=== PATIENT | female | born 1935 | race Caucasian/White ===

== ENCOUNTER → 2016-07-30 | Outpatient (CLI) | payer MEDICARE, OTHER ==
[~2016-07-30] MED LIST: ALEN70TA47 PO; ALN70T PO; ASP81TEC PO; CALC-754 PO; CALC-760 PO; CALC-80 PO; CHOL200035 PO; DICL100G13 TOP; DILT240C PO; DILT240C96 PO; FURO20TA4 PO; FURO40TA4 PO; HYDR-2890 PO; ISM60TCR PO; KCL20TCR PO; LEVO125T6 PO; LVT.1T PO; MULT-974 PO; OMEG-12 PO; OMEG-9 PO; OMEP-10 PO; ONDA4TAB11 PO; ONDA4TAB8 PO; POTA10TA6 PO; POTA20PI IV; POTA99TA7 PO; RIVA20TA2 PO; SCR1T1 PO; SMV20T PO; TRAM50TA2 PO; UBID100C17 PO; WARF5TAB PO; WRF2.5T PO; WRF5T PO; [UNRECOGNIZED DRUG - OTHER] PO; [UNRECOGNIZED DRUG - OTHER] PO; [UNRECOGNIZED DRUG - OTHER] PO
--- NOTE | 2016-07-30 13:17 | Diagnostic Imaging Report ---
PROCEDURE: MR imaging left lower extremity without contrast. TECHNIQUE: Multiplanar, multisequence non contrast enhanced MR imaging of the left midfoot and forefoot was accomplished. INDICATION: Midfoot pain. Assess for stress fracture. COMPARISON: None available. FINDINGS: There is no bone marrow edema within the metatarsals or tarsal bones of the midfoot to indicate acute/subacute stress fracture. There is a fine linear T1 hypointense line extending through the base of the fourth metatarsal, which could relate to old healed stress fracture. No cortical erosions or marrow replacing process to suggest osteomyelitis. No MRI findings to suggest neuropathic joint. There are degenerative changes at the third TMT articulation with subcortical cysts on both sides of the joint. There are also degenerative changes of the second TMT articulation with dorsal osteophyte formation and joint space narrowing. There is a crossover deformity of the fourth on the fifth toe. There is either a bipartite medial hallux sesamoid versus old transverse fracture through the proximal pole of the medial hallux sesamoid. The visualized flexor and extensor tendons of the foot are normal. No nodular thickening of the plantar fascia to suggest plantar fibromatosis. Nonspecific subcutaneous edema in the dorsal aspect of the midfoot and forefoot. IMPRESSION: 1. No evidence of acute/subacute tarsal or metatarsal stress fracture. 2. Possible old healed nondisplaced stress fracture of the base of the fourth metatarsal. 3. [id number]-ivkubzna degenerative changes at the tarsometatarsal articulation. No evidence of neuropathic arthropathy of the midfoot. Dictated by: Dictated on workstation # [id number]
== END ==
LOC: RAD 10:42
PROVIDERS: ATTEND Orthopaedic Surgery
DX: M19.072 Primary osteoarthritis, left ankle and foot (principal)

== ENCOUNTER → 2016-08-19 | Outpatient (CLI) | payer MEDICARE, OTHER ==
--- NOTE | 2016-08-19 20:21 | Diagnostic Imaging Report ---
EXAM: Digital mammogram, bilateral screening. The current study was also evaluated with a Computer Aided Detection (CAD) system. COMPARISON to the prior exams of 07/25/15, 07/05/14, 06/22/13, 03/17/12. At this time, there are no current complaints. FINDINGS: The fibroglandular tissue in both breasts is heterogeneously dense. This does limit the sensitivity of this exam. Overall, there does not appear to have been any significant change when compared to the prior study. No primary or secondary sign of malignancy is noted. IMPRESSION: There is no radiographic evidence for malignancy. ACR category one. ACR BI-RADS Category 1: Negative. Result letter will be mailed to the patient. Note: At least 10% of breast cancer is not imaged by mammography. Dictated by: Dictated on workstation # [id number]
== END ==
LOC: RAD 10:10
PROVIDERS: ATTEND Family Medicine
DX: Z12.31 Encounter for screening mammogram for malignant neoplasm of breast (principal)
CPT/HCPCS: 77067

== ENCOUNTER 2017-01-11 05:54 | Emergency (ER) | payer MEDICARE, OTHER ==
[~2017-01-11] VITALS: Ht 160 cm; Wt 79.4 kg
--- NOTE | 2017-01-11 06:06 | ED GU-Female ---
General Chief Complaint: -Female Stated Complaint: BLADDER INFECTION Source: patient, spouse Exam Limitations: no limitations History of Present Illness Time seen by provider: 06:02 Initial Comments Patient presents to ER by private conveyance with chief complaint of burning when she urinates starting just this morning when she woke up around 3 or 4. She has a history of urinary tract infections but no stones. She has not seen any blood in her urine. She has not had any discharge. She has not had any fevers chills nausea vomiting diarrhea. This morning was regular. She denies that she has a allergy to penicillins. She denies any other cost initial symptoms such weight loss sweats chills fevers malaise. She is with high blood pressure and hypothyroidism but has not taken her meds this morning yet. Allergies and Home Medications Allergies Coded Allergies: Penicillins (Verified Allergy, Unknown, 11/17/08) Home Medications Aspirin 81 Mg Tabec, 81 MG PO HS, (Reported) Calcium Carbonate/Vitamin D3 1 Each Tablet, 1 TAB PO BID, (Reported) Cholecalciferol (Vitamin D3) 2,000 Unit Capsule, 2,000 UNIT PO HS, (Reported) Diltiazem Hcl 240 Mg Cap.er.24h, 240 MG PO DAILY, (Reported) Levothyroxine Sodium 125 Mcg Tablet, 125 MCG PO DAILY, (Reported) Omeprazole 20 Mg Capsule.dr, 20 MG PO BID, #60 Ref 2 (Reported) Simvastatin 20 Mg Tab, 20 MG PO HS, (Reported) HAS NOT TAKEN IN AWHILE Warfarin Sodium 5 Mg Tablet, 5 MG PO DAILY for 2 Days TAKE 10 MG TONIGHT AND 5 MG SAT AND SUN RECHECK INR ON THURSDAY Prescribed by: NAHED SHOEMAKER on 07/22/13 1144 Constitutional: see HPI, No chills, No diaphoresis, No fever, No malaise Respiratory: No cough, No short of breath Gastrointestinal: No abdominal pain, No constipation, No diarrhea, No nausea, No vomiting Genitourinary: burning, denies discharge, dysuria, denies frequency, denies flank pain Musculoskeletal: No back pain, No joint pain Skin: No pruritus, No rash Psychiatric/Neurological: Denies Headache, Denies Numbness Endocrine: Denies Increased Thrist, Denies Increased Urine Hematologic/Lymphatic: Easy Bleeding, Easy Bruising Past Juxucro-Tqgrvt-Zmkstj Hx Patient Social History Alcohol Use: Denies Use Recreational Drug Use: No Smoking Status: Never a Smoker Recent Foreign Travel: No Contact w/Someone Who Travel: No Immunizations Up To Date Date of Pneumonia Vaccine: Feb 14, 2009 Date of Influenza Vaccine: Apr 15, 2013 Surgeries HX Surgeries: Yes Respiratory Hx Respiratory Disorders: No Cardiovascular Hx Cardiac Disorders: Yes Neurological Hx Neurological Disorders: Yes Reproductive System Hx Reproductive Disorders: No Sexually Transmitted Disease: 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 Genitourinary Hx Genitourinary Disorders: No Gastrointestinal Hx Gastrointestinal Disorders: No Musculoskeletal Hx Musculoskeletal Disorders: Yes (R KNEE REPLACEMENT) Endocrine Hx Endocrine Disorders: Yes HEENT HX ENT Disorders: No Cancer Hx Cancer: No Psychosocial Hx Psychiatric Problems: No Integumentary HX Skin/Integumentary Disorder: No Blood Transfusions Hx Blood Disorders: No Physical Exam Vital Signs Vital Sign - Last 12Hours 01/11/17 06:00 Temp 97.1 Pulse 81 Resp 20 B/P (MAP) 182/81 Capillary Refill : General Appearance: WD/WN, no apparent distress HEENT: PERRL/EOMI, pharynx normal Cardiovascular: normal peripheral pulses, regular rate, rhythm Respiratory: lungs clear, normal breath sounds Gastrointestinal: normal bowel sounds, non tender, soft Back: normal inspection, no CVA tenderness Neurologic/Psychiatric: alert, oriented x 3 Skin: normal color, warm/dry Progress/Results/Core Measures Results/Orders Lab Results Laboratory Tests Test 01/11/17 06:12 Range/Units Urine Color YELLOW Urine Clarity CLEAR Urine pH 7 5-9 Urine Specific [place] 1.005 L 1.016-1.022 Urine Protein 2+ H NEGATIVE Urine Glucose (UA) NEGATIVE NEGATIVE Urine Ketones NEGATIVE NEGATIVE Urine Nitrite NEGATIVE NEGATIVE Urine Bilirubin NEGATIVE NEGATIVE Urine Urobilinogen NORMAL NORMAL MG/DL Urine Leukocyte Esterase 3+ H NEGATIVE Urine RBC (Auto) 5+ H NEGATIVE Urine RBC 5-10 H /HPF Urine WBC 50-100 H /HPF Urine Squamous Epithelial Cells 2-5 /HPF Urine Crystals NONE /LPF Urine Bacteria FEW H /HPF Urine Casts NONE /LPF Urine Mucus NEGATIVE /LPF Urine Culture Indicated YES My Orders Orders - VALENTE CARBAJAL Ua Culture If Indicated (01/11/17 06:06) Urine Culture (01/11/17 06:12) Vital Signs/I&O Vital Sign - Last 12Hours 01/11/17 06:00 Temp 97.1 Pulse 81 Resp 20 B/P (MAP) 182/81 Departure Impression Impression: Primary Impression: Urinary tract infection Qualified Codes: N30.01 - Acute cystitis with hematuria Disposition: HOME, SELF-CARE Condition: Stable Departure-Patient Inst. Decision time for Depature: 06:31 Referrals: MAYKEL QUINONES MD (PCP/Family) Primary Care Physician Patient Instructions: Urinary Tract Infection, Adult (DC) Add. Discharge Instructions: Drink plenty of fluids. Take your antibiotics to completion. It is usually best take antibiotics with a meal. I also recommend you take probiotics twice daily to try and reduce the incidence of diarrhea while on antibiotics. If you're not feeling better by 3 days or you start to have high fevers or other worrisome symptoms you should return to your doctor or come back to the ER. Please asked her primary care physician to follow up the culture results of the urine in 2-3 days. If you're having mild discomfort it was reasonable to use Tylenol 1000 mg every 8 hours and/or ibuprofen 800 mg every 8 hours as needed. All discharge instructions reviewed with patient and/or family. Voiced understanding. Scripts Cephalexin (Keflex) 500 Mg Capsule 500 MG PO BID for 5 Days, #10 CAP 0 Refills Prov: VALENTE CARBAJAL 01/11/17 Copy Copies To 1: MAYKEL QUINONES MD, TITUS J Jan 11, 2017 06:06
[2017-01-11 06:16] LABS: BILIRUBIN,URINE NEGATIVE (NEGATIVE); KETONES,URINE NEGATIVE (NEGATIVE); LEUKOCYTE ESTERASE ,URINE 3+ (NEGATIVE); NITRITE,URINE NEGATIVE (NEGATIVE); PH,URINE 7 (5-9); PROTEIN,URINE 2+ (NEGATIVE); UROBILINOGEN,URINE NORMAL (NORMAL)
[2017-01-11 06:26] LABS: WBC,URINE 50-100 /HPF
[2017-01-11] MEDS ORDERED: CEPH-507 PO (06:32)
[2017-01-11] MEDS ORDERED: LIDOCAINE 1% INJ 20 ML (XYLOCAINE) VIAL INJ ONE (06:45)
[2017-01-11] MEDS ORDERED: cefTRIAXone 1 GM (ROCEPHIN) VIAL IM ONE (06:45)
[2017-01-11 06:55] VITALS: BP 182/81
== END 2017-01-11 06:55 | disposition home or self-care (01) ==
LOC: EDUNIT# 05:54 → ER 05:57
DX: N39.0 Urinary tract infection, site not specified (principal); Z96.651 Presence of right artificial knee joint; Z90.710 Acquired absence of both cervix and uterus; Z79.01 Long term (current) use of anticoagulants
CPT/HCPCS: 81000; 87088; 87186; 96372; 99284

== ENCOUNTER 2017-02-01 08:48 | Emergency (ER) | payer MEDICARE, OTHER ==
[~2017-02-01] VITALS: Ht 160 cm; Wt 79.4 kg
[~2017-02-01 08:48] MED LIST changes: +CEPH-507 PO
[2017-02-01 09:22] LABS: BILIRUBIN,URINE NEGATIVE (NEGATIVE); KETONES,URINE NEGATIVE (NEGATIVE); LEUKOCYTE ESTERASE ,URINE 3+ (NEGATIVE); NITRITE,URINE NEGATIVE (NEGATIVE); PH,URINE 6 (5-9); PROTEIN,URINE 2+ (NEGATIVE); UROBILINOGEN,URINE NORMAL (NORMAL)
[2017-02-01 09:34] LABS: WBC,URINE >100 /HPF
--- NOTE | 2017-02-01 09:51 | ED GU-Female ---
General Chief Complaint: -Female Stated Complaint: BLADDER INFECTION Nursing Triage Note: PT CO OF UTI SX, FREQUENCY,PAIN, URGENCY FOR A COUPLE DAYS Nursing Sepsis Screen: No Definite Risk Source: patient Exam Limitations: no limitations History of Present Illness Time seen by provider: 09:00 Initial Comments C/O UTI SYMPTOMS SINCE YESTERDAY STATES SYMPTOMS WERE MILD YESTERDAY, BUT WORSE TODAY C/O BURNING, URGENCY, FREQUENCY, SMALL AMOUNTS AND SOME PAIN OVER BLADDER AREA NO FEVER NO NAUSEA/VOMITING HAS MILD LOWER BACK PAIN , BUT IS CHRONIC PROBLEM PT WAS SEEN HERE 3 WEEKS AGO FOR SAME ON 01/11/17 AND GIVEN RX FOR KEFLEX 500 MG BID X 5 DAYS STATES SYMPTOMS WERE BETTER AND THEN RETURNED YESTERDAY CULTURE GREW OUT E. COLI AND IS MCKEON-SENSITIVE PCP: DR. QUINONES Allergies and Home Medications Allergies Coded Allergies: Penicillins (Verified Allergy, Unknown, 11/17/08) Home Medications Aspirin 81 Mg Tabec, 81 MG PO HS, (Reported) Calcium Carbonate/Vitamin D3 1 Each Tablet, 1 TAB PO BID, (Reported) Cephalexin 500 Mg Capsule, 500 MG PO BID for 5 Days, #10 Ref 0 Prescribed by: VALENTE CARBAJAL on 01/11/17 0632 Cholecalciferol (Vitamin D3) 2,000 Unit Capsule, 2,000 UNIT PO HS, (Reported) Diltiazem Hcl 240 Mg Cap.er.24h, 240 MG PO DAILY, (Reported) Levothyroxine Sodium 125 Mcg Tablet, 125 MCG PO DAILY, (Reported) Nitrofurantoin Monohyd/M-Cryst 100 Mg Capsule, 100 MG PO BID, #30 Prescribed by: AVILA WISNTON on 02/01/17 0952 Omeprazole 20 Mg Capsule.dr, 20 MG PO BID, #60 Ref 2 (Reported) Phenazopyridine HCl 200 Mg Tablet, 1 TAB PO TID, #15 Prescribed by: AVILA WINSTON on 02/01/17 0952 Simvastatin 20 Mg Tab, 20 MG PO HS, (Reported) HAS NOT TAKEN IN AWHILE Warfarin Sodium 5 Mg Tablet, 5 MG PO DAILY for 2 Days TAKE 10 MG TONIGHT AND 5 MG SAT AND SUN RECHECK INR ON THURSDAY Prescribed by: NAHED SHOEMAKER on 07/22/13 1144 Constitutional: no symptoms reported Respiratory: no symptoms reported Cardiovascular: no symptoms reported Gastrointestinal: see HPI, abdominal pain, No nausea, No vomiting Genitourinary: see HPI, burning, dysuria, frequency, flank pain, denies hematuria, denies incontinence, pain, urgency Musculoskeletal: see HPI, back pain Skin: no symptoms reported Psychiatric/Neurological: No Symptoms Reported Endocrine: No Symptoms Reported Hematologic/Lymphatic: No Symptoms Reported Past Ticcryq-Bxyghr-Vbeqgr Hx Patient Social History Alcohol Use: Denies Use Recreational Drug Use: No Smoking Status: Never a Smoker Recent Foreign Travel: No Contact w/Someone Who Travel: No Recent Infectious Disease Expo: No Recent Hopitalizations: No Immunizations Up To Date Date of Pneumonia Vaccine: Feb 14, 2009 Date of Influenza Vaccine: Apr 15, 2013 Surgeries HX Surgeries: Yes (RIGHT KNEE REPLACEMENT) Surgeries: Hysterectomy, Joint Replacement, Orthopedic Respiratory Hx Respiratory Disorders: No Cardiovascular Hx Cardiac Disorders: Yes Cardiac Disorders: Atrial Fibrillation, High Cholesterol, Hypertension Neurological Hx Neurological Disorders: Yes Neurological Disorders: Stroke Reproductive System Hx Reproductive Disorders: No Sexually Transmitted Disease: No 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 Genitourinary Hx Genitourinary Disorders: No Gastrointestinal Hx Gastrointestinal Disorders: No Musculoskeletal Hx Musculoskeletal Disorders: Yes (R KNEE REPLACEMENT) Musculoskeletal Disorders: Chronic Back Pain Endocrine Hx Endocrine Disorders: Yes HEENT HX ENT Disorders: No Cancer Hx Cancer: No Psychosocial Hx Psychiatric Problems: No Integumentary HX Skin/Integumentary Disorder: No Blood Transfusions Hx Blood Disorders: No Physical Exam Vital Signs Vital Sign - Last 12Hours 02/01/17 08:55 Temp 97.6 Pulse 76 Resp 18 B/P (MAP) 174/83 Pulse Ox 98 Capillary Refill : Less Than 3 Seconds General Appearance: WD/WN, no apparent distress, other (WELL GROOMED, HAIR FIXED AND FULL MAKEUP ON , TEXTING) Neck: normal inspection Cardiovascular: no JVD, no murmur, irregularly irregular Respiratory: normal breath sounds, no respiratory distress, no accessory muscle use Gastrointestinal: normal bowel sounds, soft, no organomegaly, no pulsatile mass , No distended, No guarding, No rebound, tenderness (MILD SUPRAPUBIC TENDERNESS) , No hernia, No mass Back: other (MILD DIFFUSE LOWER BACK TENDERNESS) Extremities: normal inspection, no pedal edema, no calf tenderness, normal capillary refill Neurologic/Psychiatric: japanese interpreter II-XII nml as tested, no motor/sensory deficits, alert, normal mood/affect, oriented x 3 Skin: normal color, warm/dry Progress/Results/Core Measures Results/Orders Lab Results Laboratory Tests Test 02/01/17 09:00 Range/Units Urine Color YELLOW Urine Clarity SLIGHTLY CLOUDY Urine pH 6 5-9 Urine Specific [place] 1.010 L 1.016-1.022 Urine Protein 2+ H NEGATIVE Urine Glucose (UA) NEGATIVE NEGATIVE Urine Ketones NEGATIVE NEGATIVE Urine Nitrite NEGATIVE NEGATIVE Urine Bilirubin NEGATIVE NEGATIVE Urine Urobilinogen NORMAL NORMAL MG/DL Urine Leukocyte Esterase 3+ H NEGATIVE Urine RBC (Auto) 5+ H NEGATIVE Urine RBC 5-10 H /HPF Urine WBC >100 H /HPF Urine Crystals NONE /LPF Urine Bacteria TRACE /HPF Urine Casts NONE /LPF Urine Mucus SMALL H /LPF Urine Culture Indicated YES My Orders Orders - AVILA WINSTON DO Ua Culture If Indicated (02/01/17 09:04) Urine Culture (02/01/17 09:00) Vital Signs/I&O Vital Sign - Last 12Hours 02/01/17 02/01/17 08:55 09:58 Temp 97.6 Pulse 76 72 Resp 18 18 B/P (MAP) 174/83 Pulse Ox 98 98 Blood Pressure Mean: 113 Departure Impression Impression: Primary Impression: Urinary tract infection Disposition: HOME, SELF-CARE Condition: Stable Departure-Patient Inst. Referrals: MAYKEL QUINONES MD (PCP/Family) Primary Care Physician Patient Instructions: Urinary Tract Infection, Adult (DC) Add. Discharge Instructions: LOTS OF CLEAR LIQUIDS--NO COFFEE, POP OR TEA FOLLOW UP WITH DR. QUINONES IN 3-5 DAYS FOR FURTHER CARE All discharge instructions reviewed with patient and/or family. Voiced understanding. Scripts Nitrofurantoin Monohyd/M-Cryst (Macrobid 100 mg Capsule) 100 Mg Capsule 100 MG PO BID, #30 CAP Prov: AVILA WINSTON DO 02/01/17 Phenazopyridine HCl (Pyridium) 200 Mg Tablet 1 TAB PO TID for BLADDER DISCOMFORT, #15 TAB Prov: AVILA WINSTON DO 02/01/17 AVILA WINSTON DO Feb 01, 2017 09:51
[2017-02-01] MEDS ORDERED: NITR-65 PO (09:52)
[2017-02-01] MEDS ORDERED: PHEN-640 PO (09:52)
[2017-02-01 09:58] VITALS: BP 166/80
== END 2017-02-01 09:58 | disposition home or self-care (01) ==
LOC: EDUNIT# 08:48 → ER 08:50
DX: N39.0 Urinary tract infection, site not specified (principal); I48.91 Unspecified atrial fibrillation; E78.00 Pure hypercholesterolemia, unspecified; I10 Essential (primary) hypertension; Z79.01 Long term (current) use of anticoagulants; Z79.82 Long term (current) use of aspirin; Z86.73 Personal history of transient ischemic attack (TIA), and cerebral infarction without residual deficits; Z90.710 Acquired absence of both cervix and uterus; Z96.661 Presence of right artificial ankle joint
CPT/HCPCS: 81000; 87088; 87186; 99282

== ENCOUNTER 2017-02-11 14:09 | Emergency (ER) | payer MEDICARE, OTHER ==
[~2017-02-11] VITALS: Ht 160 cm; Wt 79.4 kg
[~2017-02-11 14:09] MED LIST changes: +NITR-65 PO; +PHEN-640 PO
[2017-02-11] MEDS ORDERED: ONDANSETRON 4 MG/2 ML (SDV) Z0FRAN IVP ONE (15:00)
--- NOTE | 2017-02-11 15:03 | ED GU-Female ---
General Chief Complaint: -Female Stated Complaint: RUNNING FEVER Nursing Triage Note: c/o urinary frequency. States she was up all night "peeing". Hx of UTI 2 weeks ago. Nursing Sepsis Screen: No Definite Risk Source: patient Exam Limitations: no limitations History of Present Illness Time seen by provider: 14:55 Initial Comments Patient presents to ER by private conveyance with chief complaint that she was diagnosed with a urinary tract infection January 11 by this provider in the ER and was started on Keflex. She says she started feeling better but never totally back to normal. She then came back on 02 February proximally 21 days later and was seen by another ER provider and still had a urinary tract infection. The Escherichia coli grew out the first urine culture was sensitive to Keflex and was pansensitive. She was then put on Macrobid and review of the last urine culture still shows Escherichia coli is pansensitive. She states that she did not really start feeling any better and this Thursday 2 days ago she started having a fever of 101F and some right flank and back pain. She still having a little dysuria and feels very sick. She has mild nausea and took some over-the- counter nausea medicine that made it better. She has not vomited nor has she any nausea diarrhea or rash or chest pain. She has baseline for shortness of breath. She states that she is taking the medicines on time as prescribed. She denies a history of frequent UTIs. She's never had a kidney stone. Allergies and Home Medications Allergies Coded Allergies: Penicillins (Verified Allergy, Unknown, 11/17/08) Home Medications Aspirin 81 Mg Tabec, 81 MG PO HS, (Reported) Calcium Carbonate/Vitamin D3 1 Each Tablet, 1 TAB PO BID, (Reported) Cephalexin 500 Mg Capsule, 500 MG PO BID for 5 Days, #10 Ref 0 Prescribed by: VALENTE CARBAJAL on 01/11/17 0632 Cholecalciferol (Vitamin D3) 2,000 Unit Capsule, 2,000 UNIT PO HS, (Reported) Diltiazem Hcl 240 Mg Cap.er.24h, 240 MG PO DAILY, (Reported) Levothyroxine Sodium 125 Mcg Tablet, 125 MCG PO DAILY, (Reported) Nitrofurantoin Monohyd/M-Cryst 100 Mg Capsule, 100 MG PO BID, #30 Prescribed by: AVILA WINSTON on 02/01/17 0952 Omeprazole 20 Mg Capsule.dr, 20 MG PO BID, #60 Ref 2 (Reported) Phenazopyridine HCl 200 Mg Tablet, 1 TAB PO TID, #15 Prescribed by: AVILA WINSTON on 02/01/17 0952 Simvastatin 20 Mg Tab, 20 MG PO HS, (Reported) HAS NOT TAKEN IN AWHILE Warfarin Sodium 5 Mg Tablet, 5 MG PO DAILY for 2 Days TAKE 10 MG TONIGHT AND 5 MG SAT AND SUN RECHECK INR ON THURSDAY Prescribed by: NAHED SHOEMAKER on 07/22/13 1144 Constitutional: chills, No diaphoresis, fever (yesterday), malaise EENTM: No ear pain, No double vision Respiratory: No cough, No short of breath Cardiovascular: No chest pain, No palpitations Gastrointestinal: abdominal pain, No constipation, No diarrhea, nausea, No vomiting Genitourinary: burning, denies discharge, dysuria, frequency : No Musculoskeletal: back pain (right flank and back ), No joint pain, No joint swelling Skin: No pruritus, No rash Psychiatric/Neurological: Denies Headache, Denies Numbness, Denies Paresthesia Past Snhtgsa-Xgoept-Jajsui Hx Patient Social History Recent Foreign Travel: No Contact w/Someone Who Travel: No Recent Infectious Disease Expo: No Recent Hopitalizations: No Immunizations Up To Date Date of Pneumonia Vaccine: Feb 14, 2009 Date of Influenza Vaccine: Apr 15, 2013 Surgeries History of Surgeries: Yes (HYSTERECTOMY ) Surgeries: Hysterectomy, Joint Replacement, Orthopedic Respiratory History of Respiratory Disorde: No Cardiovascular History of Cardiac Disorders: Yes Cardiac Disorders: Atrial Fibrillation, High Cholesterol, Hypertension Neurological History of Neurological Disord: Yes Neurological Disorders: Stroke Reproductive System Hx Reproductive Disorders: No Sexually Transmitted Disease: No 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 Gastrointestinal History of Gastrointestinal Di: No Musculoskeletal History of Musculoskeletal Dis: Yes (R KNEE REPLACEMENT) Musculoskeletal Disorders: Chronic Back Pain Endocrine History of Endocrine Disorders: Yes Cancer History of Cancer: No Psychosocial History of Psychiatric Problem: No Integumentary History of Skin or Integumenta: No Blood Transfusions History of Blood Disorders: No Physical Exam Vital Signs Vital Sign - Last 12Hours 02/11/17 14:51 Temp 97.0 Pulse 70 Resp 16 B/P (MAP) 118/55 O2 Delivery Room Air Capillary Refill : Less Than 3 Seconds General Appearance: WD/WN, no apparent distress HEENT: PERRL/EOMI, pharynx normal Neck: non-tender, normal inspection Cardiovascular: normal peripheral pulses, no edema, irregularly irregular Respiratory: chest non-tender, lungs clear, normal breath sounds Gastrointestinal: normal bowel sounds, non tender, soft Back: normal inspection, CVA tenderness (R) Extremities: normal inspection, normal capillary refill Neurologic/Psychiatric: alert, oriented x 3 Skin: normal color, warm/dry Lymphatic: no adenopathy Focused Exam Evaluation Lactate Level Laboratory Tests 02/11/17 15:15: Lactic Acid Level 1.60 Lactic Acid Level Laboratory Tests Test 02/11/17 15:15 Lactic Acid Level 1.60 MMOL/L (0.50-2.00) Progress/Results/Core Measures Results/Orders Lab Results Laboratory Tests Test 02/11/17 15:15 02/11/17 15:55 Range/Units White Blood Count 5.7 4.3-11.0 10^3/uL Red Blood Count 4.84 4.35-5.85 10^6/uL Hemoglobin 15.1 11.5-16.0 G/DL Hematocrit 44 35-52 % Mean Corpuscular Volume 91 80-99 FL Mean Corpuscular Hemoglobin 31 25-34 PG Mean Corpuscular Hemoglobin Concent 34 32-36 G/DL Red Cell Distribution Width 13.4 10.0-14.5 % Platelet Count 241 130-400 10^3/uL Mean Platelet Volume 10.2 7.4-10.4 FL Neutrophils (%) (Auto) 66 42-75 % Lymphocytes (%) (Auto) 16 12-44 % Monocytes (%) (Auto) 14 H 0-12 % Eosinophils (%) (Auto) 3 0-10 % Basophils (%) (Auto) 1 0-10 % Neutrophils # (Auto) 3.8 1.8-7.8 X 10^3 Lymphocytes # (Auto) 0.9 L 1.0-4.0 X 10^3 Monocytes # (Auto) 0.8 0.0-1.0 X 10^3 Eosinophils # (Auto) 0.2 0.0-0.3 10^3/uL Basophils # (Auto) 0.1 0.0-0.1 10^3/uL Sodium Level 137 135-145 MMOL/L Potassium Level 3.7 3.6-5.0 MMOL/L Chloride Level 104 98-107 MMOL/L Carbon Dioxide Level 21 21-32 MMOL/L Anion Gap 12 5-14 MMOL/L Blood Urea Nitrogen 16 7-18 MG/DL Creatinine 0.91 0.60-1.30 MG/DL Estimat Glomerular Filtration Rate 59 BUN/Creatinine Ratio 18 Glucose Level 134 H 70-105 MG/DL Lactic Acid Level 1.60 0.50-2.00 MMOL/L Calcium Level 9.0 8.5-10.1 MG/DL Total Bilirubin 0.6 0.1-1.0 MG/DL Aspartate Amino Transf (AST/SGOT) 21 5-34 U/L Alanine Aminotransferase (ALT/SGPT) 26 0-55 U/L Alkaline Phosphatase 112 40-136 U/L Total Protein 6.8 6.4-8.2 GM/DL Albumin 3.9 3.2-4.5 GM/DL Urine Color ADRIA H Urine Clarity SLIGHTLY CLOUDY Urine pH 5 5-9 Urine Specific [place] 1.025 H 1.016-1.022 Urine Protein 2+ H NEGATIVE Urine Glucose (UA) NEGATIVE NEGATIVE Urine Ketones 1+ H NEGATIVE Urine Nitrite NEGATIVE NEGATIVE Urine Bilirubin 2+ H NEGATIVE Urine Urobilinogen 4 H NORMAL MG/DL Urine Leukocyte Esterase 2+ H NEGATIVE Urine RBC (Auto) 1+ H NEGATIVE Urine RBC 0-2 /HPF Urine WBC 0-2 /HPF Urine Squamous Epithelial Cells 10-25 H /HPF Urine Crystals NONE /LPF Urine Bacteria NEGATIVE /HPF Urine Casts PRESENT /LPF Urine Hyaline Casts 0-2 H /LPF Urine Mucus LARGE H /LPF Urine Culture Indicated NO My Orders Orders - VALENTE CARBAJAL Cbc With Automated Diff (02/11/17 14:47) Comprehensive Metabolic Panel (02/11/17 14:47) Ua Culture If Indicated (02/11/17 14:47) Ondansetron Injection (Zofran Injectio (02/11/17 15:00) Lactic Acid Analyzer (02/11/17 14:47) Ct Abd/Pelvis Wo(Kidney Stone) (02/11/17 15:03) Medications Given in ED Current Medications Medications Dose Ordered Sig/[place] Route Start Time Stop Time Status Last Admin Dose Admin Ondansetron HCl 4 mg ONCE ONCE IVP 02/11/17 15:00 02/11/17 15:01 DC 02/11/17 15:30 4 MG Vital Signs/I&O Vital Sign - Last 12Hours 02/11/17 14:51 Temp 97.0 Pulse 70 Resp 16 B/P (MAP) 118/55 O2 Delivery Room Air Blood Pressure Mean: 76 Progress Note #1: Time: 15:27 Progress Note She is been treated with 2 different drugs now for Escherichia coli that is pansensitive and still having fevers despite being on the Macrobid for over 1 week. Mild nausea without vomiting. We'll check a lactate and recheck urine in white cell count as well as her kidney function. This is undertreated pyelonephritis versus's or anatomic issue or possibly stone or malignancy #get a CT scan kidney stone study. Progress Note #2: Time: 17:06 Progress Note Patient's labs not all that remarkable her CT scan didn't show anything acute. Her urine was contaminated however didn't show hallmarks of infection. I would have her stop the antibiotics as these could be explaining her malaise and tiredness. Her fever on Thursday may be from a virus or something else you will don't have in isolation for it yet. I have suggested to her to call her PCP to be seen this week before the weekend and follow up to see if anything changed. If she has any new symptoms she should return here. I'm afraid if we switch up her antibiotics as per previous plan put her on Bactrim or some other similar drugs that we would risk pushing her towards colitis without any obvious gain. Diagnostic Imaging Diagonstic Imaging: CT Plain Films/CT/US/NM/MRI: abdomen, pelvis Comments Phlebolith was seen in the pelvis but no definitive kidney stone. Gallbladder is mildly enlarged but there is no gallbladder wall thickening, stones or inflammation. No dilatation of the renals or ureters. [facility] [place] [place] NAME: TERESA GARNICA [facility] REC#: [id number] PT STATUS: REG ER : 1935 PHYSICIAN: VALENTE CARBAJAL MD ADMIT DATE: 02/11/17/ER Draft Date of Exam:02/11/17 CT ABD/PELVIS WO(KIDNEY STONE) PROCEDURE: CT urinary tract, rule out kidney stone. TECHNIQUE: Multiple contiguous axial images were obtained through the abdomen and pelvis without the use of intravenous contrast. INDICATION: Bladder infection for one month. Back pain and fever for one week. FINDINGS: There is cardiomegaly. The lung bases are clear. The liver, gallbladder, and bile ducts are normal. The spleen, pancreas, and adrenals are normal. The kidneys, ureters, and bladder are normal. There is diverticulosis of the colon with no evidence of diverticulitis or other acute bowel abnormality. There is no free intraperitoneal air or fluid. IMPRESSION: No acute abnormality is seen. Dictated on workstation # [id number] Dict: 02/11/17 1552 Trans: 02/11/17 1556 [id number] Interpreted by: GAVIN CALDERÓN MD Electronically signed by: Reviewed: Reviewed by Me Departure Impression Impression: Primary Impression: Nausea and vomiting Disposition: 01 HOME, SELF-CARE Condition: Stable Departure-Patient Inst. Decision time for Depature: 17:09 Referrals: MAYKEL QUINONES MD (PCP/Family) Primary Care Physician Patient Instructions: Urinary Tract Infection, Adult (DC) Add. Discharge Instructions: Drink plenty of fluids to continue flushing kidneys. Follow up with your PCP by calling her office tomorrow morning at [phone]. Try to be seen if possible this week for the weekend. However if you develop new or worsening symptoms such as fever, intractable nausea and vomiting that did not respond to your Zofran, diarrhea or abdominal pain or other symptoms he should return to the ER or go to your primary care physician which ever is more appropriate. Please discontinue your antibiotics at this time. All discharge instructions reviewed with patient and/or family. Voiced understanding. Copy Copies To 1: MAYKEL QUINONES MD, TITUS J Feb 11, 2017 15:03
[2017-02-11 15:26] LABS: BASOPHILS # (AUTO) 0.1 10^3/uL (0.0-0.1); BASOPHILS % (AUTO) 1 % (0-10); EOSINOPHILS # (AUTO) 0.2 10^3/uL (0.0-0.3); EOSINOPHILS % (AUTO) 3 % (0-10); LYMPHOCYTES # (AUTO) 0.9 X 10^3 (1.0-4.0); LYMPHOCYTES % (AUTO) 16 % (12-44); MEAN CORPUSCULAR HEMOGLOBIN 31 PG (25-34); MEAN CORPUSCULAR HGB CONC 34 G/DL (32-36); MEAN CORPUSCULAR VOLUME 91 FL (80-99); MEAN PLATELET VOLUME 10.2 FL (7.4-10.4); MONOCYTES # (AUTO) 0.8 X 10^3 (0.0-1.0); MONOCYTES % (AUTO) 14 % (0-12); NEUTROPHILS # (AUTO) 3.8 X 10^3 (1.8-7.8); NEUTROPHILS % (AUTO) 66 % (42-75); PLATELET COUNT 241 10^3/uL (130-400); RED BLOOD COUNT 4.84 10^6/uL (4.35-5.85); RED CELL DISTRIBUTION WIDTH 13.4 % (10.0-14.5); WHITE BLOOD COUNT 5.7 10^3/uL (4.3-11.0)
[2017-02-11 15:49] LABS: ALBUMIN 3.9 GM/DL (3.2-4.5); BILIRUBIN,TOTAL 0.6 MG/DL (0.1-1.0); CREATININE SERUM 0.91 MG/DL (0.60-1.30); POTASSIUM 3.7 MMOL/L (3.6-5.0); TOTAL PROTEIN 6.8 GM/DL (6.4-8.2)
--- NOTE | 2017-02-11 15:56 | Diagnostic Imaging Report ---
PROCEDURE: CT urinary tract, rule out kidney stone. TECHNIQUE: Multiple contiguous axial images were obtained through the abdomen and pelvis without the use of intravenous contrast. INDICATION: Bladder infection for one month. Back pain and fever for one week. FINDINGS: There is cardiomegaly. The lung bases are clear. The liver, gallbladder, and bile ducts are normal. The spleen, pancreas, and adrenals are normal. The kidneys, ureters, and bladder are normal. There is diverticulosis of the colon with no evidence of diverticulitis or other acute bowel abnormality. There is no free intraperitoneal air or fluid. IMPRESSION: No acute abnormality is seen. Dictated by: Dictated on workstation # [id number]
[2017-02-11 16:13] LABS: KETONES,URINE 1+ (NEGATIVE); LEUKOCYTE ESTERASE ,URINE 2+ (NEGATIVE); NITRITE,URINE NEGATIVE (NEGATIVE); PH,URINE 5 (5-9); PROTEIN,URINE 2+ (NEGATIVE); UROBILINOGEN,URINE 4 MG/DL (NORMAL)
[2017-02-11 16:38] LABS: WBC,URINE 0-2 /HPF
[2017-02-11 16:39] LABS: HYALINE CASTS, URINE 0-2 /LPF
[2017-02-11 16:43] LABS: BILIRUBIN,URINE 2+ (NEGATIVE)
[2017-02-11 17:18] VITALS: BP 116/60
== END 2017-02-11 17:18 | disposition home or self-care (01) ==
LOC: EDUNIT# 14:09 → ER 14:12
DX: R11.2 Nausea with vomiting, unspecified (principal); E78.00 Pure hypercholesterolemia, unspecified; G89.29 Other chronic pain; M54.9 Dorsalgia, unspecified; I48.91 Unspecified atrial fibrillation; I10 Essential (primary) hypertension; Z96.651 Presence of right artificial knee joint; Z90.710 Acquired absence of both cervix and uterus; Z79.01 Long term (current) use of anticoagulants; Z79.82 Long term (current) use of aspirin; Z87.440 Personal history of urinary (tract) infections
CPT/HCPCS: 36415; 74176; 80053; 81000; 83605; 85025; 96374; 99282

== ENCOUNTER → 2017-04-07 | Outpatient (CLI) | payer MEDICARE, OTHER ==
--- NOTE | 2017-04-07 13:20 | Diagnostic Imaging Report ---
PA and lateral views of the chest. INDICATION: Chest pain. FINDINGS: The lungs are hyperinflated. No focal airspace opacity. The heart is moderately enlarged. No effusion or pneumothorax. The mediastinum and nael appear unremarkable. IMPRESSION: COPD. Cardiomegaly. Dictated by: Dictated on workstation # [id number]
== END ==
LOC: RAD 11:04
PROVIDERS: ATTEND Physician Assistant
DX: J44.9 Chronic obstructive pulmonary disease, unspecified (principal); I51.7 Cardiomegaly; I10 Essential (primary) hypertension; I65.23 Occlusion and stenosis of bilateral carotid arteries
CPT/HCPCS: 71020

== ENCOUNTER → 2017-09-10 | Outpatient (CLI) | payer MEDICARE, OTHER ==
--- NOTE | 2017-09-10 10:42 | Diagnostic Imaging Report ---
INDICATION: Routine screening. COMPARISON: 08/19/2016 and 07/25/2015. TECHNIQUE: Screening digital mammography was performed bilaterally with a Computer Aided Detection (CAD) system. FINDINGS: Both breasts show moderate parenchymal heterogeneity and increased density, limiting the sensitivity of mammography. Scattered benign-appearing parenchymal and vascular calcifications are noted. No mass or malignant appearing microcalcifications are seen. The axillae are unremarkable. IMPRESSION: No mammographic features suspicious for malignancy are identified. ACR BI-RADS Category 2: Benign findings. Result letter will be mailed to the patient. Note: At least 10% of breast cancer is not imaged by mammography. Dictated by: Dictated on workstation # [id number]
== END ==
LOC: RAD 09:22
PROVIDERS: ATTEND Family Medicine
DX: Z12.31 Encounter for screening mammogram for malignant neoplasm of breast (principal)
CPT/HCPCS: 77067

== ENCOUNTER 2017-12-04 05:07 | Emergency (ER) | payer MEDICARE, OTHER ==
[~2017-12-04] VITALS: Ht 160 cm; Wt 79.6 kg
--- OUTSIDE RECORDS SUMMARY | 2017-12-04 05:18 | XMS REPORT | CCD ---
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 Name Role Phone PP Unavailable CCM Unavailable Summary Purpose Interface Exchange Insurance Providers Payer name Policy type / Coverage type Covered green party ID Effective Begin Date Effective End Date WPS Medicare Part B Medicare Part B [id number] 2017 Unknown [employer] [facility] [employer] Medicare Part B [id number] Unknown Family history Sister Diagnosis Age At Onset No Family Disease Entered N/A Runs in the family Diagnosis Age At Onset Heart disease Unknown Social History Social History Element Codes Description Effective Dates Employment Unknown Retired 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 ICD-9: V58.61 ICD-10: Z79.01 Active 06/22/2016 Unknown Atrophy of thyroid (acquired) ICD-9: 244.8 ICD-10: E03.4 Active 08/12/2016 Unknown Essential (primary) hypertension ICD-9: 401.1 ICD-10: I10 Active 06/22/2016 Unknown Slow transit constipation ICD-9: 564.01 ICD-10: K59.01 Active 03/10/2017 Unknown Urinary tract infection, site not specified ICD-9: 599.0 ICD-10: N39.0 Active 02/05/2017 Unknown Cough ICD-9: 786.2 ICD-10: R05 Active 06/10/2015 Unknown Other allergic rhinitis ICD-9: 477.8 ICD-10: J30.89 Active 02/05/2017 Unknown Encounter for immunization ICD-9: V03.89 ICD-10: Z23 Active 09/09/2016 Unknown Mixed hyperlipidemia ICD-9: 272.2 ICD-10: E78.2 Active 02/06/2016 Unknown Other idiopathic peripheral autonomic neuropathy ICD-9: 337.00 ICD-10: G90.09 Active 05/11/2016 Unknown Localized edema ICD-9 : 782.3 ICD-10: R60.0 Active 06/22/2016 Unknown 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 ICD-9: 729.72 ICD-10: M79.A21 Active 05/11/2016 Unknown Cervicalgia ICD-9: 723.1 ICD-10: M54.2 Active 12/09/2015 Unknown Hypothyroidism, unspecified ICD-9: 244.9 ICD-10: E03.9 Active 12/09/2015 Unknown Acute laryngopharyngitis ICD-9: 465.0 ICD-10: J06.0 Active 10/17/2015 Unknown Acute recurrent maxillary sinusitis ICD-9: 461.0 ICD-10: J01.01 Active 10/17/2015 Unknown Allergic rhinitis due to pollen ICD-9: 477.0 ICD-10: J30.1 Active 10/17/2015 Unknown Essential (primary) hypertension ICD-9: 401.9 ICD-10: I10 Active 10/14/2015 Unknown Acute bronchitis due to other specified organisms ICD-9: 466.0 ICD-10: J20.8 Active 08/27/2015 Unknown A-fib ICD-9: 427.31 Active 10/15/2014 Unknown ESSENTIAL HYPERTENSION ICD-9: 401.9 Active 10/15/2014 Unknown INSECT BITE FOREARM ICD-9: 913.4 Active 03/06/2015 Unknown VACCIN FOR INFLUENZA ICD-9: V04.81 Active 03/06/2015 Unknown Cellulitis of leg ICD- 9: 682.6 Active 02/14/2015 Unknown Atrial fibrillation Unknown Active 10/16/2014 Unknown Hypertension Unknown Active 10/16/2014 Unknown Hypothyroid Unknown Active 10/16/2014 Unknown Cough ICD-9: 786.2 Active 10/15/2014 Unknown Rash ICD-9: 782.1 Active 10/15/2014 Unknown Problems Condition Codes Effective Dates Condition Status Dysuria ICD-9: 788.1 ICD-10: R30.0 12/09/2015 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-9: 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.61 ICD-10: Z79.01 06/22/2016 Active Atrophy of thyroid (acquired) ICD-9: 244.8 ICD-10: E03.4 08/12/2016 Active Essential (primary) hypertension ICD-9: 401.1 ICD-10: I10 06/22/2016 Active Slow transit constipation ICD-9: 564.01 ICD-10: K59.01 03/10/2017 Active Urinary tract infection, site not specified ICD-9: 599.0 ICD-10: N39.0 02/05/2017 Active Cough ICD-9: 786.2 ICD-10: R05 06/10/2015 Active Other allergic rhinitis ICD-9: 477.8 ICD-10: J30.89 02/05/2017 Active Encounter for immunization ICD-9: V03.89 ICD-10: Z23 09/09/2016 Active Mixed hyperlipidemia ICD-9: 272.2 ICD-10: E78.2 02/06/2016 Active Other idiopathic peripheral autonomic neuropathy ICD-9: 337.00 ICD-10: G90.09 05/11/2016 Active Localized edema ICD-9 : 782.3 ICD-10: R60.0 06/22/2016 Active 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 ICD-9: 729.72 ICD-10: M79.A21 05/11/2016 Active Cervicalgia ICD-9: 723.1 ICD-10: M54.2 12/09/2015 Active Hypothyroidism, unspecified ICD-9: 244.9 ICD-10: E03.9 12/09/2015 Active Acute laryngopharyngitis ICD-9: 465.0 ICD-10: J06.0 10/17/2015 Active Acute recurrent maxillary sinusitis ICD-9: 461.0 ICD-10: J01.01 10/17/2015 Active Allergic rhinitis due to pollen ICD-9: 477.0 ICD-10: J30.1 10/17/2015 Active Essential (primary) hypertension ICD-9: 401.9 ICD-10: I10 10/14/2015 Active Acute bronchitis due to other specified organisms ICD-9: 466.0 ICD-10: J20.8 08/27/2015 Active A-fib ICD-9: 427.31 10/15/2014 Active ESSENTIAL HYPERTENSION ICD-9: 401.9 10/15/2014 Active INSECT BITE FOREARM ICD-9: 913.4 03/06/2015 Active VACCIN FOR INFLUENZA ICD-9: V04.81 03/06/2015 Active Cellulitis of leg ICD- 9: 682.6 02/14/2015 Active Atrial fibrillation Unknown 10/16/2014 Active Hypertension Unknown 10/16/2014 Active Hypothyroid Unknown 10/16/2014 Active Cough ICD-9: 786.2 10/15/2014 Active Rash ICD-9: 782.1 10/15/2014 Active Medications Medication Codes Instructions Start Date Stop Date Status Fill Instructions warfarin 5 mg tablet RxNorm: 442517 Tablet(s) TAKE 1 TABLET EVERY DAY 07/22/2017 04/17/2018 Active Keflex 500 mg capsule RxNorm: 639911 1 Capsule(s) PO TID 201707/06/2017 Inactive Augmentin 500 mg-125 mg tablet RxNorm: 452766 1 Tablet(s) PO BID 06/10/2017 06/16/2017 Inactive Augmentin 500 mg-125 mg tablet RxNorm: 011815 1 Tablet(s) PO BID 05/26/2017 06/01/2017 Inactive Augmentin 500 mg-125 mg tablet RxNorm: 999065 1 Tablet(s) PO BID 05/26/2017 05/25/2017 Inactive Augmentin 500 mg-125 mg tablet RxNorm: 694972 1 Tablet(s) PO BID 02/23/2017 02/22/2017 Inactive Augmentin 500 mg-125 mg tablet RxNorm: 130116 1 Tablet(s) PO BID 02/23/2017 03/01/2017 Inactive Zofran 4 mg tablet RxNorm: 832461 1 Tablet(s) PO Q6 as needed 02/13/2017 02/12/2017 Inactive Zofran 4 mg tablet RxNorm: 722335 1 Tablet(s) PO Q6 as needed 02/13/2017 02/22/2017 Inactive omeprazole 20 mg capsule,delayed release RxNorm: 585926 TAKE 1 CAPSULE EVERY DAY 02/02/2017 01/27/2018 Active diltiazem CD 240 mg capsule,extended release 24 hr RxNorm: 468877 TAKE 1 CAPSULE EVERY DAY 02/02/2017 01/27/2018 Active Synthroid 100 mcg tablet RxNorm: 625332 1 Tablet(s) PO daily 01/24/2018 Active Synthroid 100 mcg tablet RxNorm: 738476 1 Tablet(s) PO daily 01/29/2017 Inactive Synthroid 100 mcg tablet RxNorm: 836233 1 Tablet(s) PO daily 01/27/2017 Inactive Synthroid 112 mcg tablet RxNorm: 321699 TAKE 1 TABLET EVERY DAY 12/08/2016 01/27/2017 Inactive simvastatin 10 mg tablet RxNorm: 901171 1 Tablet(s) PO daily 02/24/2018 Active Bactrim DS 800 mg-160 mg tablet RxNorm: 772995 1 Tablet(s) PO BID 10/22/2016 11/13/2016 Inactive Bactrim DS 800 mg-160 mg tablet RxNorm: 782001 1 Tablet(s) PO BID 10/22/2016 10/21/2016 Inactive Keflex 500 mg capsule RxNorm: 539827 1 Capsule(s) PO TID 201610/01/2016 Inactive simvastatin 20 mg tablet RxNorm: 851572 1 Tablet(s) PO daily 12/01/2016 Inactive warfarin 5 mg tablet RxNorm: 669075 TAKE 1 TABLET EVERY DAY 05/07/2017 Inactive Synthroid 112 mcg tablet RxNorm: 809388 TAKE 1 TABLET EVERY DAY 07/21/2016 12/07/2016 Inactive potassium chloride ER 10 mEq tablet,extended release RxNorm: 054072 1 Tablet(s) PO daily 06/23/2016 06/22/2016 Inactive pt to take with lasix she has at home potassium chloride ER 10 mEq tablet,extended release RxNorm: 861422 1 Tablet(s) PO daily 06/23/2016 06/27/2016 Inactive pt to take with lasix she has at home Synthroid 112 mcg tablet RxNorm: 689122 TAKE 1 TABLET EVERY DAY 03/04/2016 07/20/2016 Inactive diltiazem CD 240 mg capsule,extended release 24 hr RxNorm: 889774 1 Capsule(s) PO daily 02/06/2016 02/01/2017 Inactive omeprazole 20 mg capsule,delayed release RxNorm: 748097 1 Capsule(s) PO daily 02/06/2016 02/01/2017 Inactive warfarin 5 mg tablet RxNorm: 334020 1 Tablet(s) PO daily 201508/10/2016 Inactive simvastatin 10 mg tablet RxNorm: 991461 1 Tablet(s) PO daily 08/11/2016 Inactive simvastatin 20 mg tablet RxNorm: 863423 1 Tablet(s) PO daily 01/07/2016 Inactive lisinopril 10 mg tablet RxNorm: 831807 1 Tablet(s) PO daily 12/10/2015 Inactive prednisone 20 mg tablet RxNorm: 199439 2 Tablet(s) PO daily 10/201510/22/2015 Inactive Augmentin 500 mg-125 mg tablet RxNorm: 925628 1 Tablet(s) PO TID 10/18/2015 10/27/2015 Inactive ceftriaxone 500 mg solution for injection RxNorm: 2043983 Inj 10/18/2015 10/18/2015 Inactive Kenalog 40 mg/mL suspension for injection RxNorm: 7244029 Milliliter(s) Inj 10/15/2015 10/15/2015 Inactive ceftriaxone 500 mg solution for injection RxNorm: 1180687 Inj 08/28/2015 08/28/2015 Inactive prednisone 20 mg tablet RxNorm: 999632 3 Tablet(s) PO daily 08/30/2015 Inactive amoxicillin 500 mg capsule RxNorm: 447382 1 Capsule(s) PO TID 08/28/2015 09/03/2015 Inactive Kenalog 40 mg/mL suspension for injection RxNorm: 2839919 Milliliter(s) Inj 08/28/2015 08/28/2015 Inactive Keflex 500 mg capsule RxNorm: 856769 1 Capsule(s) PO TID 201507/26/2015 Inactive Keflex 500 mg capsule RxNorm: 272118 1 Capsule(s) PO TID 201508/02/2015 Inactive Synthroid 112 mcg tablet RxNorm: 034398 TAKE 1 TABLET EVERY DAY 06/19/2015 12/15/2015 Inactive Augmentin 500 mg-125 mg tablet RxNorm: 955143 1 Tablet(s) PO TID 06/11/2015 06/20/2015 Inactive ceftriaxone 500 mg solution for injection RxNorm: 7067339 Inj 06/11/2015 06/11/2015 Inactive Kenalog 40 mg/mL suspension for injection RxNorm: 4483994 Milliliter(s) Inj 05/23/2015 05/23/2015 Inactive cefdinir 300 mg capsule RxNorm: 203416 1 Capsule(s) PO BID 02/201505/29/2015 Inactive simvastatin 10 mg tablet RxNorm: 092381 1 Tablet(s) PO daily 12/09/2015 Inactive Synthroid 112 mcg tablet RxNorm: 278575 1 Tablet(s) PO daily 06/18/2015 Inactive warfarin 5 mg tablet RxNorm: 576920 1 Tablet(s) PO daily x4 days and 1/2 tab for 3 days 03/29/2015 12/23/2015 Inactive Keflex 500 mg capsule RxNorm: 377907 1 Capsule(s) PO TID 201402/07/2015 Inactive Keflex 500 mg capsule RxNorm: 840954 1 Capsule(s) PO TID 201402/14/2015 Inactive diltiazem CD 240 mg capsule,extended release 24 hr RxNorm: 264984 1 Capsule(s) PO daily 01/31/2015 03/27/2015 Inactive omeprazole 20 mg capsule,delayed release RxNorm: 846512 1 Capsule(s) PO daily 01/30/2015 01/24/2016 Inactive diltiazem CD 240 mg capsule,extended release 24 hr RxNorm: 436194 1 Capsule(s) PO daily 01/30/2015 01/30/2015 Inactive omeprazole 20 mg capsule,delayed release RxNorm: 594452 1 Capsule(s) PO daily 01/25/2015 01/29/2015 Inactive diltiazem CD 240 mg capsule,extended release 24 hr RxNorm: 611125 1 Capsule(s) PO daily 01/25/2015 01/29/2015 Inactive Vitamin D2 50,000 unit capsule RxNorm: 690070 1 Capsule(s) PO weekly 10/25/2014 10/24/2014 Inactive Vitamin D2 50,000 unit capsule RxNorm: 619258 1 Capsule(s) PO weekly 10/25/2014 01/22/2015 Inactive [SAVINGS FOR NON-COVERED DRUGS -- BIN:[id number], PCN: [id number], Group: [id number], ID# [id number], Questions: . THIS IS NOT INSURANCE.] omeprazole 20 mg capsule,delayed release RxNorm: 500889 1 Capsule(s) PO daily 10/16/2014 11/14/2014 Inactive diltiazem CD 240 mg capsule,extended release 24 hr RxNorm: 873344 1 Capsule(s) PO daily 10/16/2014 11/14/2014 Inactive melatonin 3 mg tablet RxNorm: 344735 1 Tablet(s) PO QHS 201411/14/2014 Inactive lisinopril 10 mg tablet RxNorm: 718936 1 Tablet(s) PO daily 09/201402/12/2015 Inactive Synthroid 112 mcg tablet RxNorm: 452179 1 Tablet(s) PO 201402/12/2015 Inactive Vitamin D2 1,000 unit capsule RxNorm: 422754 1 Capsule(s) PO daily 10/16/2014 11/14/2014 Inactive warfarin 5 mg tablet RxNorm: 308575 1 Tablet(s) PO daily x4 days and 1/2 tab for 3 days 10/16/2014 02/12/2015 Inactive Culturelle oral RxNorm : 6143263 oral No Start Date Active Calcium + D oral RxNorm: 466920 oral No Start Date Active Stool Softener 100 mg capsule RxNorm: 3309760 1-2 Capsule(s) PO daily No Start Date Active Vitamin D3 1,000 unit tablet RxNorm: 895609 1 Tablet(s) PO daily No Start Date Active biotin oral RxNorm: 1588 oral No Start Date Active aspirin 81 mg capsule,delayed release RxNorm: 557356 1 Capsule(s) PO daily No Start Date Active Vitamin B-12 oral RxNorm: 09827 oral No Start Date Active Calcium 600-Vitamin D-Iron oral RxNorm: 4018 oral No Start Date 12/10/2015 Inactive simvastatin 10 mg tablet RxNorm: 842831 1 Tablet(s) PO daily No Start Date 03/28/2015 Inactive Medication Administered Medication Codes Instructions Start Date Status ceftriaxone 500 mg solution for injection RxNorm: 7357423 10/18/2015 No longer Active Kenalog 40 mg/mL suspension for injection RxNorm: 2380793 Milliliter 10/15/2015 No longer Active Kenalog 40 mg/mL suspension for injection RxNorm: 9251323 Milliliter 08/28/2015 No longer Active ceftriaxone 500 mg solution for injection RxNorm: 3869450 08/28/2015 No longer Active ceftriaxone 500 mg solution for injection RxNorm: 2323307 06/11/2015 No longer Active Kenalog 40 mg/mL suspension for injection RxNorm: 3387268 Milliliter 05/23/2015 No longer Active Immunizations Vaccine Codes Date Status Influenza CVX: 141 03/02/2017 completed Pneumococcal (Adult) CVX: 33 09/09/2016 completed Influenza CVX: 141 03/07/2015 completed Influenza CVX: 141 03/15/2014 completed Zoster CVX: 121 06/29/2012 completed Pneumococcal CVX: 33 06/15/2008 completed Assessments Condition Codes Effective Dates Dysuria ICD-10: R30.0 ICD-9: 788.1 06/30/2017 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 ICD-10: Z79.01 ICD-9: V58.61 05/26/2017 Slow transit constipation ICD-10: K59.01 ICD-9: 564.01 05/13/2017 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 ICD-9: 244.8 05/13/2017 Essential (primary) hypertension ICD-10: I10 ICD-9: 401.1 05/13/2017 Urinary tract infection, site not specified ICD-10: N39.0 ICD-9: 599.0 02/19/2017 Other allergic rhinitis ICD-10: J30.89 ICD-9: 477.8 02/05/2017 Cough ICD-10: R05 ICD-9: 786.2 02/05/2017 Mixed hyperlipidemia ICD-10: E78.2 ICD-9: 272.2 09/09/2016 Encounter for immunization ICD-10: Z23 ICD-9: V03.89 09/09/2016 Other idiopathic peripheral autonomic neuropathy ICD-10: G90.09 ICD-9: 337.00 08/12/2016 Localized edema ICD-10: R60.0 ICD-9: 782.3 06/23/2016 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 ICD-10: M79.A21 ICD-9: 729.72 05/12/2016 Hypothyroidism, unspecified ICD-10: E03.9 ICD-9: 244.9 12/10/2015 Cervicalgia ICD-10: M54.2 ICD-9: 723.1 12/10/2015 Acute recurrent maxillary sinusitis ICD-10: J01.01 ICD-9: 461.0 10/18/2015 Acute laryngopharyngitis ICD-10: J06.0 ICD-9: 465.0 10/18/2015 Allergic rhinitis due to pollen ICD-10: J30.1 ICD-9: 477.0 10/18/2015 Essential (primary) hypertension ICD-10: I10 ICD-9: 401.9 10/15/2015 Acute bronchitis due to other specified organisms ICD-10: J20.8 ICD-9: 466.0 08/28/2015 INSECT BITE FOREARM ICD-9: 913.4 2014 A-fib ICD-9: 427.31 03/07/2015 VACCIN FOR INFLUENZA ICD-9: V04.81 2014 ESSENTIAL HYPERTENSION ICD-9: 401.9 03/07 Cellulitis of leg ICD-9: 682.6 2014 Rash ICD-9: 782.1 10/16/2014 Cough ICD-9: 786.2 10/16/2014 Reason For Visit Reason For Visit Effective Dates Notes hypertension 05/13/2017 hypertension 03/10/2017 dysuria 02/19/2017 Hospital Follow Up 02/05/2017 hypertension 09/09/2016 hypertension 08/12/2016 edema 06/23/2016 hypertension 05/12/2016 edema 02/07/2016 hypothyroid 12/10/2015 cough 10/18/2015 cough 10/15/2015 cough 08/28/2015 cough 06/11/2015 cough 05/23/2015 hypertension 03/07/2015 arthropod bite 02/15/2015 cough 10/16/2014 Results Observation Observation Code Item Item Code Result Date Urine Culture Ucult Preliminary NO Growth Day 1 07/02/2017 Urine Culture Ucult Complete NO Growth Day 2 07/02/2017 Pt Rgr5764 PT 27.2 seconds 07/01/2017 Pt Iph4454 INR 2.5 07/01/2017 Pt Thi4992 Low Intensity - 1.5-2.0 07/01/2017 Pt Tpk0686 Mod intensity - 2.0-3.0 07/01/2017 Pt Rdq6471 Hi intensity - 3.0-4.0 07/01/2017 Free T4 Zjf791 FREE T4 1.15 ng/dL 07/01/2017 Tsh Ord6 hTSH II 2.28 uIU/mL 07/01/2017 Urine Culture Ucult Complete >100,000 col/ml aerobic growth sent to ref lab 06/11/2017 Urine Culture Ucult Complete Growth of aerobe sent to ref lab 05/27/2017 Pt Sil0778 PT 30.0 seconds 05/26/2017 Pt Lvc3732 INR 2.8 05/26/2017 Pt Uxg5991 Low Intensity - 1.5-2.0 05/26/2017 Pt Jwk1641 Mod intensity - 2.0-3.0 05/26/2017 Pt Oxj4972 Hi intensity - 3.0-4.0 05/26/2017 Pt Tcy9028 PT 24.2 seconds 04/07/2017 Pt Gqv0669 INR 2.2 04/07/2017 Pt Ksh4892 Low Intensity - 1.5-2.0 04/07/2017 Pt Fxr0720 Mod intensity - 2.0-3.0 04/07/2017 Pt Cbd6264 Hi intensity - 3.0-4.0 04/07/2017 Pt Xbm2965 PT 21.4 seconds 03/10/2017 Pt Ugl6731 INR 1.9 03/10/2017 Pt Bcp6110 Low Intensity - 1.5-2.0 03/10/2017 Pt Hwg8293 Mod intensity - 2.0-3.0 03/10/2017 Pt Vfs0583 Hi intensity - 3.0-4.0 03/10/2017 Culture Urine [id number] URINE CULTURE SEE NOTES 02/23/2017 Culture Urine [id number] Continued Results 02/23/2017 Urine Culture Ucult Complete >100,000 col/ml aerobic growth sent to ref lab 02/20/2017 Cbc With Differential Ord2 WBC 4.75 K/ul 01/28/2017 Cbc With Differential Ord2 RBC 4.39 M/ul 01/28/2017 Cbc With Differential Ord2 HGB 14.4 g/dl 01/28/2017 Cbc With Differential Ord2 HCT 41.3 % 01/28/2017 Cbc With Differential Ord2 Neut% 52.6 % 01/28/2017 Cbc With Differential Ord2 MCV 94.1 fl 01/28/2017 Cbc With Differential Ord2 Lymph% 29.3 % 01/28/2017 Cbc With Differential Ord2 Lewis% 14.1 % 01/28/2017 Cbc With Differential Ord2 MCH 32.8 pg 01/28/2017 Cbc With Differential Ord2 MCHC 34.9 pg 01/28/2017 Cbc With Differential Ord2 Eos% 3.2 % 01/28/2017 Cbc With Differential Ord2 Baso% 0.8 % 01/28/2017 Cbc With Differential Ord2 PLT 242 K/ul 01/28/2017 Cbc With Differential Ord2 RDW 13.9 % 01/28/2017 Cbc With Differential Ord2 Neut ABS# 2.50 K/ul 01/28/2017 Cbc With Differential Ord2 Lymph ABS# 1.39 K/ul 01/28/2017 Cbc With Differential Ord2 Lewis ABS# 0.7 K/ul 01/28/2017 Cbc With Differential Ord2 Eos ABS# 0.2 K/ul 01/28/2017 Cbc With Differential Ord2 Baso ABS# 0.0 K/ul 01/28/2017 Tsh Ord6 hTSH II 0.46 uIU/mL 01/28/2017 Pt Zed7684 PT 25.7 seconds 01/28/2017 Pt Wes8240 INR 2.3 01/28/2017 Pt Apz0305 Low Intensity - 1.5-2.0 01/28/2017 Pt Trq9142 Mod intensity - 2.0-3.0 01/28/2017 Pt Vlg3965 Hi intensity - 3.0-4.0 01/28/2017 Comp Metabolic Aim495 NA 140 mEq/L 01/28/2017 Comp Metabolic Atk460 K 3.9 mEq/L 01/28/2017 Comp Metabolic Ehi396 CL 105 mEq/L 01/28/2017 Comp Metabolic Wps552 CO2 27.0 mEq/L 01/28/2017 Comp Metabolic Hmh662 ANION GAP 12 01/28/2017 Comp Metabolic Bvo632 GLUCOSE 89 mg/dL 01/28/2017 Comp Metabolic Veq290 Creat 0.8 mg/dL 01/28/2017 Comp Metabolic Mqa156 eGFR 69 ml/min/1.73m2 01/28/2017 Comp Metabolic Lsj980 BUN 16 mg/dL 01/28/2017 Comp Metabolic Bba712 B/C Ratio 19.0 Ratio 01/28/2017 Comp Metabolic Rjf518 CALCIUM 9.0 mg/dL 01/28/2017 Comp Metabolic Ijb538 ALK PHOS 96 U/L 01/28/2017 Comp Metabolic Aoo355 AST(SGOT) 16 U/L 01/28/2017 Comp Metabolic Ngw466 ALT(SGPT) 13 U/L 01/28/2017 Comp Metabolic Iyl595 BILI T 0.7 mg/dL 01/28/2017 Comp Metabolic Hyc324 ALBUMIN 3.7 g/dL 01/28/2017 Comp Metabolic Zez977 TPRO 5.9 g/dL 01/28/2017 Comp Metabolic Ybj513 GLOB 2.2 g/dL 01/28/2017 Comp Metabolic Jdu242 A/G Ratio 1.7 Ratio 01/28/2017 Comp Metabolic Det358 Osmo 280 mOsmo 01/28/2017 Lipid Ord30 CHOL 142 mg/dL 01/28/2017 Lipid Ord30 HDL 33.0 mg/dl 01/28/2017 Lipid Ord30 TRIG 160 mg/dL 01/28/2017 Lipid Ord30 LDL 77 mg/dL 01/28/2017 Lipid Ord30 C/HDL 4.3 Ratio 01/28/2017 Pt Jmq0074 PT 25.3 seconds 12/29/2016 Pt Mgg2222 INR 2.5 12/29/2016 Pt Zid8087 Low Intensity - 1.5-2.0 12/29/2016 Pt Mxq2045 Mod intensity - 2.0-3.0 12/29/2016 Pt Wxa0312 Hi intensity - 3.0-4.0 12/29/2016 Pt Oro8652 PT 25.3 seconds 12/01/2016 Pt Bpy9209 INR 2.5 12/01/2016 Pt Jlf6486 Low Intensity - 1.5-2.0 12/01/2016 Pt Miy0285 Mod intensity - 2.0-3.0 12/01/2016 Pt Rgb9481 Hi intensity - 3.0-4.0 12/01/2016 Pt Svb6728 PT 19.2 seconds 11/17/2016 Pt Hiu0823 INR 1.7 11/17/2016 Pt Zog8715 Low Intensity - 1.5-2.0 11/17/2016 Pt Chk0265 Mod intensity - 2.0-3.0 11/17/2016 Pt Rdb4165 Hi intensity - 3.0-4.0 11/17/2016 Pt Yoj3581 PT 36.0 seconds 10/27/2016 Pt Kgb3529 INR 3.9 10/27/2016 Pt Zpb4017 Low Intensity - 1.5-2.0 10/27/2016 Pt Ixb6549 Mod intensity - 2.0-3.0 10/27/2016 Pt Fzf4594 Hi intensity - 3.0-4.0 10/27/2016 Culture Urine [id number] URINE CULTURE SEE NOTES 10/25/2016 Culture Urine [id number] Continued Results 10/25/2016 Urine Culture Ucult Complete >100,000 col/ml aerobic growth sent to ref lab 10/23/2016 Pt Yaq0449 PT 30.7 seconds 09/29/2016 Pt Gxj7532 INR 3.2 09/29/2016 Pt Iwh7035 Low Intensity - 1.5-2.0 09/29/2016 Pt Sca6161 Mod intensity - 2.0-3.0 09/29/2016 Pt Pjq7034 Hi intensity - 3.0-4.0 09/29/2016 Urine Culture Ucult Complete Growth of aerobe sent to ref lab 09/26/2016 Pt Agu5122 PT 33.8 seconds 09/23/2016 Pt Vpt8707 INR 3.6 09/23/2016 Pt Chj7670 Low Intensity - 1.5-2.0 09/23/2016 Pt Swk4902 Mod intensity - 2.0-3.0 09/23/2016 Pt Xet8434 Hi intensity - 3.0-4.0 09/23/2016 Pt Qil7508 PT 33.4 seconds 09/09/2016 Pt Yhq8503 INR 3.6 09/09/2016 Pt Vxz4296 Low Intensity - 1.5-2.0 09/09/2016 Pt Ecb9351 Mod intensity - 2.0-3.0 09/09/2016 Pt Wmr5154 Hi intensity - 3.0-4.0 09/09/2016 Pt Ydl7009 PT 30.2 seconds 08/20/2016 Pt Vrq5586 INR 3.1 08/20/2016 Pt Rhb4609 Low Intensity - 1.5-2.0 08/20/2016 Pt Wtg5019 Mod intensity - 2.0-3.0 08/20/2016 Pt Eed6752 Hi intensity - 3.0-4.0 08/20/2016 Pt Zyi8804 PT 32.1 seconds 08/12/2016 Pt Tin7453 INR 3.4 08/12/2016 Pt Lxp3217 Low Intensity - 1.5-2.0 08/12/2016 Pt Wtx9228 Mod intensity - 2.0-3.0 08/12/2016 Pt Wfd6539 Hi intensity - 3.0-4.0 08/12/2016 Pt Oef3982 PT 25.9 seconds 06/23/2016 Pt Xrn0664 INR 2.5 06/23/2016 Pt Zvl2304 Low Intensity - 1.5-2.0 06/23/2016 Pt Xqz6980 Mod intensity - 2.0-3.0 06/23/2016 Pt Omh2486 Hi intensity - 3.0-4.0 06/23/2016 Cbc With Differential Ord2 WBC 5.72 K/ul 06/23/2016 Cbc With Differential Ord2 RBC 4.17 M/ul 06/23/2016 Cbc With Differential Ord2 HGB 13.5 g/dl 06/23/2016 Cbc With Differential Ord2 Neut% 62.9 % 06/23/2016 Cbc With Differential Ord2 HCT 40.2 % 06/23/2016 Cbc With Differential Ord2 Lymph% 21.0 % 06/23/2016 Cbc With Differential Ord2 MCV 96.4 fl 06/23/2016 Cbc With Differential Ord2 MCH 32.4 pg 06/23/2016 Cbc With Differential Ord2 Lewis% 12.8 % 06/23/2016 Cbc With Differential Ord2 Eos% 2.4 % 06/23/2016 Cbc With Differential Ord2 MCHC 33.6 pg 06/23/2016 Cbc With Differential Ord2 Baso% 0.9 % 06/23/2016 Cbc With Differential Ord2 PLT 249 K/ul 06/23/2016 Cbc With Differential Ord2 Neut ABS# 3.60 K/ul 06/23/2016 Cbc With Differential Ord2 RDW 14.2 % 06/23/2016 Cbc With Differential Ord2 Lymph ABS# 1.20 K/ul 06/23/2016 Cbc With Differential Ord2 Lewis ABS# 0.7 K/ul 06/23/2016 Cbc With Differential Ord2 Eos ABS# 0.1 K/ul 06/23/2016 Cbc With Differential Ord2 Baso ABS# 0.1 K/ul 06/23/2016 Comp Metabolic Wge734 NA 138 mEq/L 06/23/2016 Comp Metabolic Vag735 K 3.8 mEq/L 06/23/2016 Comp Metabolic Wdh556 CL 103 mEq/L 06/23/2016 Comp Metabolic Czr051 CO2 28.0 mEq/L 06/23/2016 Comp Metabolic Rqz956 ANION GAP 11 06/23/2016 Comp Metabolic Uxz435 GLUCOSE 107 mg/dL 06/23/2016 Comp Metabolic Bgg849 Creat 0.8 mg/dL 06/23/2016 Comp Metabolic Qdl740 eGFR 75 ml/min/1.73m2 06/23/2016 Comp Metabolic Ljm804 BUN 17 mg/dL 06/23/2016 Comp Metabolic Qke856 B/C Ratio 21.8 Ratio 06/23/2016 Comp Metabolic Fky946 CALCIUM 9.4 mg/dL 06/23/2016 Comp Metabolic Eqp246 ALK PHOS 101 U/L 06/23/2016 Comp Metabolic Paq733 AST(SGOT) 17 U/L 06/23/2016 Comp Metabolic Alq829 ALT(SGPT) 13 U/L 06/23/2016 Comp Metabolic Ngn645 BILI T 0.7 mg/dL 06/23/2016 Comp Metabolic Osd539 ALBUMIN 4.3 g/dL 06/23/2016 Comp Metabolic Yqc092 TPRO 6.6 g/dL 06/23/2016 Comp Metabolic Bsl976 GLOB 2.3 g/dL 06/23/2016 Comp Metabolic Lyc805 A/G Ratio 1.8 Ratio 06/23/2016 Comp Metabolic Jlk244 Osmo 278 mOsmo 06/23/2016 Folate Ord36 Folate 19.88 ng/mL 05/12/2016 Cbc With Differential Ord2 WBC 6.97 K/ul 05/12/2016 Cbc With Differential Ord2 RBC 4.42 M/ul 05/12/2016 Cbc With Differential Ord2 HGB 14.2 g/dl 05/12/2016 Cbc With Differential Ord2 HCT 41.8 % 05/12/2016 Cbc With Differential Ord2 Neut% 67.3 % 05/12/2016 Cbc With Differential Ord2 MCV 94.6 fl 05/12/2016 Cbc With Differential Ord2 Lymph% 19.4 % 05/12/2016 Cbc With Differential Ord2 Lewis% 11.0 % 05/12/2016 Cbc With Differential Ord2 MCH 32.1 pg 05/12/2016 Cbc With Differential Ord2 Eos% 1.7 % 05/12/2016 Cbc With Differential Ord2 MCHC 34.0 pg 05/12/2016 Cbc With Differential Ord2 Baso% 0.6 % 05/12/2016 Cbc With Differential Ord2 PLT 250 K/ul 05/12/2016 Cbc With Differential Ord2 RDW 14.5 % 05/12/2016 Cbc With Differential Ord2 Neut ABS# 4.69 K/ul 05/12/2016 Cbc With Differential Ord2 Lymph ABS# 1.35 K/ul 05/12/2016 Cbc With Differential Ord2 Lewis ABS# 0.8 K/ul 05/12/2016 Cbc With Differential Ord2 Eos ABS# 0.1 K/ul 05/12/2016 Cbc With Differential Ord2 Baso ABS# 0.0 K/ul 05/12/2016 Comp Metabolic Ray535 NA 138 mEq/L 05/12/2016 Comp Metabolic Umb639 K 3.8 mEq/L 05/12/2016 Comp Metabolic Nex741 CL 104 mEq/L 05/12/2016 Comp Metabolic Ldc492 CO2 25.0 mEq/L 05/12/2016 Comp Metabolic Xii629 ANION GAP 13 05/12/2016 Comp Metabolic Ksk215 GLUCOSE 119 mg/dL 05/12/2016 Comp Metabolic Cos221 Creat 0.8 mg/dL 05/12/2016 Comp Metabolic Jzo739 eGFR 71 ml/min/1.73m2 05/12/2016 Comp Metabolic Vox747 BUN 16 mg/dL 05/12/2016 Comp Metabolic Afc571 B/C Ratio 19.5 Ratio 05/12/2016 Comp Metabolic Xaj600 CALCIUM 9.5 mg/dL 05/12/2016 Comp Metabolic Xnc047 ALK PHOS 95 U/L 05/12/2016 Comp Metabolic Qvt811 AST(SGOT) 17 U/L 05/12/2016 Comp Metabolic Fli699 ALT(SGPT) 18 U/L 05/12/2016 Comp Metabolic Hub696 BILI T 0.6 mg/dL 05/12/2016 Comp Metabolic Get398 ALBUMIN 4.0 g/dL 05/12/2016 Comp Metabolic Sks332 TPRO 6.3 g/dL 05/12/2016 Comp Metabolic Nvt484 GLOB 2.3 g/dL 05/12/2016 Comp Metabolic Nck188 A/G Ratio 1.7 Ratio 05/12/2016 Comp Metabolic Pxc795 Osmo 278 mOsmo 05/12/2016 B12 Byv086 B12 614.00 pg/ml 05/12/2016 Pt Blo1314 PT 29.1 seconds 05/12/2016 Pt Alr4949 INR 2.9 05/12/2016 Pt Pgl5739 Low Intensity - 1.5-2.0 05/12/2016 Pt Zyx1204 Mod intensity - 2.0-3.0 05/12/2016 Pt Tjf4454 Hi intensity - 3.0-4.0 05/12/2016 Pt Utg6246 PT 29.8 seconds 04/21/2016 Pt Qhg5396 INR 3.1 04/21/2016 Pt Ere5225 Low Intensity - 1.5-2.0 04/21/2016 Pt Doe6134 Mod intensity - 2.0-3.0 04/21/2016 Pt Aga8398 Hi intensity - 3.0-4.0 04/21/2016 Pt Wky2350 PT 25.2 seconds 03/24/2016 Pt Qbj3816 INR 2.4 03/24/2016 Pt Epq0564 Low Intensity - 1.5-2.0 03/24/2016 Pt Gey5733 Mod intensity - 2.0-3.0 03/24/2016 Pt Lls3574 Hi intensity - 3.0-4.0 03/24/2016 Pt Iql7648 PT 17.7 seconds 03/06/2016 Pt Byl8011 INR 1.5 03/06/2016 Pt Vnu0463 Low Intensity - 1.5-2.0 03/06/2016 Pt Bqi0870 Mod intensity - 2.0-3.0 03/06/2016 Pt Zbj9873 Hi intensity - 3.0-4.0 03/06/2016 Lipid Ord30 CHOL 153 mg/dL 02/07/2016 Lipid Ord30 HDL 47.0 mg/dl 02/07/2016 Lipid Ord30 TRIG 108 mg/dL 02/07/2016 Lipid Ord30 LDL 84 mg/dL 02/07/2016 Lipid Ord30 C/HDL 3.3 Ratio 02/07/2016 Cbc With Differential Ord2 WBC 6.43 K/ul 02/07/2016 Cbc With Differential Ord2 RBC 4.58 M/ul 02/07/2016 Cbc With Differential Ord2 HGB 15.1 g/dl 02/07/2016 Cbc With Differential Ord2 Neut% 63.1 % 02/07/2016 Cbc With Differential Ord2 HCT 44.5 % 02/07/2016 Cbc With Differential Ord2 MCV 97.2 fl 02/07/2016 Cbc With Differential Ord2 Lymph% 21.9 % 02/07/2016 Cbc With Differential Ord2 MCH 33.0 pg 02/07/2016 Cbc With Differential Ord2 Lewis% 13.1 % 02/07/2016 Cbc With Differential Ord2 MCHC 33.9 pg 02/07/2016 Cbc With Differential Ord2 Eos% 1.6 % 02/07/2016 Cbc With Differential Ord2 Baso% 0.3 % 02/07/2016 Cbc With Differential Ord2 PLT 237 K/ul 02/07/2016 Cbc With Differential Ord2 RDW 13.4 % 02/07/2016 Cbc With Differential Ord2 Neut ABS# 4.06 K/ul 02/07/2016 Cbc With Differential Ord2 Lymph ABS# 1.41 K/ul 02/07/2016 Cbc With Differential Ord2 Lewis ABS# 0.8 K/ul 02/07/2016 Cbc With Differential Ord2 Eos ABS# 0.1 K/ul 02/07/2016 Cbc With Differential Ord2 Baso ABS# 0.0 K/ul 02/07/2016 Pt Drn1206 PT 26.4 seconds 02/07/2016 Pt Hfq3657 INR 2.6 02/07/2016 Pt Rnw7276 Low Intensity - 1.5-2.0 02/07/2016 Pt Lvk8044 Mod intensity - 2.0-3.0 02/07/2016 Pt Noc1478 Hi intensity - 3.0-4.0 02/07/2016 Comp Metabolic Rzb415 NA 137 mEq/L 02/07/2016 Comp Metabolic Guq292 K 3.9 mEq/L 02/07/2016 Comp Metabolic Iyq227 CL 102 mEq/L 02/07/2016 Comp Metabolic Bab582 CO2 32.0 mEq/L 02/07/2016 Comp Metabolic Qja914 ANION GAP 7 02/07/2016 Comp Metabolic Dzx739 GLUCOSE 95 mg/dL 02/07/2016 Comp Metabolic Tyl254 Creat 0.8 mg/dL 02/07/2016 Comp Metabolic Jbd873 eGFR 73 ml/min/1.73m2 02/07/2016 Comp Metabolic Uot100 BUN 20 mg/dL 02/07/2016 Comp Metabolic Wdu111 B/C Ratio 25.0 Ratio 02/07/2016 Comp Metabolic Owr642 CALCIUM 9.4 mg/dL 02/07/2016 Comp Metabolic Skh281 ALK PHOS 68 U/L 02/07/2016 Comp Metabolic Hgn221 AST(SGOT) 16 U/L 02/07/2016 Comp Metabolic Hjf443 ALT(SGPT) 18 U/L 02/07/2016 Comp Metabolic Dbs748 BILI T 0.7 mg/dL 02/07/2016 Comp Metabolic Bwu701 ALBUMIN 4.0 g/dL 02/07/2016 Comp Metabolic Kct902 TPRO 6.4 g/dL 02/07/2016 Comp Metabolic Ofp501 GLOB 2.4 g/dL 02/07/2016 Comp Metabolic Rpq854 A/G Ratio 1.7 Ratio 02/07/2016 Comp Metabolic Wmz933 Osmo 276 mOsmo 02/07/2016 Tsh Ord6 hTSH II 0.16 uIU/mL 02/07/2016 Pt Rjo6435 PT 21.1 seconds 01/11/2016 Pt Iaa9943 INR 1.9 01/11/2016 Pt Noa0381 Low Intensity - 1.5-2.0 01/11/2016 Pt Mul3445 Mod intensity - 2.0-3.0 01/11/2016 Pt Poy8829 Hi intensity - 3.0-4.0 01/11/2016 Comp Metabolic Rur833 NA 137 mEq/L 01/11/2016 Comp Metabolic Ywg535 K 4.0 mEq/L 01/11/2016 Comp Metabolic Chs183 CL 101 mEq/L 01/11/2016 Comp Metabolic Xmv850 CO2 29.0 mEq/L 01/11/2016 Comp Metabolic Cvd196 ANION GAP 11 01/11/2016 Comp Metabolic Wqu462 GLUCOSE 89 mg/dL 01/11/2016 Comp Metabolic Xhb221 Creat 0.9 mg/dL 01/11/2016 Comp Metabolic Bhj004 eGFR 61 ml/min/1.73m2 01/11/2016 Comp Metabolic Lwy484 BUN 22 mg/dL 01/11/2016 Comp Metabolic Sgq784 B/C Ratio 23.7 Ratio 01/11/2016 Comp Metabolic Hlv355 CALCIUM 9.3 mg/dL 01/11/2016 Comp Metabolic Aot133 ALK PHOS 76 U/L 01/11/2016 Comp Metabolic Hqn903 AST(SGOT) 15 U/L 01/11/2016 Comp Metabolic Wze809 ALT(SGPT) 20 U/L 01/11/2016 Comp Metabolic Ica703 BILI T 0.5 mg/dL 01/11/2016 Comp Metabolic Vjx642 ALBUMIN 3.9 g/dL 01/11/2016 Comp Metabolic Cfw848 TPRO 6.2 g/dL 01/11/2016 Comp Metabolic Gak182 GLOB 2.3 g/dL 01/11/2016 Comp Metabolic Oqt224 A/G Ratio 1.7 Ratio 01/11/2016 Comp Metabolic Ofr453 Osmo 277 mOsmo 01/11/2016 Cbc With Differential Ord2 WBC 7.76 K/ul 01/11/2016 Cbc With Differential Ord2 RBC 4.55 M/ul 01/11/2016 Cbc With Differential Ord2 HGB 15.2 g/dl 01/11/2016 Cbc With Differential Ord2 HCT 44.9 % 01/11/2016 Cbc With Differential Ord2 Neut% 68.6 % 01/11/2016 Cbc With Differential Ord2 Lymph% 18.2 % 01/11/2016 Cbc With Differential Ord2 MCV 98.7 fl 01/11/2016 Cbc With Differential Ord2 MCH 33.4 pg 01/11/2016 Cbc With Differential Ord2 Lewis% 11.6 % 01/11/2016 Cbc With Differential Ord2 Eos% 1.3 % 01/11/2016 Cbc With Differential Ord2 MCHC 33.9 pg 01/11/2016 Cbc With Differential Ord2 PLT 246 K/ul 01/11/2016 Cbc With Differential Ord2 Baso% 0.3 % 01/11/2016 Cbc With Differential Ord2 Neut ABS# 5.33 K/ul 01/11/2016 Cbc With Differential Ord2 RDW 14.0 % 01/11/2016 Cbc With Differential Ord2 Lymph ABS# 1.41 K/ul 01/11/2016 Cbc With Differential Ord2 Lewis ABS# 0.9 K/ul 01/11/2016 Cbc With Differential Ord2 Eos ABS# 0.1 K/ul 01/11/2016 Cbc With Differential Ord2 Baso ABS# 0.0 K/ul 01/11/2016 Free T4 Hzu808 FREE T4 1.42 ng/dL 01/11/2016 Tsh Ord6 hTSH II 1.09 uIU/mL 01/11/2016 Pt Nwr9214 PT 23.8 seconds 11/29/2015 Pt Sxq9334 INR 2.3 11/29/2015 Pt Lrt3308 Low Intensity - 1.5-2.0 11/29/2015 Pt Epv0482 Mod intensity - 2.0-3.0 11/29/2015 Pt Nkj0245 Hi intensity - 3.0-4.0 11/29/2015 Pt Dyu9773 PT 31.9 seconds 11/14/2015 Pt Qzg3826 INR 3.4 11/14/2015 Pt Krv2463 Low Intensity - 1.5-2.0 11/14/2015 Pt Eir9559 Mod intensity - 2.0-3.0 11/14/2015 Pt Phe4816 Hi intensity - 3.0-4.0 11/14/2015 Pt Idb8643 PT 23.9 seconds 10/15/2015 Pt Anh2646 INR 2.3 10/15/2015 Pt Szg1699 Low Intensity - 1.5-2.0 10/15/2015 Pt Ezr3762 Mod intensity - 2.0-3.0 10/15/2015 Pt Mia1977 Hi intensity - 3.0-4.0 10/15/2015 Pt Veg1949 PT 27.3 seconds 09/03/2015 Pt Mom2016 INR 2.6 09/03/2015 Pt Nra2030 Low Intensity - 1.5-2.0 09/03/2015 Pt Kga6413 Mod intensity - 2.0-3.0 09/03/2015 Pt Zis3954 Hi intensity - 3.0-4.0 09/03/2015 Pt Eko1456 PT 22.3 seconds 08/06/2015 Pt Hiq6318 INR 2.0 08/06/2015 Pt Yej3834 Low Intensity - 1.5-2.0 08/06/2015 Pt Oxy0145 Mod intensity - 2.0-3.0 08/06/2015 Pt Hqh2967 Hi intensity - 3.0-4.0 08/06/2015 Pt Fcc6527 PT 22.7 seconds 06/18/2015 Pt Emo1173 INR 2.1 06/18/2015 Pt Rql4977 Low Intensity - 1.5-2.0 06/18/2015 Pt Fne2333 Mod intensity - 2.0-3.0 06/18/2015 Pt Dif1707 Hi intensity - 3.0-4.0 06/18/2015 Pt Ocw7787 PT 21.8 seconds 06/11/2015 Pt Lsh3926 INR 2.0 06/11/2015 Pt Akm8261 Low Intensity - 1.5-2.0 06/11/2015 Pt Wuy6410 Mod intensity - 2.0-3.0 06/11/2015 Pt Xpv8597 Hi intensity - 3.0-4.0 06/11/2015 Pt Pfk5307 PT 21.2 seconds 05/28/2015 Pt Xnu7432 INR 1.9 05/28/2015 Pt Eki8154 Low Intensity - 1.5-2.0 05/28/2015 Pt Pgq9148 Mod intensity - 2.0-3.0 05/28/2015 Pt Ybw2760 Hi intensity - 3.0-4.0 05/28/2015 Pt Utb8993 PT 26.7 seconds 05/07/2015 Pt Snd8441 INR 2.6 05/07/2015 Pt Qlf6121 Low Intensity - 1.5-2.0 05/07/2015 Pt Gmf4661 Mod intensity - 2.0-3.0 05/07/2015 Pt Cxk8575 Hi intensity - 3.0-4.0 05/07/2015 Pt Mqw9479 PT 17.7 seconds 04/20/2015 Pt Giu1990 INR 1.5 04/20/2015 Pt Qqp6497 Low Intensity - 1.5-2.0 04/20/2015 Pt Pda5189 Mod intensity - 2.0-3.0 04/20/2015 Pt Eoc6035 Hi intensity - 3.0-4.0 04/20/2015 Pt Cgo2353 PT 13.0 seconds 04/12/2015 Pt Wpn0931 INR 1.0 04/12/2015 Pt Xws1463 Low Intensity - 1.5-2.0 04/12/2015 Pt Mvx8632 Mod intensity - 2.0-3.0 04/12/2015 Pt Voz2498 Hi intensity - 3.0-4.0 04/12/2015 Pt Pjj2823 PT 23.0 seconds 03/07/2015 Pt Uvn9692 INR 2.1 03/07/2015 Pt Rly4678 Low Intensity - 1.5-2.0 03/07/2015 Pt Zvx6467 Mod intensity - 2.0-3.0 03/07/2015 Pt Uvr3096 Hi intensity - 3.0-4.0 03/07/2015 Pt Onp9154 PT 20.3 seconds 02/15/2015 Pt Pbg3166 INR 1.8 02/15/2015 Pt Mzw7098 Low Intensity - 1.5-2.0 02/15/2015 Pt Wfl2797 Mod intensity - 2.0-3.0 02/15/2015 Pt Txc4031 Hi intensity - 3.0-4.0 02/15/2015 Hepatic Wfj821 ALBUMIN 4.1 g/dL 02/08/2015 Hepatic Itw596 TPRO 6.5 g/dL 02/08/2015 Hepatic Iqs834 GLOB 2.4 g/dL 02/08/2015 Hepatic Gfp044 A/G Ratio 1.7 Ratio 02/08/2015 Hepatic Zdi580 ALK PHOS 83 U/L 02/08/2015 Hepatic Phx061 ALT(SGPT) 19 U/L 02/08/2015 Hepatic Oop508 AST(SGOT) 19 U/L 02/08/2015 Hepatic Ueo546 BILI T 0.4 mg/dL 02/08/2015 Hepatic Daj252 BILI D 0.0 mg/dL 02/08/2015 Hepatic Vaf659 BILI I 0.4 mg/dL 02/08/2015 Pt Het1909 PT 22.6 seconds 02/08/2015 Pt Ikd7061 INR 2.1 02/08/2015 Pt Azb8873 Low Intensity - 1.5-2.0 02/08/2015 Pt Rxy4665 Mod intensity - 2.0-3.0 02/08/2015 Pt Mqp3544 Hi intensity - 3.0-4.0 02/08/2015 Lipid Ord30 CHOL 230 mg/dL 02/08/2015 Lipid Ord30 HDL 47.0 mg/dl 02/08/2015 Lipid Ord30 TRIG 180 mg/dL 02/08/2015 Lipid Ord30 LDL 147 mg/dL 02/08/2015 Lipid Ord30 C/HDL 4.9 Ratio 02/08/2015 Review of Systems System Result Effective Dates Constitutional recent illness 05/13/2017 Constitutional No chills 05/13/2017 Constitutional fatigue 05/13/2017 Constitutional No fever 05/13/2017 Constitutional No insomnia 05/13/2017 Constitutional malaise 05/13/2017 Eyes No blindness 05/13/2017 Eyes No vision change 05/13/2017 Ears/Nose/Throat/Neck No dental pain Ears/Nose/Throat/Neck No dizziness 2016 Ears/Nose/Throat/Neck No dysphagia 2016 Ears/Nose/Throat/Neck No headache 2016 Ears/Nose/Throat/Neck No hearing loss Ears/Nose/Throat/Neck No nasal allergies 05/13/2017 Ears/Nose/Throat/Neck No sore throat Ears/Nose/Throat/Neck No postnasal drip 05/13/2017 Ears/Nose/Throat/Neck No sinus congestion 05/13/2017 Cardiovascular No chest pain/pressure Cardiovascular No dyspnea 05/13/2017 Cardiovascular No edema 05/13/2017 Cardiovascular No exercise intolerance Cardiovascular No fatigue 05/13/2017 Cardiovascular hypertension 05/13/2017 Cardiovascular No near-syncope/dizziness 05/13/2017 Respiratory No chest tightness 2016 Respiratory No cough 05/13/2017 Respiratory No dyspnea 05/13/2017 Respiratory No pedal edema 05/13/2017 Gastrointestinal No abdominal pain 2016 Gastrointestinal constipation 05/13/2017 Gastrointestinal No gastroesophageal reflux 05/13/2017 Gastrointestinal No nausea 05/13/2017 Gastrointestinal No vomiting 05/13/2017 Genitourinary/Nephrology No dysuria 05/13 Genitourinary/Nephrology No nocturia Genitourinary/Nephrology No urinary incontinence 05/13/2017 Musculoskeletal stiffness 05/13/2017 Musculoskeletal No swelling 05/13/2017 Musculoskeletal No muscle weakness 2016 Musculoskeletal No myalgias 05/13/2017 Dermatologic No rash 05/13/2017 Dermatologic No scar 05/13/2017 Neurologic No dizziness 05/13/2017 Neurologic No headache 05/13/2017 Neurologic No neck pain 05/13/2017 Neurologic No syncope 05/13/2017 Psychiatric No anxiety 05/13/2017 Psychiatric No depression 05/13/2017 Musculoskeletal joint complaint 2016 Constitutional recent illness 03/10/2017 Constitutional No chills 03/10/2017 Constitutional fatigue 03/10/2017 Constitutional No fever 03/10/2017 Constitutional No insomnia 03/10/2017 Constitutional malaise 03/10/2017 Eyes No blindness 03/10/2017 Eyes No vision change 03/10/2017 Ears/Nose/Throat/Neck No dental pain Ears/Nose/Throat/Neck No dizziness 2016 Ears/Nose/Throat/Neck No dysphagia 2016 Ears/Nose/Throat/Neck No headache 2016 Ears/Nose/Throat/Neck No hearing loss Ears/Nose/Throat/Neck No nasal allergies 03/10/2017 Ears/Nose/Throat/Neck No sore throat Ears/Nose/Throat/Neck No postnasal drip 03/10/2017 Ears/Nose/Throat/Neck No sinus congestion 03/10/2017 Cardiovascular No chest pain/pressure Cardiovascular No dyspnea 03/10/2017 Cardiovascular No edema 03/10/2017 Cardiovascular No exercise intolerance Cardiovascular No fatigue 03/10/2017 Cardiovascular hypertension 03/10/2017 Cardiovascular No near-syncope/dizziness 03/10/2017 Respiratory No chest tightness 2016 Respiratory No cough 03/10/2017 Respiratory No dyspnea 03/10/2017 Respiratory No pedal edema 03/10/2017 Gastrointestinal No abdominal pain 2016 Gastrointestinal constipation 03/10/2017 Gastrointestinal No gastroesophageal reflux 03/10/2017 Gastrointestinal No nausea 03/10/2017 Gastrointestinal No vomiting 03/10/2017 Genitourinary/Nephrology No dysuria 03/10 Genitourinary/Nephrology No nocturia Genitourinary/Nephrology No urinary incontinence 03/10/2017 Musculoskeletal No stiffness 03/10/2017 Musculoskeletal No swelling 03/10/2017 Musculoskeletal No muscle weakness 2016 Musculoskeletal No myalgias 03/10/2017 Dermatologic No scar 03/10/2017 Neurologic No dizziness 03/10/2017 Neurologic No headache 03/10/2017 Neurologic No neck pain 03/10/2017 Neurologic No syncope 03/10/2017 Psychiatric No anxiety 03/10/2017 Psychiatric No depression 03/10/2017 Dermatologic No rash 03/10/2017 Constitutional No recent illness 2016 Constitutional No anorexia 02/19/2017 Constitutional No night sweats 2016 Constitutional No chills 02/19/2017 Constitutional No diaphoresis 02/19/2017 Constitutional No fatigue 02/19/2017 Constitutional No fever 02/19/2017 Constitutional No insomnia 02/19/2017 Constitutional No malaise 02/19/2017 Constitutional No weight loss 02/19/2017 Constitutional No weight gain 02/19/2017 Eyes No eye discharge 02/19/2017 Eyes No eye erythema 02/19/2017 Ears/Nose/Throat/Neck No dizziness 2016 Ears/Nose/Throat/Neck No headache 2016 Cardiovascular No chest pain/pressure 12/2016 Cardiovascular No dyspnea 02/19/2017 Gastrointestinal No abdominal pain 2016 Gastrointestinal No constipation 2016 Gastrointestinal No diarrhea 02/19/2017 Genitourinary/Nephrology No dysuria 02/19 Musculoskeletal No joint complaint 2016 Dermatologic No rash 02/19/2017 Neurologic No alteration of consciousness 02/19/2017 Constitutional No obesity 02/19/2017 Respiratory No cough 02/19/2017 Constitutional recent illness 02/05/2017 Constitutional No anorexia 02/05/2017 Constitutional No night sweats 2016 Constitutional No chills 02/05/2017 Constitutional No diaphoresis 02/05/2017 Constitutional fatigue 02/05/2017 Constitutional No fever 02/05/2017 Constitutional No insomnia 02/05/2017 Constitutional No malaise 02/05/2017 Constitutional No weight loss 02/05/2017 Constitutional No weight gain 02/05/2017 Eyes No eye discharge 02/05/2017 Eyes No eye erythema 02/05/2017 Ears/Nose/Throat/Neck No dizziness 2016 Ears/Nose/Throat/Neck No headache 2016 Ears/Nose/Throat/Neck nasal allergies Ears/Nose/Throat/Neck nasal discharge Ears/Nose/Throat/Neck sinus congestion Cardiovascular No chest pain/pressure Cardiovascular No dyspnea 02/05/2017 Respiratory cough 02/05/2017 Gastrointestinal No abdominal pain 2016 Gastrointestinal No constipation 2016 Gastrointestinal No diarrhea 02/05/2017 Genitourinary/Nephrology No dysuria 02/05 Musculoskeletal No joint complaint 2016 Dermatologic No rash 02/05/2017 Neurologic No alteration of consciousness 02/05/2017 Constitutional No recent illness 2016 Constitutional No chills 09/09/2016 Constitutional No fatigue 09/09/2016 Constitutional No fever 09/09/2016 Constitutional No insomnia 09/09/2016 Constitutional No malaise 09/09/2016 Eyes No blindness 09/09/2016 Eyes No vision change 09/09/2016 Ears/Nose/Throat/Neck No dental pain Ears/Nose/Throat/Neck No dizziness 2016 Ears/Nose/Throat/Neck No dysphagia 2016 Ears/Nose/Throat/Neck No headache 2016 Ears/Nose/Throat/Neck No hearing loss Ears/Nose/Throat/Neck No nasal allergies 09/09/2016 Ears/Nose/Throat/Neck No sore throat Ears/Nose/Throat/Neck No postnasal drip 09/09/2016 Ears/Nose/Throat/Neck No sinus congestion 09/09/2016 Cardiovascular No chest pain/pressure Cardiovascular No dyspnea 09/09/2016 Cardiovascular No edema 09/09/2016 Cardiovascular No exercise intolerance Cardiovascular No fatigue 09/09/2016 Cardiovascular hypertension 09/09/2016 Cardiovascular No near-syncope/dizziness 09/09/2016 Respiratory No chest tightness 2016 Respiratory No cough 09/09/2016 Respiratory No dyspnea 09/09/2016 Respiratory No pedal edema 09/09/2016 Gastrointestinal No abdominal pain 2016 Gastrointestinal No constipation 2016 Gastrointestinal No diarrhea 09/09/2016 Gastrointestinal No gastroesophageal reflux 09/09/2016 Gastrointestinal No nausea 09/09/2016 Gastrointestinal No vomiting 09/09/2016 Genitourinary/Nephrology No dysuria 09/09 Genitourinary/Nephrology No nocturia Genitourinary/Nephrology No urinary incontinence 09/09/2016 Musculoskeletal No stiffness 09/09/2016 Musculoskeletal No swelling 09/09/2016 Musculoskeletal No muscle weakness 2016 Musculoskeletal No myalgias 09/09/2016 Dermatologic No rash 09/09/2016 Dermatologic No sores 09/09/2016 Dermatologic No scar 09/09/2016 Neurologic No dizziness 09/09/2016 Neurologic No headache 09/09/2016 Neurologic No neck pain 09/09/2016 Neurologic No syncope 09/09/2016 Psychiatric No anxiety 09/09/2016 Psychiatric No depression 09/09/2016 Constitutional recent illness 08/12/2016 Constitutional No anorexia 08/12/2016 Constitutional No diaphoresis 08/12/2016 Constitutional fatigue 08/12/2016 Constitutional No fever 08/12/2016 Constitutional No insomnia 08/12/2016 Constitutional No malaise 08/12/2016 Eyes No eye discharge 08/12/2016 Eyes No eye erythema 08/12/2016 Ears/Nose/Throat/Neck No dizziness 2016 Ears/Nose/Throat/Neck No headache 2016 Cardiovascular No chest pain/pressure Cardiovascular No dyspnea 08/12/2016 Cardiovascular edema 08/12/2016 Respiratory cough 08/12/2016 Respiratory dyspnea on exertion 2016 Gastrointestinal No abdominal pain 2016 Gastrointestinal No constipation 2016 Gastrointestinal No diarrhea 08/12/2016 Genitourinary/Nephrology No dysuria 08/12 Musculoskeletal joint complaint 2016 Dermatologic No rash 08/12/2016 Neurologic No alteration of consciousness 08/12/2016 Psychiatric No anxiety 08/12/2016 Neurologic headache 08/12/2016 Constitutional No night sweats 2016 Constitutional No recent illness 2016 Constitutional No anorexia 06/23/2016 Constitutional No chills 06/23/2016 Constitutional No diaphoresis 06/23/2016 Constitutional No fatigue 06/23/2016 Constitutional No fever 06/23/2016 Constitutional No insomnia 06/23/2016 Constitutional No malaise 06/23/2016 Constitutional No weight loss 06/23/2016 Constitutional No weight gain 06/23/2016 Eyes No eye discharge 06/23/2016 Eyes No eye erythema 06/23/2016 Ears/Nose/Throat/Neck No dizziness 2016 Ears/Nose/Throat/Neck No headache 2016 Cardiovascular No chest pain/pressure 02/2017 Cardiovascular No dyspnea 06/23/2016 Cardiovascular edema 06/23/2016 Respiratory No cough 06/23/2016 Respiratory dyspnea on exertion 2016 Gastrointestinal No abdominal pain 2016 Gastrointestinal No constipation 2016 Gastrointestinal No diarrhea 06/23/2016 Genitourinary/Nephrology No dysuria 06/23 Musculoskeletal joint complaint 2016 Dermatologic No rash 06/23/2016 Neurologic No alteration of consciousness 06/23/2016 Psychiatric No anxiety 06/23/2016 Constitutional No recent illness 2015 Constitutional No anorexia 05/12/2016 Constitutional No night sweats 2015 Constitutional No chills 05/12/2016 Constitutional No diaphoresis 05/12/2016 Constitutional No fatigue 05/12/2016 Constitutional No fever 05/12/2016 Constitutional No insomnia 05/12/2016 Constitutional No malaise 05/12/2016 Eyes No eye discharge 05/12/2016 Eyes No eye erythema 05/12/2016 Ears/Nose/Throat/Neck No dizziness 2015 Ears/Nose/Throat/Neck No headache 2015 Ears/Nose/Throat/Neck nasal allergies Ears/Nose/Throat/Neck nasal discharge Ears/Nose/Throat/Neck No sore throat Ears/Nose/Throat/Neck No otalgia 2015 Ears/Nose/Throat/Neck No sinus congestion 05/12/2016 Cardiovascular No chest pain/pressure Cardiovascular No dyspnea 05/12/2016 Cardiovascular No edema 05/12/2016 Respiratory No productive sputum 2015 Respiratory dyspnea on exertion 2015 Gastrointestinal No constipation 2015 Gastrointestinal No diarrhea 05/12/2016 Gastrointestinal No nausea 05/12/2016 Gastrointestinal No vomiting 05/12/2016 Genitourinary/Nephrology No dysuria 05/12 Musculoskeletal back pain 05/12/2016 Musculoskeletal No joint complaint 2015 Musculoskeletal neck pain 05/12/2016 Dermatologic rash 05/12/2016 Neurologic No alteration of consciousness 05/12/2016 Psychiatric No anxiety 05/12/2016 Psychiatric depression 05/12/2016 Endocrine No dry or coarse skin 2015 Cardiovascular No chest pain/pressure Cardiovascular No dyspnea 02/07/2016 Cardiovascular edema 02/07/2016 Respiratory dyspnea on exertion 2015 Respiratory No dyspnea 02/07/2016 Respiratory No productive sputum 2015 Constitutional No recent illness 2015 Constitutional No anorexia 02/07/2016 Constitutional No night sweats 2015 Constitutional No chills 02/07/2016 Constitutional No diaphoresis 02/07/2016 Constitutional No fatigue 02/07/2016 Constitutional No fever 02/07/2016 Constitutional No insomnia 02/07/2016 Constitutional No malaise 02/07/2016 Constitutional No weight loss 02/07/2016 Constitutional No weight gain 02/07/2016 Eyes No eye discharge 02/07/2016 Eyes No eye erythema 02/07/2016 Ears/Nose/Throat/Neck No dizziness 2015 Ears/Nose/Throat/Neck headache 2015 Gastrointestinal No abdominal pain 2015 Gastrointestinal No constipation 2015 Gastrointestinal No diarrhea 02/07/2016 Genitourinary/Nephrology No dysuria 02/06 Musculoskeletal No joint complaint 2015 Dermatologic No rash 02/07/2016 Neurologic No alteration of consciousness 02/07/2016 Endocrine No dry or coarse skin 2015 Constitutional No recent illness 2015 Constitutional No anorexia 12/10/2015 Constitutional No night sweats 2015 Constitutional No chills 12/10/2015 Constitutional No diaphoresis 12/10/2015 Constitutional No fatigue 12/10/2015 Constitutional No fever 12/10/2015 Constitutional No insomnia 12/10/2015 Constitutional No malaise 12/10/2015 Eyes No eye discharge 12/10/2015 Eyes No eye erythema 12/10/2015 Ears/Nose/Throat/Neck No dizziness 2015 Ears/Nose/Throat/Neck No headache 2015 Ears/Nose/Throat/Neck nasal allergies Ears/Nose/Throat/Neck nasal discharge Ears/Nose/Throat/Neck No otalgia 2015 Ears/Nose/Throat/Neck No sinus congestion 12/10/2015 Ears/Nose/Throat/Neck No sore throat Cardiovascular No chest pain/pressure Cardiovascular No dyspnea 12/10/2015 Cardiovascular No edema 12/10/2015 Respiratory No productive sputum 2015 Respiratory cough 12/10/2015 Respiratory dyspnea on exertion 2015 Gastrointestinal No constipation 2015 Gastrointestinal No diarrhea 12/10/2015 Gastrointestinal No nausea 12/10/2015 Gastrointestinal No vomiting 12/10/2015 Genitourinary/Nephrology No dysuria 12/09 Musculoskeletal No joint complaint 2015 Dermatologic rash 12/10/2015 Neurologic No alteration of consciousness 12/10/2015 Psychiatric No anxiety 12/10/2015 Psychiatric depression 12/10/2015 Endocrine No dry or coarse skin 2015 Musculoskeletal neck pain 12/10/2015 Musculoskeletal back pain 12/10/2015 Constitutional recent illness 10/18/2015 Constitutional fatigue 10/18/2015 Constitutional No fever 10/18/2015 Eyes No eye discharge 10/18/2015 Eyes No eye erythema 10/18/2015 Ears/Nose/Throat/Neck dizziness 2015 Ears/Nose/Throat/Neck headache 2015 Ears/Nose/Throat/Neck nasal allergies 10/2015 Ears/Nose/Throat/Neck sore throat 2015 Cardiovascular No chest pain/pressure 10/2015 Respiratory productive sputum 10/18/2015 Respiratory cough 10/18/2015 Gastrointestinal No abdominal pain 2015 Gastrointestinal No diarrhea 10/18/2015 Gastrointestinal No vomiting 10/18/2015 Genitourinary/Nephrology No dysuria 10/17 Musculoskeletal No joint complaint 2015 Dermatologic No rash 10/18/2015 Dermatologic No sores 10/18/2015 Neurologic No alteration of consciousness 10/18/2015 Ears/Nose/Throat/Neck nasal discharge 10/2015 Ears/Nose/Throat/Neck otalgia 10/18/2015 Ears/Nose/Throat/Neck sinus congestion Gastrointestinal constipation 10/18/2015 Gastrointestinal No nausea 10/18/2015 Constitutional recent illness 10/15/2015 Constitutional No anorexia 10/15/2015 Constitutional No night sweats 2015 Constitutional No chills 10/15/2015 Constitutional No diaphoresis 10/15/2015 Constitutional fatigue 10/15/2015 Constitutional No fever 10/15/2015 Constitutional No insomnia 10/15/2015 Constitutional No malaise 10/15/2015 Constitutional No weight loss 10/15/2015 Constitutional No weight gain 10/15/2015 Eyes No eye erythema 10/15/2015 Eyes No eye discharge 10/15/2015 Ears/Nose/Throat/Neck dizziness 2015 Ears/Nose/Throat/Neck headache 2015 Ears/Nose/Throat/Neck nasal allergies 07/2015 Ears/Nose/Throat/Neck otalgia 10/15/2015 Ears/Nose/Throat/Neck sinus congestion Ears/Nose/Throat/Neck No sore throat 07/2015 Cardiovascular No chest pain/pressure 07/2015 Respiratory productive sputum 10/15/2015 Respiratory cough 10/15/2015 Gastrointestinal No abdominal pain 2015 Gastrointestinal constipation 10/15/2015 Gastrointestinal No diarrhea 10/15/2015 Gastrointestinal nausea 10/15/2015 Gastrointestinal No vomiting 10/15/2015 Genitourinary/Nephrology No dysuria 10/14 Musculoskeletal No joint complaint 2015 Dermatologic No sores 10/15/2015 Dermatologic No rash 10/15/2015 Neurologic No alteration of consciousness 10/15/2015 Constitutional recent illness 08/28/2015 Constitutional No fever 08/28/2015 Eyes No eye discharge 08/28/2015 Eyes No eye erythema 08/28/2015 Eyes No vision change 08/28/2015 Ears/Nose/Throat/Neck nasal allergies Ears/Nose/Throat/Neck nasal discharge Ears/Nose/Throat/Neck postnasal drip Ears/Nose/Throat/Neck sinus congestion Ears/Nose/Throat/Neck No sore throat Cardiovascular No chest pain/pressure Cardiovascular No dyspnea 08/28/2015 Cardiovascular No edema 08/28/2015 Respiratory productive sputum 08/28/2015 Respiratory chest congestion 08/28/2015 Respiratory cough 08/28/2015 Respiratory No dyspnea 08/28/2015 Gastrointestinal No abdominal pain 2015 Gastrointestinal No constipation 2015 Gastrointestinal No diarrhea 08/28/2015 Gastrointestinal No nausea 08/28/2015 Gastrointestinal No vomiting 08/28/2015 Dermatologic No scar 08/28/2015 Neurologic No alteration of consciousness 08/28/2015 Psychiatric No anxiety 08/28/2015 Psychiatric No depression 08/28/2015 Constitutional recent illness 06/11/2015 Constitutional No fever 06/11/2015 Eyes No eye discharge 06/11/2015 Eyes No eye erythema 06/11/2015 Eyes No vision change 06/11/2015 Ears/Nose/Throat/Neck nasal allergies Ears/Nose/Throat/Neck nasal discharge Ears/Nose/Throat/Neck postnasal drip Ears/Nose/Throat/Neck sinus congestion Ears/Nose/Throat/Neck No sore throat Cardiovascular No chest pain/pressure Cardiovascular No dyspnea 06/11/2015 Cardiovascular No edema 06/11/2015 Respiratory productive sputum 06/11/2015 Respiratory chest congestion 06/11/2015 Respiratory cough 06/11/2015 Respiratory No dyspnea 06/11/2015 Gastrointestinal No abdominal pain 2014 Gastrointestinal No constipation 2014 Gastrointestinal No diarrhea 06/11/2015 Gastrointestinal No nausea 06/11/2015 Gastrointestinal No vomiting 06/11/2015 Neurologic No alteration of consciousness 06/11/2015 Psychiatric No anxiety 06/11/2015 Psychiatric No depression 06/11/2015 Constitutional recent illness 05/23/2015 Eyes No vision change 05/23/2015 Ears/Nose/Throat/Neck nasal allergies 02/2015 Ears/Nose/Throat/Neck No sore throat 02/2015 Ears/Nose/Throat/Neck postnasal drip 02/2015 Ears/Nose/Throat/Neck sinus congestion Cardiovascular No chest pain/pressure 02/2015 Cardiovascular No dyspnea 05/23/2015 Cardiovascular No edema 05/23/2015 Respiratory cough 05/23/2015 Respiratory No dyspnea 05/23/2015 Gastrointestinal No abdominal pain 2014 Gastrointestinal No constipation 2014 Gastrointestinal No diarrhea 05/23/2015 Gastrointestinal No nausea 05/23/2015 Gastrointestinal No vomiting 05/23/2015 Dermatologic No scar 05/23/2015 Psychiatric No anxiety 05/23/2015 Psychiatric No depression 05/23/2015 Constitutional No fever 05/23/2015 Eyes No eye discharge 05/23/2015 Eyes No eye erythema 05/23/2015 Ears/Nose/Throat/Neck nasal discharge 02/2015 Respiratory productive sputum 05/23/2015 Respiratory chest congestion 05/23/2015 Neurologic No alteration of consciousness 05/23/2015 Constitutional No recent illness 2014 Constitutional No chills 03/07/2015 Constitutional No fatigue 03/07/2015 Constitutional No fever 03/07/2015 Constitutional No insomnia 03/07/2015 Constitutional No malaise 03/07/2015 Eyes No blindness 03/07/2015 Eyes No vision change 03/07/2015 Ears/Nose/Throat/Neck No dental pain Ears/Nose/Throat/Neck No dizziness 2014 Ears/Nose/Throat/Neck No dysphagia 2014 Ears/Nose/Throat/Neck No headache 2014 Ears/Nose/Throat/Neck No hearing loss Ears/Nose/Throat/Neck No nasal allergies 03/07/2015 Ears/Nose/Throat/Neck No sore throat Ears/Nose/Throat/Neck No postnasal drip 03/07/2015 Ears/Nose/Throat/Neck No sinus congestion 03/07/2015 Cardiovascular No chest pain/pressure Cardiovascular No dyspnea 03/07/2015 Cardiovascular No edema 03/07/2015 Cardiovascular No exercise intolerance Cardiovascular No fatigue 03/07/2015 Cardiovascular No near-syncope/dizziness 03/07/2015 Respiratory No chest tightness 2014 Respiratory No cough 03/07/2015 Respiratory No dyspnea 03/07/2015 Respiratory No pedal edema 03/07/2015 Gastrointestinal No abdominal pain 2014 Gastrointestinal No constipation 2014 Gastrointestinal No diarrhea 03/07/2015 Gastrointestinal No gastroesophageal reflux 03/07/2015 Gastrointestinal No nausea 03/07/2015 Gastrointestinal No vomiting 03/07/2015 Genitourinary/Nephrology No dysuria 03/07 Genitourinary/Nephrology No nocturia Genitourinary/Nephrology No urinary incontinence 03/07/2015 Musculoskeletal No stiffness 03/07/2015 Musculoskeletal No swelling 03/07/2015 Musculoskeletal No muscle weakness 2014 Musculoskeletal No myalgias 03/07/2015 Dermatologic No rash 03/07/2015 Dermatologic No sores 03/07/2015 Dermatologic No scar 03/07/2015 Neurologic No dizziness 03/07/2015 Neurologic No headache 03/07/2015 Neurologic No neck pain 03/07/2015 Neurologic No syncope 03/07/2015 Psychiatric No anxiety 03/07/2015 Psychiatric No depression 03/07/2015 Cardiovascular hypertension 03/07/2015 Constitutional No recent illness 2014 Constitutional No anorexia 02/15/2015 Constitutional No chills 02/15/2015 Constitutional No night sweats 2014 Constitutional No diaphoresis 02/15/2015 Constitutional No fatigue 02/15/2015 Constitutional No fever 02/15/2015 Constitutional No insomnia 02/15/2015 Constitutional No malaise 02/15/2015 Constitutional No weight loss 02/15/2015 Constitutional No weight gain 02/15/2015 Dermatologic erythema 02/15/2015 Dermatologic cellulitis 02/15/2015 Musculoskeletal No joint complaint 2014 Constitutional No recent illness 2014 Constitutional No anorexia 10/16/2014 Constitutional No night sweats 2014 Constitutional No chills 10/16/2014 Constitutional No diaphoresis 10/16/2014 Constitutional No fatigue 10/16/2014 Constitutional No fever 10/16/2014 Constitutional No insomnia 10/16/2014 Constitutional No malaise 10/16/2014 Constitutional No weight loss 10/16/2014 Constitutional No weight gain 10/16/2014 Eyes No eye discharge 10/16/2014 Eyes No eye erythema 10/16/2014 Ears/Nose/Throat/Neck No dizziness 2014 Ears/Nose/Throat/Neck No headache 2014 Ears/Nose/Throat/Neck nasal allergies 09/2014 Ears/Nose/Throat/Neck nasal discharge 09/2014 Ears/Nose/Throat/Neck No otalgia 2014 Ears/Nose/Throat/Neck No sore throat 09/2014 Ears/Nose/Throat/Neck No sinus congestion 10/16/2014 Cardiovascular No chest pain/pressure 09/2014 Cardiovascular No dyspnea 10/16/2014 Cardiovascular No edema 10/16/2014 Respiratory No productive sputum 2014 Respiratory cough 10/16/2014 Respiratory dyspnea on exertion 2014 Gastrointestinal No constipation 2014 Gastrointestinal No diarrhea 10/16/2014 Gastrointestinal No vomiting 10/16/2014 Gastrointestinal No nausea 10/16/2014 Genitourinary/Nephrology No dysuria 10/16 Musculoskeletal No joint complaint 2014 Dermatologic rash 10/16/2014 Neurologic No alteration of consciousness 10/16/2014 Psychiatric No anxiety 10/16/2014 Psychiatric depression 10/16/2014 Endocrine No dry or coarse skin 2014 Physical Exam Exam Name System Name Item Name Status Result Effective Dates Notes Full Exam - General 1994 Constitutional general appearance Development: well developed 05/13/2017 None Full Exam - General 1994 Constitutional general appearance Development: appears stated age 1105/13/2017 None Full Exam - General 1994 Constitutional general appearance Hygiene/Attention to Grooming: good hygiene 05/13/2017 None Full Exam - General 1994 Eyes conjunctiva /eyelids Overall: conjunctiva clear 05/13/2017 None Full Exam - General 1994 Eyes conjunctiva /eyelids Overall: cornea clear 05/13/2017 None Full Exam - General 1994 Eyes conjunctiva /eyelids Overall: eyelids normal 05/13/2017 None Full Exam - General 1994 Eyes pupils and irises Overall: pupils equal, round, reactive to light and accomodation 05/13/2017 None Full Exam - General 1994 Ears/Nose/Throat otoscopic exam Overall: external auditory canals clear 05/13/2017 None Full Exam - General 1994 Ears/Nose/Throat otoscopic exam Overall: tympanic membranes clear 05/13/2017 None Full Exam - General 1994 Ears/Nose/Throat lips/teeth/gingiva Overall: benign lips 05/13/2017 None Full Exam - General 1994 Ears/Nose/Throat lips/teeth/gingiva Overall: normal dentition 05/13/2017 None Full Exam - General 1994 Ears/Nose/Throat oral cavity/pharynx/larynx Overall: oral mucosa clear 05/13/2017 None Full Exam - General 1994 Ears/Nose/Throat oral cavity/pharynx/larynx Overall: oropharyngeal mucosa clear 05/13/2017 None Full Exam - General 1994 Ears/Nose/Throat oral cavity/pharynx/larynx Overall: hypopharynx benign 05/13/2017 None Full Exam - General 1994 Ears/Nose/Throat oral cavity/pharynx/larynx Overall: no masses 05/13/2017 None Full Exam - General 1994 Respiratory auscultation Overall: breath sounds clear bilaterally 05/13/2017 None Full Exam - General 1994 Respiratory respiratory effort/rhythm Overall: no retractions 05/13/2017 None Full Exam - General 1994 Respiratory respiratory effort/rhythm Overall: normal rate 05/13/2017 None Full Exam - General 1994 Cardiovascular extremities Overall: no clubbing 05/13/2017 None Full Exam - General 1994 Cardiovascular auscultation of heart Overall: normal heart sounds 05/13/2017 None Full Exam - General 1994 Cardiovascular auscultation of heart Rhythm: irregularly irregular rhythm 05/13/2017 None Full Exam - General 1994 Abdomen abdominal exam Overall: no tenderness 05/13/2017 None Full Exam - General 1994 Abdomen abdominal exam Overall: normal bowel sounds 05/13/2017 None Full Exam - General 1994 Musculoskeletal spine, ribs and pelvis Overall: spine benign 05/13/2017 None Full Exam - General 1994 Musculoskeletal spine, ribs and pelvis Overall: sacroiliac joint benign 05/13/2017 None Full Exam - General 1994 Musculoskeletal spine, ribs and pelvis Overall: good posture 05/13/2017 None Full Exam - General 1994 Musculoskeletal head and neck Overall: head atraumatic 05/13/2017 None Full Exam - General 1994 Musculoskeletal head and neck Overall: cervical spine benign 05/13/2017 None Full Exam - General 1994 Neurologic deep tendon reflexes Overall: deep tendon reflexes intact 05/13/2017 None Full Exam - General 1994 Neurologic cranial nerves Overall: crainial nerves 2 - 12 grossly intact 05/13/2017 None Full Exam - General 1994 Psychiatric orientation/consciousness Overall: oriented to person, place and time 05/13/2017 None Full Exam - General 1994 Psychiatric mood and affect Overall: normal mood and affect 05/13/2017 None Full Exam - General 1994 Musculoskeletal upper extremity Palpation - upper arm: tenderness 05/13/2017 along left lateral upper arm Full Exam - General 1994 Constitutional general appearance Development: well developed 03/10/2017 None Full Exam - General 1994 Constitutional general appearance Development: appears stated age 0903/10/2017 None Full Exam - General 1994 Constitutional general appearance Hygiene/Attention to Grooming: good hygiene 03/10/2017 None Full Exam - General 1994 Eyes conjunctiva /eyelids Overall: conjunctiva clear 03/10/2017 None Full Exam - General 1994 Eyes conjunctiva /eyelids Overall: cornea clear 03/10/2017 None Full Exam - General 1994 Eyes conjunctiva /eyelids Overall: eyelids normal 03/10/2017 None Full Exam - General 1994 Eyes pupils and irises Overall: pupils equal, round, reactive to light and accomodation 03/10/2017 None Full Exam - General 1994 Ears/Nose/Throat otoscopic exam Overall: external auditory canals clear 03/10/2017 None Full Exam - General 1994 Ears/Nose/Throat otoscopic exam Overall: tympanic membranes clear 03/10/2017 None Full Exam - General 1994 Ears/Nose/Throat lips/teeth/gingiva Overall: benign lips 03/10/2017 None Full Exam - General 1994 Ears/Nose/Throat lips/teeth/gingiva Overall: normal dentition 03/10/2017 None Full Exam - General 1994 Ears/Nose/Throat oral cavity/pharynx/larynx Overall: oral mucosa clear 03/10/2017 None Full Exam - General 1994 Ears/Nose/Throat oral cavity/pharynx/larynx Overall: oropharyngeal mucosa clear 03/10/2017 None Full Exam - General 1994 Ears/Nose/Throat oral cavity/pharynx/larynx Overall: hypopharynx benign 03/10/2017 None Full Exam - General 1994 Ears/Nose/Throat oral cavity/pharynx/larynx Overall: no masses 03/10/2017 None Full Exam - General 1994 Respiratory auscultation Overall: breath sounds clear bilaterally 03/10/2017 None Full Exam - General 1994 Respiratory respiratory effort/rhythm Overall: no retractions 03/10/2017 None Full Exam - General 1994 Respiratory respiratory effort/rhythm Overall: normal rate 03/10/2017 None Full Exam - General 1994 Cardiovascular extremities Overall: no clubbing 03/10/2017 None Full Exam - General 1994 Cardiovascular auscultation of heart Overall: normal heart sounds 03/10/2017 None Full Exam - General 1994 Cardiovascular auscultation of heart Rhythm: irregularly irregular rhythm 03/10/2017 None Full Exam - General 1994 Abdomen abdominal exam Overall: no tenderness 03/10/2017 None Full Exam - General 1994 Abdomen abdominal exam Overall: normal bowel sounds 03/10/2017 None Full Exam - General 1994 Musculoskeletal spine, ribs and pelvis Overall: spine benign 03/10/2017 None Full Exam - General 1994 Musculoskeletal spine, ribs and pelvis Overall: sacroiliac joint benign 03/10/2017 None Full Exam - General 1994 Musculoskeletal spine, ribs and pelvis Overall: good posture 03/10/2017 None Full Exam - General 1994 Musculoskeletal head and neck Overall: head atraumatic 03/10/2017 None Full Exam - General 1994 Musculoskeletal head and neck Overall: cervical spine benign 03/10/2017 None Full Exam - General 1994 Neurologic deep tendon reflexes Overall: deep tendon reflexes intact 03/10/2017 None Full Exam - General 1994 Neurologic cranial nerves Overall: crainial nerves 2 - 12 grossly intact 03/10/2017 None Full Exam - General 1994 Psychiatric orientation/consciousness Overall: oriented to person, place and time 03/10/2017 None Full Exam - General 1994 Psychiatric mood and affect Overall: normal mood and affect 03/10/2017 None Full Exam - General 1994 Constitutional general appearance Development: well developed 02/19/2017 None Full Exam - General 1994 Constitutional general appearance Development: appears stated age 0902/19/2017 None Full Exam - General 1994 Constitutional general appearance Hygiene/Attention to Grooming: good hygiene 02/19/2017 None Full Exam - General 1994 Eyes conjunctiva /eyelids Overall: conjunctiva clear 02/19/2017 None Full Exam - General 1994 Eyes conjunctiva /eyelids Overall: cornea clear 02/19/2017 None Full Exam - General 1994 Eyes conjunctiva /eyelids Overall: eyelids normal 02/19/2017 None Full Exam - General 1994 Eyes pupils and irises Overall: pupils equal, round, reactive to light and accomodation 02/19/2017 None Full Exam - General 1995 Ears/Nose/Throat lips/teeth/gingiva Overall: benign lips 02/19/2017 None Full Exam - General 1994 Ears/Nose/Throat lips/teeth/gingiva Overall: normal dentition 02/19/2017 None Full Exam - General 1995 Ears/Nose/Throat oral cavity/pharynx/larynx Overall: oral mucosa clear 02/19/2017 None Full Exam - General 1994 Ears/Nose/Throat oral cavity/pharynx/larynx Overall: oropharyngeal mucosa clear 02/19/2017 None Full Exam - General 1995 Ears/Nose/Throat oral cavity/pharynx/larynx Overall: hypopharynx benign 02/19/2017 None Full Exam - General 1994 Ears/Nose/Throat oral cavity/pharynx/larynx Overall: no masses 02/19/2017 None Full Exam - General 1994 Respiratory auscultation Overall: breath sounds clear bilaterally 02/19/2017 None Full Exam - General 1994 Respiratory respiratory effort/rhythm Overall: no retractions 02/19/2017 None Full Exam - General 1994 Respiratory respiratory effort/rhythm Overall: normal rate 02/19/2017 None Full Exam - General 1994 Cardiovascular extremities Overall: no clubbing 02/19/2017 None Full Exam - General 1994 Cardiovascular auscultation of heart Overall: normal heart sounds 02/19/2017 None Full Exam - General 1994 Cardiovascular auscultation of heart Rhythm: irregularly irregular rhythm 02/19/2017 None Full Exam - General 1994 Abdomen abdominal exam Overall: no tenderness 02/19/2017 None Full Exam - General 1994 Abdomen abdominal exam Overall: normal bowel sounds 02/19/2017 None Full Exam - General 1994 Musculoskeletal spine, ribs and pelvis Overall: spine benign 02/19/2017 None Full Exam - General 1994 Musculoskeletal spine, ribs and pelvis Overall: sacroiliac joint benign 02/19/2017 None Full Exam - General 1994 Musculoskeletal spine, ribs and pelvis Overall: good posture 02/19/2017 None Full Exam - General 1994 Musculoskeletal head and neck Overall: head atraumatic 02/19/2017 None Full Exam - General 1994 Musculoskeletal head and neck Overall: cervical spine benign 02/19/2017 None Full Exam - General 1994 Neurologic deep tendon reflexes Overall: deep tendon reflexes intact 02/19/2017 None Full Exam - General 1994 Neurologic cranial nerves Overall: crainial nerves 2 - 12 grossly intact 02/19/2017 None Full Exam - General 1994 Psychiatric orientation/consciousness Overall: oriented to person, place and time 02/19/2017 None Full Exam - General 1994 Psychiatric mood and affect Overall: normal mood and affect 02/19/2017 None Full Exam - General 1994 Constitutional general appearance Development: well developed 02/05/2017 None Full Exam - General 1994 Constitutional general appearance Development: appears stated age 0802/05/2017 None Full Exam - General 1994 Constitutional general appearance Hygiene/Attention to Grooming: good hygiene 02/05/2017 None Full Exam - General 1994 Eyes conjunctiva /eyelids Overall: conjunctiva clear 02/05/2017 None Full Exam - General 1994 Eyes conjunctiva /eyelids Overall: cornea clear 02/05/2017 None Full Exam - General 1994 Eyes conjunctiva /eyelids Overall: eyelids normal 02/05/2017 None Full Exam - General 1994 Eyes pupils and irises Overall: pupils equal, round, reactive to light and accomodation 02/05/2017 None Full Exam - General 1994 Ears/Nose/Throat otoscopic exam Overall: external auditory canals clear 02/05/2017 None Full Exam - General 1994 Ears/Nose/Throat otoscopic exam Overall: tympanic membranes clear 02/05/2017 None Full Exam - General 1994 Ears/Nose/Throat lips/teeth/gingiva Overall: benign lips 02/05/2017 None Full Exam - General 1994 Ears/Nose/Throat lips/teeth/gingiva Overall: normal dentition 02/05/2017 None Full Exam - General 1994 Ears/Nose/Throat oral cavity/pharynx/larynx Overall: oral mucosa clear 02/05/2017 None Full Exam - General 1994 Ears/Nose/Throat oral cavity/pharynx/larynx Overall: oropharyngeal mucosa clear 02/05/2017 None Full Exam - General 1994 Ears/Nose/Throat oral cavity/pharynx/larynx Overall: hypopharynx benign 02/05/2017 None Full Exam - General 1994 Ears/Nose/Throat oral cavity/pharynx/larynx Overall: no masses 02/05/2017 None Full Exam - General 1994 Respiratory auscultation Overall: breath sounds clear bilaterally 02/05/2017 None Full Exam - General 1994 Respiratory respiratory effort/rhythm Overall: no retractions 02/05/2017 None Full Exam - General 1994 Respiratory respiratory effort/rhythm Overall: normal rate 02/05/2017 None Full Exam - General 1994 Cardiovascular extremities Overall: no clubbing 02/05/2017 None Full Exam - General 1994 Cardiovascular auscultation of heart Overall: normal heart sounds 02/05/2017 None Full Exam - General 1994 Cardiovascular auscultation of heart Rhythm: irregularly irregular rhythm 02/05/2017 None Full Exam - General 1994 Abdomen abdominal exam Overall: no tenderness 02/05/2017 None Full Exam - General 1994 Abdomen abdominal exam Overall: normal bowel sounds 02/05/2017 None Full Exam - General 1994 Musculoskeletal spine, ribs and pelvis Overall: spine benign 02/05/2017 None Full Exam - General 1994 Musculoskeletal spine, ribs and pelvis Overall: sacroiliac joint benign 02/05/2017 None Full Exam - General 1994 Musculoskeletal spine, ribs and pelvis Overall: good posture 02/05/2017 None Full Exam - General 1994 Musculoskeletal head and neck Overall: head atraumatic 02/05/2017 None Full Exam - General 1994 Musculoskeletal head and neck Overall: cervical spine benign 02/05/2017 None Full Exam - General 1994 Neurologic deep tendon reflexes Overall: deep tendon reflexes intact 02/05/2017 None Full Exam - General 1994 Neurologic cranial nerves Overall: crainial nerves 2 - 12 grossly intact 02/05/2017 None Full Exam - General 1994 Psychiatric orientation/consciousness Overall: oriented to person, place and time 02/05/2017 None Full Exam - General 1994 Psychiatric mood and affect Overall: normal mood and affect 02/05/2017 None Full Exam - General 1994 Constitutional general appearance Development: well developed 09/09/2016 None Full Exam - General 1994 Constitutional general appearance Development: appears stated age 0309/09/2016 None Full Exam - General 1994 Constitutional general appearance Hygiene/Attention to Grooming: good hygiene 09/09/2016 None Full Exam - General 1994 Eyes conjunctiva /eyelids Overall: conjunctiva clear 09/09/2016 None Full Exam - General 1994 Eyes conjunctiva /eyelids Overall: cornea clear 09/09/2016 None Full Exam - General 1994 Eyes conjunctiva /eyelids Overall: eyelids normal 09/09/2016 None Full Exam - General 1994 Eyes pupils and irises Overall: pupils equal, round, reactive to light and accomodation 09/09/2016 None Full Exam - General 1994 Ears/Nose/Throat otoscopic exam Overall: external auditory canals clear 09/09/2016 None Full Exam - General 1994 Ears/Nose/Throat otoscopic exam Overall: tympanic membranes clear 09/09/2016 None Full Exam - General 1994 Ears/Nose/Throat lips/teeth/gingiva Overall: benign lips 09/09/2016 None Full Exam - General 1994 Ears/Nose/Throat lips/teeth/gingiva Overall: normal dentition 09/09/2016 None Full Exam - General 1994 Ears/Nose/Throat oral cavity/pharynx/larynx Overall: oral mucosa clear 09/09/2016 None Full Exam - General 1994 Ears/Nose/Throat oral cavity/pharynx/larynx Overall: oropharyngeal mucosa clear 09/09/2016 None Full Exam - General 1994 Ears/Nose/Throat oral cavity/pharynx/larynx Overall: hypopharynx benign 09/09/2016 None Full Exam - General 1994 Ears/Nose/Throat oral cavity/pharynx/larynx Overall: no masses 09/09/2016 None Full Exam - General 1994 Respiratory auscultation Overall: breath sounds clear bilaterally 09/09/2016 None Full Exam - General 1994 Respiratory respiratory effort/rhythm Overall: no retractions 09/09/2016 None Full Exam - General 1994 Respiratory respiratory effort/rhythm Overall: normal rate 09/09/2016 None Full Exam - General 1994 Cardiovascular extremities Overall: no clubbing 09/09/2016 None Full Exam - General 1994 Cardiovascular auscultation of heart Overall: normal heart sounds 09/09/2016 None Full Exam - General 1994 Cardiovascular auscultation of heart Rhythm: irregularly irregular rhythm 09/09/2016 None Full Exam - General 1994 Abdomen abdominal exam Overall: no tenderness 09/09/2016 None Full Exam - General 1994 Abdomen abdominal exam Overall: normal bowel sounds 09/09/2016 None Full Exam - General 1994 Musculoskeletal spine, ribs and pelvis Overall: spine benign 09/09/2016 None Full Exam - General 1994 Musculoskeletal spine, ribs and pelvis Overall: sacroiliac joint benign 09/09/2016 None Full Exam - General 1994 Musculoskeletal spine, ribs and pelvis Overall: good posture 09/09/2016 None Full Exam - General 1994 Musculoskeletal head and neck Overall: head atraumatic 09/09/2016 None Full Exam - General 1994 Musculoskeletal head and neck Overall: cervical spine benign 09/09/2016 None Full Exam - General 1994 Integument inspection of skin Dermatitis: erythema 09/09/2016 on right forearm - erythematous , mildly indurated skin lesion Full Exam - General 1994 Neurologic deep tendon reflexes Overall: deep tendon reflexes intact 09/09/2016 None Full Exam - General 1994 Neurologic cranial nerves Overall: crainial nerves 2 - 12 grossly intact 09/09/2016 None Full Exam - General 1994 Psychiatric orientation/consciousness Overall: oriented to person, place and time 09/09/2016 None Full Exam - General 1994 Psychiatric mood and affect Overall: normal mood and affect 09/09/2016 None Full Exam - General 1994 Constitutional general appearance Overall: well developed 08/12/2016 None Full Exam - General 1994 Constitutional general appearance Overall: in no acute distress 08/12/2016 None Full Exam - General 1994 Constitutional general appearance Overall: well nourished 08/12/2016 None Full Exam - General 1994 Eyes conjunctiva /eyelids Overall: conjunctiva clear 08/12/2016 None Full Exam - General 1994 Eyes conjunctiva /eyelids Overall: cornea clear 08/12/2016 None Full Exam - General 1994 Eyes conjunctiva /eyelids Overall: eyelids normal 08/12/2016 None Full Exam - General 1994 Eyes pupils and irises Overall: pupils equal, round, reactive to light and accomodation 08/12/2016 None Full Exam - General 1994 Ears/Nose/Throat oral cavity/pharynx/larynx Overall: oral mucosa clear 08/12/2016 None Full Exam - General 1994 Ears/Nose/Throat oral cavity/pharynx/larynx Overall: oropharyngeal mucosa clear 08/12/2016 None Full Exam - General 1994 Ears/Nose/Throat oral cavity/pharynx/larynx Overall: no masses 08/12/2016 None Full Exam - General 1994 Respiratory auscultation Overall: breath sounds clear bilaterally 08/12/2016 None Full Exam - General 1994 Respiratory respiratory effort/rhythm Overall: no retractions 08/12/2016 None Full Exam - General 1994 Respiratory respiratory effort/rhythm Overall: normal rate 08/12/2016 None Full Exam - General 1994 Cardiovascular extremities Edema present: pitting 08/12/2016 None Full Exam - General 1994 Cardiovascular extremities Edema present: severity 1+ - 4 +: 1+ 08/12/2016 None Full Exam - General 1994 Cardiovascular extremities Edema present: to knees 08/12/2016 None Full Exam - General 1994 Cardiovascular auscultation of heart Rate: regular rate 08/12/2016 None Full Exam - General 1994 Cardiovascular auscultation of heart Rhythm: irregular rhythm 08/12/2016 None Full Exam - General 1994 Abdomen abdominal exam Overall: no tenderness 08/12/2016 None Full Exam - General 1994 Abdomen abdominal exam Overall: normal bowel sounds 08/12/2016 None Full Exam - General 1994 Lymphatic neck nodes Overall: anterior cervical chain benign 08/12/2016 None Full Exam - General 1994 Lymphatic neck nodes Overall: posterior cervical chain benign 08/12/2016 None Full Exam - General 1994 Musculoskeletal lower extremity Overall: foot benign 08/12/2016 walking boot left foot Full Exam - General 1994 Neurologic cranial nerves Overall: crainial nerves 2 - 12 grossly intact 08/12/2016 None Full Exam - General 1994 Psychiatric orientation/consciousness Overall: oriented to person, place and time 08/12/2016 None Full Exam - General 1994 Constitutional general appearance Overall: well developed 06/23/2016 None Full Exam - General 1994 Constitutional general appearance Overall: in no acute distress 06/23/2016 None Full Exam - General 1994 Constitutional general appearance Overall: well nourished 06/23/2016 None Full Exam - General 1994 Eyes conjunctiva /eyelids Overall: conjunctiva clear 06/23/2016 None Full Exam - General 1994 Eyes conjunctiva /eyelids Overall: cornea clear 06/23/2016 None Full Exam - General 1994 Eyes conjunctiva /eyelids Overall: eyelids normal 06/23/2016 None Full Exam - General 1994 Eyes pupils and irises Overall: pupils equal, round, reactive to light and accomodation 06/23/2016 None Full Exam - General 1994 Ears/Nose/Throat oral cavity/pharynx/larynx Overall: oral mucosa clear 06/23/2016 None Full Exam - General 1994 Ears/Nose/Throat oral cavity/pharynx/larynx Overall: oropharyngeal mucosa clear 06/23/2016 None Full Exam - General 1994 Ears/Nose/Throat oral cavity/pharynx/larynx Overall: no masses 06/23/2016 None Full Exam - General 1994 Respiratory auscultation Overall: breath sounds clear bilaterally 06/23/2016 None Full Exam - General 1994 Respiratory respiratory effort/rhythm Overall: no retractions 06/23/2016 None Full Exam - General 1994 Respiratory respiratory effort/rhythm Overall: normal rate 06/23/2016 None Full Exam - General 1994 Cardiovascular extremities Edema present: pitting 06/23/2016 None Full Exam - General 1994 Cardiovascular extremities Edema present: severity 1+ - 4 +: 1+ 06/23/2016 None Full Exam - General 1994 Cardiovascular extremities Edema present: to knees 06/23/2016 None Full Exam - General 1994 Cardiovascular auscultation of heart Rate: regular rate 06/23/2016 None Full Exam - General 1994 Cardiovascular auscultation of heart Rhythm: irregular rhythm 06/23/2016 None Full Exam - General 1994 Abdomen abdominal exam Overall: no tenderness 06/23/2016 None Full Exam - General 1994 Abdomen abdominal exam Overall: normal bowel sounds 06/23/2016 None Full Exam - General 1994 Lymphatic neck nodes Overall: anterior cervical chain benign 06/23/2016 None Full Exam - General 1994 Lymphatic neck nodes Overall: posterior cervical chain benign 06/23/2016 None Full Exam - General 1994 Neurologic cranial nerves Overall: crainial nerves 2 - 12 grossly intact 06/23/2016 None Full Exam - General 1994 Psychiatric orientation/consciousness Overall: oriented to person, place and time 06/23/2016 None Full Exam - General 1994 Musculoskeletal lower extremity Overall: foot benign 06/23/2016 walking boot left foot Full Exam - General 1994 Constitutional general appearance Overall: well developed 05/12/2016 None Full Exam - General 1994 Constitutional general appearance Overall: in no acute distress 05/12/2016 None Full Exam - General 1994 Constitutional general appearance Overall: well nourished 05/12/2016 None Full Exam - General 1994 Eyes conjunctiva /eyelids Overall: conjunctiva clear 05/12/2016 None Full Exam - General 1994 Eyes conjunctiva /eyelids Overall: cornea clear 05/12/2016 None Full Exam - General 1994 Eyes conjunctiva /eyelids Overall: eyelids normal 05/12/2016 None Full Exam - General 1994 Eyes pupils and irises Overall: pupils equal, round, reactive to light and accomodation 05/12/2016 None Full Exam - General 1994 Ears/Nose/Throat otoscopic exam Overall: external auditory canals clear 05/12/2016 None Full Exam - General 1994 Ears/Nose/Throat otoscopic exam Overall: tympanic membranes clear 05/12/2016 None Full Exam - General 1994 Ears/Nose/Throat oral cavity/pharynx/larynx Overall: oral mucosa clear 05/12/2016 None Full Exam - General 1994 Ears/Nose/Throat oral cavity/pharynx/larynx Overall: oropharyngeal mucosa clear 05/12/2016 None Full Exam - General 1994 Ears/Nose/Throat oral cavity/pharynx/larynx Overall: no masses 05/12/2016 None Full Exam - General 1994 Respiratory auscultation Overall: breath sounds clear bilaterally 05/12/2016 None Full Exam - General 1994 Respiratory respiratory effort/rhythm Overall: no retractions 05/12/2016 None Full Exam - General 1994 Respiratory respiratory effort/rhythm Overall: normal rate 05/12/2016 None Full Exam - General 1994 Cardiovascular auscultation of heart Rate: regular rate 05/12/2016 None Full Exam - General 1994 Cardiovascular auscultation of heart Rhythm: irregular rhythm 05/12/2016 None Full Exam - General 1994 Abdomen abdominal exam Overall: no tenderness 05/12/2016 None Full Exam - General 1994 Abdomen abdominal exam Overall: normal bowel sounds 05/12/2016 None Full Exam - General 1994 Lymphatic neck nodes Overall: anterior cervical chain benign 05/12/2016 None Full Exam - General 1994 Lymphatic neck nodes Overall: posterior cervical chain benign 05/12/2016 None Full Exam - General 1994 Integument inspection of skin Location: left arm 05/12/2016 inner arm Full Exam - General 1994 Integument inspection of skin Location: left leg 05/12/2016 thigh Full Exam - General 1994 Integument inspection of skin Rash/Lesions: patch 05/12/2016 None Full Exam - General 1994 Neurologic cranial nerves Overall: crainial nerves 2 - 12 grossly intact 05/12/2016 None Full Exam - General 1994 Psychiatric orientation/consciousness Overall: oriented to person, place and time 05/12/2016 None Full Exam - General 1994 Constitutional general appearance Overall: well developed 02/07/2016 None Full Exam - General 1994 Constitutional general appearance Overall: in no acute distress 02/07/2016 None Full Exam - General 1994 Constitutional general appearance Overall: well nourished 02/07/2016 None Full Exam - General 1994 Eyes conjunctiva /eyelids Overall: conjunctiva clear 02/07/2016 None Full Exam - General 1994 Eyes conjunctiva /eyelids Overall: cornea clear 02/07/2016 None Full Exam - General 1994 Eyes conjunctiva /eyelids Overall: eyelids normal 02/07/2016 None Full Exam - General 1994 Eyes pupils and irises Overall: pupils equal, round, reactive to light and accomodation 02/07/2016 None Full Exam - General 1994 Ears/Nose/Throat otoscopic exam Overall: external auditory canals clear 02/07/2016 None Full Exam - General 1994 Ears/Nose/Throat oral cavity/pharynx/larynx Overall: oral mucosa clear 02/07/2016 None Full Exam - General 1994 Ears/Nose/Throat oral cavity/pharynx/larynx Overall: oropharyngeal mucosa clear 02/07/2016 None Full Exam - General 1994 Ears/Nose/Throat oral cavity/pharynx/larynx Overall: no masses 02/07/2016 None Full Exam - General 1994 Respiratory auscultation Overall: breath sounds clear bilaterally 02/07/2016 None Full Exam - General 1994 Respiratory respiratory effort/rhythm Overall: no retractions 02/07/2016 None Full Exam - General 1994 Respiratory respiratory effort/rhythm Overall: normal rate 02/07/2016 None Full Exam - General 1994 Cardiovascular auscultation of heart Rate: regular rate 02/07/2016 None Full Exam - General 1994 Cardiovascular auscultation of heart Rhythm: irregular rhythm 02/07/2016 None Full Exam - General 1994 Abdomen abdominal exam Overall: no tenderness 02/07/2016 None Full Exam - General 1994 Abdomen abdominal exam Overall: normal bowel sounds 02/07/2016 None Full Exam - General 1994 Lymphatic neck nodes Overall: anterior cervical chain benign 02/07/2016 None Full Exam - General 1994 Lymphatic neck nodes Overall: posterior cervical chain benign 02/07/2016 None Full Exam - General 1994 Neurologic cranial nerves Overall: crainial nerves 2 - 12 grossly intact 02/07/2016 None Full Exam - General 1994 Psychiatric orientation/consciousness Overall: oriented to person, place and time 02/07/2016 None Full Exam - General 1994 Ears/Nose/Throat otoscopic exam Tympanic membrane: myringotomy tube 02/07/2016 None Full Exam - General 1994 Cardiovascular extremities Edema present: pitting 02/07/2016 None Full Exam - General 1994 Cardiovascular extremities Edema present: severity 1+ - 4 +: 1+ 02/07/2016 None Full Exam - General 1994 Cardiovascular extremities Edema present: to knees 02/07/2016 None Full Exam - General 1994 Constitutional general appearance Overall: well developed 12/10/2015 None Full Exam - General 1994 Constitutional general appearance Overall: in no acute distress 12/10/2015 None Full Exam - General 1994 Constitutional general appearance Overall: well nourished 12/10/2015 None Full Exam - General 1994 Eyes conjunctiva /eyelids Overall: conjunctiva clear 12/10/2015 None Full Exam - General 1994 Eyes conjunctiva /eyelids Overall: cornea clear 12/10/2015 None Full Exam - General 1994 Eyes conjunctiva /eyelids Overall: eyelids normal 12/10/2015 None Full Exam - General 1994 Eyes pupils and irises Overall: pupils equal, round, reactive to light and accomodation 12/10/2015 None Full Exam - General 1994 Ears/Nose/Throat otoscopic exam Overall: external auditory canals clear 12/10/2015 None Full Exam - General 1994 Ears/Nose/Throat otoscopic exam Overall: tympanic membranes clear 12/10/2015 None Full Exam - General 1994 Ears/Nose/Throat oral cavity/pharynx/larynx Overall: oral mucosa clear 12/10/2015 None Full Exam - General 1994 Ears/Nose/Throat oral cavity/pharynx/larynx Overall: oropharyngeal mucosa clear 12/10/2015 None Full Exam - General 1994 Ears/Nose/Throat oral cavity/pharynx/larynx Overall: no masses 12/10/2015 None Full Exam - General 1994 Respiratory auscultation Overall: breath sounds clear bilaterally 12/10/2015 None Full Exam - General 1994 Respiratory respiratory effort/rhythm Overall: no retractions 12/10/2015 None Full Exam - General 1994 Respiratory respiratory effort/rhythm Overall: normal rate 12/10/2015 None Full Exam - General 1994 Cardiovascular auscultation of heart Rate: regular rate 12/10/2015 None Full Exam - General 1994 Cardiovascular auscultation of heart Rhythm: irregular rhythm 12/10/2015 None Full Exam - General 1994 Abdomen abdominal exam Overall: no tenderness 12/10/2015 None Full Exam - General 1994 Abdomen abdominal exam Overall: normal bowel sounds 12/10/2015 None Full Exam - General 1994 Lymphatic neck nodes Overall: anterior cervical chain benign 12/10/2015 None Full Exam - General 1994 Lymphatic neck nodes Overall: posterior cervical chain benign 12/10/2015 None Full Exam - General 1994 Integument inspection of skin Location: left arm 12/10/2015 inner arm Full Exam - General 1994 Integument inspection of skin Location: left leg 12/10/2015 thigh Full Exam - General 1994 Integument inspection of skin Rash/Lesions: patch 12/10/2015 None Full Exam - General 1994 Neurologic cranial nerves Overall: crainial nerves 2 - 12 grossly intact 12/10/2015 None Full Exam - General 1994 Psychiatric orientation/consciousness Overall: oriented to person, place and time 12/10/2015 None Full Exam - General 1994 Constitutional general appearance Development: well developed 10/18/2015 None Full Exam - General 1994 Constitutional general appearance Development: appears stated age 0510/18/2015 None Full Exam - General 1994 Constitutional general appearance Hygiene/Attention to Grooming: good hygiene 10/18/2015 None Full Exam - General 1994 Eyes conjunctiva /eyelids Overall: conjunctiva clear 10/18/2015 None Full Exam - General 1994 Eyes conjunctiva /eyelids Overall: cornea clear 10/18/2015 None Full Exam - General 1994 Eyes conjunctiva /eyelids Overall: eyelids normal 10/18/2015 None Full Exam - General 1994 Eyes pupils and irises Overall: pupils equal, round, reactive to light and accomodation 10/18/2015 None Full Exam - General 1994 Ears/Nose/Throat otoscopic exam Overall: external auditory canals clear 10/18/2015 None Full Exam - General 1994 Ears/Nose/Throat internal nose Sinus tenderness: left maxillary 10/18/2015 None Full Exam - General 1994 Ears/Nose/Throat internal nose Sinus tenderness: right maxillary 10/18/2015 None Full Exam - General 1994 Ears/Nose/Throat lips/teeth/gingiva Overall: benign lips 10/18/2015 None Full Exam - General 1994 Ears/Nose/Throat lips/teeth/gingiva Overall: normal dentition 10/18/2015 None Full Exam - General 1994 Ears/Nose/Throat oral cavity/pharynx/larynx Overall: oral mucosa clear 10/18/2015 None Full Exam - General 1994 Ears/Nose/Throat oral cavity/pharynx/larynx Overall: no masses 10/18/2015 None Full Exam - General 1994 Ears/Nose/Throat oral cavity/pharynx/larynx Oropharynx: erythema 10/18/2015 None Full Exam - General 1994 Respiratory auscultation Overall: breath sounds clear bilaterally 10/18/2015 None Full Exam - General 1994 Respiratory respiratory effort/rhythm Overall: no retractions 10/18/2015 None Full Exam - General 1994 Respiratory respiratory effort/rhythm Overall: normal rate 10/18/2015 None Full Exam - General 1994 Cardiovascular extremities Overall: no clubbing 10/18/2015 None Full Exam - General 1994 Cardiovascular auscultation of heart Overall: normal heart sounds 10/18/2015 None Full Exam - General 1994 Cardiovascular auscultation of heart Rhythm: irregularly irregular rhythm 10/18/2015 None Full Exam - General 1994 Abdomen abdominal exam Overall: no tenderness 10/18/2015 None Full Exam - General 1994 Abdomen abdominal exam Overall: normal bowel sounds 10/18/2015 None Full Exam - General 1994 Lymphatic neck nodes Overall: anterior cervical chain benign 10/18/2015 None Full Exam - General 1994 Lymphatic neck nodes Overall: posterior cervical chain benign 10/18/2015 None Full Exam - General 1994 Musculoskeletal spine, ribs and pelvis Overall: good posture 10/18/2015 None Full Exam - General 1994 Neurologic cranial nerves Overall: crainial nerves 2 - 12 grossly intact 10/18/2015 None Full Exam - General 1994 Psychiatric orientation/consciousness Overall: oriented to person, place and time 10/18/2015 None Full Exam - General 1994 Psychiatric mood and affect Overall: normal mood and affect 10/18/2015 None Full Exam - General 1994 Ears/Nose/Throat otoscopic exam Tympanic membrane: air- fluid level 10/18/2015 None Full Exam - General 1994 Ears/Nose/Throat otoscopic exam Tympanic membrane: erythematous 10/18/2015 None Full Exam - General 1994 Ears/Nose/Throat internal nose Drainage: thick 10/18/2015 None Full Exam - General 1994 Ears/Nose/Throat internal nose Drainage: yellow 10/18/2015 green Full Exam - General 1994 Ears/Nose/Throat oral cavity/pharynx/larynx Posterior Pharynx: purulent post nasal drainage 10/18/2015 None Full Exam - General 1994 Constitutional general appearance Development: well developed 10/15/2015 None Full Exam - General 1994 Constitutional general appearance Development: appears stated age 0510/15/2015 None Full Exam - General 1994 Eyes conjunctiva /eyelids Overall: conjunctiva clear 10/15/2015 None Full Exam - General 1994 Eyes conjunctiva /eyelids Overall: cornea clear 10/15/2015 None Full Exam - General 1994 Eyes conjunctiva /eyelids Overall: eyelids normal 10/15/2015 None Full Exam - General 1994 Eyes pupils and irises Overall: pupils equal, round, reactive to light and accomodation 10/15/2015 None Full Exam - General 1994 Ears/Nose/Throat otoscopic exam Overall: external auditory canals clear 10/15/2015 None Full Exam - General 1994 Ears/Nose/Throat otoscopic exam Tympanic membrane: air- fluid level 10/15/2015 None Full Exam - General 1994 Ears/Nose/Throat internal nose Drainage: clear 10/15/2015 None Full Exam - General 1994 Ears/Nose/Throat internal nose Sinus tenderness: left maxillary 10/15/2015 None Full Exam - General 1994 Ears/Nose/Throat internal nose Sinus tenderness: right maxillary 10/15/2015 None Full Exam - General 1994 Ears/Nose/Throat lips/teeth/gingiva Overall: benign lips 10/15/2015 None Full Exam - General 1994 Ears/Nose/Throat lips/teeth/gingiva Overall: normal dentition 10/15/2015 None Full Exam - General 1994 Ears/Nose/Throat oral cavity/pharynx/larynx Overall: oral mucosa clear 10/15/2015 None Full Exam - General 1994 Ears/Nose/Throat oral cavity/pharynx/larynx Overall: no masses 10/15/2015 None Full Exam - General 1994 Ears/Nose/Throat oral cavity/pharynx/larynx Oropharynx: erythema 10/15/2015 None Full Exam - General 1994 Respiratory respiratory effort/rhythm Overall: no retractions 10/15/2015 None Full Exam - General 1994 Respiratory respiratory effort/rhythm Overall: normal rate 10/15/2015 None Full Exam - General 1994 Cardiovascular extremities Overall: no clubbing 10/15/2015 None Full Exam - General 1994 Cardiovascular auscultation of heart Overall: normal heart sounds 10/15/2015 None Full Exam - General 1994 Cardiovascular auscultation of heart Rhythm: irregularly irregular rhythm 10/15/2015 None Full Exam - General 1994 Abdomen abdominal exam Overall: no tenderness 10/15/2015 None Full Exam - General 1994 Abdomen abdominal exam Overall: normal bowel sounds 10/15/2015 None Full Exam - General 1994 Musculoskeletal spine, ribs and pelvis Overall: good posture 10/15/2015 None Full Exam - General 1994 Neurologic cranial nerves Overall: crainial nerves 2 - 12 grossly intact 10/15/2015 None Full Exam - General 1994 Psychiatric orientation/consciousness Overall: oriented to person, place and time 10/15/2015 None Full Exam - General 1994 Psychiatric mood and affect Overall: normal mood and affect 10/15/2015 None Full Exam - General 1994 Respiratory auscultation Overall: breath sounds clear bilaterally 10/15/2015 None Full Exam - General 1994 Lymphatic neck nodes Overall: posterior cervical chain benign 10/15/2015 None Full Exam - General 1994 Lymphatic neck nodes Overall: anterior cervical chain benign 10/15/2015 None Full Exam - General 1994 Constitutional general appearance Hygiene/Attention to Grooming: good hygiene 10/15/2015 None Full Exam - General 1994 Constitutional general appearance Development: well developed 08/28/2015 None Full Exam - General 1994 Constitutional general appearance Development: appears stated age 0308/28/2015 None Full Exam - General 1994 Constitutional general appearance Hygiene/Attention to Grooming: good hygiene 08/28/2015 None Full Exam - General 1994 Eyes conjunctiva /eyelids Overall: conjunctiva clear 08/28/2015 None Full Exam - General 1994 Eyes conjunctiva /eyelids Overall: cornea clear 08/28/2015 None Full Exam - General 1994 Eyes conjunctiva /eyelids Overall: eyelids normal 08/28/2015 None Full Exam - General 1994 Eyes pupils and irises Overall: pupils equal, round, reactive to light and accomodation 08/28/2015 None Full Exam - General 1994 Ears/Nose/Throat otoscopic exam Overall: external auditory canals clear 08/28/2015 None Full Exam - General 1994 Ears/Nose/Throat internal nose Drainage: clear 08/28/2015 no sinus tenderness, but feeling of fullness Full Exam - General 1994 Ears/Nose/Throat lips/teeth/gingiva Overall: benign lips 08/28/2015 None Full Exam - General 1994 Ears/Nose/Throat lips/teeth/gingiva Overall: normal dentition 08/28/2015 None Full Exam - General 1994 Ears/Nose/Throat oral cavity/pharynx/larynx Overall: oral mucosa clear 08/28/2015 None Full Exam - General 1994 Ears/Nose/Throat oral cavity/pharynx/larynx Overall: oropharyngeal mucosa clear 08/28/2015 None Full Exam - General 1994 Ears/Nose/Throat oral cavity/pharynx/larynx Overall: no masses 08/28/2015 None Full Exam - General 1994 Respiratory auscultation Upper lung field: rhonchi 08/28/2015 cleared with cough Full Exam - General 1994 Respiratory auscultation Lower lung field: diminished 08/28/2015 None Full Exam - General 1994 Respiratory auscultation Lower lung field: rhonchi 08/28/2015 None Full Exam - General 1994 Respiratory auscultation Lower lung field: expiratory wheezes 08/28/2015 slight Full Exam - General 1994 Respiratory respiratory effort/rhythm Overall: no retractions 08/28/2015 None Full Exam - General 1994 Respiratory respiratory effort/rhythm Overall: normal rate 08/28/2015 None Full Exam - General 1994 Cardiovascular extremities Overall: no clubbing 08/28/2015 None Full Exam - General 1994 Cardiovascular auscultation of heart Overall: normal heart sounds 08/28/2015 None Full Exam - General 1994 Cardiovascular auscultation of heart Rhythm: irregularly irregular rhythm 08/28/2015 None Full Exam - General 1994 Lymphatic neck nodes Overall: shotty lymphadenopathy 08/28/2015 None Full Exam - General 1994 Neurologic cranial nerves Overall: crainial nerves 2 - 12 grossly intact 08/28/2015 None Full Exam - General 1994 Psychiatric orientation/consciousness Overall: oriented to person, place and time 08/28/2015 None Full Exam - General 1994 Psychiatric mood and affect Overall: normal mood and affect 08/28/2015 None Full Exam - General 1994 Ears/Nose/Throat otoscopic exam Tympanic membrane: air- fluid level 08/28/2015 None Full Exam - General 1994 Ears/Nose/Throat otoscopic exam Tympanic membrane: bulging 08/28/2015 None Full Exam - General 1994 Constitutional general appearance Development: well developed 06/11/2015 None Full Exam - General 1994 Constitutional general appearance Development: appears stated age 1206/11/2015 None Full Exam - General 1994 Constitutional general appearance Hygiene/Attention to Grooming: good hygiene 06/11/2015 None Full Exam - General 1994 Eyes conjunctiva /eyelids Overall: conjunctiva clear 06/11/2015 None Full Exam - General 1994 Eyes conjunctiva /eyelids Overall: cornea clear 06/11/2015 None Full Exam - General 1994 Eyes conjunctiva /eyelids Overall: eyelids normal 06/11/2015 None Full Exam - General 1994 Eyes pupils and irises Overall: pupils equal, round, reactive to light and accomodation 06/11/2015 None Full Exam - General 1994 Ears/Nose/Throat otoscopic exam Overall: external auditory canals clear 06/11/2015 None Full Exam - General 1994 Ears/Nose/Throat otoscopic exam Tympanic membrane: air- fluid level 06/11/2015 None Full Exam - General 1994 Ears/Nose/Throat internal nose Drainage: clear 06/11/2015 None Full Exam - General 1994 Ears/Nose/Throat lips/teeth/gingiva Overall: benign lips 06/11/2015 None Full Exam - General 1994 Ears/Nose/Throat lips/teeth/gingiva Overall: normal dentition 06/11/2015 None Full Exam - General 1994 Ears/Nose/Throat oral cavity/pharynx/larynx Overall: oral mucosa clear 06/11/2015 None Full Exam - General 1994 Ears/Nose/Throat oral cavity/pharynx/larynx Overall: no masses 06/11/2015 None Full Exam - General 1994 Respiratory auscultation Lower lung field: diminished 06/11/2015 None Full Exam - General 1994 Respiratory respiratory effort/rhythm Overall: no retractions 06/11/2015 None Full Exam - General 1994 Respiratory respiratory effort/rhythm Overall: normal rate 06/11/2015 None Full Exam - General 1994 Cardiovascular extremities Overall: no clubbing 06/11/2015 None Full Exam - General 1994 Cardiovascular auscultation of heart Overall: normal heart sounds 06/11/2015 None Full Exam - General 1994 Cardiovascular auscultation of heart Rhythm: irregularly irregular rhythm 06/11/2015 None Full Exam - General 1994 Abdomen abdominal exam Overall: no tenderness 06/11/2015 None Full Exam - General 1994 Abdomen abdominal exam Overall: normal bowel sounds 06/11/2015 None Full Exam - General 1994 Lymphatic neck nodes Overall: shotty lymphadenopathy 06/11/2015 None Full Exam - General 1994 Musculoskeletal spine, ribs and pelvis Overall: good posture 06/11/2015 None Full Exam - General 1994 Neurologic cranial nerves Overall: crainial nerves 2 - 12 grossly intact 06/11/2015 None Full Exam - General 1994 Psychiatric orientation/consciousness Overall: oriented to person, place and time 06/11/2015 None Full Exam - General 1994 Psychiatric mood and affect Overall: normal mood and affect 06/11/2015 None Full Exam - General 1994 Ears/Nose/Throat internal nose Sinus tenderness: left maxillary 06/11/2015 None Full Exam - General 1994 Ears/Nose/Throat internal nose Sinus tenderness: right maxillary 06/11/2015 None Full Exam - General 1994 Ears/Nose/Throat oral cavity/pharynx/larynx Oropharynx: erythema 06/11/2015 None Full Exam - General 1994 Respiratory auscultation Lower lung field: rhonchi 06/11/2015 cleared with cough Full Exam - General 1994 Respiratory auscultation Upper lung field: diminished 06/11/2015 None Full Exam - General 1994 Constitutional general appearance Development: well developed 05/23/2015 None Full Exam - General 1994 Constitutional general appearance Development: appears stated age 1205/23/2015 None Full Exam - General 1994 Constitutional general appearance Hygiene/Attention to Grooming: good hygiene 05/23/2015 None Full Exam - General 1994 Eyes conjunctiva /eyelids Overall: conjunctiva clear 05/23/2015 None Full Exam - General 1994 Eyes conjunctiva /eyelids Overall: cornea clear 05/23/2015 None Full Exam - General 1994 Eyes conjunctiva /eyelids Overall: eyelids normal 05/23/2015 None Full Exam - General 1994 Eyes pupils and irises Overall: pupils equal, round, reactive to light and accomodation 05/23/2015 None Full Exam - General 1994 Ears/Nose/Throat otoscopic exam Overall: external auditory canals clear 05/23/2015 None Full Exam - General 1994 Ears/Nose/Throat lips/teeth/gingiva Overall: benign lips 05/23/2015 None Full Exam - General 1994 Ears/Nose/Throat lips/teeth/gingiva Overall: normal dentition 05/23/2015 None Full Exam - General 1994 Ears/Nose/Throat oral cavity/pharynx/larynx Overall: oral mucosa clear 05/23/2015 None Full Exam - General 1994 Ears/Nose/Throat oral cavity/pharynx/larynx Overall: oropharyngeal mucosa clear 05/23/2015 None Full Exam - General 1994 Ears/Nose/Throat oral cavity/pharynx/larynx Overall: no masses 05/23/2015 None Full Exam - General 1994 Respiratory respiratory effort/rhythm Overall: no retractions 05/23/2015 None Full Exam - General 1994 Respiratory respiratory effort/rhythm Overall: normal rate 05/23/2015 None Full Exam - General 1994 Cardiovascular extremities Overall: no clubbing 05/23/2015 None Full Exam - General 1994 Cardiovascular auscultation of heart Overall: normal heart sounds 05/23/2015 None Full Exam - General 1994 Cardiovascular auscultation of heart Rhythm: irregularly irregular rhythm 05/23/2015 None Full Exam - General 1994 Abdomen abdominal exam Overall: no tenderness 05/23/2015 None Full Exam - General 1994 Abdomen abdominal exam Overall: normal bowel sounds 05/23/2015 None Full Exam - General 1994 Musculoskeletal spine, ribs and pelvis Overall: good posture 05/23/2015 None Full Exam - General 1994 Neurologic cranial nerves Overall: crainial nerves 2 - 12 grossly intact 05/23/2015 None Full Exam - General 1994 Psychiatric orientation/consciousness Overall: oriented to person, place and time 05/23/2015 None Full Exam - General 1994 Psychiatric mood and affect Overall: normal mood and affect 05/23/2015 None Full Exam - General 1994 Ears/Nose/Throat otoscopic exam Tympanic membrane: air- fluid level 05/23/2015 None Full Exam - General 1994 Respiratory auscultation Lower lung field: diminished 05/23/2015 None Full Exam - General 1994 Respiratory auscultation Lower lung field: rhonchi 05/23/2015 None Full Exam - General 1994 Respiratory auscultation Upper lung field: rhonchi 05/23/2015 cleared with cough Full Exam - General 1994 Respiratory auscultation Lower lung field: expiratory wheezes 05/23/2015 slight Full Exam - General 1994 Lymphatic neck nodes Overall: shotty lymphadenopathy 05/23/2015 None Full Exam - General 1994 Ears/Nose/Throat internal nose Drainage: clear 05/23/2015 no sinus tenderness, but feeling of fullness Full Exam - General 1994 Constitutional general appearance Development: well developed 03/07/2015 None Full Exam - General 1994 Constitutional general appearance Development: appears stated age 0903/07/2015 None Full Exam - General 1994 Constitutional general appearance Hygiene/Attention to Grooming: good hygiene 03/07/2015 None Full Exam - General 1994 Eyes conjunctiva /eyelids Overall: conjunctiva clear 03/07/2015 None Full Exam - General 1994 Eyes conjunctiva /eyelids Overall: cornea clear 03/07/2015 None Full Exam - General 1994 Eyes conjunctiva /eyelids Overall: eyelids normal 03/07/2015 None Full Exam - General 1994 Eyes pupils and irises Overall: pupils equal, round, reactive to light and accomodation 03/07/2015 None Full Exam - General 1994 Ears/Nose/Throat otoscopic exam Overall: external auditory canals clear 03/07/2015 None Full Exam - General 1994 Ears/Nose/Throat otoscopic exam Overall: tympanic membranes clear 03/07/2015 None Full Exam - General 1994 Ears/Nose/Throat lips/teeth/gingiva Overall: benign lips 03/07/2015 None Full Exam - General 1994 Ears/Nose/Throat lips/teeth/gingiva Overall: normal dentition 03/07/2015 None Full Exam - General 1994 Ears/Nose/Throat oral cavity/pharynx/larynx Overall: oral mucosa clear 03/07/2015 None Full Exam - General 1994 Ears/Nose/Throat oral cavity/pharynx/larynx Overall: oropharyngeal mucosa clear 03/07/2015 None Full Exam - General 1994 Ears/Nose/Throat oral cavity/pharynx/larynx Overall: hypopharynx benign 03/07/2015 None Full Exam - General 1994 Ears/Nose/Throat oral cavity/pharynx/larynx Overall: no masses 03/07/2015 None Full Exam - General 1994 Respiratory auscultation Overall: breath sounds clear bilaterally 03/07/2015 None Full Exam - General 1994 Respiratory respiratory effort/rhythm Overall: no retractions 03/07/2015 None Full Exam - General 1994 Respiratory respiratory effort/rhythm Overall: normal rate 03/07/2015 None Full Exam - General 1994 Cardiovascular extremities Overall: no clubbing 03/07/2015 None Full Exam - General 1994 Cardiovascular auscultation of heart Overall: normal heart sounds 03/07/2015 None Full Exam - General 1994 Abdomen abdominal exam Overall: no tenderness 03/07/2015 None Full Exam - General 1994 Abdomen abdominal exam Overall: normal bowel sounds 03/07/2015 None Full Exam - General 1994 Lymphatic neck nodes Overall: anterior cervical chain benign 03/07/2015 None Full Exam - General 1994 Lymphatic neck nodes Overall: posterior cervical chain benign 03/07/2015 None Full Exam - General 1994 Musculoskeletal spine, ribs and pelvis Overall: spine benign 03/07/2015 None Full Exam - General 1994 Musculoskeletal spine, ribs and pelvis Overall: sacroiliac joint benign 03/07/2015 None Full Exam - General 1994 Musculoskeletal spine, ribs and pelvis Overall: good posture 03/07/2015 None Full Exam - General 1994 Musculoskeletal head and neck Overall: head atraumatic 03/07/2015 None Full Exam - General 1994 Musculoskeletal head and neck Overall: cervical spine benign 03/07/2015 None Full Exam - General 1994 Neurologic deep tendon reflexes Overall: deep tendon reflexes intact 03/07/2015 None Full Exam - General 1994 Neurologic cranial nerves Overall: crainial nerves 2 - 12 grossly intact 03/07/2015 None Full Exam - General 1994 Psychiatric orientation/consciousness Overall: oriented to person, place and time 03/07/2015 None Full Exam - General 1994 Psychiatric mood and affect Overall: normal mood and affect 03/07/2015 None Full Exam - General 1994 Integument inspection of skin Dermatitis: erythema 03/07/2015 on right forearm - erythematous , mildly indurated skin lesion Full Exam - General 1994 Cardiovascular auscultation of heart Rhythm: irregularly irregular rhythm 03/07/2015 None Full Exam - General 1994 Constitutional general appearance Overall: well developed 02/15/2015 None Full Exam - General 1994 Constitutional general appearance Overall: in no acute distress 02/15/2015 None Full Exam - General 1994 Constitutional general appearance Overall: well nourished 02/15/2015 None Full Exam - General 1994 Cardiovascular auscultation of heart Rate: regular rate 02/15/2015 None Full Exam - General 1994 Cardiovascular auscultation of heart Rhythm: irregular rhythm 02/15/2015 None Full Exam - General 1994 Respiratory auscultation Overall: breath sounds clear bilaterally 02/15/2015 None Full Exam - General 1994 Respiratory respiratory effort/rhythm Overall: no retractions 02/15/2015 None Full Exam - General 1994 Respiratory respiratory effort/rhythm Overall: normal rate 02/15/2015 None Full Exam - General 1994 Psychiatric orientation/consciousness Overall: oriented to person, place and time 02/15/2015 None Full Exam - General 1994 Integument inspection of skin Location: right leg 02/15/2015 2 puncture herman right anterior lower leg-no redness, drainage, warmth Full Exam - General 1994 Constitutional general appearance Overall: well developed 10/16/2014 None Full Exam - General 1994 Constitutional general appearance Overall: in no acute distress 10/16/2014 None Full Exam - General 1994 Constitutional general appearance Overall: well nourished 10/16/2014 None Full Exam - General 1994 Psychiatric orientation/consciousness Overall: oriented to person, place and time 10/16/2014 None Full Exam - General 1994 Neurologic cranial nerves Overall: crainial nerves 2 - 12 grossly intact 10/16/2014 None Full Exam - General 1994 Integument inspection of skin Location: left arm 10/16/2014 inner arm Full Exam - General 1994 Integument inspection of skin Location: left leg 10/16/2014 thigh Full Exam - General 1994 Integument inspection of skin Rash/Lesions: patch 10/16/2014 None Full Exam - General 1994 Lymphatic neck nodes Overall: posterior cervical chain benign 10/16/2014 None Full Exam - General 1994 Lymphatic neck nodes Overall: anterior cervical chain benign 10/16/2014 None Full Exam - General 1994 Abdomen abdominal exam Overall: no tenderness 10/16/2014 None Full Exam - General 1994 Abdomen abdominal exam Overall: normal bowel sounds 10/16/2014 None Full Exam - General 1994 Respiratory auscultation Overall: breath sounds clear bilaterally 10/16/2014 None Full Exam - General 1994 Respiratory respiratory effort/rhythm Overall: normal rate 10/16/2014 None Full Exam - General 1994 Respiratory respiratory effort/rhythm Overall: no retractions 10/16/2014 None Full Exam - General 1994 Ears/Nose/Throat otoscopic exam Overall: tympanic membranes clear 10/16/2014 None Full Exam - General 1994 Ears/Nose/Throat otoscopic exam Overall: external auditory canals clear 10/16/2014 None Full Exam - General 1994 Ears/Nose/Throat oral cavity/pharynx/larynx Overall: oropharyngeal mucosa clear 10/16/2014 None Full Exam - General 1994 Ears/Nose/Throat oral cavity/pharynx/larynx Overall: no masses 10/16/2014 None Full Exam - General 1994 Ears/Nose/Throat oral cavity/pharynx/larynx Overall: oral mucosa clear 10/16/2014 None Full Exam - General 1994 Eyes conjunctiva /eyelids Overall: conjunctiva clear 10/16/2014 None Full Exam - General 1994 Eyes conjunctiva /eyelids Overall: eyelids normal 10/16/2014 None Full Exam - General 1994 Eyes conjunctiva /eyelids Overall: cornea clear 10/16/2014 None Full Exam - General 1994 Eyes pupils and irises Overall: pupils equal, round, reactive to light and accomodation 10/16/2014 None Full Exam - General 1994 Cardiovascular auscultation of heart Rate: regular rate 10/16/2014 None Full Exam - General 1994 Cardiovascular auscultation of heart Rhythm: irregular rhythm 10/16/2014 None Procedures Procedure Codes Date URINALYSIS NONAUTO W/O SCOPE CPT-4: 34162 06/30/2017 URINALYSIS NONAUTO W/O SCOPE CPT-4: 80263 06/10/2017 URINALYSIS NONAUTO W/O SCOPE CPT-4: 21910 05/26/2017 URINALYSIS NONAUTO W/O SCOPE CPT-4: 95287 03/10/2017 URINALYSIS NONAUTO W/O SCOPE CPT-4: 79283 02/19/2017 URINALYSIS NONAUTO W/O SCOPE CPT-4: 31504 10/22/2016 URINALYSIS NONAUTO W/O SCOPE CPT-4: 13925 09/25/2016 Pneumococcal Polysaccharide Vaccine, 23-Valent, Ad CPT-4: 66682 09/09/2016 ADMIN PNEUMOCOCCAL VACCINE SNOMED CT: 51510743 CPT-4: G0009 09/09/2016 URINALYSIS NONAUTO W/O SCOPE CPT-4: 90095 12/10/2015 ROCEPHIN, PER 250 MG CPT-4: J0696 10/18/2015 TRIAMCINOLONE ACET INJ NOS CPT-4: J3301 10/15/2015 TRIAMCINOLONE ACET INJ NOS CPT-4: J3301 08/28/2015 ROCEPHIN, PER 250 MG CPT-4: J0696 08/28/2015 THER/PROPH/DIAG INJ SC/IM CPT-4: 18993 06/11/2015 ROCEPHIN, PER 250 MG CPT-4: J0696 06/11/2015 THER/PROPH/DIAG INJ SC/IM CPT-4: 55150 05/23/2015 TRIAMCINOLONE ACET INJ NOS CPT-4: J3301 05/23/2015 ADMIN INFLUENZA VIRUS VAC Formatting Model/CDA Sections, Assigned to CPT-4: [id number] 03/07/2015 FLU VACC 4 ISADORA 3 YRS PLUS IM SNOMED CT: 94743012 CPT-4: 14120 03/07/2015 Vital Signs Date Vital 05/13/2017 Blood Pressure 1: 138/74 Code : 8480-6 BMI: 30.9 Code : 34177-4 Heart Rate 1 : 75 bpm Height: 5'2" SpO2: 98% Weight: 169 lbs 03/10/2017 Blood Pressure 1: 142/84 Code : 8480-6 Blood Pressure 1: 136/76 Code: 8480-6 BMI: 31.3 Code: 82206-7 Heart Rate 1: 67 bpm Height: 5'2" SpO2: 97% Weight: 171 lbs 02/19/2017 Blood Pressure 1: 144/74 Code : 8480-6 BMI: 31.8 Code : 09704-1 Heart Rate 1 : 81 bpm Height: 5'2" SpO2: 96% Weight: 174 lbs 02/05/2017 Blood Pressure 1: 130/68 Code : 8480-6 BMI: 32.0 Code : 88945-1 Heart Rate 1 : 67 bpm Height: 5'2" SpO2: 97% Weight: 175 lbs 09/09/2016 Blood Pressure 1: 140/82 Code : 8480-6 BMI: 32.7 Code : 97021-7 Heart Rate 1 : 64 bpm Height: 5'2" SpO2: 95% Weight: 179 lbs 08/12/2016 Blood Pressure 1: 148/80 Code : 8480-6 BMI: 33.1 Code : 52372-3 Heart Rate 1 : 98 bpm Height: 5'2" SpO2: 98% Weight: 181 lbs 06/23/2016 Blood Pressure 1: 146/72 Code : 8480-6 Heart Rate 1: 80 bpm Height: 5'2" SpO2: 98% Weight: 05/12/2016 Blood Pressure 1: 138/74 Code : 8480-6 BMI: 33.3 Code : 12038-9 Heart Rate 1 : 82 bpm Height: 5'2" SpO2: 98% Weight: 182 lbs 02/07/2016 Blood Pressure 1: 128/78 Code : 8480-6 BMI: 33.3 Code : 77504-5 Heart Rate 1 : 51 bpm Height: 5'2" SpO2: 97% Weight: 182 lbs 12/10/2015 Blood Pressure 1: 110/70 Code : 8480-6 BMI: 33.3 Code : 46678-8 Heart Rate 1 : 67 bpm Height: 5'2" SpO2: 96% Weight: 182 lbs 10/18/2015 Blood Pressure 1: 146/76 Code : 8480-6 BMI: 33.3 Code : 34343-8 Heart Rate 1 : 84 bpm Height: 5'2" SpO2: 98% Weight: 182 lbs 10/15/2015 Blood Pressure 1: 142/98 Code : 8480-6 Blood Pressure 1: 138/86 Code: 8480-6 BMI: 33.5 Code: 89788-9 Heart Rate 1: 85 bpm Height: 5'2" SpO2: 99% Temperature : 35.9 (C) / 96.6 (F) Weight: 183 lbs 08/28/2015 Blood Pressure 1: 146/84 Code : 8480-6 BMI: 33.7 Code : 58377-3 Heart Rate 1 : 92 bpm Height: 5'2" SpO2: 97% Temperature: 36.4 (C) / 97.5 (F) Weight: 184 lbs 06/11/2015 Blood Pressure 1: 144/92 Code : 8480-6 BMI: 33.5 Code : 59395-7 Heart Rate 1 : 79 bpm Height: 5'2" SpO2: 99% Weight: 183 lbs 05/23/2015 Blood Pressure 1: 128/68 Code : 8480-6 BMI: 34.2 Code : 31224-1 Heart Rate 1 : 84 bpm Height: 5'2" SpO2: 96% Weight: 187 lbs 03/07/2015 Blood Pressure 1: 132/62 Code : 8480-6 BMI: 33.5 Code : 83418-1 Heart Rate 1 : 94 bpm Height: 5'2" SpO2: 98% Weight: 183 lbs 02/15/2015 Blood Pressure 1: 140/76 Code : 8480-6 BMI: 33.5 Code : 85252-8 Heart Rate 1 : 76 bpm Height: 5'2" SpO2: 96% Weight: 183 lbs 10/16/2014 Blood Pressure 1: 128/84 Code : 8480-6 BMI: 32.9 Code : 93842-9 Heart Rate 1 : 82 bpm Height: 5'2" Weight: 180 lbs Functional Status No Functional Status data History of Present Illness Symptom Name Status Result Effective Date Notes hypertension Quality primary hypertension 05/13/2017 None hypertension Onset and Resolution ongoing 05/13/2017 None hypertension Onset of Symptom during adulthood 05/13/2017 None hypertension Blood Pressure Values patient checking blood pressure at home - did not bring in readings 05/13/2017 -Checks occasionally hypertension Alleviating Factors medication 05/13/2017 None hypertension Exacerbating Factors stress 05/13/2017 None hypertension Pertinent Findings dizziness 05/13/2017 at night when she gets up hypertension Pertinent Findings dyspnea 05/13/2017 "some" hypertension Pertinent Findings edema 05/13/2017 some in the ankles- more in the left constipation Onset and Resolution ongoing 05/13/2017 None constipation Alleviating Factors laxatives 05/13/2017 None constipation Quality daily stools 05/13/2017 None constipation Quality improving 05/13/2017 None arm pain Location left arm 05/13/2017 None arm pain Quality acute 05/13/2017 None arm pain Quality constant 05/13/2017 None arm pain Onset and Resolution sudden in onset 05/13/2017 None arm pain Onset of Symptom 1 months ago 05/13/2017 None arm pain Mechanism of injury unknown 05/13/2017 None hypertension Onset and Resolution ongoing 03/10/2017 None hypertension Onset of Symptom during adulthood 03/10/2017 None hypertension Blood Pressure Values patient checking blood pressure at home - did not bring in readings 03/10/2017 -Checks occasionally hypertension Alleviating Factors medication 03/10/2017 None hypertension Pertinent Findings Denies dizziness 03/10/2017 None hypertension Pertinent Findings dyspnea 03/10/2017 "some" hypertension Pertinent Findings edema 03/10/2017 some in the ankles- more in the left hypertension Quality primary hypertension 03/10/2017 None hypothyroid Onset and Resolution ongoing 03/10/2017 None hypothyroid Alleviating Factors medication 03/10/2017 None hyperlipidemia Onset and Resolution gradual in onset 03/10/2017 None hyperlipidemia Onset of Symptom during adulthood 03/10/2017 None hyperlipidemia Alleviating Factors medication 03/10/2017 None hyperlipidemia Exacerbating Factors diet 03/10/2017 None hyperlipidemia Significant Medications statin 03/10/2017 None constipation Quality acute 03/10/2017 None constipation Alleviating Factors laxatives 03/10/2017 None hypertension Exacerbating Factors stress 03/10/2017 None constipation Onset and Resolution ongoing 03/10/2017 None dysuria Quality acute 02/19/2017 None dysuria Onset and Resolution ongoing 02/19/2017 None dysuria Onset of Symptom _ weeks ago 02/19/2017 None dysuria Limitation on Activities does not limit urination 02/19/2017 None dysuria Frequency of Episodes decreasing 02/19/2017 None dysuria Significant Medications antibiotics 02/19/2017 None dysuria Triggers no known associated factors 02/19/2017 None dysuria Pertinent Findings Denies cough 02/19/2017 None dysuria Pertinent Findings Denies fever 02/19/2017 None Hospital Follow Up _ Other: bladder infection 02/05/2017 None Hospital Follow Up Onset of Symptom 2 weeks ago 02/05/2017 None Hospital Follow Up Quality acute illness 02/05/2017 None Hospital Follow Up Onset and Resolution ongoing 02/05/2017 None Hospital Follow Up Severity moderate 02/05/2017 None Hospital Follow Up Significant Medical Conditions acute illness 02/05/2017 UTI Hospital Follow Up Alleviating Factors medication 02/05/2017 None Hospital Follow Up Pertinent Findings Denies pain 02/05/2017 None Hospital Follow Up Pertinent Findings Denies fever 02/05/2017 None hypertension Onset and Resolution ongoing 09/09/2016 None hypertension Onset of Symptom during adulthood 09/09/2016 None hypertension Blood Pressure Values patient checking blood pressure at home - did not bring in readings 09/09/2016 -Checks occasionally hypertension Alleviating Factors medication 09/09/2016 None hypertension Pertinent Findings dizziness 09/09/2016 occasionally hypertension Pertinent Findings dyspnea 09/09/2016 None hypertension Pertinent Findings edema 09/09/2016 in bilateral legs and ankles- takes lasix as needed paresthesia Location on both feet 09/09/2016 --mostly in the left foot paresthesia Quality burning 09/09/2016 None paresthesia Quality intermittent 09/09/2016 None paresthesia Onset and Resolution ongoing 09/09/2016 None paresthesia Limitation on Activities moderately limits activities 09/09/2016 None paresthesia Triggers no known associated factors 09/09/2016 -was told by Dr. Rocha that she has arthritis headache Location in the right posterior area 09/09/2016 None headache Quality intermittent 09/09/2016 None headache Triggers no known associated factors 09/09/2016 None cough Quality dry None cough Quality hacking 09/09/2016 None cough Quality intermittent 09/09/2016 None cough Onset and Resolution ongoing 09/09/2016 None cough Onset of Symptom 3+ months ago 09/09/2016 None cough Pertinent Findings Denies sputum production 09/09/2016 None headache Onset and Resolution resolved 09/09/2016 None hypertension Onset and Resolution ongoing 08/12/2016 None hypertension Onset of Symptom during adulthood 08/12/2016 None hypertension Alleviating Factors medication 08/12/2016 None hypertension Pertinent Findings dizziness 08/12/2016 occasionally hypertension Pertinent Findings dyspnea 08/12/2016 None hypertension Pertinent Findings edema 08/12/2016 in bilateral legs and ankles- takes lasix as needed hyperlipidemia Onset and Resolution gradual in onset 08/12/2016 None hyperlipidemia Onset and Resolution ongoing 08/12/2016 None hyperlipidemia Onset of Symptom during adulthood 08/12/2016 None hyperlipidemia Alleviating Factors medication 08/12/2016 None hyperlipidemia Exacerbating Factors diet 08/12/2016 None hypothyroid Onset and Resolution ongoing 08/12/2016 None hypothyroid Alleviating Factors medication 08/12/2016 None paresthesia Location on both feet 08/12/2016 None paresthesia Quality burning 08/12/2016 None paresthesia Quality intermittent 08/12/2016 None paresthesia Limitation on Activities moderately limits activities 08/12/2016 None paresthesia Triggers no known associated factors 08/12/2016 None hypertension Blood Pressure Values patient checking blood pressure at home - did not bring in readings 08/12/2016 -Checks occasionally paresthesia Onset and Resolution ongoing 08/12/2016 None cough Quality hacking 08/12/2016 None cough Quality dry None cough Quality intermittent 08/12/2016 None cough Onset and Resolution ongoing 08/12/2016 None cough Pertinent Findings Denies sputum production 08/12/2016 None cough Onset of Symptom 2+ months ago 08/12/2016 None headache Location in the right posterior area 08/12/2016 None headache Quality intermittent 08/12/2016 None headache Onset and Resolution ongoing 08/12/2016 None headache Triggers no known associated factors 08/12/2016 None edema Onset and Resolution sudden in onset 06/23/2016 None edema Onset of Symptom 3 weeks ago 06/23/2016 None edema Triggers no known associated factors 06/23/2016 None edema Pertinent Findings limb pain / tenderness 06/23/2016 None edema Location on both ankles 06/23/2016 None edema Location on both legs 06/23/2016 None hypertension Onset and Resolution ongoing 05/12/2016 None hypertension Onset of Symptom during adulthood 05/12/2016 None hypertension Blood Pressure Values patient checking blood pressure at home - did not bring in readings 05/12/2016 None hypertension Alleviating Factors medication 05/12/2016 None hypertension Pertinent Findings dizziness 05/12/2016 -some at night when she wakes up hypertension Pertinent Findings dyspnea 05/12/2016 (most of the time) hypertension Pertinent Findings edema 05/12/2016 in bilateral legs and ankles- takes lasix as needed hyperlipidemia Onset and Resolution gradual in onset 05/12/2016 None hyperlipidemia Onset and Resolution ongoing 05/12/2016 None hyperlipidemia Onset of Symptom during adulthood 05/12/2016 None hyperlipidemia Alleviating Factors medication 05/12/2016 None hyperlipidemia Exacerbating Factors diet 05/12/2016 None hypothyroid Onset and Resolution ongoing 05/12/2016 None hypothyroid Alleviating Factors medication 05/12/2016 None paresthesia Location on both feet 05/12/2016 None paresthesia Quality burning 05/12/2016 None paresthesia Quality intermittent 05/12/2016 None paresthesia Quality acute 05/12/2016 None paresthesia Onset and Resolution sudden in onset 05/12/2016 None paresthesia Onset of Symptom 5 days ago 05/12/2016 None paresthesia Limitation on Activities moderately limits activities 05/12/2016 None paresthesia Triggers no known associated factors 05/12/2016 None eye pain Location in the left eye 05/12/2016 None eye pain Quality acute 05/12/2016 None eye pain Onset and Resolution sudden in onset 05/12/2016 None eye pain Onset of Symptom 2 days ago 05/12/2016 None edema Onset of Symptom 1 months ago 02/07/2016 None edema Frequency of Episodes daily 02/07/2016 None edema Pertinent Findings dyspnea 02/07/2016 None edema Pertinent Findings Denies limb pain / tenderness 02/07/2016 None edema Onset and Resolution ongoing 02/07/2016 None edema Limitation on Activities does not limit activities 02/07/2016 None edema Significant Past Medical History cardiac disease 02/07/2016 None edema Triggers no known associated factors 02/07/2016 None edema Exacerbating Factors activity 02/07/2016 None edema Quality intermittent 02/07/2016 None hypothyroid Onset and Resolution ongoing 12/10/2015 None hypothyroid Alleviating Factors medication 12/10/2015 None cough Quality dry None cough Quality intermittent 12/10/2015 None cough Quality hacking 12/10/2015 None cough Onset and Resolution ongoing 12/10/2015 None hyperlipidemia Onset and Resolution gradual in onset 12/10/2015 None hyperlipidemia Onset and Resolution ongoing 12/10/2015 None hyperlipidemia Onset of Symptom during adulthood 12/10/2015 None hyperlipidemia Alleviating Factors medication 12/10/2015 None hyperlipidemia Exacerbating Factors diet 12/10/2015 None back pain Location in the right middle back area 12/10/2015 None back pain Onset and Resolution ongoing 12/10/2015 None back pain Onset and Resolution worse at night 12/10/2015 None back pain Quality intermittent 12/10/2015 None cough Location in the throat 10/18/2015 None cough Quality hacking 10/18/2015 None cough Quality constant 10/18/2015 None cough Quality productive 10/18/2015 None cough Onset and Resolution sudden in onset 10/18/2015 None cough Onset of Symptom 1 weeks ago 10/18/2015 None cough Frequency of Episodes daily 10/18/2015 None sinus congestion Location on both sides 10/18/2015 None sinus congestion Quality fullness 10/18/2015 None sinus congestion Quality pressure 10/18/2015 None sinus congestion Quality constant 10/18/2015 None sinus congestion Onset and Resolution sudden in onset 10/18/2015 None sinus congestion Onset of Symptom 1 weeks ago 10/18/2015 None sinus congestion Frequency of Episodes daily 10/18/2015 None sore throat Location on both sides 10/18/2015 None sore throat Quality constant 10/18/2015 None sore throat Quality dull 10/18/2015 None sore throat Quality scratchy 10/18/2015 None sore throat Onset and Resolution sudden in onset 10/18/2015 None sore throat Onset of Symptom 1 weeks ago 10/18/2015 None sore throat Frequency of Episodes daily 10/18/2015 None earache Location both ears 10/18/2015 None earache Onset and Resolution sudden in onset 10/18/2015 None earache Onset of Symptom 1 weeks ago 10/18/2015 None earache Frequency of Episodes daily 10/18/2015 None cough Location in the throat 10/15/2015 None cough Quality productive 10/15/2015 None cough Onset of Symptom 1-2 days ago 10/15/2015 None cough Pertinent Findings Denies chest discomfort 10/15/2015 None cough Pertinent Findings Denies dyspnea 10/15/2015 None cough Pertinent Findings Denies fever 10/15/2015 None cough Pertinent Findings Denies vomiting 10/15/2015 None cough Pertinent Findings nausea 10/15/2015 None nausea Onset of Symptom 1 weeks ago 10/15/2015 None nausea Frequency of Episodes daily 10/15/2015 None nausea Pertinent Findings cough 10/15/2015 None nausea Pertinent Findings Denies fever 10/15/2015 None nausea Pertinent Findings Denies gastroenteritis 10/15/2015 None earache Location right ear 10/15/2015 None earache Quality acute 10/15/2015 None earache Onset and Resolution ongoing 10/15/2015 None earache Onset of Symptom 1 weeks ago 10/15/2015 None earache Significant Medications antibiotics 10/15/2015 None earache Significant Medications antihistamine 10/15/2015 None cough Location in the lung 08/28/2015 None cough Quality productive 08/28/2015 None cough Onset and Resolution sudden in onset 08/28/2015 None cough Onset of Symptom 4 days ago 08/28/2015 None cough Frequency of Episodes daily 08/28/2015 None cough Pertinent Findings chest discomfort 08/28/2015 None cough Pertinent Findings hoarseness 08/28/2015 None cough Pertinent Findings nasal congestion 08/28/2015 None chest congestion Quality constant 08/28/2015 None chest congestion Onset and Resolution sudden in onset 08/28/2015 None chest congestion Onset of Symptom 3 months ago during the entire , and then 4 days ago 08/28/2015 None chest congestion Pertinent Findings cough 08/28/2015 None chest congestion Pertinent Findings nasal congestion 08/28/2015 None chest congestion Severity moderate 08/28/2015 None chest congestion Alleviating Factors OTC medications 08/28/2015 - she has been taking mucinex dm without benefit - cough Location in the lung 06/11/2015 None cough Quality hacking 06/11/2015 None cough Quality productive 06/11/2015 None cough Onset and Resolution ongoing 06/11/2015 None cough Onset of Symptom 3 weeks ago 06/11/2015 None cough Frequency of Episodes daily 06/11/2015 None cough Pertinent Findings Denies fever 06/11/2015 None cough Pertinent Findings nasal congestion 06/11/2015 None sinus congestion Location on both sides 06/11/2015 None sinus congestion Quality fullness 06/11/2015 None sinus congestion Onset and Resolution sudden in onset 06/11/2015 None sinus congestion Onset of Symptom 4 days ago 06/11/2015 None sinus congestion Frequency of Episodes daily 06/11/2015 None cough Location in the lung 05/23/2015 None cough Quality hacking 05/23/2015 None cough Quality productive 05/23/2015 None cough Onset and Resolution sudden in onset 05/23/2015 None cough Limitation on Activities does not limit activities 05/23/2015 None cough Frequency of Episodes daily 05/23/2015 None sinus congestion Location on both sides 05/23/2015 None sinus congestion Quality fullness 05/23/2015 None sinus congestion Onset and Resolution sudden in onset 05/23/2015 None sinus congestion Onset of Symptom 1 months ago 05/23/2015 None sinus congestion Frequency of Episodes daily 05/23/2015 None cough Onset of Symptom 1 months ago 05/23/2015 None hypertension Onset and Resolution ongoing 03/07/2015 None hypertension Onset of Symptom during adulthood 03/07/2015 None hypertension Severity mild 03/07/2015 None hypertension Pertinent Findings Denies anxiety 03/07/2015 None hypertension Pertinent Findings Denies dizziness 03/07/2015 None hypertension Pertinent Findings Denies confusion 03/07/2015 None hypertension Alleviating Factors medication 03/07/2015 None arthropod bite Location on the right leg 02/15/2015 None arthropod bite Quality improving 02/15/2015 None arthropod bite Onset of Symptom 1 weeks ago 02/15/2015 None arthropod bite Limitation on Activities does not limit activities 02/15/2015 None arthropod bite Triggers no known associated factors 02/15/2015 None arthropod bite Alleviating Factors medication 02/15/2015 None arthropod bite Onset and Resolution ongoing 02/15/2015 None cough Location in the throat 10/16/2014 None rash Location-Major on the upper body 10/16/2014 None rash Location-Major on the legs 10/16/2014 left thigh rash Color red 2014 None rash Onset of Symptom 1 week ago 10/16/2014 None rash Pertinent Findings Denies history of similar rash 10/16/2014 None rash Pertinent Findings Denies itching 10/16/2014 None rash Pertinent Findings Denies muscle pain 10/16/2014 None rash Pertinent Findings Denies pain 10/16/2014 None cough Quality dry 09/2014 None cough Onset of Symptom 1 months ago 10/16/2014 None cough Pertinent Findings Denies fever 10/16/2014 None cough Pertinent Findings Denies muscle aches 10/16/2014 None cough Pertinent Findings Denies nasal congestion 10/16/2014 None rash Location-Major on the arms 10/16/2014 inner left arm cough Limitation on Activities does not limit activities 10/16/2014 None cough Frequency of Episodes unchanged 10/16/2014 None cough Triggers known allergens 10/16/2014 None Advance Directives No Advance Directive data Encounters Encounter Performer Location Codes Date ([id number]) [id number] EST. PATIENT, LEVEL IV Diagnosis: Essential (primary) hypertension[ICD10: I10] Diagnosis: Atrophy of thyroid (acquired)[ICD10: E03.4] Diagnosis: Slow transit constipation[ICD10: K59.01] Jumana Hull MD, [facility] CPT-4: 44338 05/13/2017 ([id number]) [id number] EST. 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 CPT-4: 32718 03/10/2017 [id number]) 84785 EST. PATIENT, LEVEL III Diagnosis: Urinary tract infection, site not specified[ICD10: N39.0] Juliette Hull MD , [facility] CPT-4: 40754 02/19/2017 [id number]) 12968 EST. PATIENT, LEVEL III Diagnosis: Urinary tract infection, site not specified[ICD10: N39.0] Diagnosis: Cough[ICD10: R05] Diagnosis: Other allergic rhinitis[ICD10: J30.89] Juliette Hull MD, [facility] CPT-4: 72134 02/05/2017 [id number]) [id number] EST. PATIENT, LEVEL IV Diagnosis: Essential (primary) hypertension[ICD10: I10] Diagnosis: Atrophy of thyroid (acquired)[ICD10: E03.4] Diagnosis: Mixed hyperlipidemia[ICD10: E78.2] Diagnosis: Encounter for immunization[ICD10: Z23] Jumana Hull MD, [facility] CPT-4: 22292 09/09/2016 ([id number]) 46910 EST. PATIENT, LEVEL IV Diagnosis: Essential (primary) hypertension[ICD10: I10] Diagnosis: Mixed hyperlipidemia[ICD10: E78.2] Diagnosis: Other idiopathic peripheral autonomic neuropathy[ICD10: G90.09] Diagnosis: Atrophy of thyroid (acquired)[ICD10: E03.4] Jumana Hull MD, [facility] CPT-4: 26443 08/12/2016 ([id number]) 02917 EST. 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 CPT-4: 71061 06/23/2016 ([id number]) 67219 EST. 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 CPT-4: 74815 2015 ([id number]) 47977 EST. 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 CPT-4: 57604 02/07/2016 ([id number]) 37647 EST. PATIENT, LEVEL IV Diagnosis: Essential (primary) hypertension[ICD10: I10] Diagnosis: Dysuria[ICD10: R30.0] Diagnosis: Hypothyroidism, unspecified[ICD10: E03.9] Diagnosis: Mixed hyperlipidemia[ICD10: E78.2] Diagnosis: Cervicalgia[ICD10: M54.2] Jumana Hull MD, [facility] CPT-4: 56893 12/10/2015 ([id number]) 62450 EST. PATIENT, LEVEL III Diagnosis: Essential (primary) hypertension[ICD10: I10] Diagnosis: Allergic rhinitis due to pollen[ICD10: J30.1] Juliette Hull MD, [facility] CPT-4: 08214 10/15/2015 ([id number]) 52097 EST. PATIENT, LEVEL III Diagnosis: Acute bronchitis due to other specified organisms[ICD10: J20.8] Diagnosis: Acute recurrent maxillary sinusitis[ICD10: J01.01] Jumana Hull MD, [facility] CPT-4: 71994 08/28/2015 [id number] EST. PATIENT, LEVEL III Diagnosis: Acute recurrent maxillary sinusitis[ICD10: J01.01] Diagnosis: Cough[ICD10: R05] Angélica Hull MD, [facility] CPT-4: 84991 06/11/2015 16255 EST. PATIENT, LEVEL III Diagnosis: Acute bronchitis due to other specified organisms[ICD10: J20.8] Angélica Hull MD, [facility] CPT-4: 80806 05/23/2015 ([id number]) 58534 EST. PATIENT, LEVEL III Diagnosis: ESSENTIAL HYPERTENSION[ICD9: 401.9] Diagnosis: A-fib[ICD9: 427.31] Diagnosis: INSECT BITE FOREARM[ICD9: 913.4] Jumana Hull MD, [facility] CPT-4: 12846 03/07/2015 ([id number]) 59986 EST. PATIENT, LEVEL III Diagnosis: Cellulitis of leg[ICD9: 682.6] Jumana Hull MD, [facility] CPT- 4: 43100 02/15/2015 ([id number]) OFFICE VISIT, NEW - LEVEL 4 Diagnosis: ESSENTIAL HYPERTENSION[ICD9: 401.9] Diagnosis: A-fib[ICD9: 427.31] Diagnosis: Rash[ICD9: 782.1] Diagnosis: Cough[ICD9: 786.2] Juliette Hull MD, [facility] CPT-4: 49296 10/16/2014 Plan of Care Planned Activity Notes Codes Status Date Appointment: Lab Draw 06/30/2017 Patient Education: Patient Medication Summary Completed 06/30/2017 Appointment: Lab Draw 06/10/2017 Patient Education: Patient Medication Summary Completed 06/10/2017 Appointment: Lab Draw 05/26/2017 Patient Education: Patient Medication Summary Completed 05/26/2017 [phone] [facility] [place] (15 min) Moderate 05/13/2017 Patient Education: Patient Medication Summary Completed 05/13/2017 Patient Education: Obesity Completed 05/13/2017 Appointment: [facility]um[facility] Hull [phone] [place] [place] (15 min) Moderate 03/10/2017 Patient Education: Patient Medication Summary Completed 03/10/2017 Patient Education: Obesity Completed 03/10/2017 Appointment: Juliette Yost WPtel: [phone] [phone] [place] (15 min) Moderate 02/19/2017 Patient Education: Patient Medication Summary Completed 02/19/2017 Patient Education: Obesity Completed 02/19/2017 [phone] [place] (15 min) Moderate 02/05/2017 Patient Education: Patient Medication Summary Completed 02/05/2017 Patient Education: Obesity Completed 02/05/2017 Appointment: Lab Draw 10/22/2016 Patient Education: Patient Medication Summary Completed 10/22/2016 Appointment: Lab Draw 09/25/2016 Patient Education: Patient Medication Summary Completed 09/25/2016 App[facility]ment: [phone] [facility] [place] [facility] - Annual Wellness Visit 09/10/2016 Appointment: [phone] [place] [place] (15 min) Moderate 09/09/2016 Patient Education: Patient Medication Summary Completed 09/09/2016 Appointment: Jumana Hull [phone] [facility] [place] [place] (15 min) Moderate 08/12/2016 Patient Education: Patient Medication Summary Completed 08/12/2016 Patient Education: Obesity Completed 08/12/2016 Appointment: Juliette Yost WPtel: [phone] [phone] [place] (30 min) Complex 06/23/2016 Patient Education: Patient Medication Summary Completed 06/23/2016 Appointment: Jumana Hull WPtel: [facility] (15 min) Moderate 05/12/2016 Patient Education: Patient Medication Summary Completed 05/12/2016 Patient Education: Obesity Completed 05/12/2016 Patient Education: Patient Medication Summary Completed 02/07/2016 Patient Education: Obesity Completed 02/07/2016 Appointment: Jumana Hull WPtel: [facility] (15 min) Moderate 12/10/2015 Patient Education: Patient Medication Summary Completed 12/10/2015 Patient Education: Obesity Completed 12/10/2015 Patient Education: .Cervicalgia Neck Pain Completed 12/10/2015 Appointment: Jumana Hull WPtel: [facility] (15 min) Moderate 12/03/2015 Referral: Pedro Lauren [address] Referral Initiated 10/26/2015 Patient Education: Patient Medication Summary Completed 10/18/2015 Patient Education: Obesity Completed 10/18/2015 Care Plan: Referral Order SNOMED-CT : [id number] Pending 10/18/2015 Patient Education: Patient Medication Summary Completed 10/15/2015 Patient Education: Obesity Completed 10/15/2015 Patient Education: Patient Medication Summary Completed 08/28/2015 Patient Education: Obesity Completed 08/28/2015 Appointment: (15 min) Moderate 06/11/2015 Patient Education: Patient Medication Summary Completed 06/11/2015 Appointment: (15 min) Moderate 05/23/2015 Patient Education: Patient Medication Summary Completed 05/23/2015 Appointment: Jumana Hull WPtel: [facility] (15 min) Moderate 03/07/2015 Patient Education: Patient Medication Summary Completed 03/07/2015 Patient Education: Hypertension Completed 03/07/2015 Appointment: (30 min) Complex 02/15/2015 Patient Education: Patient Medication Summary Completed 02/15/2015 Patient Education: Hypertension Completed 02/15/2015 Care Plan: [facility] [id number] Ordered 10/17/2014 Appointment: (S) New Patient 10/16/2014 Patient Education: Patient Medication Summary Completed 10/16/2014 Patient Education: Hypertension Completed 10/16/2014 [facility] Referral Initiated Instructions No Instructions
--- OUTSIDE RECORDS SUMMARY | 2017-12-04 05:20 | XMS REPORT | CCD ---
Author Author [facility] Address [address] [place] [address] Phone Care Team Providers Care Line And [facility] Poler Name Role Phone PP Unavailable CCM Unavailable Summary Purpose Interface Exchange Insurance Providers Payer name Policy type / Coverage type Covered republican ID Effective Begin Date Effective End Date WPS Medicare Part B Medicare Part B [id number] 2017 Unknown [employer] Life Insurance Medicare Part B [id number] Unknown Family history Sister Diagnosis Age At Onset No Family Disease Entered N/A Runs in the family Diagnosis Age At Onset Heart disease Unknown Social History Social History Element Codes Description Effective Dates Employment Unknown 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 ICD-9: V58.61 [...] Start Date Stop Date Status Fill Instructions Keflex 500 mg capsule RxNorm: 612392 1 Capsule(s) PO TID 201707/06/2017 Active Augmentin 500 mg-125 mg tablet RxNorm: 775410 1 Tablet(s) PO BID 06/10/2017 06/16/2017 Inactive Augmentin 500 mg-125 mg tablet RxNorm: 009060 1 Tablet(s) PO BID 05/26/2017 06/01/2017 Inactive Augmentin 500 mg-125 mg tablet RxNorm: 826479 1 Tablet(s) PO BID 05/26/2017 05/25/2017 Inactive Augmentin 500 mg-125 mg tablet RxNorm: 218782 1 Tablet(s) PO BID 02/23/2017 02/22/2017 Inactive Augmentin 500 mg-125 mg tablet RxNorm: 779867 1 Tablet(s) PO BID 02/23/2017 03/01/2017 Inactive Zofran 4 mg tablet RxNorm: 707750 1 Tablet(s) PO Q6 as needed 02/13/2017 02/12/2017 Inactive Zofran 4 mg tablet RxNorm: 506478 1 Tablet(s) PO Q6 as needed 02/13/2017 02/22/2017 Inactive omeprazole 20 mg capsule,delayed release RxNorm: 956186 TAKE 1 CAPSULE EVERY DAY 02/02/2017 01/27/2018 Active diltiazem CD 240 mg capsule,extended release 24 hr RxNorm: 606592 TAKE 1 CAPSULE EVERY DAY 02/02/2017 01/27/2018 Active Synthroid 100 mcg tablet RxNorm: 192379 1 Tablet(s) PO daily 01/24/2018 Active Synthroid 100 mcg tablet RxNorm: 197606 1 Tablet(s) PO daily 01/29/2017 Inactive Synthroid 100 mcg tablet RxNorm: 401578 1 Tablet(s) PO daily 01/27/2017 Inactive Synthroid 112 mcg tablet RxNorm: 704692 TAKE 1 TABLET EVERY DAY 12/08/2016 01/27/2017 Inactive simvastatin 10 mg tablet RxNorm: 586387 1 Tablet(s) PO daily 02/24/2018 Active Bactrim DS 800 mg-160 mg tablet RxNorm: 725970 1 Tablet(s) PO BID 10/22/2016 11/13/2016 Inactive Bactrim DS 800 mg-160 mg tablet RxNorm: 415392 1 Tablet(s) PO BID 10/22/2016 10/21/2016 Inactive Keflex 500 mg capsule RxNorm: 962651 1 Capsule(s) PO TID 201610/01/2016 Inactive simvastatin 20 mg tablet RxNorm: 036488 1 Tablet(s) PO daily 12/01/2016 Inactive warfarin 5 mg tablet RxNorm: 364626 TAKE 1 TABLET EVERY DAY 05/07/2017 Inactive Synthroid 112 mcg tablet RxNorm: 097161 TAKE 1 TABLET EVERY DAY 07/21/2016 12/07/2016 Inactive potassium chloride ER 10 mEq tablet,extended release RxNorm: 531943 1 Tablet(s) PO daily 06/23/2016 06/22/2016 Inactive pt to take with lasix she has at home potassium chloride ER 10 mEq tablet,extended release RxNorm: 359936 1 Tablet(s) PO daily 06/23/2016 06/27/2016 Inactive pt to take with lasix she has at home Synthroid 112 mcg tablet RxNorm: 527609 TAKE 1 TABLET EVERY DAY 03/04/2016 07/20/2016 Inactive diltiazem CD 240 mg capsule,extended release 24 hr RxNorm: 715693 1 Capsule(s) PO daily 02/06/2016 02/01/2017 Inactive omeprazole 20 mg capsule,delayed release RxNorm: 916065 1 Capsule(s) PO daily 02/06/2016 02/01/2017 Inactive warfarin 5 mg tablet RxNorm: 454988 1 Tablet(s) PO daily 201508/10/2016 Inactive simvastatin 10 mg tablet RxNorm: 385671 1 Tablet(s) PO daily 08/11/2016 Inactive simvastatin 20 mg tablet RxNorm: 837697 1 Tablet(s) PO daily 01/07/2016 Inactive lisinopril 10 mg tablet RxNorm: 137558 1 Tablet(s) PO daily 12/10/2015 Inactive prednisone 20 mg tablet RxNorm: 001379 2 Tablet(s) PO daily 10/201510/22/2015 Inactive Augmentin 500 mg-125 mg tablet RxNorm: 051301 1 Tablet(s) PO TID 10/18/2015 10/27/2015 Inactive ceftriaxone 500 mg solution for injection RxNorm: 8563775 Inj 10/18/2015 10/18/2015 Inactive Kenalog 40 mg/mL suspension for injection RxNorm: 0163132 Milliliter(s) Inj 10/15/2015 10/15/2015 Inactive ceftriaxone 500 mg solution for injection RxNorm: 2854884 Inj 08/28/2015 08/28/2015 Inactive prednisone 20 mg tablet RxNorm: 995465 3 Tablet(s) PO daily 08/30/2015 Inactive amoxicillin 500 mg capsule RxNorm: 833934 1 Capsule(s) PO TID 08/28/2015 09/03/2015 Inactive Kenalog 40 mg/mL suspension for injection RxNorm: 4764176 Milliliter(s) Inj 08/28/2015 08/28/2015 Inactive Keflex 500 mg capsule RxNorm: 102217 1 Capsule(s) PO TID 201507/26/2015 Inactive Keflex 500 mg capsule RxNorm: 573400 1 Capsule(s) PO TID 201508/02/2015 Inactive Synthroid 112 mcg tablet RxNorm: 608773 TAKE 1 TABLET EVERY DAY 06/19/2015 12/15/2015 Inactive Augmentin 500 mg-125 mg tablet RxNorm: 522244 1 Tablet(s) PO TID 06/11/2015 06/20/2015 Inactive ceftriaxone 500 mg solution for injection RxNorm: 9833559 Inj 06/11/2015 06/11/2015 Inactive Kenalog 40 mg/mL suspension for injection RxNorm: 8366676 Milliliter(s) Inj 05/23/2015 05/23/2015 Inactive cefdinir 300 mg capsule RxNorm: 266995 1 Capsule(s) PO BID 02/201505/29/2015 Inactive simvastatin 10 mg tablet RxNorm: 471436 1 Tablet(s) PO daily 12/09/2015 Inactive Synthroid 112 mcg tablet RxNorm: 126885 1 Tablet(s) PO daily 06/18/2015 Inactive warfarin 5 mg tablet RxNorm: 195570 1 Tablet(s) PO daily x4 days and 1/2 tab for 3 days 03/29/2015 12/23/2015 Inactive Keflex 500 mg capsule RxNorm: 102709 1 Capsule(s) PO TID 201402/07/2015 Inactive Keflex 500 mg capsule RxNorm: 036025 1 Capsule(s) PO TID 201402/14/2015 Inactive diltiazem CD 240 mg capsule,extended release 24 hr RxNorm: 063287 1 Capsule(s) PO daily 01/31/2015 03/27/2015 Inactive omeprazole 20 mg capsule,delayed release RxNorm: 211540 1 Capsule(s) PO daily 01/30/2015 01/24/2016 Inactive diltiazem CD 240 mg capsule,extended release 24 hr RxNorm: 942346 1 Capsule(s) PO daily 01/30/2015 01/30/2015 Inactive omeprazole 20 mg capsule,delayed release RxNorm: 909623 1 Capsule(s) PO daily 01/25/2015 01/29/2015 Inactive diltiazem CD 240 mg capsule,extended release 24 hr RxNorm: 416203 1 Capsule(s) PO daily 01/25/2015 01/29/2015 Inactive Vitamin D2 50,000 unit capsule RxNorm: 811156 1 Capsule(s) PO weekly 10/25/2014 10/24/2014 Inactive Vitamin D2 50,000 unit capsule RxNorm: 132521 1 Capsule(s) PO weekly 10/25/2014 01/22/2015 Inactive [SAVINGS FOR NON-COVERED DRUGS -- [id number], PCN: [id number], Group: [id number], ID# XXXXXXX, Questions: . THIS IS NOT INSURANCE.] omeprazole 20 mg capsule,delayed release RxNorm: 719776 1 Capsule(s) PO daily 10/16/2014 11/14/2014 Inactive diltiazem CD 240 mg capsule,extended release 24 hr RxNorm: 002318 1 Capsule(s) PO daily 10/16/2014 11/14/2014 Inactive melatonin 3 mg tablet RxNorm: 199416 1 Tablet(s) PO QHS 201411/14/2014 Inactive lisinopril 10 mg tablet RxNorm: 984584 1 Tablet(s) PO daily 09/201402/12/2015 Inactive Synthroid 112 mcg tablet RxNorm: 127822 1 Tablet(s) PO 201402/12/2015 Inactive Vitamin D2 1,000 unit capsule RxNorm: 899747 1 Capsule(s) PO daily 10/16/2014 11/14/2014 Inactive warfarin 5 mg tablet RxNorm: 070624 1 Tablet(s) PO daily x4 days and 1/2 tab for 3 days 10/16/2014 02/12/2015 Inactive Culturelle oral RxNorm : 9552185 oral No Start Date Active Calcium + D oral RxNorm: 057091 oral No Start Date Active Stool Softener 100 mg capsule RxNorm: 2721712 1-2 Capsule(s) PO daily No Start Date Active Vitamin D3 1,000 unit tablet RxNorm: 059626 1 Tablet(s) PO daily No Start Date Active biotin oral RxNorm: 1588 oral No Start Date Active aspirin 81 mg capsule,delayed release RxNorm: 050560 1 Capsule(s) PO daily No Start Date Active Vitamin B-12 oral RxNorm: 62312 oral No Start Date Active Calcium 600-Vitamin D-Iron oral RxNorm: 4018 oral No Start Date 12/10/2015 Inactive simvastatin 10 mg tablet RxNorm: 956130 1 Tablet(s) PO daily No Start Date 03/28/2015 Inactive Medication Administered Medication Codes Instructions Start Date Status ceftriaxone 500 mg solution for injection RxNorm: 6052853 10/18/2015 No longer Active Kenalog 40 mg/mL suspension for injection RxNorm: 0316807 Milliliter 10/15/2015 No longer Active Kenalog 40 mg/mL suspension for injection RxNorm: 9272871 Milliliter 08/28/2015 No longer Active ceftriaxone 500 mg solution for injection RxNorm: 2100355 08/28/2015 No longer Active ceftriaxone 500 mg solution for injection RxNorm: 8545240 06/11/2015 No longer Active Kenalog 40 mg/mL suspension for injection RxNorm: 6916211 Milliliter 05/23/2015 No longer Active Immunizations Vaccine Codes Date Status Influenza CVX: 141 03/02/2017 completed Pneumococcal (Adult) CVX: 33 09/09/2016 completed Influenza CVX: 141 03/07/2015 completed Influenza CVX: 141 03/15/2014 completed Zoster CVX: 121 06/29/2012 completed Pneumococcal CVX: 33 06/15/2008 completed Assessments Condition Codes Effective Dates Dysuria ICD-10: R30.0 ICD-9: 788.1 06/10/2017 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 ICD-10: Z79.01 ICD-9: [...] Item Code Result Date Urine Culture Ucult Complete >100,000 col/ml aerobic growth sent to ref lab 06/11/2017 Urine Culture Ucult Complete Growth of aerobe sent to ref lab 05/27/2017 Pt Pgh6290 PT 30.0 seconds 05/26/2017 Pt Nfg3961 INR 2.8 05/26/2017 Pt Lgo8353 Low Intensity - 1.5-2.0 05/26/2017 Pt Bnc4745 Mod intensity - 2.0-3.0 05/26/2017 Pt Jiw9830 Hi intensity - 3.0-4.0 05/26/2017 Pt Bjg9865 PT 24.2 seconds 04/07/2017 Pt Tec6231 INR 2.2 04/07/2017 Pt Qta3720 Low Intensity - 1.5-2.0 04/07/2017 Pt Uxr7597 Mod intensity - 2.0-3.0 04/07/2017 Pt Pfz7214 Hi intensity - 3.0-4.0 04/07/2017 Pt Ufr3821 PT 21.4 seconds 03/10/2017 Pt Axu9103 INR 1.9 03/10/2017 Pt Ogi5770 Low Intensity - 1.5-2.0 03/10/2017 Pt Ani6674 Mod intensity - 2.0-3.0 03/10/2017 Pt Smf7377 Hi intensity - 3.0-4.0 03/10/2017 Culture Urine [id number] URINE CULTURE SEE NOTES 02/23/2017 Culture Urine [id number] Continued Results 02/23/2017 Urine Culture Ucult Complete >100,000 col/ml aerobic growth sent to ref lab 02/20/2017 Cbc With Differential Ord2 WBC 4.75 K/ul 01/28/2017 Cbc With Differential Ord2 RBC 4.39 M/ul 01/28/2017 Cbc With Differential Ord2 HGB 14.4 g/dl 01/28/2017 Cbc With Differential Ord2 Neut% 52.6 % 01/28/2017 Cbc With Differential Ord2 HCT 41.3 % 01/28/2017 Cbc With Differential Ord2 Lymph% 29.3 % 01/28/2017 Cbc With Differential Ord2 MCV 94.1 fl 01/28/2017 Cbc With Differential Ord2 MCH 32.8 pg 01/28/2017 Cbc With Differential Ord2 [place]% 14.1 % 01/28/2017 Cbc With Differential Ord2 MCHC 34.9 pg 01/28/2017 Cbc With Differential Ord2 Eos% 3.2 % 01/28/2017 Cbc With Differential Ord2 PLT 242 K/ul 01/28/2017 Cbc With Differential Ord2 Baso% 0.8 % 01/28/2017 Cbc With Differential Ord2 RDW 13.9 % 01/28/2017 Cbc With Differential Ord2 Neut ABS# 2.50 K/ul 01/28/2017 Cbc With Differential Ord2 Lymph ABS# 1.39 K/ul 01/28/2017 Cbc With Differential Ord2 [place] ABS# 0.7 K/ul 01/28/2017 Cbc With Differential Ord2 Eos ABS# 0.2 K/ul 01/28/2017 Cbc With Differential Ord2 Baso ABS# 0.0 K/ul 01/28/2017 Tsh Ord6 hTSH II 0.46 uIU/mL 01/28/2017 Comp Metabolic Shu285 NA 140 mEq/L 01/28/2017 Comp Metabolic Jxj406 K 3.9 mEq/L 01/28/2017 Comp Metabolic Vgk017 CL 105 mEq/L 01/28/2017 Comp Metabolic Ccu141 CO2 27.0 mEq/L 01/28/2017 Comp Metabolic Yie070 ANION GAP 12 01/28/2017 Comp Metabolic Jgc889 GLUCOSE 89 mg/dL 01/28/2017 Comp Metabolic Snf011 Creat 0.8 mg/dL 01/28/2017 Comp Metabolic Ute878 eGFR 69 ml/min/1.73m2 01/28/2017 Comp Metabolic Kik088 BUN 16 mg/dL 01/28/2017 Comp Metabolic Wcj045 B/C Ratio 19.0 Ratio 01/28/2017 Comp Metabolic Lpx263 CALCIUM 9.0 mg/dL 01/28/2017 Comp Metabolic Hqu860 ALK PHOS 96 U/L 01/28/2017 Comp Metabolic Orp434 AST(SGOT) 16 U/L 01/28/2017 Comp Metabolic Bgp579 ALT(SGPT) 13 U/L 01/28/2017 Comp Metabolic Bqd615 BILI T 0.7 mg/dL 01/28/2017 Comp Metabolic Fkf689 ALBUMIN 3.7 g/dL 01/28/2017 Comp Metabolic Vba934 TPRO 5.9 g/dL 01/28/2017 Comp Metabolic Xqv770 GLOB 2.2 g/dL 01/28/2017 Comp Metabolic Nvi415 A/G Ratio 1.7 Ratio 01/28/2017 Comp Metabolic Mwu385 Osmo 280 mOsmo 01/28/2017 Lipid Ord30 CHOL 142 mg/dL 01/28/2017 Lipid Ord30 HDL 33.0 mg/dl 01/28/2017 Lipid Ord30 TRIG 160 mg/dL 01/28/2017 Lipid Ord30 LDL 77 mg/dL 01/28/2017 Lipid Ord30 C/HDL 4.3 Ratio 01/28/2017 Pt Gsf4769 PT 25.7 seconds 01/28/2017 Pt Iez7360 INR 2.3 01/28/2017 Pt Npv3466 Low Intensity - 1.5-2.0 01/28/2017 Pt Skd0573 Mod intensity - 2.0-3.0 01/28/2017 Pt Vlb6570 Hi intensity - 3.0-4.0 01/28/2017 Pt Bln1060 PT 25.3 seconds 12/29/2016 Pt Vup5783 INR 2.5 12/29/2016 Pt Abm7398 Low Intensity - 1.5-2.0 12/29/2016 Pt Vuj6614 Mod intensity - 2.0-3.0 12/29/2016 Pt Vuk4100 Hi intensity - 3.0-4.0 12/29/2016 Pt Dxi7324 PT 25.3 seconds 12/01/2016 Pt Zkz3444 INR 2.5 12/01/2016 Pt Inm9103 Low Intensity - 1.5-2.0 12/01/2016 Pt Cpx9975 Mod intensity - 2.0-3.0 12/01/2016 Pt Iab8902 Hi intensity - 3.0-4.0 12/01/2016 Pt Msh4597 PT 19.2 seconds 11/17/2016 Pt Tno7739 INR 1.7 11/17/2016 Pt Mst3313 Low Intensity - 1.5-2.0 11/17/2016 Pt Qby0435 Mod intensity - 2.0-3.0 11/17/2016 Pt Pwc3849 Hi intensity - 3.0-4.0 11/17/2016 Pt Asu8318 PT 36.0 seconds 10/27/2016 Pt Cyf8210 INR 3.9 10/27/2016 Pt Fjk8059 Low Intensity - 1.5-2.0 10/27/2016 Pt Ijw7236 Mod intensity - 2.0-3.0 10/27/2016 Pt Oaj2053 Hi intensity - 3.0-4.0 10/27/2016 Culture Urine [id number] URINE CULTURE SEE NOTES 10/25/2016 Culture Urine [id number] Continued Results 10/25/2016 Urine Culture Ucult Complete >100,000 col/ml aerobic growth sent to ref lab 10/23/2016 Pt Ren1719 PT 30.7 seconds 09/29/2016 Pt Uas8015 INR 3.2 09/29/2016 Pt Siv2635 Low Intensity - 1.5-2.0 09/29/2016 Pt Eku6691 Mod intensity - 2.0-3.0 09/29/2016 Pt Fko2925 Hi intensity - 3.0-4.0 09/29/2016 Urine Culture Ucult Complete Growth of aerobe sent to ref lab 09/26/2016 Pt Hdy9436 PT 33.8 seconds 09/23/2016 Pt Qzt5973 INR 3.6 09/23/2016 Pt Xtp6217 Low Intensity - 1.5-2.0 09/23/2016 Pt Hls8395 Mod intensity - 2.0-3.0 09/23/2016 Pt Jko3186 Hi intensity - 3.0-4.0 09/23/2016 Pt Mpc0189 PT 33.4 seconds 09/09/2016 Pt Kiv7722 INR 3.6 09/09/2016 Pt Eol9280 Low Intensity - 1.5-2.0 09/09/2016 Pt Oif7807 Mod intensity - 2.0-3.0 09/09/2016 Pt Cvy5688 Hi intensity - 3.0-4.0 09/09/2016 Pt Jsu5008 PT 30.2 seconds 08/20/2016 Pt Taj5565 INR 3.1 08/20/2016 Pt Wfe9555 Low Intensity - 1.5-2.0 08/20/2016 Pt Rqo3268 Mod intensity - 2.0-3.0 08/20/2016 Pt Drl2269 Hi intensity - 3.0-4.0 08/20/2016 Pt Awf9467 PT 32.1 seconds 08/12/2016 Pt Ztv5893 INR 3.4 08/12/2016 Pt Emh9880 Low Intensity - 1.5-2.0 08/12/2016 Pt Tts7244 Mod intensity - 2.0-3.0 08/12/2016 Pt Ucv4596 Hi intensity - 3.0-4.0 08/12/2016 Comp Metabolic Zmu327 NA 138 mEq/L 06/23/2016 Comp Metabolic Nba746 K 3.8 mEq/L 06/23/2016 Comp Metabolic Xyb308 CL 103 mEq/L 06/23/2016 Comp Metabolic Jpn500 CO2 28.0 mEq/L 06/23/2016 Comp Metabolic Rca763 ANION GAP 11 06/23/2016 Comp Metabolic Jex325 GLUCOSE 107 mg/dL 06/23/2016 Comp Metabolic Fyy885 Creat 0.8 mg/dL 06/23/2016 Comp Metabolic Dvs940 eGFR 75 ml/min/1.73m2 06/23/2016 Comp Metabolic Pzc271 BUN 17 mg/dL 06/23/2016 Comp Metabolic Qpb096 B/C Ratio 21.8 Ratio 06/23/2016 Comp Metabolic Kks336 CALCIUM 9.4 mg/dL 06/23/2016 Comp Metabolic Fpn643 ALK PHOS 101 U/L 06/23/2016 Comp Metabolic Pwm456 AST(SGOT) 17 U/L 06/23/2016 Comp Metabolic Ncc905 ALT(SGPT) 13 U/L 06/23/2016 Comp Metabolic Mgw173 BILI T 0.7 mg/dL 06/23/2016 Comp Metabolic Eep916 ALBUMIN 4.3 g/dL 06/23/2016 Comp Metabolic Ocj925 TPRO 6.6 g/dL 06/23/2016 Comp Metabolic Btp675 GLOB 2.3 g/dL 06/23/2016 Comp Metabolic Pgw548 A/G Ratio 1.8 Ratio 06/23/2016 Comp Metabolic Mnl713 Osmo 278 mOsmo 06/23/2016 Cbc With Differential Ord2 WBC 5.72 [...] 32.4 pg 06/23/2016 Cbc With Differential Ord2 [place]% 12.8 % 06/23/2016 Cbc With Differential Ord2 [...] 1.20 K/ul 06/23/2016 Cbc With Differential Ord2 [place] ABS# 0.7 K/ul 06/23/2016 Cbc With Differential Ord2 Eos ABS# 0.1 K/ul 06/23/2016 Cbc With Differential Ord2 Baso ABS# 0.1 K/ul 06/23/2016 Pt Rvu1907 PT 25.9 seconds 06/23/2016 Pt Pjm1464 INR 2.5 06/23/2016 Pt Whe7753 Low Intensity - 1.5-2.0 06/23/2016 Pt Mqn0319 Mod intensity - 2.0-3.0 06/23/2016 Pt Ukt4833 Hi intensity - 3.0-4.0 06/23/2016 Comp Metabolic Ljp996 NA 138 mEq/L 05/12/2016 Comp Metabolic Wry065 K 3.8 mEq/L 05/12/2016 Comp Metabolic Kmm177 CL 104 mEq/L 05/12/2016 Comp Metabolic Uio448 CO2 25.0 mEq/L 05/12/2016 Comp Metabolic Ite913 ANION GAP 13 05/12/2016 Comp Metabolic Pek349 GLUCOSE 119 mg/dL 05/12/2016 Comp Metabolic Twv271 Creat 0.8 mg/dL 05/12/2016 Comp Metabolic Bny859 eGFR 71 ml/min/1.73m2 05/12/2016 Comp Metabolic Bzx286 BUN 16 mg/dL 05/12/2016 Comp Metabolic Jpn911 B/C Ratio 19.5 Ratio 05/12/2016 Comp Metabolic Vnb494 CALCIUM 9.5 mg/dL 05/12/2016 Comp Metabolic Ftl057 ALK PHOS 95 U/L 05/12/2016 Comp Metabolic Vfr161 AST(SGOT) 17 U/L 05/12/2016 Comp Metabolic Lmy345 ALT(SGPT) 18 U/L 05/12/2016 Comp Metabolic Spq737 BILI T 0.6 mg/dL 05/12/2016 Comp Metabolic Ybf268 ALBUMIN 4.0 g/dL 05/12/2016 Comp Metabolic Axz385 TPRO 6.3 g/dL 05/12/2016 Comp Metabolic Qii779 GLOB 2.3 g/dL 05/12/2016 Comp Metabolic Cxb694 A/G Ratio 1.7 Ratio 05/12/2016 Comp Metabolic Wup600 Osmo 278 mOsmo 05/12/2016 Folate Ord36 Folate 19.88 ng/mL 05/12/2016 B12 Ziw091 B12 614.00 pg/ml 05/12/2016 Pt Ast0910 PT 29.1 seconds 05/12/2016 Pt Yxl0137 INR 2.9 05/12/2016 Pt Nkc2334 Low Intensity - 1.5-2.0 05/12/2016 Pt Uqd0452 Mod intensity - 2.0-3.0 05/12/2016 Pt Nyc0296 Hi intensity - 3.0-4.0 05/12/2016 Cbc With Differential Ord2 WBC 6.97 K/ul 05/12/2016 Cbc With Differential Ord2 RBC 4.42 M/ul 05/12/2016 Cbc With Differential Ord2 HGB 14.2 g/dl 05/12/2016 Cbc With Differential Ord2 HCT 41.8 % 05/12/2016 Cbc With Differential Ord2 Neut% 67.3 % 05/12/2016 Cbc With Differential Ord2 Lymph% 19.4 % 05/12/2016 Cbc With Differential Ord2 MCV 94.6 fl 05/12/2016 Cbc With Differential Ord2 MCH 32.1 pg 05/12/2016 Cbc With Differential Ord2 [place]% 11.0 % 05/12/2016 Cbc With Differential Ord2 Eos% 1.7 % 05/12/2016 Cbc With Differential Ord2 MCHC 34.0 pg 05/12/2016 Cbc With Differential Ord2 Baso% 0.6 % 05/12/2016 Cbc With Differential Ord2 PLT 250 K/ul 05/12/2016 Cbc With Differential Ord2 Neut ABS# 4.69 K/ul 05/12/2016 Cbc With Differential Ord2 RDW 14.5 % 05/12/2016 Cbc With Differential Ord2 Lymph ABS# 1.35 K/ul 05/12/2016 Cbc With Differential Ord2 [place] ABS# 0.8 K/ul 05/12/2016 Cbc With Differential Ord2 Eos ABS# 0.1 K/ul 05/12/2016 Cbc With Differential Ord2 Baso ABS# 0.0 K/ul 05/12/2016 Pt Fsu2332 PT 29.8 seconds 04/21/2016 Pt Ysz5474 INR 3.1 04/21/2016 Pt Dmo3770 Low Intensity - 1.5-2.0 04/21/2016 Pt Bgr2220 Mod intensity - 2.0-3.0 04/21/2016 Pt Jns6093 Hi intensity - 3.0-4.0 04/21/2016 Pt Lez6028 PT 25.2 seconds 03/24/2016 Pt Kum4876 INR 2.4 03/24/2016 Pt Ztf3434 Low Intensity - 1.5-2.0 03/24/2016 Pt Zoc3909 Mod intensity - 2.0-3.0 03/24/2016 Pt Eox5546 Hi intensity - 3.0-4.0 03/24/2016 Pt Vbw4472 PT 17.7 seconds 03/06/2016 Pt Mkh6733 INR 1.5 03/06/2016 Pt Wqk4905 Low Intensity - 1.5-2.0 03/06/2016 Pt Urc7222 Mod intensity - 2.0-3.0 03/06/2016 Pt Cpy3384 Hi intensity - 3.0-4.0 03/06/2016 Pt Htc8463 PT 26.4 seconds 02/07/2016 Pt Kqq1571 INR 2.6 02/07/2016 Pt Nsc7072 Low Intensity - 1.5-2.0 02/07/2016 Pt Ncr4612 Mod intensity - 2.0-3.0 02/07/2016 Pt Xmx8631 Hi intensity - 3.0-4.0 02/07/2016 Lipid Ord30 CHOL 153 mg/dL 02/07/2016 Lipid [...] 21.9 % 02/07/2016 Cbc With Differential Ord2 [place]% 13.1 % 02/07/2016 Cbc With Differential Ord2 MCH 33.0 pg 02/07/2016 Cbc With Differential Ord2 Eos% 1.6 % 02/07/2016 Cbc With Differential Ord2 MCHC 33.9 pg 02/07/2016 Cbc With Differential Ord2 PLT 237 K/ul 02/07/2016 Cbc With Differential Ord2 Baso% 0.3 % 02/07/2016 Cbc With Differential Ord2 RDW 13.4 % 02/07/2016 Cbc With Differential Ord2 Neut ABS# 4.06 K/ul 02/07/2016 Cbc With Differential Ord2 Lymph ABS# 1.41 K/ul 02/07/2016 Cbc With Differential Ord2 [place] ABS# 0.8 K/ul 02/07/2016 Cbc With Differential Ord2 Eos ABS# 0.1 K/ul 02/07/2016 Cbc With Differential Ord2 Baso ABS# 0.0 K/ul 02/07/2016 Comp Metabolic Kyq374 NA 137 mEq/L 02/07/2016 Comp Metabolic Vpv268 K 3.9 mEq/L 02/07/2016 Comp Metabolic Awg640 CL 102 mEq/L 02/07/2016 Comp Metabolic Nbe685 CO2 32.0 mEq/L 02/07/2016 Comp Metabolic Dtg966 ANION GAP 7 02/07/2016 Comp Metabolic Xvk868 GLUCOSE 95 mg/dL 02/07/2016 Comp Metabolic Xsm131 Creat 0.8 mg/dL 02/07/2016 Comp Metabolic Yac244 eGFR 73 ml/min/1.73m2 02/07/2016 Comp Metabolic Jyo777 BUN 20 mg/dL 02/07/2016 Comp Metabolic Dsj857 B/C Ratio 25.0 Ratio 02/07/2016 Comp Metabolic Tqz448 CALCIUM 9.4 mg/dL 02/07/2016 Comp Metabolic Hbm585 ALK PHOS 68 U/L 02/07/2016 Comp Metabolic Zlb061 AST(SGOT) 16 U/L 02/07/2016 Comp Metabolic Kig958 ALT(SGPT) 18 U/L 02/07/2016 Comp Metabolic Drj536 BILI T 0.7 mg/dL 02/07/2016 Comp Metabolic Uhq996 ALBUMIN 4.0 g/dL 02/07/2016 Comp Metabolic Kjh008 TPRO 6.4 g/dL 02/07/2016 Comp Metabolic Hrp752 GLOB 2.4 g/dL 02/07/2016 Comp Metabolic Lnl453 A/G Ratio 1.7 Ratio 02/07/2016 Comp Metabolic Uvw095 Osmo 276 mOsmo 02/07/2016 Tsh Ord6 hTSH II 0.16 uIU/mL 02/07/2016 Pt Jqg3137 PT 21.1 seconds 01/11/2016 Pt Srb5268 INR 1.9 01/11/2016 Pt Rgi3075 Low Intensity - 1.5-2.0 01/11/2016 Pt Qju4083 Mod intensity - 2.0-3.0 01/11/2016 Pt Uyh0036 Hi intensity - 3.0-4.0 01/11/2016 Comp Metabolic Kzq591 NA 137 mEq/L 01/11/2016 Comp Metabolic Hoz278 K 4.0 mEq/L 01/11/2016 Comp Metabolic Hkd257 CL 101 mEq/L 01/11/2016 Comp Metabolic Mft427 CO2 29.0 mEq/L 01/11/2016 Comp Metabolic Vdr238 ANION GAP 11 01/11/2016 Comp Metabolic Cks699 GLUCOSE 89 mg/dL 01/11/2016 Comp Metabolic Nfu824 Creat 0.9 mg/dL 01/11/2016 Comp Metabolic Fea241 eGFR 61 ml/min/1.73m2 01/11/2016 Comp Metabolic Uhc901 BUN 22 mg/dL 01/11/2016 Comp Metabolic Kut155 B/C Ratio 23.7 Ratio 01/11/2016 Comp Metabolic Ewu308 CALCIUM 9.3 mg/dL 01/11/2016 Comp Metabolic Ydg327 ALK PHOS 76 U/L 01/11/2016 Comp Metabolic Ndb080 AST(SGOT) 15 U/L 01/11/2016 Comp Metabolic Juj013 ALT(SGPT) 20 U/L 01/11/2016 Comp Metabolic Cix578 BILI T 0.5 mg/dL 01/11/2016 Comp Metabolic Xfu623 ALBUMIN 3.9 g/dL 01/11/2016 Comp Metabolic Qzx671 TPRO 6.2 g/dL 01/11/2016 Comp Metabolic Yzx974 GLOB 2.3 g/dL 01/11/2016 Comp Metabolic Uqq243 A/G Ratio 1.7 Ratio 01/11/2016 Comp Metabolic Ptr908 Osmo 277 mOsmo 01/11/2016 Tsh Ord6 hTSH II 1.09 uIU/mL 01/11/2016 Cbc With Differential Ord2 WBC 7.76 [...] 33.4 pg 01/11/2016 Cbc With Differential Ord2 [place]% 11.6 % 01/11/2016 Cbc With Differential Ord2 [...] 1.41 K/ul 01/11/2016 Cbc With Differential Ord2 [place] ABS# 0.9 K/ul 01/11/2016 Cbc With Differential Ord2 Eos ABS# 0.1 K/ul 01/11/2016 Cbc With Differential Ord2 Baso ABS# 0.0 K/ul 01/11/2016 Free T4 Bja545 FREE T4 1.42 ng/dL 01/11/2016 Pt Zkk1090 PT 23.8 seconds 11/29/2015 Pt Oqs3080 INR 2.3 11/29/2015 Pt Zzq9062 Low Intensity - 1.5-2.0 11/29/2015 Pt Tol6951 Mod intensity - 2.0-3.0 11/29/2015 Pt Xpf7636 Hi intensity - 3.0-4.0 11/29/2015 Pt Gqg6262 PT 31.9 seconds 11/14/2015 Pt Yua5692 INR 3.4 11/14/2015 Pt Jpf5954 Low Intensity - 1.5-2.0 11/14/2015 Pt Npb2771 Mod intensity - 2.0-3.0 11/14/2015 Pt Kib7635 Hi intensity - 3.0-4.0 11/14/2015 Pt Urd0237 PT 23.9 seconds 10/15/2015 Pt Lbk3238 INR 2.3 10/15/2015 Pt Ric5819 Low Intensity - 1.5-2.0 10/15/2015 Pt Dky9934 Mod intensity - 2.0-3.0 10/15/2015 Pt Ruh7101 Hi intensity - 3.0-4.0 10/15/2015 Pt Skl8264 PT 27.3 seconds 09/03/2015 Pt Xzu3092 INR 2.6 09/03/2015 Pt Gyt4391 Low Intensity - 1.5-2.0 09/03/2015 Pt Tsr4508 Mod intensity - 2.0-3.0 09/03/2015 Pt Van9527 Hi intensity - 3.0-4.0 09/03/2015 Pt Nvo0982 PT 22.3 seconds 08/06/2015 Pt Guz5372 INR 2.0 08/06/2015 Pt Rzh7748 Low Intensity - 1.5-2.0 08/06/2015 Pt Apt7146 Mod intensity - 2.0-3.0 08/06/2015 Pt Wvu3220 Hi intensity - 3.0-4.0 08/06/2015 Pt Ekb6459 PT 22.7 seconds 06/18/2015 Pt Lns7723 INR 2.1 06/18/2015 Pt Aed9022 Low Intensity - 1.5-2.0 06/18/2015 Pt Ovz0172 Mod intensity - 2.0-3.0 06/18/2015 Pt Xhw9866 Hi intensity - 3.0-4.0 06/18/2015 Pt Afk8823 PT 21.8 seconds 06/11/2015 Pt Yen0384 INR 2.0 06/11/2015 Pt Hlo4075 Low Intensity - 1.5-2.0 06/11/2015 Pt Yqk3392 Mod intensity - 2.0-3.0 06/11/2015 Pt Exm4410 Hi intensity - 3.0-4.0 06/11/2015 Pt Crr1795 PT 21.2 seconds 05/28/2015 Pt Rsf0575 INR 1.9 05/28/2015 Pt Sbr8663 Low Intensity - 1.5-2.0 05/28/2015 Pt Boe2819 Mod intensity - 2.0-3.0 05/28/2015 Pt Kzc3642 Hi intensity - 3.0-4.0 05/28/2015 Pt Mjk5743 PT 26.7 seconds 05/07/2015 Pt Cof7889 INR 2.6 05/07/2015 Pt Xzw5878 Low Intensity - 1.5-2.0 05/07/2015 Pt Yhi3523 Mod intensity - 2.0-3.0 05/07/2015 Pt Nrp1845 Hi intensity - 3.0-4.0 05/07/2015 Pt Bzx8133 PT 17.7 seconds 04/20/2015 Pt Qnl6617 INR 1.5 04/20/2015 Pt Kuq6909 Low Intensity - 1.5-2.0 04/20/2015 Pt Eww6123 Mod intensity - 2.0-3.0 04/20/2015 Pt Rav2209 Hi intensity - 3.0-4.0 04/20/2015 Pt Wvu3526 PT 13.0 seconds 04/12/2015 Pt Rda9101 INR 1.0 04/12/2015 Pt Jfa5157 Low Intensity - 1.5-2.0 04/12/2015 Pt Ilz0607 Mod intensity - 2.0-3.0 04/12/2015 Pt Txh1180 Hi intensity - 3.0-4.0 04/12/2015 Pt Xdn7416 PT 23.0 seconds 03/07/2015 Pt Flh5125 INR 2.1 03/07/2015 Pt Vaz7113 Low Intensity - 1.5-2.0 03/07/2015 Pt Umx8191 Mod intensity - 2.0-3.0 03/07/2015 Pt Igx9648 Hi intensity - 3.0-4.0 03/07/2015 Pt Ezk5551 PT 20.3 seconds 02/15/2015 Pt Hyq5086 INR 1.8 02/15/2015 Pt Rmt1280 Low Intensity - 1.5-2.0 02/15/2015 Pt Lpd3487 Mod intensity - 2.0-3.0 02/15/2015 Pt Fnn1099 Hi intensity - 3.0-4.0 02/15/2015 Hepatic Gme072 ALBUMIN 4.1 g/dL 02/08/2015 Hepatic Ikc638 TPRO 6.5 g/dL 02/08/2015 Hepatic Jiu218 GLOB 2.4 g/dL 02/08/2015 Hepatic Phc339 A/G Ratio 1.7 Ratio 02/08/2015 Hepatic Dqw654 ALK PHOS 83 U/L 02/08/2015 Hepatic Unn642 ALT(SGPT) 19 U/L 02/08/2015 Hepatic Xxu422 AST(SGOT) 19 U/L 02/08/2015 Hepatic Mbi829 BILI T 0.4 mg/dL 02/08/2015 Hepatic Fgg915 BILI D 0.0 mg/dL 02/08/2015 Hepatic Zfy339 BILI I 0.4 mg/dL 02/08/2015 Lipid Ord30 CHOL 230 mg/dL 02/08/2015 Lipid Ord30 HDL 47.0 mg/dl 02/08/2015 Lipid Ord30 TRIG 180 mg/dL 02/08/2015 Lipid Ord30 LDL 147 mg/dL 02/08/2015 Lipid Ord30 C/HDL 4.9 Ratio 02/08/2015 Pt Zcs5286 PT 22.6 seconds 02/08/2015 Pt Hgt6438 INR 2.1 02/08/2015 Pt Qza9605 Low Intensity - 1.5-2.0 02/08/2015 Pt Cqz8917 Mod intensity - 2.0-3.0 02/08/2015 Pt Ioj9889 Hi intensity - 3.0-4.0 02/08/2015 Review of Systems System Result Effective [...] accomodation 02/19/2017 None Full Exam - General 1994 Ears/Nose/Throat lips/teeth/gingiva Overall: benign lips 02/19/2017 None Full Exam - General 1994 Ears/Nose/Throat lips/teeth/gingiva Overall: normal dentition 02/19/2017 None Full Exam - General 1994 Ears/Nose/Throat oral cavity/pharynx/larynx Overall: oral mucosa clear 02/19/2017 None Full Exam - General 1994 Ears/Nose/Throat oral cavity/pharynx/larynx Overall: oropharyngeal mucosa clear 02/19/2017 None Full Exam - General 1994 Ears/Nose/Throat oral cavity/pharynx/larynx Overall: hypopharynx benign 02/19/2017 [...] clear 06/23/2016 None Full Exam - General 1995 Ears/Nose/Throat oral cavity/pharynx/larynx Overall: oropharyngeal mucosa clear [...] Codes Date URINALYSIS NONAUTO W/O SCOPE CPT-4: 76067 06/10/2017 URINALYSIS NONAUTO W/O SCOPE CPT-4: 13353 05/26/2017 URINALYSIS NONAUTO W/O SCOPE CPT-4: 86023 03/10/2017 URINALYSIS NONAUTO W/O SCOPE CPT-4: 33754 02/19/2017 URINALYSIS NONAUTO W/O SCOPE CPT-4: 44412 10/22/2016 URINALYSIS NONAUTO W/O SCOPE CPT-4: 75577 09/25/2016 Pneumococcal Polysaccharide Vaccine, 23-Valent, Ad CPT-4: 65167 09/09/2016 ADMIN PNEUMOCOCCAL VACCINE SNOMED CT: 33913734 CPT-4: G0009 09/09/2016 URINALYSIS NONAUTO W/O SCOPE CPT-4: 14480 12/10/2015 ROCEPHIN, PER 250 MG CPT-4: J0696 10/18/2015 TRIAMCINOLONE ACET INJ NOS CPT-4: J3301 10/15/2015 TRIAMCINOLONE ACET INJ NOS CPT-4: J3301 08/28/2015 ROCEPHIN, PER 250 MG CPT-4: J0696 08/28/2015 THER/PROPH/DIAG INJ SC/IM CPT-4: 85058 06/11/2015 ROCEPHIN, PER 250 MG CPT-4: J0696 06/11/2015 THER/PROPH/DIAG INJ SC/IM CPT-4: 05317 05/23/2015 TRIAMCINOLONE ACET INJ NOS CPT-4: J3301 05/23/2015 ADMIN INFLUENZA VIRUS VAC Formatting Model/CDA Sections, Assigned to CPT-4: [id number] 03/07/2015 FLU VACC 4 ISADORA 3 YRS PLUS IM SNOMED CT: 56819616 CPT-4: 28819 03/07/2015 Vital Signs Date Vital 05/13/2017 Blood Pressure 1: 138/74 Code : 8480-6 BMI: 30.9 Code : 93242-3 Heart Rate 1 : 75 bpm Height: 5'2" SpO2: 98% Weight: 169 lbs 03/10/2017 Blood Pressure 1: 142/84 Code : 8480-6 Blood Pressure 1: 136/76 Code: 8480-6 BMI: 31.3 Code: 71476-9 Heart Rate 1: 67 bpm Height: 5'2" SpO2: 97% Weight: 171 lbs 02/19/2017 Blood Pressure 1: 144/74 Code : 8480-6 BMI: 31.8 Code : 40229-6 Heart Rate 1 : 81 bpm Height: 5'2" SpO2: 96% Weight: 174 lbs 02/05/2017 Blood Pressure 1: 130/68 Code : 8480-6 BMI: 32.0 Code : 52899-9 Heart Rate 1 : 67 bpm Height: 5'2" SpO2: 97% Weight: 175 lbs 09/09/2016 Blood Pressure 1: 140/82 Code : 8480-6 BMI: 32.7 Code : 92008-9 Heart Rate 1 : 64 bpm Height: 5'2" SpO2: 95% Weight: 179 lbs 08/12/2016 Blood Pressure 1: 148/80 Code : 8480-6 BMI: 33.1 Code : 89331-7 Heart Rate 1 : 98 bpm Height: 5'2" SpO2: 98% Weight: 181 lbs 06/23/2016 Blood Pressure 1: 146/72 Code : 8480-6 Heart Rate 1: 80 bpm Height: 5'2" SpO2: 98% Weight: 05/12/2016 Blood Pressure 1: 138/74 Code : 8480-6 BMI: 33.3 Code : 57089-7 Heart Rate 1 : 82 bpm Height: 5'2" SpO2: 98% Weight: 182 lbs 02/07/2016 Blood Pressure 1: 128/78 Code : 8480-6 BMI: 33.3 Code : 32267-2 Heart Rate 1 : 51 bpm Height: 5'2" SpO2: 97% Weight: 182 lbs 12/10/2015 Blood Pressure 1: 110/70 Code : 8480-6 BMI: 33.3 Code : 34169-1 Heart Rate 1 : 67 bpm Height: 5'2" SpO2: 96% Weight: 182 lbs 10/18/2015 Blood Pressure 1: 146/76 Code : 8480-6 BMI: 33.3 Code : 57455-7 Heart Rate 1 : 84 bpm Height: 5'2" SpO2: 98% Weight: 182 lbs 10/15/2015 Blood Pressure 1: 142/98 Code : 8480-6 Blood Pressure 1: 138/86 Code: 8480-6 BMI: 33.5 Code: 46676-7 Heart Rate 1: 85 bpm Height: 5'2" SpO2: 99% Temperature : 35.9 (C) / 96.6 (F) Weight: 183 lbs 08/28/2015 Blood Pressure 1: 146/84 Code : 8480-6 BMI: 33.7 Code : 74577-8 Heart Rate 1 : 92 bpm Height: 5'2" SpO2: 97% Temperature: 36.4 (C) / 97.5 (F) Weight: 184 lbs 06/11/2015 Blood Pressure 1: 144/92 Code : 8480-6 BMI: 33.5 Code : 93101-3 Heart Rate 1 : 79 bpm Height: 5'2" SpO2: 99% Weight: 183 lbs 05/23/2015 Blood Pressure 1: 128/68 Code : 8480-6 BMI: 34.2 Code : 88790-0 Heart Rate 1 : 84 bpm Height: 5'2" SpO2: 96% Weight: 187 lbs 03/07/2015 Blood Pressure 1: 132/62 Code : 8480-6 BMI: 33.5 Code : 27062-3 Heart Rate 1 : 94 bpm Height: 5'2" SpO2: 98% Weight: 183 lbs 02/15/2015 Blood Pressure 1: 140/76 Code : 8480-6 BMI: 33.5 Code : 03409-2 Heart Rate 1 : 76 bpm Height: 5'2" SpO2: 96% Weight: 183 lbs 10/16/2014 Blood Pressure 1: 128/84 Code : 8480-6 BMI: 32.9 Code : 39865-2 Heart Rate 1 : 82 bpm Height: [...] Directive data Encounters Encounter Performer Location Codes ([id number]) [id number] EST. PATIENT, LEVEL IV Diagnosis: Essential (primary) hypertension[ICD10: I10] Diagnosis: Atrophy of thyroid (acquired)[ICD10: E03.4] Diagnosis: Slow transit constipation[ICD10: K59.01] Jumana Hull MD, [facility] CPT-4: 07839 05/13/2017 ([id number]) 74005 EST. PATIENT, LEVEL IV Diagnosis: Essential (primary) hypertension[ICD10: I10] Diagnosis: Atrophy of thyroid (acquired)[ICD10: E03.4] Diagnosis: detention (current) use of anticoagulants[ICD10: Z79.01] Diagnosis: Dysuria[ICD10: R30.0] Diagnosis: Slow transit constipation[ICD10: K59.01] Jumana Hull MD, [facility] CPT-4: 61823 03/10/2017 ([id number]) 49234 EST. PATIENT, LEVEL III Diagnosis: Urinary tract infection, site not specified[ICD10: N39.0] Juliette Hull MD , [facility] CPT-4: 66588 02/19/2017 ([id number]) 12064 EST. PATIENT, LEVEL III Diagnosis: Urinary tract infection, site not specified[ICD10: N39.0] Diagnosis: Cough[ICD10: R05] Diagnosis: Other allergic rhinitis[ICD10: J30.89] Juliette Hull MD, [facility] CPT-4: 34998 02/05/2017 ([id number]) 82918 EST. PATIENT, LEVEL IV Diagnosis: Essential (primary) hypertension[ICD10: I10] Diagnosis: Atrophy of thyroid (acquired)[ICD10: E03.4] Diagnosis: Mixed hyperlipidemia[ICD10: E78.2] Diagnosis: Encounter for immunization[ICD10: Z23] Jumana Hull MD [facility] CPT-4: 89711 09/09/2016 ([id number]) 58712 EST. PATIENT, LEVEL IV Diagnosis: Essential (primary) hypertension[ICD10: I10] Diagnosis: Mixed hyperlipidemia[ICD10: E78.2] Diagnosis: Other idiopathic peripheral autonomic neuropathy[ICD10: G90.09] Diagnosis: Atrophy of thyroid (acquired)[ICD10: E03.4] Jumana Hull MD, [facility] CPT-4: 86265 08/12/2016 ([id number]) 79159 EST. 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 PATIENT, LEVEL III Diagnosis: Localized edema[ICD10: R60.0] Diagnosis: Essential (primary) hypertension[ICD10: I10] Diagnosis: Mixed hyperlipidemia[ICD10: E78.2] Diagnosis: detention (current) use of anticoagulants[ICD10: Z79.01] Juliette Hull MD , [facility] CPT-4: 13416 02/07/2016 ([id number]) 25278 EST. PATIENT, LEVEL IV Diagnosis: Essential (primary) hypertension[ICD10: I10] Diagnosis: Dysuria[ICD10: R30.0] Diagnosis: Hypothyroidism, unspecified[ICD10: E03.9] Diagnosis: Mixed hyperlipidemia[ICD10: E78.2] Diagnosis: Cervicalgia[ICD10: M54.2] Jumana Hull MD, [facility] CPT-4: 13699 12/10/2015 ([id number]) 32398 EST. PATIENT, LEVEL III Diagnosis: Essential (primary) hypertension[ICD10: I10] Diagnosis: Allergic rhinitis due to pollen[ICD10: J30.1] Juliette Hull MD, [facility] CPT-4: 10581 10/15/2015 ([id number]) 62485 EST. PATIENT, LEVEL III Diagnosis: Acute bronchitis due to other specified organisms[ICD10: J20.8] Diagnosis: Acute recurrent maxillary sinusitis[ICD10: J01.01] Jumana Hull MD, [facility] CPT-4: 18453 08/28/2015 [id number] EST. PATIENT, LEVEL III Diagnosis: Acute recurrent maxillary sinusitis[ICD10: J01.01] Diagnosis: Cough[ICD10: R05] Angélica Hull MD, [facility] CPT-4: 82625 06/11/2015 [id number] EST. PATIENT, LEVEL III Diagnosis: Acute bronchitis due to other specified organisms[ICD10: J20.8] Angélica Hull MD, [facility] CPT-4: 68883 05/23/2015 ([id number]) 07824 EST. PATIENT, LEVEL III Diagnosis: ESSENTIAL HYPERTENSION[ICD9: 401.9] Diagnosis: A-fib[ICD9: 427.31] Diagnosis: INSECT BITE FOREARM[ICD9: 913.4] Jumana Hull MD, [facility] CPT-4: 99757 03/07/2015 ([id number]) 56520 EST. PATIENT, LEVEL III Diagnosis: Cellulitis of leg[ICD9: 682.6] Jumana Hull MD, [facility] CPT- 4: 30366 02/15/2015 ([id number]) OFFICE VISIT, NEW - LEVEL 4 Diagnosis: ESSENTIAL HYPERTENSION[ICD9: 401.9] Diagnosis: A-fib[ICD9: 427.31] Diagnosis: Rash[ICD9: 782.1] Diagnosis: Cough[ICD9: 786.2] Juliette Hull MD, [facility] CPT-4: 60087 10/16/2014 Plan of Care Planned Activity Notes Codes Status Date Appointment: Lab Draw 06/10/2017 Patient Education: Patient Medication Summary Completed 06/10/2017 Visit Plan: UTI - pt with positive urinalysis - culture sent if appropriate. Antibiotic electronically prescribed to pt's pharmacy of choice. Pt to call if symptoms do not improve. 05/26/2017 Visit Plan: UTI - pt with positive urinalysis - culture sent if appropriate. Antibiotic electronically prescribed to pt's pharmacy of choice. Pt to call if symptoms do not improve. 05/26/2017 Appointment: Lab Draw 05/26/2017 Patient Education: Patient Medication Summary Completed 05/26/2017 Visit Plan: Hypertension - well controlled - continue with current medications, continue with no added salt diet. Pt has been encouraged to exercise daily. The pt has been advised to call the office if there are any acute concerns about change in blood pressure readings at home. Hypothyroidism - pt with chronic hypothyroidism, continue with current medication, will monitor pt to signs or symptoms of lack of adequate supplementation. Pt is to continue with current dose of medication unless directed otherwise. Check labs at regular intervals wither q 3 months or q 6 months based on previous levels of control. Arm pain - slightly improved - I have recommended patient to use muscle rub on the arm/joint. 05/13/2017 Appointment: Jumana Hull WPtel: [phone] [facility] (15 min) Moderate 05/13/2017 Patient Education: Patient Medication Summary Completed 05/13/2017 Patient Education: Obesity Completed 05/13/2017 Visit Plan: Hypertension - well controlled - continue with current medications, continue with no added salt diet. Pt has been encouraged to exercise daily. The pt has been advised to call the office if there are any acute concerns about change in blood pressure readings at home. Hypothyroidism - pt with chronic hypothyroidism, continue with current medication, will monitor pt to signs or symptoms of lack of adequate supplementation. Pt is to continue with current dose of medication unless directed otherwise. Check labs at regular intervals wither q 3 months or q 6 months based on previous levels of control. Chronic constipation - uncontrolled - I have discussed with the patient the need for adequate fiber and water intake to facilitate soft, easily passed stools. The pt noted understanding of our conversation. I have given the patient a recipe for "power pudding" - equal parts, bran flakes, prune juice, and apple sauce. The pt is to call if symptoms not improved on this regimen. 03/10/2017 Appointment: Jumana Hull WPtel: [facility] (15 min) Moderate 03/10/2017 Patient Education: Patient Medication Summary Completed 03/10/2017 Patient Education: Obesity Completed 03/10/2017 Visit Plan: UTI-UA positive today in the office-will send for culture and treat as appropriate. 02/19/2017 Appointment: Juliette Yost WPtel: [facility] [phone] [place] (15 min) Moderate 02/19/2017 Patient Education: Patient Medication Summary Completed 02/19/2017 Patient Education: Obesity Completed 02/19/2017 Visit Plan: UTI-finish macrobid-follow up in 2 weeks- discussed preventative abx and twice weekly premarin vaginal cream Allergies- cough-start flonase and claritin as discussed-call if symptoms do not improve or if any worse 02/05/2017 Appointment: [phone] (15 min) Moderate 02/05/2017 Patient Education: Patient Medication Summary Completed 02/05/2017 Patient Education: Obesity Completed 02/05/2017 Appointment: Lab Draw 10/22/2016 Patient Education: Patient Medication Summary Completed 10/22/2016 Appointment: Lab Draw 09/25/2016 Patient Education: Patient Medication Summary Completed 09/25/2016 Appointment: Angélica Kong [facility]el[facility] [phone] [facility] [facility] - Annual Wellness Visit 09/10/2016 Visit Plan: Hypertension - well controlled - continue with current medications, continue with no added salt diet. Pt has been encouraged to exercise daily. The pt has been advised to call the office if there are any acute concerns about change in blood pressure readings at home. Hyperlipidemia - pt has been counseled about appropriate diet, exercise, and need for low fat food choices. I have discussed the need for the patient to take medications as prescribed. If the patient has negative side effects from the medication, they are to CALL the office and not abruptly discontinue the medication without discussion with a practitioner in the office. We will check labs in 3-6 months for follow up on the patient's chronic medical problem and to assure normal liver response to medications. Hypothyroidism - pt with chronic hypothyroidism, continue with current medication, will monitor pt to signs or symptoms of lack of adequate supplementation. Pt is to continue with current dose of medication unless directed otherwise. Check labs at regular intervals wither q 3 months or q 6 months based on previous levels of control. 09/09/2016 Visit Plan: Hypertension - well controlled - continue with current medications, continue with no added salt diet. Pt has been encouraged to exercise daily. The pt has been advised to call the office if there are any acute concerns about change in blood pressure readings at home. Hyperlipidemia - pt has been counseled about appropriate diet, exercise, and need for low fat food choices. I have discussed the need for the patient to take medications as prescribed. If the patient has negative side effects from the medication, they are to CALL the office and not abruptly discontinue the medication without discussion with a practitioner in the office. We will check labs in 3-6 months for follow up on the patient's chronic medical problem and to assure normal liver response to medications. Hypothyroidism - pt with chronic hypothyroidism, continue with current medication, will monitor pt to signs or symptoms of lack of adequate supplementation. Pt is to continue with current dose of medication unless directed otherwise. Check labs at regular intervals wither q 3 months or q 6 months based on previous levels of control. 09/09/2016 Appointment: Jumana Hull WPtel: [phone] [facility] (15 min) Moderate 09/09/2016 Patient Education: Patient Medication Summary Completed 09/09/2016 Visit Plan: Hypertension - well controlled - continue with current medications, continue with no added salt diet. Pt has been encouraged to exercise daily. The pt has been advised to call the office if there are any acute concerns about change in blood pressure readings at home. Hyperlipidemia - pt has been counseled about appropriate diet, exercise, and need for low fat food choices. I have discussed the need for the patient to take medications as prescribed. If the patient has negative side effects from the medication, they are to CALL the office and not abruptly discontinue the medication without discussion with a practitioner in the office. We will check labs in 3-6 months for follow up on the patient's chronic medical problem and to assure normal liver response to medications. Hypothyroidism - pt with chronic hypothyroidism, continue with current medication, will monitor pt to signs or symptoms of lack of adequate supplementation. Pt is to continue with current dose of medication unless directed otherwise. Check labs at regular intervals wither q 3 months or q 6 months based on previous levels of control. peripheral neuropathy - continue with current treatments. 08/12/2016 Appointment: [facility] Hull [facility]el[phone] [place] (15 min) Moderate 08/12/2016 Patient Education: Patient Medication Summary Completed 08/12/2016 Patient Education: Obesity Completed 08/12/2016 Visit Plan: Hypertension - well controlled - continue with current medications, continue with no added salt diet. Pt has been encouraged to exercise daily. The pt has been advised to call the office if there are any acute concerns about change in blood pressure readings at home. Edema - pt has been advised to elevate legs to prevent dependent edema, compression has been recommended to help to naturally decrease peripheral edema. Diuretic use has been discussed and pt has been instructed in appropriate use of such medication as necessary to further attempt to reduce peripheral edema. Chronic Anticoagulant use - Pt has been counseled about the anticoagulant, need for serial monitoring, and need for the pt to alert the physician as to any new bruising, or acute bleeding. Therapeutic goal for INR is between 2.0 and 3.5. 06/23/2016 Appointment: Juliette Yost [facility]Ptel: [phone] [phone] [place] (30 min) Complex 06/23/2016 Patient Education: Patient Medication Summary Completed 06/23/2016 Visit Plan: Hypertension - well controlled - continue with current medications, continue with no added salt diet. Pt has been encouraged to exercise daily. The pt has been advised to call the office if there are any acute concerns about change in blood pressure readings at home. Peripheral Neuropathy - recommended pt to have vitamin B12 level checked and folic acid level checked. 05/12/2016 Appointment: Jumana Hull [facility]el[phone] [facility] [place] (15 min) Moderate 05/12/2016 Patient Education: Patient Medication Summary Completed 05/12/2016 Patient Education: Obesity Completed 05/12/2016 Visit Plan: Edema - pt has been advised to elevate legs to prevent dependent edema, compression has been recommended to help to naturally decrease peripheral edema. Diuretic use has been discussed and pt has been instructed in appropriate use of such medication as necessary to further attempt to reduce peripheral edema. 02/07/2016 Patient Education: Patient Medication Summary Completed 02/07/2016 Patient Education: Obesity Completed 02/07/2016 Visit Plan: Hypertension - well controlled - continue with current medications, continue with no added salt diet. Pt has been encouraged to exercise daily. The pt has been advised to call the office if there are any acute concerns about change in blood pressure readings at home. Neck and back pain - suspect facet arthropathy - recommended heat to back. Hypothyroidism - pt with chronic hypothyroidism, continue with current medication, will monitor pt to signs or symptoms of lack of adequate supplementation. Pt is to continue with current dose of medication unless directed otherwise. Check labs at regular intervals wither q 3 months or q 6 months based on previous levels of control. 12/10/2015 Appointment: Jumana Hull WPtel: [address] (15 min) Moderate 12/10/2015 Patient Education: Patient Medication Summary Completed 12/10/2015 Patient Education: Obesity Completed 12/10/2015 Patient Education: .Cervicalgia Neck Pain Completed 12/10/2015 Appointment: Jumana Hull WPtel: [phone] [facility]66[facility] (15 min) Moderate 12/03/2015 Referral: Leonidas Pedro [address] Referral Initiated 10/26/2015 Visit Plan: Sinusitis - Pt has acute infection - pain in face, maxillary region, Pt informed to use decongestant, RX given to patient, sinus rinses also recommended. Call if symptoms do not show improvement. URI - Pt advised to increase fluids, vitamin C. Discussed natural and expected course of this diagnosis and need to alert me if symptoms do not follow expected course , or if any worse. RX sent to patient's pharmacy. Allergies - chronic - recommended pt to use allergy medication as prescribed. Pt has been counseled as to the appropriate use of the medication. Pt to call if allergy symptoms are not controlled with the medication. If using nasal spray, instructions as follows: Nasal spray- use twice daily, one spray per nostril twice daily, after 30 minutes, rinse out nose with saline spray.. Use opposite hand per nostril to spray in the nasal steroid allergy spray. 10/18/2015 Patient Education: Patient Medication Summary Completed 10/18/2015 Patient Education: Obesity Completed 10/18/2015 Care Plan: Referral Order SNOMED-CT : [id number] Pending 10/18/2015 Visit Plan: Hypertension - well controlled - continue with current medications, continue with no added salt diet. Pt has been encouraged to exercise daily. The pt has been advised to call the office if there are any acute concerns about change in blood pressure readings at home. Allergies - chronic - recommended pt to use allergy medication as prescribed. Pt has been counseled as to the appropriate use of the medication. Pt to call if allergy symptoms are not controlled with the medication. If using nasal spray, instructions as follows: Nasal spray- use twice daily, one spray per nostril twice daily, after 30 minutes, rinse out nose with saline spray.. Use opposite hand per nostril to spray in the nasal steroid allergy spray. 10/15/2015 Patient Education: Patient Medication Summary Completed 10/15/2015 Patient Education: Obesity Completed 10/15/2015 Visit Plan: Sinusitis - Pt has acute infection - pain in face, maxillary region, Pt informed to use decongestant, RX given to patient, sinus rinses also recommended. Call if symptoms do not show improvement. 08/28/2015 Patient Education: Patient Medication Summary Completed 08/28/2015 Patient Education: Obesity Completed 08/28/2015 Visit Plan: Sinusitis - Pt has acute infection - pain in face, maxillary region, Pt informed to use decongestant, RX given to patient, sinus rinses also recommended. Call if symptoms do not show improvement. URI - Pt advised to increase fluids, vitamin C. Discussed natural and expected course of this diagnosis and need to alert me if symptoms do not follow expected course , or if any worse. RX sent to patient's pharmacy. 06/11/2015 Appointment: (15 min) Moderate 06/11/2015 Patient Education: Patient Medication Summary Completed 06/11/2015 Visit Plan: Bronchitis - acute case of bronchitis identified. Pt has been given antibiotics, breathing treatments as appropriate, and pt has been instructed to call if symptoms are not improved, or if symptoms acutely worsen. URI - Pt advised to increase fluids, vitamin C. Discussed natural and expected course of this diagnosis and need to alert me if symptoms do not follow expected course, or if any worse. RX sent to patient's pharmacy. 05/23/2015 Appointment: (15 min) Moderate 05/23/2015 Patient Education: Patient Medication Summary Completed 05/23/2015 Visit Plan: Hypertension - well controlled - continue with current medications, continue with no added salt diet. Pt has been encouraged to exercise daily. The pt has been advised to call the office if there are any acute concerns about change in blood pressure readings at home. Atrial Fibrillation - pt is currently rate controlled. The pt is to have labs done as appropriate to monitor medication levels and is to report if they start to feel as if their heart rate is becoming uncontrolled. 03/07/2015 Appointment: Jumana Hull WPtel: [address] [place], [place] [id number] (15 min) Moderate 03/07/2015 Patient Education: Patient Medication Summary Completed 03/07/2015 Patient Education: Hypertension Completed 03/07/2015 Visit Plan: Cellulitis -improving- continue with oral antibiotics as previously directed, return to clinic as previously directed, call for acute change in symptoms, worsening redness, warmth, discharge. 02/15/2015 Appointment: (30 min) Complex 02/15/2015 Patient Education: Patient Medication Summary Completed 02/15/2015 Patient Education: Hypertension Completed 02/15/2015 Care Plan: COMPLETE CBC AUTOMATED LOINC : 59116-5 Ordered 10/17/2014 Visit Plan: Hypertension - well controlled - continue with current medications, continue with no added salt diet. Pt has been encouraged to exercise daily. The pt has been advised to call the office if there are any acute concerns about change in blood pressure readings at home. Atrial Fibrillation - pt on chronic anticoagulation and is currently rate controlled. The pt is to have labs done as appropriate to monitor medication levels and is to report if they start to feel as if their heart rate is becoming uncontrolled. Cough-hold lisinopril x 2 weeks and call with update on symtpoms 10/16/2014 Appointment: (S) New Patient 10/16/2014 Patient Education: Patient Medication Summary Completed 10/16/2014 Patient Education: Hypertension Completed 10/16/2014 Referral: Pedro Lauren [address] Referral Initiated Instructions Comment . Hypertension - well controlled - continue with current medications, continue with no added salt diet. Pt has been encouraged to exercise daily. The pt has been advised to call the office if there are any acute concerns about change in blood pressure readings at home. Hypothyroidism - pt with chronic hypothyroidism, continue with current medication, will monitor pt to signs or symptoms of lack of adequate supplementation. Pt is to continue with current dose of medication unless directed otherwise. Check labs at regular intervals wither q 3 months or q 6 months based on previous levels of control. Arm pain - slightly improved - I have recommended patient to use muscle rub on the arm/joint. . Hypertension - well controlled - continue with current medications, continue with no added salt diet. Pt has been encouraged to exercise daily. The pt has been advised to call the office if there are any acute concerns about change in blood pressure readings at home. Hyperlipidemia - pt has been counseled about appropriate diet, exercise, and need for low fat food choices. I have discussed the need for the patient to take medications as prescribed. If the patient has negative side effects from the medication, they are to CALL the office and not abruptly discontinue the medication without discussion with a practitioner in the office. We will check labs in 3-6 months for follow up on the patient's chronic medical problem and to assure normal liver response to medications. Hypothyroidism - pt with chronic hypothyroidism, continue with current medication, will monitor pt to signs or symptoms of lack of adequate supplementation. Pt is to continue with current dose of medication unless directed otherwise. Check labs at regular intervals wither q 3 months or q 6 months based on previous levels of control. peripheral neuropathy - continue with current treatments. . Hypertension - well controlled - continue with current medications, continue with no added salt diet. Pt has been encouraged to exercise daily. The pt has been advised to call the office if there are any acute concerns about change in blood pressure readings at home. Atrial Fibrillation - pt is currently rate controlled. The pt is to have labs done as appropriate to monitor medication levels and is to report if they start to feel as if their heart rate is becoming uncontrolled. . Hypertension - well controlled - continue with current medications, continue with no added salt diet. Pt has been encouraged to exercise daily. The pt has been advised to call the office if there are any acute concerns about change in blood pressure readings at home. Hyperlipidemia - pt has been counseled about appropriate diet, exercise, and need for low fat food choices. I have discussed the need for the patient to take medications as prescribed. If the patient has negative side effects from the medication, they are to CALL the office and not abruptly discontinue the medication without discussion with a practitioner in the office. We will check labs in 3-6 months for follow up on the patient's chronic medical problem and to assure normal liver response to medications. Hypothyroidism - pt with chronic hypothyroidism, continue with current medication, will monitor pt to signs or symptoms of lack of adequate supplementation. Pt is to continue with current dose of medication unless directed otherwise. Check labs at regular intervals wither q 3 months or q 6 months based on previous levels of control. FLONASE CLARITIN 10MG DAILY CALL IF COUGH DOES NOT RESOLVE OR IF ANY WORSE . UTI-finish macrobid-follow up in 2 weeks-discussed preventative abx and twice weekly premarin vaginal cream [id number] flonase and claritin as discussed-call if symptoms do not improve or if any worse Will send antibiotic, come get your PT INR drawn on Thursday. . Bronchitis - acute case of bronchitis identified. Pt has been given antibiotics, breathing treatments as appropriate, and pt has been instructed to call if symptoms are not improved, or if symptoms acutely worsen. URI - Pt advised to increase fluids, vitamin C. Discussed natural and expected course of this diagnosis and need to alert me if symptoms do not follow expected course, or if any worse. RX sent to patient's pharmacy. . Sinusitis - Pt has acute infection - pain in face, maxillary region, Pt informed to use decongestant, RX given to patient, sinus rinses also recommended. Call if symptoms do not show improvement. . UTI - pt with positive urinalysis - culture sent if appropriate. Antibiotic electronically prescribed to pt's pharmacy of choice. Pt to call if symptoms do not improve. . UTI - pt with positive urinalysis - culture sent if appropriate. Antibiotic electronically prescribed to pt's pharmacy of choice. Pt to call if symptoms do not improve. CHECK LABS I WILL CALL YOU WITH RESULTS AND TO DISCUSS DOSE OF LASIX AT HOME AND WHAT CHANGES WE ARE GOING TO MAKE CUT BACK ON SALTY FOODS-ELEVATED FEET FOLLOW UP IN 1 MONTH, SOONER IF NEEDED . Hypertension - well controlled - continue with current medications, continue with no added salt diet. Pt has been encouraged to exercise daily. The pt has been advised to call the office if there are any acute concerns about change in blood pressure readings at home. Edema - pt has been advised to elevate legs to prevent dependent edema, compression has been recommended to help to naturally decrease peripheral edema. Diuretic use has been discussed and pt has been instructed in appropriate use of such medication as necessary to further attempt to reduce peripheral edema. Chronic Anticoagulant use - Pt has been counseled about the anticoagulant, need for serial monitoring, and need for the pt to alert the physician as to any new bruising, or acute bleeding. Therapeutic goal for INR is between 2.0 and 3.5. RECHECK URINE . UTI-UA positive today in the office-will send for culture and treat as appropriate. Have PT INR drawn on Thursday. Sinusitis - Pt has acute infection - pain in face, maxillary region, Pt informed to use decongestant, RX given to patient, sinus rinses also recommended. Call if symptoms do not show improvement. URI - Pt advised to increase fluids, vitamin C. Discussed natural and expected course of this diagnosis and need to alert me if symptoms do not follow expected course, or if any worse. RX sent to patient's pharmacy. CLARITIN 10MG DAILY . Hypertension - well controlled - continue with current medications, continue with no added salt diet. Pt has been encouraged to exercise daily. The pt has been advised to call the office if there are any acute concerns about change in blood pressure readings at home. Allergies - chronic - recommended pt to use allergy medication as prescribed. Pt has been counseled as to the appropriate use of the medication. Pt to call if allergy symptoms are not controlled with the medication. If using nasal spray, instructions as follows: Nasal spray- use twice daily, one spray per nostril twice daily, after 30 minutes, rinse out nose with saline spray.. Use opposite hand per nostril to spray in the nasal steroid allergy spray. Power Pudding: equal parts of prune juice, bran flakes, apple sauce - mix together, and take 1-2 tablespoons up to three times daily. The mixture will stay good in the fridge for 10 days. . Hypertension - well controlled - continue with current medications, continue with no added salt diet. Pt has been encouraged to exercise daily. The pt has been advised to call the office if there are any acute concerns about change in blood pressure readings at home. Hypothyroidism - pt with chronic hypothyroidism, continue with current medication, will monitor pt to signs or symptoms of lack of adequate supplementation. Pt is to continue with current dose of medication unless directed otherwise. Check labs at regular intervals wither q 3 months or q 6 months based on previous levels of control. Chronic constipation - uncontrolled - I have discussed with the patient the need for adequate fiber and water intake to facilitate soft, easily passed stools. The pt noted understanding of our conversation. I have given the patient a recipe for "power pudding" - equal parts, bran flakes, prune juice, and apple sauce. The pt is to call if symptoms not improved on this regimen. . Cellulitis -improving- continue with oral antibiotics as previously directed, return to clinic as previously directed, call for acute change in symptoms, worsening redness, warmth, discharge. HOLD LISINOPRIL X 2 WEEKS CALL IF COUGH OR RASH DOES NOTRESOLVE, OR IF ANY WORSE MONITOR BLOOD PRESSURE AND PULSE AND CALL WITH READINGS IN 2 WEEKS CHECK LABS WITH YOUR NEXT PT/INR . Hypertension - well controlled - continue with current medications, continue with no added salt diet. Pt has been encouraged to exercise daily. The pt has been advised to call the office if there are any acute concerns about change in blood pressure readings at home. Atrial Fibrillation - pt on chronic anticoagulation and is currently rate controlled. The pt is to have labs done as appropriate to monitor medication levels and is to report if they start to feel as if their heart rate is becoming uncontrolled. Cough-hold lisinopril x 2 weeks and call with update on symtpoms liquid vitamin b12 - take 2000mcg daily. . Hypertension - well controlled - continue with current medications, continue with no added salt diet. Pt has been encouraged to exercise daily. The pt has been advised to call the office if there are any acute concerns about change in blood pressure readings at home. Peripheral Neuropathy - recommended pt to have vitamin B12 level checked and folic acid level checked. Will give augmentin antibiotic take with food and probiotic (culturelle). Take until finished. Prednisone pills you can take one pill in the morning and one at noon, do not take close to bedtime because it can keep you up. Try Delsym cough syrup over the counter. Notify clinic if symptoms do not improve, or with any concerns. . Sinusitis - Pt has acute infection - pain in face, maxillary region, Pt informed to use decongestant, RX given to patient, sinus rinses also recommended. Call if symptoms do not show improvement. URI - Pt advised to increase fluids, vitamin C. Discussed natural and expected course of this diagnosis and need to alert me if symptoms do not follow expected course, or if any worse. RX sent to patient's pharmacy. Allergies - chronic - recommended pt to use allergy medication as prescribed. Pt has been counseled as to the appropriate use of the medication. Pt to call if allergy symptoms are not controlled with the medication. If using nasal spray, instructions as follows: Nasal spray- use twice daily, one spray per nostril twice daily, after 30 minutes, rinse out nose with saline spray.. Use opposite hand per nostril to spray in the nasal steroid allergy spray. ELEVATE YOUR FEET DURING THE DAY CUT BACK ON SALTY FOODS-FROZEN DINNERS, CANNED FOODS, LUNCH MEAT . Edema - pt has been advised to elevate legs to prevent dependent edema, compression has been recommended to help to naturally decrease peripheral edema. Diuretic use has been discussed and pt has been instructed in appropriate use of such medication as necessary to further attempt to reduce peripheral edema. . Hypertension - well controlled - continue with current medications, continue with no added salt diet. Pt has been encouraged to exercise daily. The pt has been advised to call the office if there are any acute concerns about change in blood pressure readings at home. Neck and back pain - suspect facet arthropathy - recommended heat to back. Hypothyroidism - pt with chronic hypothyroidism, continue with current medication, will monitor pt to signs or symptoms of lack of adequate supplementation. Pt is to continue with current dose of medication unless directed otherwise. Check labs at regular intervals wither q 3 months or q 6 months based on previous levels of control. . Hypertension - well controlled - continue with current medications, continue with no added salt diet. Pt has been encouraged to exercise daily. The pt has been advised to call the office if there are any acute concerns about change in blood pressure readings at home. Hyperlipidemia - pt has been counseled about appropriate diet, exercise, and need for low fat food choices. I have discussed the need for the patient to take medications as prescribed. If the patient has negative side effects from the medication, they are to CALL the office and not abruptly discontinue the medication without discussion with a practitioner in the office. We will check labs in 3-6 months for follow up on the patient's chronic medical problem and to assure normal liver response to medications. Hypothyroidism - pt with chronic hypothyroidism, continue with current medication, will monitor pt to signs or symptoms of lack of adequate supplementation. Pt is to continue with current dose of medication unless directed otherwise. Check labs at regular intervals wither q 3 months or q 6 months based on previous levels of control.
--- NOTE | 2017-12-04 05:24 | ED GU-Female ---
General Chief Complaint: -Female Stated Complaint: BLADDER INFECTION Nursing Triage Note: patient believes she has a bladder infection that started this morning. patient reports urgency, frequency and dysuria Nursing Sepsis Screen: No Definite Risk Source: patient Exam Limitations: no limitations History of Present Illness Date Seen by Provider: Dec 04, 2017 Time Seen by Provider: 05:13 Initial Comments The patient presents to the ER by private conveyance with a chief complaint that this morning around 3:30 she woke up had some painful burning urination with pain that radiated into her abdomen. She says she had a bad urinary tract infection similar to this last year and had to do outpatient antibiotics. She's had no fevers chills nausea vomiting or rash. Allergies and Home Medications Allergies Coded Allergies: Penicillins (Verified Allergy, Unknown, 11/17/08) Home Medications Aspirin 81 Mg Tabec, 81 MG PO HS, (Reported) Calcium Carbonate/Vitamin D3 1 Each Tablet, 1 TAB PO BID, (Reported) Cephalexin 500 Mg Capsule, 500 MG PO BID Prescribed by: VALENTE CARBAJAL on 01/11/17 0632 Cholecalciferol (Vitamin D3) 2,000 Unit Capsule, 2,000 UNIT PO HS, (Reported) Diltiazem Hcl 240 Mg Cap.er.24h, 240 MG PO DAILY, (Reported) Levothyroxine Sodium 125 Mcg Tablet, 125 MCG PO DAILY, (Reported) Nitrofurantoin Monohyd/M-Cryst 100 Mg Capsule, 100 MG PO BID Prescribed by: AVILA WINSTON on 02/01/17 09 Omeprazole 20 Mg Capsule.dr, 20 MG PO BID, (Reported) Phenazopyridine HCl 200 Mg Tablet, 1 TAB PO TID Prescribed by: AVILA WINSTON on 02/01/17951 Simvastatin 20 Mg Tab, 20 MG PO HS, (Reported) HAS NOT TAKEN IN AWHILE Warfarin Sodium 5 Mg Tablet, 5 MG PO DAILY TAKE 10 MG TONIGHT AND 5 MG SAT AND SUN RECHECK INR ON THURSDAY Prescribed by: NAHED SHOEMAKER on 07/22/13 1144 Patient Home Medication List Home Medication List Reviewed: Yes Review of Systems Constitutional: No chills, No diaphoresis EENTM: No ear discharge, No ear pain Respiratory: No cough, No short of breath Cardiovascular: No chest pain, No edema Gastrointestinal: see HPI; No constipation, No diarrhea, No nausea Genitourinary: burning; denies discharge; dysuria; denies frequency, denies flank pain, denies hematuria Past Hhvsumm-Bcpxfy-Eryoef Hx Patient Social History Alcohol Use: Denies Use Recreational Drug Use: No Smoking Status: Never a Smoker Recent Foreign Travel: No Contact w/Someone Who Travel: No Recent Infectious Disease Expo: No Recent Hopitalizations: No Immunizations Up To Date Date of Pneumonia Vaccine: Feb 14, 2009 Date of Influenza Vaccine: Apr 15, 2013 Past Medical History Surgeries: Yes Hysterectomy, Joint Replacement, Orthopedic Respiratory: No Cardiac: Yes Atrial Fibrillation, High Cholesterol, Hypertension Neurological: Yes Stroke Reproductive Disorders: No 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 Sexually Transmitted Disease: No Gastrointestinal: No Musculoskeletal: Yes (R KNEE REPLACEMENT) Chronic Back Pain Endocrine: Yes Cancer: No Psychosocial: No Integumentary: No Blood Disorders: No Physical Exam Vital Signs Vital Signs - First Documented 12/04/17 05:11 Temp 97.3 Pulse 70 Resp 18 B/P (MAP) 178/91 (120) Pulse Ox 99 Capillary Refill : Less Than 3 Seconds General Appearance: WD/WN, mild distress HEENT: PERRL/EOMI, pharynx normal Cardiovascular: normal peripheral pulses, regular rate, rhythm Respiratory: no respiratory distress, no accessory muscle use Gastrointestinal: non tender, soft Neurologic/Psychiatric: alert, normal mood/affect, oriented x 3 Skin: normal color, warm/dry Progress/Results/Core Measures Suspected Sepsis Recent Fever Within 48 Hours: No Infection Criteria Present: None New/Unexplained Altered Menta: No Sepsis Screen: No Definite Risk SIRS Temperature:97.3 Pulse: 70 Respiratory Rate: 18 Blood Pressure 178 /91 Mean: 120 Results/Orders Lab Results Laboratory Tests Test 12/04/17 05:15 Range/Units Urine Color YELLOW Urine Clarity VERY CLOUDY H Urine pH 7 5-9 Urine Specific Duarte 1.010 L 1.016-1.022 Urine Protein 2+ H NEGATIVE Urine Glucose (UA) NEGATIVE NEGATIVE Urine Ketones NEGATIVE NEGATIVE Urine Nitrite NEGATIVE NEGATIVE Urine Bilirubin NEGATIVE NEGATIVE Urine Urobilinogen NORMAL NORMAL MG/DL Urine Leukocyte Esterase 3+ H NEGATIVE Urine RBC (Auto) 5+ H NEGATIVE Urine RBC >100 H /HPF Urine WBC >100 H /HPF Urine Squamous Epithelial Cells 2-5 /HPF Urine Crystals NONE /LPF Urine Bacteria MODERATE H /HPF Urine Casts NONE /LPF Urine Mucus NEGATIVE /LPF Urine Culture Indicated YES My Orders Orders - SOLOMON,VALENTE J Ua Culture If Indicated (12/04/17 05:10) Urine Culture (12/04/17 05:15) Vital Signs/I&O 12/04/17 05:11 Temp 97.3 Pulse 70 Resp 18 B/P (MAP) 178/91 (120) Pulse Ox 99 Capillary Refill : Less Than 3 Seconds Blood Pressure Mean: 120 Progress Note : Time: 05:22 Progress Note Urinalysis; year ago urinalysis reveals Escherichia coli that was pansensitive. Departure Impression Primary Impression: Urinary tract infection Qualified Codes: N30.01 - Acute cystitis with hematuria Disposition: HOME, SELF-CARE Condition: Stable Departure-Patient Inst. Decision time for Depature: 05:48 Referrals: CORBY NEWELL MD (PCP/Family) Primary Care Physician Patient Instructions: Urinary Tract Infection, Adult (DC) Add. Discharge Instructions: Drink lots of water. 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 All discharge instructions reviewed with patient and/or family. Voiced understanding. Scripts Cephalexin (Cephalexin) 500 Mg Tablet 500 MG PO BID for 10 Days, #20 TAB 0 Refills Prov: VALENTE CARBAJAL 12/04/17 Copy Copies To 1: CORBY NEWELL MD, TITUS J Dec 04, 2017 05:24
--- OUTSIDE RECORDS SUMMARY | 2017-12-04 05:24 | XMS REPORT | CCD ---
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 Name Role Phone PP Unavailable CCM Unavailable Summary Purpose Interface Exchange Insurance Providers Payer name Policy type / Coverage type Covered constitution party ID Effective Begin Date Effective End Date WPS Medicare Part B Medicare Part B [id number] 2017 Unknown Prydeinig Alf Life Insurance Medicare Part B [id number] Unknown Family history Sister Diagnosis Age At Onset No Family Disease Entered N/A Runs in the family Diagnosis Age At Onset Heart disease Unknown Social History Social History Element Codes Description Effective Dates Employment Unknown 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-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 ICD-10: [...] Start Date Stop Date Status Fill Instructions Synthroid 100 mcg tablet RxNorm: 092019 1 Tablet(s) PO daily 04/17/2018 Active warfarin 5 mg tablet RxNorm: 265482 Tablet(s) TAKE 1 TABLET EVERY DAY 07/22/2017 04/17/2018 Active Keflex 500 mg capsule RxNorm: 572461 1 Capsule(s) PO TID 201707/06/2017 Inactive Augmentin 500 mg-125 mg tablet RxNorm: 334469 1 Tablet(s) PO BID 06/10/2017 06/16/2017 Inactive Augmentin 500 mg-125 mg tablet RxNorm: 616069 1 Tablet(s) PO BID 05/26/2017 06/01/2017 Inactive Augmentin 500 mg-125 mg tablet RxNorm: 532409 1 Tablet(s) PO BID 05/26/2017 05/25/2017 Inactive Augmentin 500 mg-125 mg tablet RxNorm: 448112 1 Tablet(s) PO BID 02/23/2017 02/22/2017 Inactive Augmentin 500 mg-125 mg tablet RxNorm: 316480 1 Tablet(s) PO BID 02/23/2017 03/01/2017 Inactive Zofran 4 mg tablet RxNorm: 941835 1 Tablet(s) PO Q6 as needed 02/13/2017 02/12/2017 Inactive Zofran 4 mg tablet RxNorm: 242437 1 Tablet(s) PO Q6 as needed 02/13/2017 02/22/2017 Inactive omeprazole 20 mg capsule,delayed release RxNorm: 495804 TAKE 1 CAPSULE EVERY DAY 02/02/2017 01/27/2018 Active diltiazem CD 240 mg capsule,extended release 24 hr RxNorm: 322832 TAKE 1 CAPSULE EVERY DAY 02/02/2017 01/27/2018 Active Synthroid 100 mcg tablet RxNorm: 195299 1 Tablet(s) PO daily 07/21/2017 Inactive Synthroid 100 mcg tablet RxNorm: 543190 1 Tablet(s) PO daily 01/29/2017 Inactive Synthroid 100 mcg tablet RxNorm: 802352 1 Tablet(s) PO daily 01/27/2017 Inactive Synthroid 112 mcg tablet RxNorm: 872354 TAKE 1 TABLET EVERY DAY 12/08/2016 01/27/2017 Inactive simvastatin 10 mg tablet RxNorm: 129158 1 Tablet(s) PO daily 02/24/2018 Active Bactrim DS 800 mg-160 mg tablet RxNorm: 306295 1 Tablet(s) PO BID 10/22/2016 11/13/2016 Inactive Bactrim DS 800 mg-160 mg tablet RxNorm: 685107 1 Tablet(s) PO BID 10/22/2016 10/21/2016 Inactive Keflex 500 mg capsule RxNorm: 591461 1 Capsule(s) PO TID 201610/01/2016 Inactive simvastatin 20 mg tablet RxNorm: 603939 1 Tablet(s) PO daily 12/01/2016 Inactive warfarin 5 mg tablet RxNorm: 391011 TAKE 1 TABLET EVERY DAY 05/07/2017 Inactive Synthroid 112 mcg tablet RxNorm: 802195 TAKE 1 TABLET EVERY DAY 07/21/2016 12/07/2016 Inactive potassium chloride ER 10 mEq tablet,extended release RxNorm: 597639 1 Tablet(s) PO daily 06/23/2016 06/22/2016 Inactive pt to take with lasix she has at home potassium chloride ER 10 mEq tablet,extended release RxNorm: 134210 1 Tablet(s) PO daily 06/23/2016 06/27/2016 Inactive pt to take with lasix she has at home Synthroid 112 mcg tablet RxNorm: 390051 TAKE 1 TABLET EVERY DAY 03/04/2016 07/20/2016 Inactive diltiazem CD 240 mg capsule,extended release 24 hr RxNorm: 202555 1 Capsule(s) PO daily 02/06/2016 02/01/2017 Inactive omeprazole 20 mg capsule,delayed release RxNorm: 720024 1 Capsule(s) PO daily 02/06/2016 02/01/2017 Inactive warfarin 5 mg tablet RxNorm: 116148 1 Tablet(s) PO daily 201508/10/2016 Inactive simvastatin 10 mg tablet RxNorm: 309877 1 Tablet(s) PO daily 08/11/2016 Inactive simvastatin 20 mg tablet RxNorm: 906266 1 Tablet(s) PO daily 01/07/2016 Inactive lisinopril 10 mg tablet RxNorm: 693858 1 Tablet(s) PO daily 12/10/2015 Inactive prednisone 20 mg tablet RxNorm: 746210 2 Tablet(s) PO daily 10/201510/22/2015 Inactive Augmentin 500 mg-125 mg tablet RxNorm: 026072 1 Tablet(s) PO TID 10/18/2015 10/27/2015 Inactive ceftriaxone 500 mg solution for injection RxNorm: 4122292 Inj 10/18/2015 10/18/2015 Inactive Kenalog 40 mg/mL suspension for injection RxNorm: 9631700 Milliliter(s) Inj 10/15/2015 10/15/2015 Inactive ceftriaxone 500 mg solution for injection RxNorm: 4780653 Inj 08/28/2015 08/28/2015 Inactive prednisone 20 mg tablet RxNorm: 129510 3 Tablet(s) PO daily 08/30/2015 Inactive amoxicillin 500 mg capsule RxNorm: 025923 1 Capsule(s) PO TID 08/28/2015 09/03/2015 Inactive Kenalog 40 mg/mL suspension for injection RxNorm: 9394425 Milliliter(s) Inj 08/28/2015 08/28/2015 Inactive Keflex 500 mg capsule RxNorm: 982694 1 Capsule(s) PO TID 201507/26/2015 Inactive Keflex 500 mg capsule RxNorm: 655018 1 Capsule(s) PO TID 201508/02/2015 Inactive Synthroid 112 mcg tablet RxNorm: 267066 TAKE 1 TABLET EVERY DAY 06/19/2015 12/15/2015 Inactive Augmentin 500 mg-125 mg tablet RxNorm: 898325 1 Tablet(s) PO TID 06/11/2015 06/20/2015 Inactive ceftriaxone 500 mg solution for injection RxNorm: 6162303 Inj 06/11/2015 06/11/2015 Inactive Kenalog 40 mg/mL suspension for injection RxNorm: 7735243 Milliliter(s) Inj 05/23/2015 05/23/2015 Inactive cefdinir 300 mg capsule RxNorm: 303463 1 Capsule(s) PO BID 02/201505/29/2015 Inactive simvastatin 10 mg tablet RxNorm: 505356 1 Tablet(s) PO daily 12/09/2015 Inactive Synthroid 112 mcg tablet RxNorm: 046224 1 Tablet(s) PO daily 06/18/2015 Inactive warfarin 5 mg tablet RxNorm: 748131 1 Tablet(s) PO daily x4 days and 1/2 tab for 3 days 03/29/2015 12/23/2015 Inactive Keflex 500 mg capsule RxNorm: 042335 1 Capsule(s) PO TID 201402/07/2015 Inactive Keflex 500 mg capsule RxNorm: 612535 1 Capsule(s) PO TID 201402/14/2015 Inactive diltiazem CD 240 mg capsule,extended release 24 hr RxNorm: 478403 1 Capsule(s) PO daily 01/31/2015 03/27/2015 Inactive omeprazole 20 mg capsule,delayed release RxNorm: 243040 1 Capsule(s) PO daily 01/30/2015 01/24/2016 Inactive diltiazem CD 240 mg capsule,extended release 24 hr RxNorm: 978001 1 Capsule(s) PO daily 01/30/2015 01/30/2015 Inactive omeprazole 20 mg capsule,delayed release RxNorm: 755750 1 Capsule(s) PO daily 01/25/2015 01/29/2015 Inactive diltiazem CD 240 mg capsule,extended release 24 hr RxNorm: 871339 1 Capsule(s) PO daily 01/25/2015 01/29/2015 Inactive Vitamin D2 50,000 unit capsule RxNorm: 087851 1 Capsule(s) PO weekly 10/25/2014 10/24/2014 Inactive Vitamin D2 50,000 unit capsule RxNorm: 343576 1 Capsule(s) PO weekly 10/25/2014 01/22/2015 Inactive [SAVINGS FOR NON-COVERED DRUGS -- [id number], PCN: [id number], Group: [id number], ID# XXXXXXX, Questions: . THIS IS NOT INSURANCE.] omeprazole 20 mg capsule,delayed release RxNorm: 897882 1 Capsule(s) PO daily 10/16/2014 11/14/2014 Inactive diltiazem CD 240 mg capsule,extended release 24 hr RxNorm: 829676 1 Capsule(s) PO daily 10/16/2014 11/14/2014 Inactive melatonin 3 mg tablet RxNorm: 379179 1 Tablet(s) PO QHS 201411/14/2014 Inactive lisinopril 10 mg tablet RxNorm: 158765 1 Tablet(s) PO daily 09/201402/12/2015 Inactive Synthroid 112 mcg tablet RxNorm: 022233 1 Tablet(s) PO 201402/12/2015 Inactive Vitamin D2 1,000 unit capsule RxNorm: 795506 1 Capsule(s) PO daily 10/16/2014 11/14/2014 Inactive warfarin 5 mg tablet RxNorm: 007242 1 Tablet(s) PO daily x4 days and 1/2 tab for 3 days 10/16/2014 02/12/2015 Inactive Culturelle oral RxNorm : 6032240 oral No Start Date Active Calcium + D oral RxNorm: 902072 oral No Start Date Active Stool Softener 100 mg capsule RxNorm: 9699600 1-2 Capsule(s) PO daily No Start Date Active Vitamin D3 1,000 unit tablet RxNorm: 386151 1 Tablet(s) PO daily No Start Date Active biotin oral RxNorm: 1588 oral No Start Date Active aspirin 81 mg capsule,delayed release RxNorm: 243029 1 Capsule(s) PO daily No Start Date Active Vitamin B-12 oral RxNorm: 91845 oral No Start Date Active Calcium 600-Vitamin D-Iron oral RxNorm: 4018 oral No Start Date 12/10/2015 Inactive simvastatin 10 mg tablet RxNorm: 596441 1 Tablet(s) PO daily No Start Date 03/28/2015 Inactive Medication Administered Medication Codes Instructions Start Date Status ceftriaxone 500 mg solution for injection RxNorm: 5804975 10/18/2015 No longer Active Kenalog 40 mg/mL suspension for injection RxNorm: 5617744 Milliliter 10/15/2015 No longer Active Kenalog 40 mg/mL suspension for injection RxNorm: 9376291 Milliliter 08/28/2015 No longer Active ceftriaxone 500 mg solution for injection RxNorm: 2468562 08/28/2015 No longer Active ceftriaxone 500 mg solution for injection RxNorm: 7744532 06/11/2015 No longer Active Kenalog 40 mg/mL suspension for injection RxNorm: 1448365 Milliliter 05/23/2015 No longer Active Immunizations Vaccine Codes Date Status Influenza CVX: 141 03/02/2017 completed Pneumococcal (Adult) CVX: 33 09/09/2016 completed Influenza CVX: 141 03/07/2015 completed Influenza CVX: 141 03/15/2014 completed Zoster CVX: 121 06/29/2012 completed Pneumococcal CVX: 33 06/15/2008 completed Assessments Condition Codes Effective Dates Dysuria ICD-10: R30.0 ICD-9: 788.1 06/30/2017 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 ICD-10: Z79.01 ICD-9: [...] Complete NO Growth Day 2 07/02/2017 Pt Egr2692 PT 27.2 seconds 07/01/2017 Pt Ppn9889 INR 2.5 07/01/2017 Pt Jmf7166 Low Intensity - 1.5-2.0 07/01/2017 Pt Fem3779 Mod intensity - 2.0-3.0 07/01/2017 Pt Vvw0493 Hi intensity - 3.0-4.0 07/01/2017 Free T4 Vxf540 FREE T4 1.15 ng/dL 07/01/2017 Tsh Ord6 hTSH II 2.28 uIU/mL 07/01/2017 Urine Culture Ucult Complete >100,000 col/ml aerobic growth sent to ref lab 06/11/2017 Urine Culture Ucult Complete Growth of aerobe sent to ref lab 05/27/2017 Pt Hzw8992 PT 30.0 seconds 05/26/2017 Pt Jwu0559 INR 2.8 05/26/2017 Pt Siq2159 Low Intensity - 1.5-2.0 05/26/2017 Pt Cvn3145 Mod intensity - 2.0-3.0 05/26/2017 Pt Wiy3731 Hi intensity - 3.0-4.0 05/26/2017 Pt Wmd9217 PT 24.2 seconds 04/07/2017 Pt Jdo0742 INR 2.2 04/07/2017 Pt Txw4771 Low Intensity - 1.5-2.0 04/07/2017 Pt Xwa1673 Mod intensity - 2.0-3.0 04/07/2017 Pt Oel2423 Hi intensity - 3.0-4.0 04/07/2017 Pt Oop8142 PT 21.4 seconds 03/10/2017 Pt Wga5046 INR 1.9 03/10/2017 Pt Vzk5305 Low Intensity - 1.5-2.0 03/10/2017 Pt Isp1789 Mod intensity - 2.0-3.0 03/10/2017 Pt Fok8556 Hi intensity - 3.0-4.0 03/10/2017 Culture Urine [id number] URINE CULTURE SEE NOTES 02/23/2017 Culture Urine [id number] Continued Results 02/23/2017 Urine Culture Ucult Complete >100,000 col/ml aerobic growth sent to ref lab 02/20/2017 Cbc With Differential Ord2 WBC 4.75 K/ul 01/28/2017 Cbc With Differential Ord2 RBC 4.39 M/ul 01/28/2017 Cbc With Differential Ord2 HGB 14.4 g/dl 01/28/2017 Cbc With Differential Ord2 Neut% 52.6 % 01/28/2017 Cbc With Differential Ord2 HCT 41.3 % 01/28/2017 Cbc With Differential Ord2 MCV 94.1 fl 01/28/2017 Cbc With Differential Ord2 Lymph% 29.3 % 01/28/2017 Cbc With Differential Ord2 MCH 32.8 pg 01/28/2017 Cbc With Differential Ord2 Kendall% 14.1 % 01/28/2017 Cbc With Differential Ord2 [...] 1.39 K/ul 01/28/2017 Cbc With Differential Ord2 Kendall ABS# 0.7 K/ul 01/28/2017 Cbc With Differential Ord2 Eos ABS# 0.2 K/ul 01/28/2017 Cbc With Differential Ord2 Baso ABS# 0.0 K/ul 01/28/2017 Tsh Ord6 hTSH II 0.46 uIU/mL 01/28/2017 Comp Metabolic Koq689 NA 140 mEq/L 01/28/2017 Comp Metabolic Vyv246 K 3.9 mEq/L 01/28/2017 Comp Metabolic Cfj065 CL 105 mEq/L 01/28/2017 Comp Metabolic Vyh222 CO2 27.0 mEq/L 01/28/2017 Comp Metabolic Die638 ANION GAP 12 01/28/2017 Comp Metabolic Xyz954 GLUCOSE 89 mg/dL 01/28/2017 Comp Metabolic Jky305 Creat 0.8 mg/dL 01/28/2017 Comp Metabolic Owd543 eGFR 69 ml/min/1.73m2 01/28/2017 Comp Metabolic Vgh004 BUN 16 mg/dL 01/28/2017 Comp Metabolic Itt851 B/C Ratio 19.0 Ratio 01/28/2017 Comp Metabolic Rqs669 CALCIUM 9.0 mg/dL 01/28/2017 Comp Metabolic Exd100 ALK PHOS 96 U/L 01/28/2017 Comp Metabolic Znx115 AST(SGOT) 16 U/L 01/28/2017 Comp Metabolic Ooj285 ALT(SGPT) 13 U/L 01/28/2017 Comp Metabolic Cjh406 BILI T 0.7 mg/dL 01/28/2017 Comp Metabolic Lss083 ALBUMIN 3.7 g/dL 01/28/2017 Comp Metabolic Uri302 TPRO 5.9 g/dL 01/28/2017 Comp Metabolic Vzl759 GLOB 2.2 g/dL 01/28/2017 Comp Metabolic Nft784 A/G Ratio 1.7 Ratio 01/28/2017 Comp Metabolic Sld130 Osmo 280 mOsmo 01/28/2017 Lipid Ord30 CHOL 142 mg/dL 01/28/2017 Lipid Ord30 HDL 33.0 mg/dl 01/28/2017 Lipid Ord30 TRIG 160 mg/dL 01/28/2017 Lipid Ord30 LDL 77 mg/dL 01/28/2017 Lipid Ord30 C/HDL 4.3 Ratio 01/28/2017 Pt Gjc7904 PT 25.7 seconds 01/28/2017 Pt Ntw5683 INR 2.3 01/28/2017 Pt Sai7388 Low Intensity - 1.5-2.0 01/28/2017 Pt Rel7879 Mod intensity - 2.0-3.0 01/28/2017 Pt Xkz8065 Hi intensity - 3.0-4.0 01/28/2017 Pt Ofh9083 PT 25.3 seconds 12/29/2016 Pt Lab5959 INR 2.5 12/29/2016 Pt Whq6934 Low Intensity - 1.5-2.0 12/29/2016 Pt Npy0034 Mod intensity - 2.0-3.0 12/29/2016 Pt Wls1244 Hi intensity - 3.0-4.0 12/29/2016 Pt Rta5513 PT 25.3 seconds 12/01/2016 Pt Wdx0445 INR 2.5 12/01/2016 Pt Tvi2041 Low Intensity - 1.5-2.0 12/01/2016 Pt Wxo8194 Mod intensity - 2.0-3.0 12/01/2016 Pt Mhk6740 Hi intensity - 3.0-4.0 12/01/2016 Pt Nhn4646 PT 19.2 seconds 11/17/2016 Pt Qix7997 INR 1.7 11/17/2016 Pt Nsc3512 Low Intensity - 1.5-2.0 11/17/2016 Pt Vam0630 Mod intensity - 2.0-3.0 11/17/2016 Pt Abf4190 Hi intensity - 3.0-4.0 11/17/2016 Pt Qtm6874 PT 36.0 seconds 10/27/2016 Pt Ohy4728 INR 3.9 10/27/2016 Pt Jwo2212 Low Intensity - 1.5-2.0 10/27/2016 Pt Ymw9100 Mod intensity - 2.0-3.0 10/27/2016 Pt Wxh1775 Hi intensity - 3.0-4.0 10/27/2016 Culture Urine [id number] URINE CULTURE SEE NOTES 10/25/2016 Culture Urine [id number] Continued Results 10/25/2016 Urine Culture Ucult Complete >100,000 col/ml aerobic growth sent to ref lab 10/23/2016 Pt Hzm1837 PT 30.7 seconds 09/29/2016 Pt Sdq6107 INR 3.2 09/29/2016 Pt Bqd9610 Low Intensity - 1.5-2.0 09/29/2016 Pt Rdj5909 Mod intensity - 2.0-3.0 09/29/2016 Pt Vpv5997 Hi intensity - 3.0-4.0 09/29/2016 Urine Culture Ucult Complete Growth of aerobe sent to ref lab 09/26/2016 Pt Oxz6714 PT 33.8 seconds 09/23/2016 Pt Bjv1370 INR 3.6 09/23/2016 Pt Trz8140 Low Intensity - 1.5-2.0 09/23/2016 Pt Nct1478 Mod intensity - 2.0-3.0 09/23/2016 Pt Qan5675 Hi intensity - 3.0-4.0 09/23/2016 Pt Ssu5576 PT 33.4 seconds 09/09/2016 Pt Yok9578 INR 3.6 09/09/2016 Pt Qmz3168 Low Intensity - 1.5-2.0 09/09/2016 Pt Vpk5081 Mod intensity - 2.0-3.0 09/09/2016 Pt Apo8718 Hi intensity - 3.0-4.0 09/09/2016 Pt Fgs6536 PT 30.2 seconds 08/20/2016 Pt Gia6714 INR 3.1 08/20/2016 Pt Iyh4522 Low Intensity - 1.5-2.0 08/20/2016 Pt Zmh4590 Mod intensity - 2.0-3.0 08/20/2016 Pt Lwz7162 Hi intensity - 3.0-4.0 08/20/2016 Pt Rjp3739 PT 32.1 seconds 08/12/2016 Pt Hnd1329 INR 3.4 08/12/2016 Pt Dbj8401 Low Intensity - 1.5-2.0 08/12/2016 Pt Lpm7218 Mod intensity - 2.0-3.0 08/12/2016 Pt Xiy7670 Hi intensity - 3.0-4.0 08/12/2016 Comp Metabolic Ajr655 NA 138 mEq/L 06/23/2016 Comp Metabolic Ric852 K 3.8 mEq/L 06/23/2016 Comp Metabolic Cad520 CL 103 mEq/L 06/23/2016 Comp Metabolic Fyw848 CO2 28.0 mEq/L 06/23/2016 Comp Metabolic Suv197 ANION GAP 11 06/23/2016 Comp Metabolic Sdi407 GLUCOSE 107 mg/dL 06/23/2016 Comp Metabolic Vct431 Creat 0.8 mg/dL 06/23/2016 Comp Metabolic Ngq069 eGFR 75 ml/min/1.73m2 06/23/2016 Comp Metabolic Hmf817 BUN 17 mg/dL 06/23/2016 Comp Metabolic Ivx364 B/C Ratio 21.8 Ratio 06/23/2016 Comp Metabolic Rze997 CALCIUM 9.4 mg/dL 06/23/2016 Comp Metabolic Lsl357 ALK PHOS 101 U/L 06/23/2016 Comp Metabolic Eyx069 AST(SGOT) 17 U/L 06/23/2016 Comp Metabolic Njl729 ALT(SGPT) 13 U/L 06/23/2016 Comp Metabolic Moo238 BILI T 0.7 mg/dL 06/23/2016 Comp Metabolic Nmd876 ALBUMIN 4.3 g/dL 06/23/2016 Comp Metabolic Zlv454 TPRO 6.6 g/dL 06/23/2016 Comp Metabolic Htm804 GLOB 2.3 g/dL 06/23/2016 Comp Metabolic Eeq611 A/G Ratio 1.8 Ratio 06/23/2016 Comp Metabolic Ttv547 Osmo 278 mOsmo 06/23/2016 Cbc With Differential Ord2 WBC 5.72 K/ul 06/23/2016 Cbc With Differential Ord2 RBC 4.17 M/ul 06/23/2016 Cbc With Differential Ord2 HGB 13.5 g/dl 06/23/2016 Cbc With Differential Ord2 Neut% 62.9 % 06/23/2016 Cbc With Differential Ord2 HCT 40.2 % 06/23/2016 Cbc With Differential Ord2 MCV 96.4 fl 06/23/2016 Cbc With Differential Ord2 Lymph% 21.0 % 06/23/2016 Cbc With Differential Ord2 MCH 32.4 pg 06/23/2016 Cbc With Differential Ord2 Kendall% 12.8 % 06/23/2016 Cbc With Differential Ord2 MCHC 33.6 pg 06/23/2016 Cbc With Differential Ord2 Eos% 2.4 % 06/23/2016 Cbc With Differential Ord2 PLT 249 K/ul 06/23/2016 Cbc With Differential Ord2 Baso% 0.9 % 06/23/2016 Cbc With Differential Ord2 RDW 14.2 % 06/23/2016 Cbc With Differential Ord2 Neut ABS# 3.60 K/ul 06/23/2016 Cbc With Differential Ord2 Lymph ABS# 1.20 K/ul 06/23/2016 Cbc With Differential Ord2 Kendall ABS# 0.7 K/ul 06/23/2016 Cbc With Differential Ord2 Eos ABS# 0.1 K/ul 06/23/2016 Cbc With Differential Ord2 Baso ABS# 0.1 K/ul 06/23/2016 Pt Zle9778 PT 25.9 seconds 06/23/2016 Pt Ebv7301 INR 2.5 06/23/2016 Pt Ejw0849 Low Intensity - 1.5-2.0 06/23/2016 Pt Izr0072 Mod intensity - 2.0-3.0 06/23/2016 Pt Btp7829 Hi intensity - 3.0-4.0 06/23/2016 Comp Metabolic Hzc643 NA 138 mEq/L 05/12/2016 Comp Metabolic Ang745 K 3.8 mEq/L 05/12/2016 Comp Metabolic Uda312 CL 104 mEq/L 05/12/2016 Comp Metabolic Bkt644 CO2 25.0 mEq/L 05/12/2016 Comp Metabolic Goq879 ANION GAP 13 05/12/2016 Comp Metabolic Dta971 GLUCOSE 119 mg/dL 05/12/2016 Comp Metabolic Heo376 Creat 0.8 mg/dL 05/12/2016 Comp Metabolic Dhi109 eGFR 71 ml/min/1.73m2 05/12/2016 Comp Metabolic Api099 BUN 16 mg/dL 05/12/2016 Comp Metabolic Dxt916 B/C Ratio 19.5 Ratio 05/12/2016 Comp Metabolic Ihc951 CALCIUM 9.5 mg/dL 05/12/2016 Comp Metabolic Jfn586 ALK PHOS 95 U/L 05/12/2016 Comp Metabolic Fjw805 AST(SGOT) 17 U/L 05/12/2016 Comp Metabolic Gtk789 ALT(SGPT) 18 U/L 05/12/2016 Comp Metabolic Gyc492 BILI T 0.6 mg/dL 05/12/2016 Comp Metabolic Dgk810 ALBUMIN 4.0 g/dL 05/12/2016 Comp Metabolic Xej465 TPRO 6.3 g/dL 05/12/2016 Comp Metabolic Dtt831 GLOB 2.3 g/dL 05/12/2016 Comp Metabolic Yqr468 A/G Ratio 1.7 Ratio 05/12/2016 Comp Metabolic Zto339 Osmo 278 mOsmo 05/12/2016 Folate Ord36 Folate 19.88 ng/mL 05/12/2016 B12 Fyj596 B12 614.00 pg/ml 05/12/2016 Pt Cbf3737 PT 29.1 seconds 05/12/2016 Pt Keo1155 INR 2.9 05/12/2016 Pt Mnj1967 Low Intensity - 1.5-2.0 05/12/2016 Pt Xsy1864 Mod intensity - 2.0-3.0 05/12/2016 Pt Ont8048 Hi intensity - 3.0-4.0 05/12/2016 Cbc With Differential Ord2 WBC 6.97 K/ul 05/12/2016 Cbc With Differential Ord2 RBC 4.42 M/ul 05/12/2016 Cbc With Differential Ord2 HGB 14.2 g/dl 05/12/2016 Cbc With Differential Ord2 Neut% 67.3 % 05/12/2016 Cbc With Differential Ord2 HCT 41.8 % 05/12/2016 Cbc With Differential Ord2 MCV 94.6 fl 05/12/2016 Cbc With Differential Ord2 Lymph% 19.4 % 05/12/2016 Cbc With Differential Ord2 MCH 32.1 pg 05/12/2016 Cbc With Differential Ord2 Kendall% 11.0 % 05/12/2016 Cbc With Differential Ord2 MCHC 34.0 pg 05/12/2016 Cbc With Differential Ord2 Eos% 1.7 % 05/12/2016 Cbc With Differential Ord2 PLT 250 K/ul 05/12/2016 Cbc With Differential Ord2 Baso% 0.6 % 05/12/2016 Cbc With Differential Ord2 RDW 14.5 % 05/12/2016 Cbc With Differential Ord2 Neut ABS# 4.69 K/ul 05/12/2016 Cbc With Differential Ord2 Lymph ABS# 1.35 K/ul 05/12/2016 Cbc With Differential Ord2 Kendall ABS# 0.8 K/ul 05/12/2016 Cbc With Differential Ord2 Eos ABS# 0.1 K/ul 05/12/2016 Cbc With Differential Ord2 Baso ABS# 0.0 K/ul 05/12/2016 Pt Alc3214 PT 29.8 seconds 04/21/2016 Pt Uso3759 INR 3.1 04/21/2016 Pt Wwr1248 Low Intensity - 1.5-2.0 04/21/2016 Pt Kuk0598 Mod intensity - 2.0-3.0 04/21/2016 Pt Ldp6280 Hi intensity - 3.0-4.0 04/21/2016 Pt Tyy0465 PT 25.2 seconds 03/24/2016 Pt Jpq8259 INR 2.4 03/24/2016 Pt Nqk3903 Low Intensity - 1.5-2.0 03/24/2016 Pt Msk5265 Mod intensity - 2.0-3.0 03/24/2016 Pt Skp7739 Hi intensity - 3.0-4.0 03/24/2016 Pt Yqr0079 PT 17.7 seconds 03/06/2016 Pt Qst0767 INR 1.5 03/06/2016 Pt Vwm5635 Low Intensity - 1.5-2.0 03/06/2016 Pt Dui9506 Mod intensity - 2.0-3.0 03/06/2016 Pt Etq2715 Hi intensity - 3.0-4.0 03/06/2016 Pt Zzq5393 PT 26.4 seconds 02/07/2016 Pt Eol8327 INR 2.6 02/07/2016 Pt Llh3878 Low Intensity - 1.5-2.0 02/07/2016 Pt Jka7578 Mod intensity - 2.0-3.0 02/07/2016 Pt Nqm3709 Hi intensity - 3.0-4.0 02/07/2016 Lipid Ord30 [...] 33.0 pg 02/07/2016 Cbc With Differential Ord2 Kendall% 13.1 % 02/07/2016 Cbc With Differential Ord2 MCHC 33.9 pg 02/07/2016 Cbc With Differential Ord2 Eos% 1.6 % 02/07/2016 Cbc With Differential Ord2 PLT 237 K/ul 02/07/2016 Cbc With Differential Ord2 Baso% 0.3 % 02/07/2016 Cbc With Differential Ord2 RDW 13.4 % 02/07/2016 Cbc With Differential Ord2 Neut ABS# 4.06 K/ul 02/07/2016 Cbc With Differential Ord2 Lymph ABS# 1.41 K/ul 02/07/2016 Cbc With Differential Ord2 Kendall ABS# 0.8 K/ul 02/07/2016 Cbc With Differential Ord2 Eos ABS# 0.1 K/ul 02/07/2016 Cbc With Differential Ord2 Baso ABS# 0.0 K/ul 02/07/2016 Comp Metabolic Cfr253 NA 137 mEq/L 02/07/2016 Comp Metabolic Mta552 K 3.9 mEq/L 02/07/2016 Comp Metabolic Rdg369 CL 102 mEq/L 02/07/2016 Comp Metabolic Chd935 CO2 32.0 mEq/L 02/07/2016 Comp Metabolic Nkm223 ANION GAP 7 02/07/2016 Comp Metabolic Xvi158 GLUCOSE 95 mg/dL 02/07/2016 Comp Metabolic Yad237 Creat 0.8 mg/dL 02/07/2016 Comp Metabolic Uhk662 eGFR 73 ml/min/1.73m2 02/07/2016 Comp Metabolic Kdl518 BUN 20 mg/dL 02/07/2016 Comp Metabolic Hyi262 B/C Ratio 25.0 Ratio 02/07/2016 Comp Metabolic Gid229 CALCIUM 9.4 mg/dL 02/07/2016 Comp Metabolic Gag996 ALK PHOS 68 U/L 02/07/2016 Comp Metabolic Xla231 AST(SGOT) 16 U/L 02/07/2016 Comp Metabolic Syv589 ALT(SGPT) 18 U/L 02/07/2016 Comp Metabolic Toh762 BILI T 0.7 mg/dL 02/07/2016 Comp Metabolic Sew838 ALBUMIN 4.0 g/dL 02/07/2016 Comp Metabolic Wsz737 TPRO 6.4 g/dL 02/07/2016 Comp Metabolic Izv572 GLOB 2.4 g/dL 02/07/2016 Comp Metabolic Kzb454 A/G Ratio 1.7 Ratio 02/07/2016 Comp Metabolic Jnc665 Osmo 276 mOsmo 02/07/2016 Tsh Ord6 hTSH II 0.16 uIU/mL 02/07/2016 Pt [id number] PT 21.1 seconds 01/11/2016 Pt [id number] INR 1.9 01/11/2016 Pt [id number] Low Intensity - 1.5-2.0 01/11/2016 Pt [id number] Mod intensity - 2.0-3.0 01/11/2016 Pt [id number] Hi intensity - 3.0-4.0 01/11/2016 Comp Metabolic Lny966 NA 137 mEq/L 01/11/2016 Comp Metabolic Tjj943 K 4.0 mEq/L 01/11/2016 Comp Metabolic Ibw954 CL 101 mEq/L 01/11/2016 Comp Metabolic Wdf267 CO2 29.0 mEq/L 01/11/2016 Comp Metabolic Bmc510 ANION GAP 11 01/11/2016 Comp Metabolic Tki001 GLUCOSE 89 mg/dL 01/11/2016 Comp Metabolic Llf115 Creat 0.9 mg/dL 01/11/2016 Comp Metabolic Nsk573 eGFR 61 ml/min/1.73m2 01/11/2016 Comp Metabolic Sls534 BUN 22 mg/dL 01/11/2016 Comp Metabolic Gig572 B/C Ratio 23.7 Ratio 01/11/2016 Comp Metabolic Ytn022 CALCIUM 9.3 mg/dL 01/11/2016 Comp Metabolic Yjq886 ALK PHOS 76 U/L 01/11/2016 Comp Metabolic Mpu622 AST(SGOT) 15 U/L 01/11/2016 Comp Metabolic Clh215 ALT(SGPT) 20 U/L 01/11/2016 Comp Metabolic Ogx417 BILI T 0.5 mg/dL 01/11/2016 Comp Metabolic Opj260 ALBUMIN 3.9 g/dL 01/11/2016 Comp Metabolic Gpy282 TPRO 6.2 g/dL 01/11/2016 Comp Metabolic Mqv187 GLOB 2.3 g/dL 01/11/2016 Comp Metabolic Jsr115 A/G Ratio 1.7 Ratio 01/11/2016 Comp Metabolic Stn906 Osmo 277 mOsmo 01/11/2016 Tsh Ord6 hTSH [...] 98.7 fl 01/11/2016 Cbc With Differential Ord2 Kendall% 11.6 % 01/11/2016 Cbc With Differential Ord2 MCH 33.4 pg 01/11/2016 Cbc With Differential Ord2 MCHC 33.9 pg 01/11/2016 Cbc With Differential Ord2 Eos% 1.3 % 01/11/2016 Cbc With Differential Ord2 PLT 246 K/ul 01/11/2016 Cbc With Differential Ord2 Baso% 0.3 % 01/11/2016 Cbc With Differential Ord2 RDW 14.0 % 01/11/2016 Cbc With Differential Ord2 Neut ABS# 5.33 K/ul 01/11/2016 Cbc With Differential Ord2 Lymph ABS# 1.41 K/ul 01/11/2016 Cbc With Differential Ord2 Kendall ABS# 0.9 K/ul 01/11/2016 Cbc With Differential Ord2 Eos ABS# 0.1 K/ul 01/11/2016 Cbc With Differential Ord2 Baso ABS# 0.0 K/ul 01/11/2016 Free T4 Vds541 FREE T4 1.42 ng/dL 01/11/2016 Pt Spe3686 PT 23.8 seconds 11/29/2015 Pt Muk4324 INR 2.3 11/29/2015 Pt Ooy1552 Low Intensity - 1.5-2.0 11/29/2015 Pt Htu6693 Mod intensity - 2.0-3.0 11/29/2015 Pt Uzr6123 Hi intensity - 3.0-4.0 11/29/2015 Pt Nto4446 PT 31.9 seconds 11/14/2015 Pt Uvs6933 INR 3.4 11/14/2015 Pt Sax0598 Low Intensity - 1.5-2.0 11/14/2015 Pt Eex1673 Mod intensity - 2.0-3.0 11/14/2015 Pt Gyg5129 Hi intensity - 3.0-4.0 11/14/2015 Pt Zmx5174 PT 23.9 seconds 10/15/2015 Pt Jcw5721 INR 2.3 10/15/2015 Pt Oot2772 Low Intensity - 1.5-2.0 10/15/2015 Pt Qwd4279 Mod intensity - 2.0-3.0 10/15/2015 Pt Vlk4394 Hi intensity - 3.0-4.0 10/15/2015 Pt Esi9605 PT 27.3 seconds 09/03/2015 Pt Pfh9323 INR 2.6 09/03/2015 Pt Xtz0425 Low Intensity - 1.5-2.0 09/03/2015 Pt Kfk5145 Mod intensity - 2.0-3.0 09/03/2015 Pt Zct0053 Hi intensity - 3.0-4.0 09/03/2015 Pt Csw0509 PT 22.3 seconds 08/06/2015 Pt Vdd2740 INR 2.0 08/06/2015 Pt Zbe7831 Low Intensity - 1.5-2.0 08/06/2015 Pt Ltk3804 Mod intensity - 2.0-3.0 08/06/2015 Pt Mmc6525 Hi intensity - 3.0-4.0 08/06/2015 Pt Jvl7419 PT 22.7 seconds 06/18/2015 Pt Rle6463 INR 2.1 06/18/2015 Pt Azi0363 Low Intensity - 1.5-2.0 06/18/2015 Pt Vfo7612 Mod intensity - 2.0-3.0 06/18/2015 Pt Ypw1506 Hi intensity - 3.0-4.0 06/18/2015 Pt Xqv9156 PT 21.8 seconds 06/11/2015 Pt Amp5790 INR 2.0 06/11/2015 Pt Nzd5907 Low Intensity - 1.5-2.0 06/11/2015 Pt Mgs4627 Mod intensity - 2.0-3.0 06/11/2015 Pt Uox7709 Hi intensity - 3.0-4.0 06/11/2015 Pt Nhl5186 PT 21.2 seconds 05/28/2015 Pt Yif2907 INR 1.9 05/28/2015 Pt Sus8098 Low Intensity - 1.5-2.0 05/28/2015 Pt Vnj0506 Mod intensity - 2.0-3.0 05/28/2015 Pt Vcy9480 Hi intensity - 3.0-4.0 05/28/2015 Pt Ivi3061 PT 26.7 seconds 05/07/2015 Pt Jhr2424 INR 2.6 05/07/2015 Pt Xdb2666 Low Intensity - 1.5-2.0 05/07/2015 Pt Dtm0337 Mod intensity - 2.0-3.0 05/07/2015 Pt Hgh7444 Hi intensity - 3.0-4.0 05/07/2015 Pt Gbf9815 PT 17.7 seconds 04/20/2015 Pt Bdo2141 INR 1.5 04/20/2015 Pt Vjq2587 Low Intensity - 1.5-2.0 04/20/2015 Pt Bkx1874 Mod intensity - 2.0-3.0 04/20/2015 Pt Pud7308 Hi intensity - 3.0-4.0 04/20/2015 Pt Wwp7563 PT 13.0 seconds 04/12/2015 Pt Swr9106 INR 1.0 04/12/2015 Pt Stg0696 Low Intensity - 1.5-2.0 04/12/2015 Pt Pcs4214 Mod intensity - 2.0-3.0 04/12/2015 Pt Eds7024 Hi intensity - 3.0-4.0 04/12/2015 Pt Oux0603 PT 23.0 seconds 03/07/2015 Pt Ilg5542 INR 2.1 03/07/2015 Pt Mez2032 Low Intensity - 1.5-2.0 03/07/2015 Pt Paj5730 Mod intensity - 2.0-3.0 03/07/2015 Pt Voh4134 Hi intensity - 3.0-4.0 03/07/2015 Pt Bqv3010 PT 20.3 seconds 02/15/2015 Pt Tpd3758 INR 1.8 02/15/2015 Pt Ppc7712 Low Intensity - 1.5-2.0 02/15/2015 Pt Bwo7472 Mod intensity - 2.0-3.0 02/15/2015 Pt Kaq6786 Hi intensity - 3.0-4.0 02/15/2015 Hepatic Wbh536 ALBUMIN 4.1 g/dL 02/08/2015 Hepatic Uqm906 TPRO 6.5 g/dL 02/08/2015 Hepatic Sdw201 GLOB 2.4 g/dL 02/08/2015 Hepatic Vbi066 A/G Ratio 1.7 Ratio 02/08/2015 Hepatic Fxr214 ALK PHOS 83 U/L 02/08/2015 Hepatic Jew343 ALT(SGPT) 19 U/L 02/08/2015 Hepatic Xpe865 AST(SGOT) 19 U/L 02/08/2015 Hepatic Hff155 BILI T 0.4 mg/dL 02/08/2015 Hepatic Vpv872 BILI D 0.0 mg/dL 02/08/2015 Hepatic Xml125 BILI I 0.4 mg/dL 02/08/2015 Lipid Ord30 CHOL 230 mg/dL 02/08/2015 Lipid Ord30 HDL 47.0 mg/dl 02/08/2015 Lipid Ord30 TRIG 180 mg/dL 02/08/2015 Lipid Ord30 LDL 147 mg/dL 02/08/2015 Lipid Ord30 C/HDL 4.9 Ratio 02/08/2015 Pt Ezv4184 PT 22.6 seconds 02/08/2015 Pt Wlj9747 INR 2.1 02/08/2015 Pt Lgh8260 Low Intensity - 1.5-2.0 02/08/2015 Pt Eaw3958 Mod intensity - 2.0-3.0 02/08/2015 Pt Wiu4444 Hi intensity - 3.0-4.0 02/08/2015 Review of [...] Codes Date URINALYSIS NONAUTO W/O SCOPE CPT-4: 24796 06/30/2017 URINALYSIS NONAUTO W/O SCOPE CPT-4: 85003 06/10/2017 URINALYSIS NONAUTO W/O SCOPE CPT-4: 77024 05/26/2017 URINALYSIS NONAUTO W/O SCOPE CPT-4: 65993 03/10/2017 URINALYSIS NONAUTO W/O SCOPE CPT-4: 35239 02/19/2017 URINALYSIS NONAUTO W/O SCOPE CPT-4: 84111 10/22/2016 URINALYSIS NONAUTO W/O SCOPE CPT-4: 51190 09/25/2016 Pneumococcal Polysaccharide Vaccine, 23-Valent, Ad CPT-4: 96358 09/09/2016 ADMIN PNEUMOCOCCAL VACCINE SNOMED CT: 52329797 CPT-4: G0009 09/09/2016 URINALYSIS NONAUTO W/O SCOPE CPT-4: 94591 12/10/2015 ROCEPHIN, PER 250 MG CPT-4: J0696 10/18/2015 TRIAMCINOLONE ACET INJ NOS CPT-4: J3301 10/15/2015 TRIAMCINOLONE ACET INJ NOS CPT-4: J3301 08/28/2015 ROCEPHIN, PER 250 MG CPT-4: J0696 08/28/2015 THER/PROPH/DIAG INJ SC/IM CPT-4: 34797 06/11/2015 ROCEPHIN, PER 250 MG CPT-4: J0696 06/11/2015 THER/PROPH/DIAG INJ SC/IM CPT-4: 39176 05/23/2015 TRIAMCINOLONE ACET INJ NOS CPT-4: J3301 05/23/2015 ADMIN INFLUENZA VIRUS VAC Formatting Model/CDA Sections, Assigned to CPT-4: G9522Iijeemw 03/07/2015 FLU VACC 4 ISADORA 3 YRS PLUS IM SNOMED CT: 44726089 CPT-4: 94579 03/07/2015 Vital Signs Date Vital 05/13/2017 Blood Pressure 1: 138/74 Code : 8480-6 BMI: 30.9 Code : 90803-7 Heart Rate 1 : 75 bpm Height: 5'2" SpO2: 98% Weight: 169 lbs 03/10/2017 Blood Pressure 1: 142/84 Code : 8480-6 Blood Pressure 1: 136/76 Code: 8480-6 BMI: 31.3 Code: 62799-4 Heart Rate 1: 67 bpm Height: 5'2" SpO2: 97% Weight: 171 lbs 02/19/2017 Blood Pressure 1: 144/74 Code : 8480-6 BMI: 31.8 Code : 29765-6 Heart Rate 1 : 81 bpm Height: 5'2" SpO2: 96% Weight: 174 lbs 02/05/2017 Blood Pressure 1: 130/68 Code : 8480-6 BMI: 32.0 Code : 13477-7 Heart Rate 1 : 67 bpm Height: 5'2" SpO2: 97% Weight: 175 lbs 09/09/2016 Blood Pressure 1: 140/82 Code : 8480-6 BMI: 32.7 Code : 90793-5 Heart Rate 1 : 64 bpm Height: 5'2" SpO2: 95% Weight: 179 lbs 08/12/2016 Blood Pressure 1: 148/80 Code : 8480-6 BMI: 33.1 Code : 75912-0 Heart Rate 1 : 98 bpm Height: 5'2" SpO2: 98% Weight: 181 lbs 06/23/2016 Blood Pressure 1: 146/72 Code : 8480-6 Heart Rate 1: 80 bpm Height: 5'2" SpO2: 98% Weight: 05/12/2016 Blood Pressure 1: 138/74 Code : 8480-6 BMI: 33.3 Code : 72992-9 Heart Rate 1 : 82 bpm Height: 5'2" SpO2: 98% Weight: 182 lbs 02/07/2016 Blood Pressure 1: 128/78 Code : 8480-6 BMI: 33.3 Code : 98019-0 Heart Rate 1 : 51 bpm Height: 5'2" SpO2: 97% Weight: 182 lbs 12/10/2015 Blood Pressure 1: 110/70 Code : 8480-6 BMI: 33.3 Code : 65707-3 Heart Rate 1 : 67 bpm Height: 5'2" SpO2: 96% Weight: 182 lbs 10/18/2015 Blood Pressure 1: 146/76 Code : 8480-6 BMI: 33.3 Code : 79499-8 Heart Rate 1 : 84 bpm Height: 5'2" SpO2: 98% Weight: 182 lbs 10/15/2015 Blood Pressure 1: 142/98 Code : 8480-6 Blood Pressure 1: 138/86 Code: 8480-6 BMI: 33.5 Code: 16289-1 Heart Rate 1: 85 bpm Height: 5'2" SpO2: 99% Temperature : 35.9 (C) / 96.6 (F) Weight: 183 lbs 08/28/2015 Blood Pressure 1: 146/84 Code : 8480-6 BMI: 33.7 Code : 94613-2 Heart Rate 1 : 92 bpm Height: 5'2" SpO2: 97% Temperature: 36.4 (C) / 97.5 (F) Weight: 184 lbs 06/11/2015 Blood Pressure 1: 144/92 Code : 8480-6 BMI: 33.5 Code : 62337-5 Heart Rate 1 : 79 bpm Height: 5'2" SpO2: 99% Weight: 183 lbs 05/23/2015 Blood Pressure 1: 128/68 Code : 8480-6 BMI: 34.2 Code : 98630-3 Heart Rate 1 : 84 bpm Height: 5'2" SpO2: 96% Weight: 187 lbs 03/07/2015 Blood Pressure 1: 132/62 Code : 8480-6 BMI: 33.5 Code : 04225-3 Heart Rate 1 : 94 bpm Height: 5'2" SpO2: 98% Weight: 183 lbs 02/15/2015 Blood Pressure 1: 140/76 Code : 8480-6 BMI: 33.5 Code : 73814-7 Heart Rate 1 : 76 bpm Height: 5'2" SpO2: 96% Weight: 183 lbs 10/16/2014 Blood Pressure 1: 128/84 Code : 8480-6 BMI: 32.9 Code : 12196-0 Heart Rate 1 : 82 bpm Height: [...] data Encounters Encounter Performer Location Codes Date ( [id number] EST. PATIENT, LEVEL IV Diagnosis: Essential (primary) hypertension[ICD10: I10] Diagnosis: Atrophy of thyroid (acquired)[ICD10: E03.4] Diagnosis: Slow transit constipation[ICD10: K59.01] Jumana Hull MD, [facility] CPT-4: 40421 05/13/2017 ([id number]) 39098 EST. 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 PATIENT, LEVEL III Diagnosis: Urinary tract infection, site not specified[ICD10: N39.0] Juliette Hull MD , [facility] CPT-4: 73003 02/19/2017 ([id number]) 38764 EST. PATIENT, LEVEL III Diagnosis: Urinary tract infection, site not specified[ICD10: N39.0] Diagnosis: Cough[ICD10: R05] Diagnosis: Other allergic rhinitis[ICD10: J30.89] Juliette Hull MD, [facility] CPT-4: 50812 02/05/2017 ([id number]) 91889 EST. PATIENT, LEVEL IV Diagnosis: Essential (primary) hypertension[ICD10: I10] Diagnosis: Atrophy of thyroid (acquired)[ICD10: E03.4] Diagnosis: Mixed hyperlipidemia[ICD10: E78.2] Diagnosis: Encounter for immunization[ICD10: Z23] Jumana Hull MD, [facility] CPT-4: 28506 09/09/2016 ([id number]) 85564 EST. PATIENT, LEVEL IV Diagnosis: Essential (primary) hypertension[ICD10: I10] Diagnosis: Mixed hyperlipidemia[ICD10: E78.2] Diagnosis: Other idiopathic peripheral autonomic neuropathy[ICD10: G90.09] Diagnosis: Atrophy of thyroid (acquired)[ICD10: E03.4] Jumana Hull MD, [facility] CPT-4: 44141 08/12/2016 ([id number]) 24956 EST. PATIENT, LEVEL IV Diagnosis: Essential (primary) hypertension[ICD10: I10] Diagnosis: Localized edema[ICD10: R60.0] Diagnosis: snf (current) use of anticoagulants[ICD10: Z79.01] Juliette Hull MD , [facility] CPT-4: 25625 06/23/2016 ([id number]) 18740 EST. 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 PATIENT, LEVEL IV Diagnosis: Essential (primary) hypertension[ICD10: I10] Diagnosis: Dysuria[ICD10: R30.0] Diagnosis: Hypothyroidism, unspecified[ICD10: E03.9] Diagnosis: Mixed hyperlipidemia[ICD10: E78.2] Diagnosis: Cervicalgia[ICD10: M54.2] Jumana Hull MD, [facility] CPT-4: 03238 12/10/2015 ([id number]) 64216 EST. PATIENT, LEVEL III Diagnosis: Essential (primary) hypertension[ICD10: I10] Diagnosis: Allergic rhinitis due to pollen[ICD10: J30.1] Juliette Hull MD, [facility] CPT-4: 73753 10/15/2015 ([id number]) 48784 EST. PATIENT, LEVEL III Diagnosis: Acute bronchitis due to other specified organisms[ICD10: J20.8] Diagnosis: Acute recurrent maxillary sinusitis[ICD10: J01.01] Jumana Hull MD, [facility] CPT-4: 75211 08/28/2015 [id number] EST. PATIENT, LEVEL III Diagnosis: Acute recurrent maxillary sinusitis[ICD10: J01.01] Diagnosis: Cough[ICD10: R05] Angélica Hull MD, [facility] CPT-4: 72094 06/11/2015 70639 EST. PATIENT, LEVEL III Diagnosis: Acute bronchitis due to other specified organisms[ICD10: J20.8] Angélica Hull MD, [facility] CPT-4: 64550 05/23/2015 ([id number]) 88017 EST. PATIENT, LEVEL III Diagnosis: ESSENTIAL HYPERTENSION[ICD9: 401.9] Diagnosis: A-fib[ICD9: 427.31] Diagnosis: INSECT BITE FOREARM[ICD9: 913.4] Jumana Hull MD, [facility] CPT-4: 63902 03/07/2015 ([id number]) 59290 EST. PATIENT, LEVEL III Diagnosis: Cellulitis of leg[ICD9: 682.6] Jumana Hull MD, [facility] CPT- 4: 66585 02/15/2015 ([id number]) OFFICE VISIT, NEW - LEVEL 4 Diagnosis: ESSENTIAL HYPERTENSION[ICD9: 401.9] Diagnosis: A-fib[ICD9: 427.31] Diagnosis: Rash[ICD9: 782.1] Diagnosis: Cough[ICD9: 786.2] Juliette Hull MD, [facility] CPT-4: 74934 10/16/2014 Plan of Care Planned Activity Notes Codes Status Date Appointment: Lab Draw 06/30/2017 Patient Education: Patient Medication Summary Completed 06/30/2017 Appointment: Lab Draw 06/10/2017 Patient Education: Patient Medication Summary Completed 06/10/2017 Appointment: Lab Draw 05/26/2017 Patient Education: Patient Medication Summary Completed 05/26/2017 [phone] [facility] (15 min) Moderate 05/13/2017 Patient Education: Patient Medication Summary Completed 05/13/2017 Patient Education: Obesity Completed 05/13/2017 Appointment: [phone] [facility] [place] (15 min) Moderate 03/10/2017 Patient Education: Patient Medication Summary Completed 03/10/2017 Patient Education: Obesity Completed 03/10/2017 Appointment: Juliette Yost WPtel: [phone] [phone] [place] (15 min) Moderate 02/19/2017 Patient Education: Patient Medication Summary Completed 02/19/2017 Patient Education: Obesity Completed 02/19/2017 Appointment: Juliette Yost WPtel: [phone] [phone] [place] (15 min) Moderate 02/05/2017 Patient Education: Patient Medication Summary Completed 02/05/2017 Patient Education: Obesity Completed 02/05/2017 Appointment: Lab Draw 10/22/2016 Patient Education: Patient Medication Summary Completed 10/22/2016 Appointment: Lab Draw 09/25/2016 Patient Education: Patient Medication Summary Completed 09/25/2016 Appointment: [facility]lic[facility] Kong [phone] [place] M[facility] - Annual Wellness Visit 09/10/2016 Appointment: Jumana Hull WPtel: [phone] [facility] [place] (15 min) Moderate 09/09/2016 Patient Education: Patient Medication Summary Completed 09/09/2016 Appointment: [facility] Hull [facility]el[facility] [phone] [facility] [place] (15 min) Moderate 08/12/2016 Patient Education: Patient Medication Summary Completed 08/12/2016 Patient Education: Obesity Completed 08/12/2016 Appointment: Juliette Yost WPtel: [phone] [phone] [place] (30 min) Complex 06/23/2016 Patient Education: Patient Medication Summary Completed 06/23/2016 Appointment: Jumana Hull WPtel: [facility] [place] (15 min) Moderate 05/12/2016 Patient Education: Patient Medication Summary Completed 05/12/2016 Patient Education: Obesity Completed 05/12/2016 Patient Education: Patient Medication Summary Completed 02/07/2016 Patient Education: Obesity Completed 02/07/2016 Appointment: Jumana Hull WPtel: [facility] [place] (15 min) Moderate 12/10/2015 Patient Education: Patient Medication Summary Completed 12/10/2015 Patient Education: Obesity Completed 12/10/2015 Patient Education: .Cervicalgia Neck Pain Completed 12/10/2015 Appointment: Jumana Hull WPtel: [address] [place], [place] [phone] [place] (15 min) Moderate 12/03/2015 Referral: [facility] Referral Initiated 10/26/2015 Patient Education: Patient Medication Summary Completed 10/18/2015 Patient Education: Obesity Completed 10/18/2015 Care Plan: Referral Order SNOMED-CT : [id number] Pending 10/18/2015 Patient Education: Patient Medication Summary Completed 10/15/2015 Patient Education: Obesity Completed 10/15/2015 Patient Education: Patient Medication Summary Completed 08/28/2015 Patient Education: Obesity Completed 08/28/2015 Appointment: (15 min) Moderate 06/11/2015 Patient Education: Patient Medication Summary Completed 06/11/2015 Appointment: (15 min) Moderate 05/23/2015 Patient Education: Patient Medication Summary Completed 05/23/2015 Appointment: Jumnaa Hull WPtel: [address] [place], [place] [phone] [place] (15 min) Moderate 03/07/2015 Patient Education: Patient Medication Summary Completed 03/07/2015 Patient Education: Hypertension Completed 03/07/2015 Appointment: (30 min) Complex 02/15/2015 Patient Education: Patient Medication Summary Completed 02/15/2015 Patient Education: Hypertension Completed 02/15/2015 Care Plan: COMPLETE CBC AUTOMATED LOINC : 68835-9 Ordered 10/17/2014 Appointment: (S) New Patient 10/16/2014 Patient Education: Patient Medication Summary Completed 10/16/2014 Patient Education: Hypertension Completed 10/16/2014 [facility] Referral Initiated Instructions No Instructions
--- OUTSIDE RECORDS SUMMARY | 2017-12-04 05:25 | XMS REPORT ---
Author MOISES [facility] eClinicalWorks Address Unknown Phone Unavailable Care Team Providers Care Vice President Payment Name Role Phone MOISES CAMPOS CP Unavailable Allergies No Known Allergies Problems Problem Type Condition Code Onset Dates Condition Status Assessment Encounter for immunization Z23 Active Medications No Known Medications Procedures Procedure Coding System Code Date SINGLE IMMUNIZATION ADMIN CPT-4 45295 December 24, 2015 TDAP (BOOSTRIX) CPT-4 81488 December 24, 2015 Results No Known Results Immunizations Vaccine Administration Date TDAP (BOOSTRIX) December 24, 2015 Summary Purpose eClinicalWorks Submission
[2017-12-04 05:26] LABS: BILIRUBIN,URINE NEGATIVE (NEGATIVE); CLARITY,URINE VERY CLOUDY; COLOR,URINE YELLOW; GLUCOSE, URINE (UA) NEGATIVE (NEGATIVE); KETONES,URINE NEGATIVE (NEGATIVE); LEUKOCYTE ESTERASE ,URINE 3+ (NEGATIVE); NITRITE,URINE NEGATIVE (NEGATIVE); PH,URINE 7 (5-9); PROTEIN,URINE 2+ (NEGATIVE); UROBILINOGEN,URINE NORMAL (NORMAL)
--- OUTSIDE RECORDS SUMMARY | 2017-12-04 05:29 | XMS REPORT | CCD ---
Author Author [facility] Address [address] [place] [address] Phone Care Team Providers Care Proration Clerk Name Role Phone PP Unavailable CCM Unavailable Summary Purpose Interface Exchange Insurance Providers Payer name Policy type / Coverage type Covered democrat ID Effective Begin Date Effective End Date WPS Medicare Part B Medicare Part B [id number] 2017 Unknown [employer] Insurance Medicare Part B [id number] Unknown Family history Sister Diagnosis Age At Onset No Family Disease Entered N/A Runs in the family Diagnosis Age At Onset Heart disease Unknown Social History Social History Element Codes Description Effective Dates Employment Unknown Retired 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 ICD-10: [...] Dysuria ICD-9: 788.1 ICD-10: R30.0 12/09/2015 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 ICD-10: [...] Fill Instructions Synthroid 100 mcg tablet RxNorm: 017273 1 Tablet(s) PO daily 04/17/2018 Active warfarin 5 mg tablet RxNorm: 332736 Tablet(s) TAKE 1 TABLET EVERY DAY 07/22/2017 04/17/2018 Active Keflex 500 mg capsule RxNorm: 358115 1 Capsule(s) PO TID 201707/06/2017 Inactive Augmentin 500 mg-125 mg tablet RxNorm: 908725 1 Tablet(s) PO BID 06/10/2017 06/16/2017 Inactive Augmentin 500 mg-125 mg tablet RxNorm: 614195 1 Tablet(s) PO BID 05/26/2017 06/01/2017 Inactive Augmentin 500 mg-125 mg tablet RxNorm: 218426 1 Tablet(s) PO BID 05/26/2017 05/25/2017 Inactive Augmentin 500 mg-125 mg tablet RxNorm: 489173 1 Tablet(s) PO BID 02/23/2017 02/22/2017 Inactive Augmentin 500 mg-125 mg tablet RxNorm: 536223 1 Tablet(s) PO BID 02/23/2017 03/01/2017 Inactive Zofran 4 mg tablet RxNorm: 356764 1 Tablet(s) PO Q6 as needed 02/13/2017 02/12/2017 Inactive Zofran 4 mg tablet RxNorm: 733291 1 Tablet(s) PO Q6 as needed 02/13/2017 02/22/2017 Inactive omeprazole 20 mg capsule,delayed release RxNorm: 324865 TAKE 1 CAPSULE EVERY DAY 02/02/2017 01/27/2018 Active diltiazem CD 240 mg capsule,extended release 24 hr RxNorm: 199431 TAKE 1 CAPSULE EVERY DAY 02/02/2017 01/27/2018 Active Synthroid 100 mcg tablet RxNorm: 654087 1 Tablet(s) PO daily 07/21/2017 Inactive Synthroid 100 mcg tablet RxNorm: 969424 1 Tablet(s) PO daily 01/29/2017 Inactive Synthroid 100 mcg tablet RxNorm: 983253 1 Tablet(s) PO daily 01/27/2017 Inactive Synthroid 112 mcg tablet RxNorm: 540918 TAKE 1 TABLET EVERY DAY 12/08/2016 01/27/2017 Inactive simvastatin 10 mg tablet RxNorm: 393265 1 Tablet(s) PO daily 02/24/2018 Active Bactrim DS 800 mg-160 mg tablet RxNorm: 210706 1 Tablet(s) PO BID 10/22/2016 11/13/2016 Inactive Bactrim DS 800 mg-160 mg tablet RxNorm: 520754 1 Tablet(s) PO BID 10/22/2016 10/21/2016 Inactive Keflex 500 mg capsule RxNorm: 394943 1 Capsule(s) PO TID 201610/01/2016 Inactive simvastatin 20 mg tablet RxNorm: 931619 1 Tablet(s) PO daily 12/01/2016 Inactive warfarin 5 mg tablet RxNorm: 877315 TAKE 1 TABLET EVERY DAY 05/07/2017 Inactive Synthroid 112 mcg tablet RxNorm: 379805 TAKE 1 TABLET EVERY DAY 07/21/2016 12/07/2016 Inactive potassium chloride ER 10 mEq tablet,extended release RxNorm: 034334 1 Tablet(s) PO daily 06/23/2016 06/22/2016 Inactive pt to take with lasix she has at home potassium chloride ER 10 mEq tablet,extended release RxNorm: 367596 1 Tablet(s) PO daily 06/23/2016 06/27/2016 Inactive pt to take with lasix she has at home Synthroid 112 mcg tablet RxNorm: 711610 TAKE 1 TABLET EVERY DAY 03/04/2016 07/20/2016 Inactive diltiazem CD 240 mg capsule,extended release 24 hr RxNorm: 594644 1 Capsule(s) PO daily 02/06/2016 02/01/2017 Inactive omeprazole 20 mg capsule,delayed release RxNorm: 875788 1 Capsule(s) PO daily 02/06/2016 02/01/2017 Inactive warfarin 5 mg tablet RxNorm: 029015 1 Tablet(s) PO daily 201508/10/2016 Inactive simvastatin 10 mg tablet RxNorm: 300167 1 Tablet(s) PO daily 08/11/2016 Inactive simvastatin 20 mg tablet RxNorm: 123195 1 Tablet(s) PO daily 01/07/2016 Inactive lisinopril 10 mg tablet RxNorm: 668076 1 Tablet(s) PO daily 12/10/2015 Inactive prednisone 20 mg tablet RxNorm: 683099 2 Tablet(s) PO daily 10/201510/22/2015 Inactive Augmentin 500 mg-125 mg tablet RxNorm: 796012 1 Tablet(s) PO TID 10/18/2015 10/27/2015 Inactive ceftriaxone 500 mg solution for injection RxNorm: 8606628 Inj 10/18/2015 10/18/2015 Inactive Kenalog 40 mg/mL suspension for injection RxNorm: 1584118 Milliliter(s) Inj 10/15/2015 10/15/2015 Inactive ceftriaxone 500 mg solution for injection RxNorm: 7667937 Inj 08/28/2015 08/28/2015 Inactive prednisone 20 mg tablet RxNorm: 893824 3 Tablet(s) PO daily 08/30/2015 Inactive amoxicillin 500 mg capsule RxNorm: 228942 1 Capsule(s) PO TID 08/28/2015 09/03/2015 Inactive Kenalog 40 mg/mL suspension for injection RxNorm: 2493793 Milliliter(s) Inj 08/28/2015 08/28/2015 Inactive Keflex 500 mg capsule RxNorm: 809690 1 Capsule(s) PO TID 201507/26/2015 Inactive Keflex 500 mg capsule RxNorm: 566323 1 Capsule(s) PO TID 201508/02/2015 Inactive Synthroid 112 mcg tablet RxNorm: 708658 TAKE 1 TABLET EVERY DAY 06/19/2015 12/15/2015 Inactive Augmentin 500 mg-125 mg tablet RxNorm: 255000 1 Tablet(s) PO TID 06/11/2015 06/20/2015 Inactive ceftriaxone 500 mg solution for injection RxNorm: 1993343 Inj 06/11/2015 06/11/2015 Inactive Kenalog 40 mg/mL suspension for injection RxNorm: 4905953 Milliliter(s) Inj 05/23/2015 05/23/2015 Inactive cefdinir 300 mg capsule RxNorm: 002217 1 Capsule(s) PO BID 02/201505/29/2015 Inactive simvastatin 10 mg tablet RxNorm: 992857 1 Tablet(s) PO daily 12/09/2015 Inactive Synthroid 112 mcg tablet RxNorm: 363046 1 Tablet(s) PO daily 06/18/2015 Inactive warfarin 5 mg tablet RxNorm: 089253 1 Tablet(s) PO daily x4 days and 1/2 tab for 3 days 03/29/2015 12/23/2015 Inactive Keflex 500 mg capsule RxNorm: 459541 1 Capsule(s) PO TID 201402/07/2015 Inactive Keflex 500 mg capsule RxNorm: 656646 1 Capsule(s) PO TID 201402/14/2015 Inactive diltiazem CD 240 mg capsule,extended release 24 hr RxNorm: 569512 1 Capsule(s) PO daily 01/31/2015 03/27/2015 Inactive omeprazole 20 mg capsule,delayed release RxNorm: 941047 1 Capsule(s) PO daily 01/30/2015 01/24/2016 Inactive diltiazem CD 240 mg capsule,extended release 24 hr RxNorm: 679584 1 Capsule(s) PO daily 01/30/2015 01/30/2015 Inactive omeprazole 20 mg capsule,delayed release RxNorm: 489396 1 Capsule(s) PO daily 01/25/2015 01/29/2015 Inactive diltiazem CD 240 mg capsule,extended release 24 hr RxNorm: 062691 1 Capsule(s) PO daily 01/25/2015 01/29/2015 Inactive Vitamin D2 50,000 unit capsule RxNorm: 406669 1 Capsule(s) PO weekly 10/25/2014 10/24/2014 Inactive Vitamin D2 50,000 unit capsule RxNorm: 730618 1 Capsule(s) PO weekly 10/25/2014 01/22/2015 Inactive [SAVINGS FOR NON-COVERED DRUGS -- BIN:[id number], PCN: [id number], Group: [id number], ID# [id number], Questions: . THIS IS NOT INSURANCE.] omeprazole 20 mg capsule,delayed release RxNorm: 723587 1 Capsule(s) PO daily 10/16/2014 11/14/2014 Inactive diltiazem CD 240 mg capsule,extended release 24 hr RxNorm: 933587 1 Capsule(s) PO daily 10/16/2014 11/14/2014 Inactive melatonin 3 mg tablet RxNorm: 220798 1 Tablet(s) PO QHS 201411/14/2014 Inactive lisinopril 10 mg tablet RxNorm: 090091 1 Tablet(s) PO daily 09/201402/12/2015 Inactive Synthroid 112 mcg tablet RxNorm: 981380 1 Tablet(s) PO 201402/12/2015 Inactive Vitamin D2 1,000 unit capsule RxNorm: 536918 1 Capsule(s) PO daily 10/16/2014 11/14/2014 Inactive warfarin 5 mg tablet RxNorm: 064872 1 Tablet(s) PO daily x4 days and 1/2 tab for 3 days 10/16/2014 02/12/2015 Inactive Culturelle oral RxNorm : 1825625 oral No Start Date Active Calcium + D oral RxNorm: 922710 oral No Start Date Active Stool Softener 100 mg capsule RxNorm: 3720734 1-2 Capsule(s) PO daily No Start Date Active Vitamin D3 1,000 unit tablet RxNorm: 698550 1 Tablet(s) PO daily No Start Date Active biotin oral RxNorm: 1588 oral No Start Date Active aspirin 81 mg capsule,delayed release RxNorm: 721371 1 Capsule(s) PO daily No Start Date Active Vitamin B-12 oral RxNorm: 88069 oral No Start Date Active Calcium 600-Vitamin D-Iron oral RxNorm: 4018 oral No Start Date 12/10/2015 Inactive simvastatin 10 mg tablet RxNorm: 311905 1 Tablet(s) PO daily No Start Date 03/28/2015 Inactive Medication Administered Medication Codes Instructions Start Date Status ceftriaxone 500 mg solution for injection RxNorm: 5651434 10/18/2015 No longer Active Kenalog 40 mg/mL suspension for injection RxNorm: 2162180 Milliliter 10/15/2015 No longer Active Kenalog 40 mg/mL suspension for injection RxNorm: 8318622 Milliliter 08/28/2015 No longer Active ceftriaxone 500 mg solution for injection RxNorm: 5906509 08/28/2015 No longer Active ceftriaxone 500 mg solution for injection RxNorm: 6347985 06/11/2015 No longer Active Kenalog 40 mg/mL suspension for injection RxNorm: 9801478 Milliliter 05/23/2015 No longer Active Immunizations Vaccine Codes Date Status Influenza CVX: 141 03/02/2017 completed Pneumococcal (Adult) CVX: 33 09/09/2016 completed Influenza CVX: 141 03/07/2015 completed Influenza CVX: 141 03/15/2014 completed Zoster CVX: 121 06/29/2012 completed Pneumococcal CVX: 33 06/15/2008 completed Assessments Condition Codes Effective Dates Dysuria ICD-10: R30.0 ICD-9: 788.1 06/30/2017 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09 ICD-9: 337.00 08/12/2016 Localized edema ICD-10: R60.0 ICD-9: 782.3 06/23/2016 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 ICD-10: M79.A21 ICD-9: 729.72 05/12/2016 Cervicalgia ICD-10: M54.2 ICD-9: 723.1 12/10/2015 Hypothyroidism, unspecified ICD-10: E03.9 ICD-9: 244.9 12/10/2015 Allergic rhinitis due to pollen ICD-10: J30.1 ICD-9: 477.0 10/18/2015 Acute recurrent maxillary sinusitis ICD-10: J01.01 ICD-9: 461.0 10/18/2015 Acute laryngopharyngitis ICD-10: J06.0 ICD-9: 465.0 10/18/2015 Essential (primary) hypertension ICD-10: I10 ICD-9: 401.9 10/15/2015 Acute bronchitis due to other specified organisms ICD-10: J20.8 ICD-9: 466.0 08/28/2015 A-fib ICD-9: 427.31 03/07/2015 VACCIN FOR INFLUENZA ICD-9: V04.81 2014 ESSENTIAL HYPERTENSION ICD-9: 401.9 03/07 INSECT BITE FOREARM ICD-9: 913.4 2014 Cellulitis of leg ICD-9: 682.6 2014 Rash [...] Observation Code Item Item Code Result Date Pt Tsm1893 PT 27.7 seconds 07/28/2017 Pt Bqd0644 INR 2.6 07/28/2017 Pt Qgx5082 Low Intensity - 1.5-2.0 07/28/2017 Pt Xah6089 Mod intensity - 2.0-3.0 07/28/2017 Pt Ius6546 Hi intensity - 3.0-4.0 07/28/2017 Urine Culture Ucult Complete NO Growth Day 2 07/02/2017 Urine Culture Ucult Preliminary NO Growth Day 1 07/02/2017 Pt Gwz5956 PT 27.2 seconds 07/01/2017 Pt Dlu5444 INR 2.5 07/01/2017 Pt Nsf6269 Low Intensity - 1.5-2.0 07/01/2017 Pt Jls8976 Mod intensity - 2.0-3.0 07/01/2017 Pt Fqn5770 Hi intensity - 3.0-4.0 07/01/2017 Free T4 Klu903 FREE T4 1.15 ng/dL 07/01/2017 Tsh Ord6 hTSH II 2.28 uIU/mL 07/01/2017 Urine Culture Ucult Complete >100,000 col/ml aerobic growth sent to ref lab 06/11/2017 Urine Culture Ucult Complete Growth of aerobe sent to ref lab 05/27/2017 Pt Ary0763 PT 30.0 seconds 05/26/2017 Pt Fup4714 INR 2.8 05/26/2017 Pt Vpi0582 Low Intensity - 1.5-2.0 05/26/2017 Pt Mmr9819 Mod intensity - 2.0-3.0 05/26/2017 Pt Xmn3801 Hi intensity - 3.0-4.0 05/26/2017 Pt Odq7722 PT 24.2 seconds 04/07/2017 Pt Drn7371 INR 2.2 04/07/2017 Pt Cjo7182 Low Intensity - 1.5-2.0 04/07/2017 Pt Dxz7325 Mod intensity - 2.0-3.0 04/07/2017 Pt Viv5831 Hi intensity - 3.0-4.0 04/07/2017 Pt Xru7081 PT 21.4 seconds 03/10/2017 Pt Wqp8433 INR 1.9 03/10/2017 Pt Dvq2226 Low Intensity - 1.5-2.0 03/10/2017 Pt Blt6357 Mod intensity - 2.0-3.0 03/10/2017 Pt Shh0868 Hi intensity - 3.0-4.0 03/10/2017 Culture Urine [id number] URINE CULTURE SEE NOTES 02/23/2017 Culture Urine [id number] Continued Results 02/23/2017 Urine Culture Ucult Complete [...] 32.8 pg 01/28/2017 Cbc With Differential Ord2 Baxter% 14.1 % 01/28/2017 Cbc With Differential Ord2 Eos% 3.2 % 01/28/2017 Cbc With Differential Ord2 MCHC 34.9 pg 01/28/2017 Cbc With Differential Ord2 Baso% 0.8 % 01/28/2017 Cbc With Differential Ord2 PLT 242 K/ul 01/28/2017 Cbc With Differential Ord2 RDW 13.9 % 01/28/2017 Cbc With Differential Ord2 Neut ABS# 2.50 K/ul 01/28/2017 Cbc With Differential Ord2 Lymph ABS# 1.39 K/ul 01/28/2017 Cbc With Differential Ord2 Baxter ABS# 0.7 K/ul 01/28/2017 Cbc With Differential Ord2 Eos ABS# 0.2 K/ul 01/28/2017 Cbc With Differential Ord2 Baso ABS# 0.0 K/ul 01/28/2017 Comp Metabolic Hsd234 NA 140 mEq/L 01/28/2017 Comp Metabolic Vgu371 K 3.9 mEq/L 01/28/2017 Comp Metabolic Yzn735 CL 105 mEq/L 01/28/2017 Comp Metabolic Mme943 CO2 27.0 mEq/L 01/28/2017 Comp Metabolic Jdq466 ANION GAP 12 01/28/2017 Comp Metabolic Cyp691 GLUCOSE 89 mg/dL 01/28/2017 Comp Metabolic Rqx968 Creat 0.8 mg/dL 01/28/2017 Comp Metabolic Yck768 eGFR 69 ml/min/1.73m2 01/28/2017 Comp Metabolic Slz750 BUN 16 mg/dL 01/28/2017 Comp Metabolic Ahg197 B/C Ratio 19.0 Ratio 01/28/2017 Comp Metabolic Yno243 CALCIUM 9.0 mg/dL 01/28/2017 Comp Metabolic Epy569 ALK PHOS 96 U/L 01/28/2017 Comp Metabolic Reo319 AST(SGOT) 16 U/L 01/28/2017 Comp Metabolic Scd557 ALT(SGPT) 13 U/L 01/28/2017 Comp Metabolic Zdq478 BILI T 0.7 mg/dL 01/28/2017 Comp Metabolic Lfr181 ALBUMIN 3.7 g/dL 01/28/2017 Comp Metabolic Plj908 TPRO 5.9 g/dL 01/28/2017 Comp Metabolic Cqu990 GLOB 2.2 g/dL 01/28/2017 Comp Metabolic Tih113 A/G Ratio 1.7 Ratio 01/28/2017 Comp Metabolic Cro066 Osmo 280 mOsmo 01/28/2017 Lipid Ord30 CHOL 142 mg/dL 01/28/2017 Lipid Ord30 HDL 33.0 mg/dl 01/28/2017 Lipid Ord30 TRIG 160 mg/dL 01/28/2017 Lipid Ord30 LDL 77 mg/dL 01/28/2017 Lipid Ord30 C/HDL 4.3 Ratio 01/28/2017 Tsh Ord6 hTSH II 0.46 uIU/mL 01/28/2017 Pt Rhn9228 PT 25.7 seconds 01/28/2017 Pt Ewz9626 INR 2.3 01/28/2017 Pt Fad2571 Low Intensity - 1.5-2.0 01/28/2017 Pt Byn4360 Mod intensity - 2.0-3.0 01/28/2017 Pt Cdm3108 Hi intensity - 3.0-4.0 01/28/2017 Pt Czr4431 PT 25.3 seconds 12/29/2016 Pt Pap4986 INR 2.5 12/29/2016 Pt Psi1725 Low Intensity - 1.5-2.0 12/29/2016 Pt Olh9955 Mod intensity - 2.0-3.0 12/29/2016 Pt Ooc4222 Hi intensity - 3.0-4.0 12/29/2016 Pt Lzy1749 PT 25.3 seconds 12/01/2016 Pt Lef8884 INR 2.5 12/01/2016 Pt Qcd7688 Low Intensity - 1.5-2.0 12/01/2016 Pt Qzq5171 Mod intensity - 2.0-3.0 12/01/2016 Pt Vcj7672 Hi intensity - 3.0-4.0 12/01/2016 Pt Neu2369 PT 19.2 seconds 11/17/2016 Pt Aol7167 INR 1.7 11/17/2016 Pt Efo5491 Low Intensity - 1.5-2.0 11/17/2016 Pt Uoj6596 Mod intensity - 2.0-3.0 11/17/2016 Pt Sha9164 Hi intensity - 3.0-4.0 11/17/2016 Pt Flc9578 PT 36.0 seconds 10/27/2016 Pt Gwk5928 INR 3.9 10/27/2016 Pt Rrg4425 Low Intensity - 1.5-2.0 10/27/2016 Pt Hdq0894 Mod intensity - 2.0-3.0 10/27/2016 Pt Vtk3741 Hi intensity - 3.0-4.0 10/27/2016 Culture Urine [id number] URINE CULTURE SEE NOTES 10/25/2016 Culture Urine [id number] Continued Results 10/25/2016 Urine Culture Ucult Complete >100,000 col/ml aerobic growth sent to ref lab 10/23/2016 Pt Fsp1252 PT 30.7 seconds 09/29/2016 Pt Bpn9794 INR 3.2 09/29/2016 Pt Fts5530 Low Intensity - 1.5-2.0 09/29/2016 Pt Qqq4049 Mod intensity - 2.0-3.0 09/29/2016 Pt Ova6718 Hi intensity - 3.0-4.0 09/29/2016 Urine Culture Ucult Complete Growth of aerobe sent to ref lab 09/26/2016 Pt Vsq7548 PT 33.8 seconds 09/23/2016 Pt Hud5871 INR 3.6 09/23/2016 Pt Ked6988 Low Intensity - 1.5-2.0 09/23/2016 Pt Juq9444 Mod intensity - 2.0-3.0 09/23/2016 Pt Drp3344 Hi intensity - 3.0-4.0 09/23/2016 Pt Ezo1751 PT 33.4 seconds 09/09/2016 Pt Gzk5459 INR 3.6 09/09/2016 Pt Emy4638 Low Intensity - 1.5-2.0 09/09/2016 Pt Efw0922 Mod intensity - 2.0-3.0 09/09/2016 Pt Eab6049 Hi intensity - 3.0-4.0 09/09/2016 Pt Ohy8755 PT 30.2 seconds 08/20/2016 Pt Mzv8432 INR 3.1 08/20/2016 Pt Nqj5371 Low Intensity - 1.5-2.0 08/20/2016 Pt Qsx4926 Mod intensity - 2.0-3.0 08/20/2016 Pt Vhd6843 Hi intensity - 3.0-4.0 08/20/2016 Pt Rgy8052 PT 32.1 seconds 08/12/2016 Pt Ubi3376 INR 3.4 08/12/2016 Pt Lwh5685 Low Intensity - 1.5-2.0 08/12/2016 Pt Kpb6228 Mod intensity - 2.0-3.0 08/12/2016 Pt Vjr1807 Hi intensity - 3.0-4.0 08/12/2016 Pt Cau8918 PT 25.9 seconds 06/23/2016 Pt Exj4428 INR 2.5 06/23/2016 Pt Wdr9685 Low Intensity - 1.5-2.0 06/23/2016 Pt Zpe2423 Mod intensity - 2.0-3.0 06/23/2016 Pt Fnz8726 Hi intensity - 3.0-4.0 06/23/2016 Cbc With Differential Ord2 WBC 5.72 K/ul 06/23/2016 Cbc With Differential Ord2 RBC 4.17 M/ul 06/23/2016 Cbc With Differential Ord2 HGB 13.5 g/dl 06/23/2016 Cbc With Differential Ord2 HCT 40.2 % 06/23/2016 Cbc With Differential Ord2 Neut% 62.9 % 06/23/2016 Cbc With Differential Ord2 MCV 96.4 fl 06/23/2016 Cbc With Differential Ord2 Lymph% 21.0 % 06/23/2016 Cbc With Differential Ord2 Baxter% 12.8 % 06/23/2016 Cbc With Differential Ord2 MCH 32.4 pg 06/23/2016 Cbc With Differential Ord2 MCHC 33.6 pg 06/23/2016 Cbc With Differential Ord2 Eos% 2.4 % 06/23/2016 Cbc With Differential Ord2 Baso% 0.9 % 06/23/2016 Cbc With Differential Ord2 PLT 249 K/ul 06/23/2016 Cbc With Differential Ord2 RDW 14.2 % 06/23/2016 Cbc With Differential Ord2 Neut ABS# 3.60 K/ul 06/23/2016 Cbc With Differential Ord2 Lymph ABS# 1.20 K/ul 06/23/2016 Cbc With Differential Ord2 Baxter ABS# 0.7 K/ul 06/23/2016 Cbc With Differential Ord2 Eos ABS# 0.1 K/ul 06/23/2016 Cbc With Differential Ord2 Baso ABS# 0.1 K/ul 06/23/2016 Comp Metabolic Ebx874 NA 138 mEq/L 06/23/2016 Comp Metabolic Acv770 K 3.8 mEq/L 06/23/2016 Comp Metabolic Mrm907 CL 103 mEq/L 06/23/2016 Comp Metabolic Rbu220 CO2 28.0 mEq/L 06/23/2016 Comp Metabolic Alz404 ANION GAP 11 06/23/2016 Comp Metabolic Rlq820 GLUCOSE 107 mg/dL 06/23/2016 Comp Metabolic Oyi818 Creat 0.8 mg/dL 06/23/2016 Comp Metabolic Plq906 eGFR 75 ml/min/1.73m2 06/23/2016 Comp Metabolic Eik933 BUN 17 mg/dL 06/23/2016 Comp Metabolic Jac769 B/C Ratio 21.8 Ratio 06/23/2016 Comp Metabolic Dzk859 CALCIUM 9.4 mg/dL 06/23/2016 Comp Metabolic Mko646 ALK PHOS 101 U/L 06/23/2016 Comp Metabolic Njp279 AST(SGOT) 17 U/L 06/23/2016 Comp Metabolic Ukx538 ALT(SGPT) 13 U/L 06/23/2016 Comp Metabolic Xvw467 BILI T 0.7 mg/dL 06/23/2016 Comp Metabolic Aqv007 ALBUMIN 4.3 g/dL 06/23/2016 Comp Metabolic Cnq033 TPRO 6.6 g/dL 06/23/2016 Comp Metabolic Pev676 GLOB 2.3 g/dL 06/23/2016 Comp Metabolic Skn920 A/G Ratio 1.8 Ratio 06/23/2016 Comp Metabolic Qqa439 Osmo 278 mOsmo 06/23/2016 Cbc With Differential Ord2 WBC 6.97 K/ul [...] 32.1 pg 05/12/2016 Cbc With Differential Ord2 Baxter% 11.0 % 05/12/2016 Cbc With Differential Ord2 [...] 1.35 K/ul 05/12/2016 Cbc With Differential Ord2 Baxter ABS# 0.8 K/ul 05/12/2016 Cbc With Differential Ord2 Eos ABS# 0.1 K/ul 05/12/2016 Cbc With Differential Ord2 Baso ABS# 0.0 K/ul 05/12/2016 Comp Metabolic Bxq438 NA 138 mEq/L 05/12/2016 Comp Metabolic Obu368 K 3.8 mEq/L 05/12/2016 Comp Metabolic Kzx810 CL 104 mEq/L 05/12/2016 Comp Metabolic Srq248 CO2 25.0 mEq/L 05/12/2016 Comp Metabolic Rdn891 ANION GAP 13 05/12/2016 Comp Metabolic Ure951 GLUCOSE 119 mg/dL 05/12/2016 Comp Metabolic Hgv446 Creat 0.8 mg/dL 05/12/2016 Comp Metabolic Kfc414 eGFR 71 ml/min/1.73m2 05/12/2016 Comp Metabolic Ggm126 BUN 16 mg/dL 05/12/2016 Comp Metabolic Xwx157 B/C Ratio 19.5 Ratio 05/12/2016 Comp Metabolic Ajo095 CALCIUM 9.5 mg/dL 05/12/2016 Comp Metabolic Had988 ALK PHOS 95 U/L 05/12/2016 Comp Metabolic Qde917 AST(SGOT) 17 U/L 05/12/2016 Comp Metabolic Ssh132 ALT(SGPT) 18 U/L 05/12/2016 Comp Metabolic Frz233 BILI T 0.6 mg/dL 05/12/2016 Comp Metabolic Ltk048 ALBUMIN 4.0 g/dL 05/12/2016 Comp Metabolic Dvf026 TPRO 6.3 g/dL 05/12/2016 Comp Metabolic Gdu044 GLOB 2.3 g/dL 05/12/2016 Comp Metabolic Hhp603 A/G Ratio 1.7 Ratio 05/12/2016 Comp Metabolic Lvy702 Osmo 278 mOsmo 05/12/2016 Pt Gjy3090 PT 29.1 seconds 05/12/2016 Pt Bmp0743 INR 2.9 05/12/2016 Pt Dvv2928 Low Intensity - 1.5-2.0 05/12/2016 Pt Zus9871 Mod intensity - 2.0-3.0 05/12/2016 Pt Kwx3424 Hi intensity - 3.0-4.0 05/12/2016 Folate Ord36 Folate 19.88 ng/mL 05/12/2016 B12 Ddw673 B12 614.00 pg/ml 05/12/2016 Pt Thy4547 PT 29.8 seconds 04/21/2016 Pt Oki8055 INR 3.1 04/21/2016 Pt Ivc7914 Low Intensity - 1.5-2.0 04/21/2016 Pt Owe7626 Mod intensity - 2.0-3.0 04/21/2016 Pt Tww8620 Hi intensity - 3.0-4.0 04/21/2016 Pt Njn9446 PT 25.2 seconds 03/24/2016 Pt Rqo7316 INR 2.4 03/24/2016 Pt Yln7809 Low Intensity - 1.5-2.0 03/24/2016 Pt Ezf8731 Mod intensity - 2.0-3.0 03/24/2016 Pt Rie9965 Hi intensity - 3.0-4.0 03/24/2016 Pt Zfd9567 PT 17.7 seconds 03/06/2016 Pt Cps4768 INR 1.5 03/06/2016 Pt Ife3269 Low Intensity - 1.5-2.0 03/06/2016 Pt Axn3299 Mod intensity - 2.0-3.0 03/06/2016 Pt Apk5313 Hi intensity - 3.0-4.0 03/06/2016 Pt Ien1251 PT 26.4 seconds 02/07/2016 Pt Xrd5415 INR 2.6 02/07/2016 Pt Eem7405 Low Intensity - 1.5-2.0 02/07/2016 Pt Uku4121 Mod intensity - 2.0-3.0 02/07/2016 Pt Gpb4388 Hi intensity - 3.0-4.0 02/07/2016 Tsh Ord6 hTSH II 0.16 uIU/mL 02/07/2016 Lipid Ord30 CHOL 153 mg/dL 02/07/2016 Lipid Ord30 HDL 47.0 mg/dl 02/07/2016 Lipid Ord30 TRIG 108 mg/dL 02/07/2016 Lipid Ord30 LDL 84 mg/dL 02/07/2016 Lipid Ord30 C/HDL 3.3 Ratio 02/07/2016 Cbc With Differential Ord2 WBC 6.43 K/ul 02/07/2016 Cbc With Differential Ord2 RBC 4.58 M/ul 02/07/2016 Cbc With Differential Ord2 HGB 15.1 g/dl 02/07/2016 Cbc With Differential Ord2 HCT 44.5 % 02/07/2016 Cbc With Differential Ord2 Neut% 63.1 % 02/07/2016 Cbc With Differential Ord2 Lymph% 21.9 % 02/07/2016 Cbc With Differential Ord2 MCV 97.2 fl 02/07/2016 Cbc With Differential Ord2 MCH 33.0 pg 02/07/2016 Cbc With Differential Ord2 Baxter% 13.1 % 02/07/2016 Cbc With Differential Ord2 Eos% 1.6 % 02/07/2016 Cbc With Differential Ord2 MCHC 33.9 pg 02/07/2016 Cbc With Differential Ord2 Baso% 0.3 % 02/07/2016 Cbc With Differential Ord2 PLT 237 K/ul 02/07/2016 Cbc With Differential Ord2 RDW 13.4 % 02/07/2016 Cbc With Differential Ord2 Neut ABS# 4.06 K/ul 02/07/2016 Cbc With Differential Ord2 Lymph ABS# 1.41 K/ul 02/07/2016 Cbc With Differential Ord2 Baxter ABS# 0.8 K/ul 02/07/2016 Cbc With Differential Ord2 Eos ABS# 0.1 K/ul 02/07/2016 Cbc With Differential Ord2 Baso ABS# 0.0 K/ul 02/07/2016 Comp Metabolic Cmp105 NA 137 mEq/L 02/07/2016 Comp Metabolic Iqo115 K 3.9 mEq/L 02/07/2016 Comp Metabolic Uxf410 CL 102 mEq/L 02/07/2016 Comp Metabolic Hdr896 CO2 32.0 mEq/L 02/07/2016 Comp Metabolic Bjg738 ANION GAP 7 02/07/2016 Comp Metabolic Mfv641 GLUCOSE 95 mg/dL 02/07/2016 Comp Metabolic Iuo311 Creat 0.8 mg/dL 02/07/2016 Comp Metabolic Gbo555 eGFR 73 ml/min/1.73m2 02/07/2016 Comp Metabolic Jrr805 BUN 20 mg/dL 02/07/2016 Comp Metabolic Xhs817 B/C Ratio 25.0 Ratio 02/07/2016 Comp Metabolic Ukn794 CALCIUM 9.4 mg/dL 02/07/2016 Comp Metabolic Kcv453 ALK PHOS 68 U/L 02/07/2016 Comp Metabolic Hki353 AST(SGOT) 16 U/L 02/07/2016 Comp Metabolic Sej877 ALT(SGPT) 18 U/L 02/07/2016 Comp Metabolic Hil009 BILI T 0.7 mg/dL 02/07/2016 Comp Metabolic Kwd391 ALBUMIN 4.0 g/dL 02/07/2016 Comp Metabolic Ymp974 TPRO 6.4 g/dL 02/07/2016 Comp Metabolic Mfr291 GLOB 2.4 g/dL 02/07/2016 Comp Metabolic Cma289 A/G Ratio 1.7 Ratio 02/07/2016 Comp Metabolic Huh893 Osmo 276 mOsmo 02/07/2016 Comp Metabolic Ayn072 NA 137 mEq/L 01/11/2016 Comp Metabolic Wey903 K 4.0 mEq/L 01/11/2016 Comp Metabolic Qfd477 CL 101 mEq/L 01/11/2016 Comp Metabolic Opb905 CO2 29.0 mEq/L 01/11/2016 Comp Metabolic Pzc233 ANION GAP 11 01/11/2016 Comp Metabolic Yjr710 GLUCOSE 89 mg/dL 01/11/2016 Comp Metabolic Keu301 Creat 0.9 mg/dL 01/11/2016 Comp Metabolic Tut189 eGFR 61 ml/min/1.73m2 01/11/2016 Comp Metabolic Nfa597 BUN 22 mg/dL 01/11/2016 Comp Metabolic Nza837 B/C Ratio 23.7 Ratio 01/11/2016 Comp Metabolic Lmr158 CALCIUM 9.3 mg/dL 01/11/2016 Comp Metabolic Tqt071 ALK PHOS 76 U/L 01/11/2016 Comp Metabolic Swj624 AST(SGOT) 15 U/L 01/11/2016 Comp Metabolic Nvo312 ALT(SGPT) 20 U/L 01/11/2016 Comp Metabolic Emm198 BILI T 0.5 mg/dL 01/11/2016 Comp Metabolic Wqe627 ALBUMIN 3.9 g/dL 01/11/2016 Comp Metabolic Zki032 TPRO 6.2 g/dL 01/11/2016 Comp Metabolic Ppr828 GLOB 2.3 g/dL 01/11/2016 Comp Metabolic Oip701 A/G Ratio 1.7 Ratio 01/11/2016 Comp Metabolic Wqg731 Osmo 277 mOsmo 01/11/2016 Tsh Ord6 hTSH II 1.09 uIU/mL 01/11/2016 Free T4 Ucq583 FREE T4 1.42 ng/dL 01/11/2016 Cbc With Differential Ord2 WBC 7.76 K/ul 01/11/2016 Cbc With Differential Ord2 RBC 4.55 M/ul 01/11/2016 Cbc With Differential Ord2 HGB 15.2 g/dl 01/11/2016 Cbc With Differential Ord2 Neut% 68.6 % 01/11/2016 Cbc With Differential Ord2 HCT 44.9 % 01/11/2016 Cbc With Differential Ord2 MCV 98.7 fl 01/11/2016 Cbc With Differential Ord2 Lymph% 18.2 % 01/11/2016 Cbc With Differential Ord2 Baxter% 11.6 % 01/11/2016 Cbc With Differential Ord2 MCH 33.4 pg 01/11/2016 Cbc With Differential Ord2 Eos% [...] 1.41 K/ul 01/11/2016 Cbc With Differential Ord2 Baxter ABS# 0.9 K/ul 01/11/2016 Cbc With Differential Ord2 Eos ABS# 0.1 K/ul 01/11/2016 Cbc With Differential Ord2 Baso ABS# 0.0 K/ul 01/11/2016 Pt Voq4168 PT 21.1 seconds 01/11/2016 Pt Tip0084 INR 1.9 01/11/2016 Pt Fkn1669 Low Intensity - 1.5-2.0 01/11/2016 Pt Jxu8818 Mod intensity - 2.0-3.0 01/11/2016 Pt Wki7570 Hi intensity - 3.0-4.0 01/11/2016 Pt Vqt0711 PT 23.8 seconds 11/29/2015 Pt Nde2685 INR 2.3 11/29/2015 Pt Sqv3576 Low Intensity - 1.5-2.0 11/29/2015 Pt Svl5358 Mod intensity - 2.0-3.0 11/29/2015 Pt Brz8868 Hi intensity - 3.0-4.0 11/29/2015 Pt Iid2009 PT 31.9 seconds 11/14/2015 Pt Mey3688 INR 3.4 11/14/2015 Pt Ldo9657 Low Intensity - 1.5-2.0 11/14/2015 Pt Eco0731 Mod intensity - 2.0-3.0 11/14/2015 Pt Tqb0183 Hi intensity - 3.0-4.0 11/14/2015 Pt Sya7348 PT 23.9 seconds 10/15/2015 Pt Cdl9380 INR 2.3 10/15/2015 Pt Tgg8727 Low Intensity - 1.5-2.0 10/15/2015 Pt Slk1654 Mod intensity - 2.0-3.0 10/15/2015 Pt Und1235 Hi intensity - 3.0-4.0 10/15/2015 Pt Hyv7678 PT 27.3 seconds 09/03/2015 Pt Rtz6010 INR 2.6 09/03/2015 Pt Gdn0753 Low Intensity - 1.5-2.0 09/03/2015 Pt Hes1108 Mod intensity - 2.0-3.0 09/03/2015 Pt Ajr2348 Hi intensity - 3.0-4.0 09/03/2015 Pt Tub7649 PT 22.3 seconds 08/06/2015 Pt Tzg4141 INR 2.0 08/06/2015 Pt Vab6544 Low Intensity - 1.5-2.0 08/06/2015 Pt Egm1892 Mod intensity - 2.0-3.0 08/06/2015 Pt Hkg0566 Hi intensity - 3.0-4.0 08/06/2015 Pt Mfq3792 PT 22.7 seconds 06/18/2015 Pt Vqh4189 INR 2.1 06/18/2015 Pt Evd8782 Low Intensity - 1.5-2.0 06/18/2015 Pt Jvu6340 Mod intensity - 2.0-3.0 06/18/2015 Pt Kur0597 Hi intensity - 3.0-4.0 06/18/2015 Pt Yxn5179 PT 21.8 seconds 06/11/2015 Pt Zio0185 INR 2.0 06/11/2015 Pt Yyb7015 Low Intensity - 1.5-2.0 06/11/2015 Pt Wlm9246 Mod intensity - 2.0-3.0 06/11/2015 Pt Iys2449 Hi intensity - 3.0-4.0 06/11/2015 Pt Gxu9181 PT 21.2 seconds 05/28/2015 Pt Gsr6866 INR 1.9 05/28/2015 Pt Moh3984 Low Intensity - 1.5-2.0 05/28/2015 Pt Toc9825 Mod intensity - 2.0-3.0 05/28/2015 Pt Txn9712 Hi intensity - 3.0-4.0 05/28/2015 Pt Zgm9967 PT 26.7 seconds 05/07/2015 Pt Mto6624 INR 2.6 05/07/2015 Pt Lcy9606 Low Intensity - 1.5-2.0 05/07/2015 Pt Axk6898 Mod intensity - 2.0-3.0 05/07/2015 Pt Piy8289 Hi intensity - 3.0-4.0 05/07/2015 Pt Sbu0707 PT 17.7 seconds 04/20/2015 Pt Ryx8838 INR 1.5 04/20/2015 Pt Xcy5535 Low Intensity - 1.5-2.0 04/20/2015 Pt Wah2461 Mod intensity - 2.0-3.0 04/20/2015 Pt Gkh4378 Hi intensity - 3.0-4.0 04/20/2015 Pt Dsu2158 PT 13.0 seconds 04/12/2015 Pt Cqa6302 INR 1.0 04/12/2015 Pt Amx3174 Low Intensity - 1.5-2.0 04/12/2015 Pt Odh1445 Mod intensity - 2.0-3.0 04/12/2015 Pt Paq8771 Hi intensity - 3.0-4.0 04/12/2015 Pt Tyb3747 PT 23.0 seconds 03/07/2015 Pt Vns7783 INR 2.1 03/07/2015 Pt Jsu3599 Low Intensity - 1.5-2.0 03/07/2015 Pt Lxl8826 Mod intensity - 2.0-3.0 03/07/2015 Pt Ouk5228 Hi intensity - 3.0-4.0 03/07/2015 Pt Aqg8357 PT 20.3 seconds 02/15/2015 Pt Skd1169 INR 1.8 02/15/2015 Pt Shz2506 Low Intensity - 1.5-2.0 02/15/2015 Pt Yqt0051 Mod intensity - 2.0-3.0 02/15/2015 Pt Koi2482 Hi intensity - 3.0-4.0 02/15/2015 Hepatic Zca389 ALBUMIN 4.1 g/dL 02/08/2015 Hepatic Umv730 TPRO 6.5 g/dL 02/08/2015 Hepatic Ksk212 GLOB 2.4 g/dL 02/08/2015 Hepatic Pln240 A/G Ratio 1.7 Ratio 02/08/2015 Hepatic Ate650 ALK PHOS 83 U/L 02/08/2015 Hepatic Ttl664 ALT(SGPT) 19 U/L 02/08/2015 Hepatic Boq308 AST(SGOT) 19 U/L 02/08/2015 Hepatic Gwy847 BILI T 0.4 mg/dL 02/08/2015 Hepatic Wbx950 BILI D 0.0 mg/dL 02/08/2015 Hepatic Sps601 BILI I 0.4 mg/dL 02/08/2015 Pt Wdd0388 PT 22.6 seconds 02/08/2015 Pt Jhj0121 INR 2.1 02/08/2015 Pt Ryg9291 Low Intensity - 1.5-2.0 02/08/2015 Pt Eki6053 Mod intensity - 2.0-3.0 02/08/2015 Pt Iuv9095 Hi intensity - 3.0-4.0 02/08/2015 Lipid Ord30 [...] lips 02/19/2017 None Full Exam - General 1995 Ears/Nose/Throat lips/teeth/gingiva Overall: normal dentition 02/19/2017 None [...] Codes Date URINALYSIS NONAUTO W/O SCOPE CPT-4: 05750 06/30/2017 URINALYSIS NONAUTO W/O SCOPE CPT-4: 05553 06/10/2017 URINALYSIS NONAUTO W/O SCOPE CPT-4: 49228 05/26/2017 URINALYSIS NONAUTO W/O SCOPE CPT-4: 08380 03/10/2017 URINALYSIS NONAUTO W/O SCOPE CPT-4: 58457 02/19/2017 URINALYSIS NONAUTO W/O SCOPE CPT-4: 95412 10/22/2016 URINALYSIS NONAUTO W/O SCOPE CPT-4: 77880 09/25/2016 Pneumococcal Polysaccharide Vaccine, 23-Valent, Ad CPT-4: 74349 09/09/2016 ADMIN PNEUMOCOCCAL VACCINE SNOMED CT: 65328406 CPT-4: G0009 09/09/2016 URINALYSIS NONAUTO W/O SCOPE CPT-4: 33360 12/10/2015 ROCEPHIN, PER 250 MG CPT-4: J0696 10/18/2015 TRIAMCINOLONE ACET INJ NOS CPT-4: J3301 10/15/2015 TRIAMCINOLONE ACET INJ NOS CPT-4: J3301 08/28/2015 ROCEPHIN, PER 250 MG CPT-4: J0696 08/28/2015 THER/PROPH/DIAG INJ SC/IM CPT-4: 79864 06/11/2015 ROCEPHIN, PER 250 MG CPT-4: J0696 06/11/2015 THER/PROPH/DIAG INJ SC/IM CPT-4: 86218 05/23/2015 TRIAMCINOLONE ACET INJ NOS CPT-4: J3301 05/23/2015 ADMIN INFLUENZA VIRUS VAC Formatting Model/CDA Sections, Assigned to CPT-4: [id number] 03/07/2015 FLU VACC 4 ISADORA 3 YRS PLUS IM SNOMED CT: 52018513 CPT-4: 19010 03/07/2015 Vital Signs Date Vital 05/13/2017 Blood Pressure 1: 138/74 Code : 8480-6 BMI: 30.9 Code : 43405-8 Heart Rate 1 : 75 bpm Height: 5'2" SpO2: 98% Weight: 169 lbs 03/10/2017 Blood Pressure 1: 142/84 Code : 8480-6 Blood Pressure 1: 136/76 Code: 8480-6 BMI: 31.3 Code: 65855-5 Heart Rate 1: 67 bpm Height: 5'2" SpO2: 97% Weight: 171 lbs 02/19/2017 Blood Pressure 1: 144/74 Code : 8480-6 BMI: 31.8 Code : 05494-2 Heart Rate 1 : 81 bpm Height: 5'2" SpO2: 96% Weight: 174 lbs 02/05/2017 Blood Pressure 1: 130/68 Code : 8480-6 BMI: 32.0 Code : 15606-7 Heart Rate 1 : 67 bpm Height: 5'2" SpO2: 97% Weight: 175 lbs 09/09/2016 Blood Pressure 1: 140/82 Code : 8480-6 BMI: 32.7 Code : 27951-8 Heart Rate 1 : 64 bpm Height: 5'2" SpO2: 95% Weight: 179 lbs 08/12/2016 Blood Pressure 1: 148/80 Code : 8480-6 BMI: 33.1 Code : 37298-4 Heart Rate 1 : 98 bpm Height: 5'2" SpO2: 98% Weight: 181 lbs 06/23/2016 Blood Pressure 1: 146/72 Code : 8480-6 Heart Rate 1: 80 bpm Height: 5'2" SpO2: 98% Weight: 05/12/2016 Blood Pressure 1: 138/74 Code : 8480-6 BMI: 33.3 Code : 12022-0 Heart Rate 1 : 82 bpm Height: 5'2" SpO2: 98% Weight: 182 lbs 02/07/2016 Blood Pressure 1: 128/78 Code : 8480-6 BMI: 33.3 Code : 70345-2 Heart Rate 1 : 51 bpm Height: 5'2" SpO2: 97% Weight: 182 lbs 12/10/2015 Blood Pressure 1: 110/70 Code : 8480-6 BMI: 33.3 Code : 41591-9 Heart Rate 1 : 67 bpm Height: 5'2" SpO2: 96% Weight: 182 lbs 10/18/2015 Blood Pressure 1: 146/76 Code : 8480-6 BMI: 33.3 Code : 03580-7 Heart Rate 1 : 84 bpm Height: 5'2" SpO2: 98% Weight: 182 lbs 10/15/2015 Blood Pressure 1: 138/86 Code : 8480-6 Blood Pressure 1: 142/98 Code: 8480-6 BMI: 33.5 Code: 25225-9 Heart Rate 1: 85 bpm Height: 5'2" SpO2: 99% Temperature : 35.9 (C) / 96.6 (F) Weight: 183 lbs 08/28/2015 Blood Pressure 1: 146/84 Code : 8480-6 BMI: 33.7 Code : 25731-6 Heart Rate 1 : 92 bpm Height: 5'2" SpO2: 97% Temperature: 36.4 (C) / 97.5 (F) Weight: 184 lbs 06/11/2015 Blood Pressure 1: 144/92 Code : 8480-6 BMI: 33.5 Code : 39615-2 Heart Rate 1 : 79 bpm Height: 5'2" SpO2: 99% Weight: 183 lbs 05/23/2015 Blood Pressure 1: 128/68 Code : 8480-6 BMI: 34.2 Code : 27179-0 Heart Rate 1 : 84 bpm Height: 5'2" SpO2: 96% Weight: 187 lbs 03/07/2015 Blood Pressure 1: 132/62 Code : 8480-6 BMI: 33.5 Code : 08450-5 Heart Rate 1 : 94 bpm Height: 5'2" SpO2: 98% Weight: 183 lbs 02/15/2015 Blood Pressure 1: 140/76 Code : 8480-6 BMI: 33.5 Code : 95643-0 Heart Rate 1 : 76 bpm Height: 5'2" SpO2: 96% Weight: 183 lbs 10/16/2014 Blood Pressure 1: 128/84 Code : 8480-6 BMI: 32.9 Code : 48303-4 Heart Rate 1 : 82 bpm Height: [...] data Encounters Encounter Performer Location Codes Date ([id number]) [id number] EST. PATIENT, LEVEL IV Diagnosis: Essential (primary) hypertension[ICD10: I10] Diagnosis: Atrophy of thyroid (acquired)[ICD10: E03.4] Diagnosis: Slow transit constipation[ICD10: K59.01] Jumana Hull MD, [facility] CPT-4: 90046 05/13/2017 ([id number]) 46156 EST. PATIENT, LEVEL IV Diagnosis: Essential (primary) hypertension[ICD10: I10] Diagnosis: Atrophy of thyroid (acquired)[ICD10: E03.4] Diagnosis: longterm (current) use of anticoagulants[ICD10: Z79.01] Diagnosis: Dysuria[ICD10: R30.0] Diagnosis: Slow transit constipation[ICD10: K59.01] [facility] CPT-4: 57569 03/10/2017 ([id number]) 69125 EST. PATIENT, LEVEL III Diagnosis: Urinary tract infection, site not specified[ICD10: N39.0] [facility] CPT-4: 53511 02/19/2017 ([id number]) 21421 EST. PATIENT, LEVEL III Diagnosis: Urinary tract infection, site not specified[ICD10: N39.0] Diagnosis: Cough[ICD10: R05] Diagnosis: Other allergic rhinitis[ICD10: J30.89] Juliette Hull MD, [facility] CPT-4: 34742 02/05/2017 ([id number]) 43307 EST. PATIENT, LEVEL IV Diagnosis: Essential (primary) hypertension[ICD10: I10] Diagnosis: Atrophy of thyroid (acquired)[ICD10: E03.4] Diagnosis: Mixed hyperlipidemia[ICD10: E78.2] Diagnosis: Encounter for immunization[ICD10: Z23] Jumana Hull MD, [facility] CPT-4: 24876 09/09/2016 ([id number]) 46066 EST. PATIENT, LEVEL IV Diagnosis: Essential (primary) hypertension[ICD10: I10] Diagnosis: Mixed hyperlipidemia[ICD10: E78.2] Diagnosis: Other idiopathic peripheral autonomic neuropathy[ICD10: G90.09] Diagnosis: Atrophy of thyroid (acquired)[ICD10: E03.4] Jumana Hull MD, [facility] CPT-4: 09341 08/12/2016 ([id number]) 05587 EST. PATIENT, LEVEL IV Diagnosis: Essential (primary) hypertension[ICD10: I10] Diagnosis: Localized edema[ICD10: R60.0] Diagnosis: longterm (current) use of anticoagulants[ICD10: Z79.01] Juliette Hull MD , [facility] CPT-4: 52233 06/23/2016 ([id number]) 52817 EST. 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 PATIENT, LEVEL IV Diagnosis: Essential (primary) hypertension[ICD10: I10] Diagnosis: Dysuria[ICD10: R30.0] Diagnosis: Hypothyroidism, unspecified[ICD10: E03.9] Diagnosis: Mixed hyperlipidemia[ICD10: E78.2] Diagnosis: Cervicalgia[ICD10: M54.2] Jumana Hull MD, [facility] CPT-4: 27564 12/10/2015 ([id number]) 16440 EST. PATIENT, LEVEL III Diagnosis: Essential (primary) hypertension[ICD10: I10] Diagnosis: Allergic rhinitis due to pollen[ICD10: J30.1] Juliette Hull MD, [facility] CPT-4: 37669 10/15/2015 ([id number]) 62917 EST. PATIENT, LEVEL III Diagnosis: Acute bronchitis due to other specified organisms[ICD10: J20.8] Diagnosis: Acute recurrent maxillary sinusitis[ICD10: J01.01] Jumana Hull MD, [facility] CPT-4: 51710 08/28/2015 [id number] EST. PATIENT, LEVEL III Diagnosis: Acute recurrent maxillary sinusitis[ICD10: J01.01] Diagnosis: Cough[ICD10: R05] Angélica Hull MD, [facility] CPT-4: 53019 06/11/2015 [id number] EST. PATIENT, LEVEL III Diagnosis: Acute bronchitis due to other specified organisms[ICD10: J20.8] Angélica Hull MD, [facility] CPT-4: 71516 05/23/2015 ([id number]) 20381 EST. PATIENT, LEVEL III Diagnosis: ESSENTIAL HYPERTENSION[ICD9: 401.9] Diagnosis: A-fib[ICD9: 427.31] Diagnosis: INSECT BITE FOREARM[ICD9: 913.4] Jumana Hull MD, [facility] CPT-4: 56918 03/07/2015 ([id number]) 55424 EST. PATIENT, LEVEL III Diagnosis: Cellulitis of leg[ICD9: 682.6] Jumana Hull MD, [facility] CPT- 4: 09031 02/15/2015 ([id number]) OFFICE VISIT, NEW - LEVEL 4 Diagnosis: ESSENTIAL HYPERTENSION[ICD9: 401.9] Diagnosis: A-fib[ICD9: 427.31] Diagnosis: Rash[ICD9: 782.1] Diagnosis: Cough[ICD9: 786.2] [facility] CPT-4: 13327 10/16/2014 Plan of Care Planned Activity Notes [...] the arm/joint. 05/13/2017 Appointment: Jumana Hull WPtel: [facility] (15 min) Moderate 05/13/2017 Patient Education: Patient [...] this regimen. 03/10/2017 Appointment: Jumana Hull WPtel: [facility] [address] (15 min) Moderate 03/10/2017 Patient Education: Patient Medication Summary Completed 03/10/2017 Patient Education: Obesity Completed 03/10/2017 Visit Plan: UTI-UA positive today in the office-will send for culture and treat as appropriate. 02/19/2017 Appointment: Juliette Yost WPtel: [phone] (15 min) Moderate 02/19/2017 Patient Education: Patient Medication Summary Completed 02/19/2017 Patient Education: Obesity Completed 02/19/2017 Visit Plan: UTI-finish macrobid-follow up in 2 weeks- discussed preventative abx and twice weekly premarin vaginal cream Allergies- cough-start flonase and claritin as discussed-call if symptoms do not improve or if any worse 02/05/2017 Appointment: Juliette Yost WPtel: [address] [place], [place] [phone] (15 min) Moderate 02/05/2017 Patient Education: Patient Medication Summary Completed 02/05/2017 Patient Education: Obesity Completed 02/05/2017 Appointment: Lab Draw 10/22/2016 Patient Education: Patient Medication Summary Completed 10/22/2016 Appointment: Lab Draw 09/25/2016 Patient Education: Patient Medication Summary Completed 09/25/2016 Appointment: Angélica Kong WPtel: [address] [place], [place] [phone] [place] [address] - Annual Wellness Visit 09/10/2016 Visit Plan: [...] of control. 09/09/2016 Appointment: Jumana Hull WPtel: [address] [place], [place] [address] (15 min) Moderate 09/09/2016 Patient Education: Patient [...] current treatments. 08/12/2016 Appointment: Jumana Hull WPtel: [phone] [facility] (15 min) Moderate 08/12/2016 Patient Education: Patient [...] and 3.5. 06/23/2016 Appointment: Juliette Yost WPtel: [phone] [phone] (30 min) Complex 06/23/2016 Patient Education: Patient [...] level checked. 05/12/2016 Appointment: Jumana Hull WPtel: [facility] (15 min) Moderate 05/12/2016 Patient Education: Patient [...] of control. 12/10/2015 Appointment: Jumana Hull WPtel: [facility] [place] (15 min) Moderate 12/10/2015 Patient Education: Patient Medication Summary Completed 12/10/2015 Patient Education: Obesity Completed 12/10/2015 Patient Education: .Cervicalgia Neck Pain Completed 12/10/2015 Appointment: Jumana Hull WPtel: [facility] [place] (15 min) Moderate 12/03/2015 Referral: Pedro Lauren [facility] Referral Initiated 10/26/2015 Visit Plan: Sinusitis - [...] 10/18/2015 Care Plan: Referral Order SNOMED-CT : [id number] Pending 10/18/2015 Visit Plan: Hypertension - well [...] becoming uncontrolled. 03/07/2015 Appointment: Jumana Hull WPtel: [facility] [place] (15 min) Moderate 03/07/2015 Patient Education: Patient [...] Care Plan: COMPLETE CBC AUTOMATED LOINC : 05674-7 Ordered 10/17/2014 Visit Plan: Hypertension - well [...] 10/16/2014 Patient Education: Hypertension Completed 10/16/2014 [facility] [facility] Initiated Instructions Comment . Hypertension - [...] based on previous levels of control. . UTI - pt with positive urinalysis - culture sent if appropriate. Antibiotic electronically prescribed to pt's pharmacy of choice. Pt to call if symptoms do not improve. . Hypertension - well controlled - continue [...] to use muscle rub on the arm/joint. Power Pudding: equal parts of prune juice, [...] weeks and call with update on symtpoms ELEVATE YOUR FEET DURING THE DAY CUT [...] if their heart rate is becoming uncontrolled. FLONASE CLARITIN 10MG DAILY CALL IF COUGH DOES NOT RESOLVE OR IF ANY WORSE . UTI-finish macrobid-follow up in 2 weeks-discussed preventative abx and twice weekly premarin vaginal cream Vvvjijcmx-yrgdy-anfpz flonase and claritin as discussed-call if symptoms do not improve or if any worse . Hypertension - well controlled - continue [...] peripheral neuropathy - continue with current treatments. Will give augmentin antibiotic take with food [...] spray in the nasal steroid allergy spray. Will send antibiotic, come get your PT [...] spray in the nasal steroid allergy spray. liquid vitamin b12 - take 2000mcg daily. [...]
--- OUTSIDE RECORDS SUMMARY | 2017-12-04 05:33 | XMS REPORT | CCD ---
Author Author [facility] Address [address] [place] [address] Phone Care Team Providers Care Final Inspector And Tester Name Role Phone PP Unavailable CCM Unavailable Summary Purpose Interface Exchange Insurance Providers Payer name Policy type / Coverage type Covered alliance party ID Effective Begin Date Effective End Date WPS Medicare Part B Medicare Part B [id number] 2017 Unknown [employer] Medicare Part B [id number] Unknown Family history Sister Diagnosis Age At Onset No Family Disease Entered N/A Runs in the family Diagnosis Age At Onset Heart disease Unknown Social History Social History Element Codes Description Effective Dates Employment Unknown 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 ICD-10: [...] Fill Instructions Keflex 500 mg capsule RxNorm: 733737 1 Capsule(s) PO TID 201707/06/2017 Active Augmentin 500 mg-125 mg tablet RxNorm: 438500 1 Tablet(s) PO BID 06/10/2017 06/16/2017 Inactive Augmentin 500 mg-125 mg tablet RxNorm: 198497 1 Tablet(s) PO BID 05/26/2017 06/01/2017 Inactive Augmentin 500 mg-125 mg tablet RxNorm: 231941 1 Tablet(s) PO BID 05/26/2017 05/25/2017 Inactive Augmentin 500 mg-125 mg tablet RxNorm: 751665 1 Tablet(s) PO BID 02/23/2017 02/22/2017 Inactive Augmentin 500 mg-125 mg tablet RxNorm: 870897 1 Tablet(s) PO BID 02/23/2017 03/01/2017 Inactive Zofran 4 mg tablet RxNorm: 280945 1 Tablet(s) PO Q6 as needed 02/13/2017 02/12/2017 Inactive Zofran 4 mg tablet RxNorm: 059862 1 Tablet(s) PO Q6 as needed 02/13/2017 02/22/2017 Inactive omeprazole 20 mg capsule,delayed release RxNorm: 435786 TAKE 1 CAPSULE EVERY DAY 02/02/2017 01/27/2018 Active diltiazem CD 240 mg capsule,extended release 24 hr RxNorm: 967160 TAKE 1 CAPSULE EVERY DAY 02/02/2017 01/27/2018 Active Synthroid 100 mcg tablet RxNorm: 595565 1 Tablet(s) PO daily 01/24/2018 Active Synthroid 100 mcg tablet RxNorm: 609542 1 Tablet(s) PO daily 01/29/2017 Inactive Synthroid 100 mcg tablet RxNorm: 267008 1 Tablet(s) PO daily 01/27/2017 Inactive Synthroid 112 mcg tablet RxNorm: 760489 TAKE 1 TABLET EVERY DAY 12/08/2016 01/27/2017 Inactive simvastatin 10 mg tablet RxNorm: 943526 1 Tablet(s) PO daily 02/24/2018 Active Bactrim DS 800 mg-160 mg tablet RxNorm: 804001 1 Tablet(s) PO BID 10/22/2016 11/13/2016 Inactive Bactrim DS 800 mg-160 mg tablet RxNorm: 303369 1 Tablet(s) PO BID 10/22/2016 10/21/2016 Inactive Keflex 500 mg capsule RxNorm: 619384 1 Capsule(s) PO TID 201610/01/2016 Inactive simvastatin 20 mg tablet RxNorm: 281819 1 Tablet(s) PO daily 12/01/2016 Inactive warfarin 5 mg tablet RxNorm: 549196 TAKE 1 TABLET EVERY DAY 05/07/2017 Inactive Synthroid 112 mcg tablet RxNorm: 745903 TAKE 1 TABLET EVERY DAY 07/21/2016 12/07/2016 Inactive potassium chloride ER 10 mEq tablet,extended release RxNorm: 947623 1 Tablet(s) PO daily 06/23/2016 06/22/2016 Inactive pt to take with lasix she has at home potassium chloride ER 10 mEq tablet,extended release RxNorm: 903176 1 Tablet(s) PO daily 06/23/2016 06/27/2016 Inactive pt to take with lasix she has at home Synthroid 112 mcg tablet RxNorm: 566956 TAKE 1 TABLET EVERY DAY 03/04/2016 07/20/2016 Inactive diltiazem CD 240 mg capsule,extended release 24 hr RxNorm: 908112 1 Capsule(s) PO daily 02/06/2016 02/01/2017 Inactive omeprazole 20 mg capsule,delayed release RxNorm: 287237 1 Capsule(s) PO daily 02/06/2016 02/01/2017 Inactive warfarin 5 mg tablet RxNorm: 002224 1 Tablet(s) PO daily 201508/10/2016 Inactive simvastatin 10 mg tablet RxNorm: 711637 1 Tablet(s) PO daily 08/11/2016 Inactive simvastatin 20 mg tablet RxNorm: 455849 1 Tablet(s) PO daily 01/07/2016 Inactive lisinopril 10 mg tablet RxNorm: 153817 1 Tablet(s) PO daily 12/10/2015 Inactive prednisone 20 mg tablet RxNorm: 334629 2 Tablet(s) PO daily 10/201510/22/2015 Inactive Augmentin 500 mg-125 mg tablet RxNorm: 313562 1 Tablet(s) PO TID 10/18/2015 10/27/2015 Inactive ceftriaxone 500 mg solution for injection RxNorm: 1410244 Inj 10/18/2015 10/18/2015 Inactive Kenalog 40 mg/mL suspension for injection RxNorm: 0941309 Milliliter(s) Inj 10/15/2015 10/15/2015 Inactive ceftriaxone 500 mg solution for injection RxNorm: 6407312 Inj 08/28/2015 08/28/2015 Inactive prednisone 20 mg tablet RxNorm: 397803 3 Tablet(s) PO daily 08/30/2015 Inactive amoxicillin 500 mg capsule RxNorm: 625827 1 Capsule(s) PO TID 08/28/2015 09/03/2015 Inactive Kenalog 40 mg/mL suspension for injection RxNorm: 2240266 Milliliter(s) Inj 08/28/2015 08/28/2015 Inactive Keflex 500 mg capsule RxNorm: 210875 1 Capsule(s) PO TID 201507/26/2015 Inactive Keflex 500 mg capsule RxNorm: 928363 1 Capsule(s) PO TID 201508/02/2015 Inactive Synthroid 112 mcg tablet RxNorm: 416545 TAKE 1 TABLET EVERY DAY 06/19/2015 12/15/2015 Inactive Augmentin 500 mg-125 mg tablet RxNorm: 131090 1 Tablet(s) PO TID 06/11/2015 06/20/2015 Inactive ceftriaxone 500 mg solution for injection RxNorm: 6886145 Inj 06/11/2015 06/11/2015 Inactive Kenalog 40 mg/mL suspension for injection RxNorm: 2824772 Milliliter(s) Inj 05/23/2015 05/23/2015 Inactive cefdinir 300 mg capsule RxNorm: 791746 1 Capsule(s) PO BID 02/201505/29/2015 Inactive simvastatin 10 mg tablet RxNorm: 379108 1 Tablet(s) PO daily 12/09/2015 Inactive Synthroid 112 mcg tablet RxNorm: 172963 1 Tablet(s) PO daily 06/18/2015 Inactive warfarin 5 mg tablet RxNorm: 844853 1 Tablet(s) PO daily x4 days and 1/2 tab for 3 days 03/29/2015 12/23/2015 Inactive Keflex 500 mg capsule RxNorm: 519411 1 Capsule(s) PO TID 201402/07/2015 Inactive Keflex 500 mg capsule RxNorm: 976913 1 Capsule(s) PO TID 201402/14/2015 Inactive diltiazem CD 240 mg capsule,extended release 24 hr RxNorm: 513904 1 Capsule(s) PO daily 01/31/2015 03/27/2015 Inactive omeprazole 20 mg capsule,delayed release RxNorm: 011755 1 Capsule(s) PO daily 01/30/2015 01/24/2016 Inactive diltiazem CD 240 mg capsule,extended release 24 hr RxNorm: 619708 1 Capsule(s) PO daily 01/30/2015 01/30/2015 Inactive omeprazole 20 mg capsule,delayed release RxNorm: 550227 1 Capsule(s) PO daily 01/25/2015 01/29/2015 Inactive diltiazem CD 240 mg capsule,extended release 24 hr RxNorm: 653390 1 Capsule(s) PO daily 01/25/2015 01/29/2015 Inactive Vitamin D2 50,000 unit capsule RxNorm: 794336 1 Capsule(s) PO weekly 10/25/2014 10/24/2014 Inactive Vitamin D2 50,000 unit capsule RxNorm: 006304 1 Capsule(s) PO weekly 10/25/2014 01/22/2015 Inactive [SAVINGS FOR NON-COVERED DRUGS -- BIN:[id number], PCN: [id number], Group: [id number], ID# XXXXXXX, Questions: . THIS IS NOT INSURANCE.] omeprazole 20 mg capsule,delayed release RxNorm: 877190 1 Capsule(s) PO daily 10/16/2014 11/14/2014 Inactive diltiazem CD 240 mg capsule,extended release 24 hr RxNorm: 629784 1 Capsule(s) PO daily 10/16/2014 11/14/2014 Inactive melatonin 3 mg tablet RxNorm: 126849 1 Tablet(s) PO QHS 201411/14/2014 Inactive lisinopril 10 mg tablet RxNorm: 327870 1 Tablet(s) PO daily 09/201402/12/2015 Inactive Synthroid 112 mcg tablet RxNorm: 181199 1 Tablet(s) PO 201402/12/2015 Inactive Vitamin D2 1,000 unit capsule RxNorm: 677920 1 Capsule(s) PO daily 10/16/2014 11/14/2014 Inactive warfarin 5 mg tablet RxNorm: 790475 1 Tablet(s) PO daily x4 days and 1/2 tab for 3 days 10/16/2014 02/12/2015 Inactive Culturelle oral RxNorm : 4505383 oral No Start Date Active Calcium + D oral RxNorm: 082240 oral No Start Date Active Stool Softener 100 mg capsule RxNorm: 4494561 1-2 Capsule(s) PO daily No Start Date Active Vitamin D3 1,000 unit tablet RxNorm: 165859 1 Tablet(s) PO daily No Start Date Active biotin oral RxNorm: 1588 oral No Start Date Active aspirin 81 mg capsule,delayed release RxNorm: 103223 1 Capsule(s) PO daily No Start Date Active Vitamin B-12 oral RxNorm: 98215 oral No Start Date Active Calcium 600-Vitamin D-Iron oral RxNorm: 4018 oral No Start Date 12/10/2015 Inactive simvastatin 10 mg tablet RxNorm: 107313 1 Tablet(s) PO daily No Start Date 03/28/2015 Inactive Medication Administered Medication Codes Instructions Start Date Status ceftriaxone 500 mg solution for injection RxNorm: 1819989 10/18/2015 No longer Active Kenalog 40 mg/mL suspension for injection RxNorm: 8074702 Milliliter 10/15/2015 No longer Active Kenalog 40 mg/mL suspension for injection RxNorm: 4830834 Milliliter 08/28/2015 No longer Active ceftriaxone 500 mg solution for injection RxNorm: 1845419 08/28/2015 No longer Active ceftriaxone 500 mg solution for injection RxNorm: 8897031 06/11/2015 No longer Active Kenalog 40 mg/mL suspension for injection RxNorm: 8883595 Milliliter 05/23/2015 No longer Active Immunizations Vaccine Codes Date Status Influenza CVX: 141 03/02/2017 completed Pneumococcal (Adult) CVX: 33 09/09/2016 completed Influenza CVX: 141 03/07/2015 completed Influenza CVX: 141 03/15/2014 completed Zoster CVX: 121 06/29/2012 completed Pneumococcal CVX: 33 06/15/2008 completed Assessments Condition Codes Effective Dates Dysuria ICD-10: R30.0 ICD-9: 788.1 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 ICD-9: [...] Observation Code Item Item Code Result Date Free T4 Zfm747 FREE T4 1.15 ng/dL 07/01/2017 Urine Culture Ucult Complete >100,000 col/ml aerobic growth sent to ref lab 06/11/2017 Urine Culture Ucult Complete Growth of aerobe sent to ref lab 05/27/2017 Pt Fjf9317 PT 30.0 seconds 05/26/2017 Pt Pks9709 INR 2.8 05/26/2017 Pt Mwn1183 Low Intensity - 1.5-2.0 05/26/2017 Pt Kth7548 Mod intensity - 2.0-3.0 05/26/2017 Pt Kra3481 Hi intensity - 3.0-4.0 05/26/2017 Pt Jlk6231 PT 24.2 seconds 04/07/2017 Pt Zhx0813 INR 2.2 04/07/2017 Pt Ygq7169 Low Intensity - 1.5-2.0 04/07/2017 Pt Xor0613 Mod intensity - 2.0-3.0 04/07/2017 Pt Clq7190 Hi intensity - 3.0-4.0 04/07/2017 Pt Qic1563 PT 21.4 seconds 03/10/2017 Pt Vda7450 INR 1.9 03/10/2017 Pt Fps4295 Low Intensity - 1.5-2.0 03/10/2017 Pt Nvu2913 Mod intensity - 2.0-3.0 03/10/2017 Pt Ooz4777 Hi intensity - 3.0-4.0 03/10/2017 Culture Urine [id number] URINE CULTURE SEE NOTES 02/23/2017 Culture Urine [id number] Continued Results 02/23/2017 Urine Culture Ucult Complete [...] 29.3 % 01/28/2017 Cbc With Differential Ord2 Coke% 14.1 % 01/28/2017 Cbc With Differential Ord2 MCH 32.8 pg 01/28/2017 Cbc With Differential Ord2 MCHC 34.9 pg 01/28/2017 Cbc With Differential Ord2 Eos% 3.2 % 01/28/2017 Cbc With Differential Ord2 Baso% 0.8 % 01/28/2017 Cbc With Differential Ord2 PLT 242 K/ul 01/28/2017 Cbc With Differential Ord2 Neut ABS# 2.50 K/ul 01/28/2017 Cbc With Differential Ord2 RDW 13.9 % 01/28/2017 Cbc With Differential Ord2 Lymph ABS# 1.39 K/ul 01/28/2017 Cbc With Differential Ord2 Coke ABS# 0.7 K/ul 01/28/2017 Cbc With Differential Ord2 Eos ABS# 0.2 K/ul 01/28/2017 Cbc With Differential Ord2 Baso ABS# 0.0 K/ul 01/28/2017 Tsh Ord6 hTSH II 0.46 uIU/mL 01/28/2017 Comp Metabolic Yrz159 NA 140 mEq/L 01/28/2017 Comp Metabolic Cdc126 K 3.9 mEq/L 01/28/2017 Comp Metabolic Zjs598 CL 105 mEq/L 01/28/2017 Comp Metabolic Msl960 CO2 27.0 mEq/L 01/28/2017 Comp Metabolic Gnb379 ANION GAP 12 01/28/2017 Comp Metabolic Iza150 GLUCOSE 89 mg/dL 01/28/2017 Comp Metabolic Hql333 Creat 0.8 mg/dL 01/28/2017 Comp Metabolic Hca468 eGFR 69 ml/min/1.73m2 01/28/2017 Comp Metabolic Vsp976 BUN 16 mg/dL 01/28/2017 Comp Metabolic Vwa444 B/C Ratio 19.0 Ratio 01/28/2017 Comp Metabolic Vrf274 CALCIUM 9.0 mg/dL 01/28/2017 Comp Metabolic Ilf794 ALK PHOS 96 U/L 01/28/2017 Comp Metabolic Vug701 AST(SGOT) 16 U/L 01/28/2017 Comp Metabolic Iuf136 ALT(SGPT) 13 U/L 01/28/2017 Comp Metabolic Hlv281 BILI T 0.7 mg/dL 01/28/2017 Comp Metabolic Wiy687 ALBUMIN 3.7 g/dL 01/28/2017 Comp Metabolic Gqs346 TPRO 5.9 g/dL 01/28/2017 Comp Metabolic Syd799 GLOB 2.2 g/dL 01/28/2017 Comp Metabolic Vrj473 A/G Ratio 1.7 Ratio 01/28/2017 Comp Metabolic Obg808 Osmo 280 mOsmo 01/28/2017 Lipid Ord30 CHOL 142 mg/dL 01/28/2017 Lipid Ord30 HDL 33.0 mg/dl 01/28/2017 Lipid Ord30 TRIG 160 mg/dL 01/28/2017 Lipid Ord30 LDL 77 mg/dL 01/28/2017 Lipid Ord30 C/HDL 4.3 Ratio 01/28/2017 Pt Nix6507 PT 25.7 seconds 01/28/2017 Pt Gwh2715 INR 2.3 01/28/2017 Pt Wvr4806 Low Intensity - 1.5-2.0 01/28/2017 Pt Gbx4141 Mod intensity - 2.0-3.0 01/28/2017 Pt Yjn4030 Hi intensity - 3.0-4.0 01/28/2017 Pt Inh0615 PT 25.3 seconds 12/29/2016 Pt Bqu0370 INR 2.5 12/29/2016 Pt Ocf6668 Low Intensity - 1.5-2.0 12/29/2016 Pt Zlt1916 Mod intensity - 2.0-3.0 12/29/2016 Pt Sxx9126 Hi intensity - 3.0-4.0 12/29/2016 Pt Toy9958 PT 25.3 seconds 12/01/2016 Pt Djf4904 INR 2.5 12/01/2016 Pt Qix9388 Low Intensity - 1.5-2.0 12/01/2016 Pt Qeq9713 Mod intensity - 2.0-3.0 12/01/2016 Pt Cjn9539 Hi intensity - 3.0-4.0 12/01/2016 Pt Dhi5119 PT 19.2 seconds 11/17/2016 Pt Ink4936 INR 1.7 11/17/2016 Pt Lnl1863 Low Intensity - 1.5-2.0 11/17/2016 Pt Ddr2340 Mod intensity - 2.0-3.0 11/17/2016 Pt Jne2572 Hi intensity - 3.0-4.0 11/17/2016 Pt Nly0624 PT 36.0 seconds 10/27/2016 Pt Vkz0730 INR 3.9 10/27/2016 Pt Aey1338 Low Intensity - 1.5-2.0 10/27/2016 Pt Plg4897 Mod intensity - 2.0-3.0 10/27/2016 Pt Tjf9294 Hi intensity - 3.0-4.0 10/27/2016 Culture Urine [id number] URINE CULTURE SEE NOTES 10/25/2016 Culture Urine [id number] Continued Results 10/25/2016 Urine Culture Ucult Complete >100,000 col/ml aerobic growth sent to ref lab 10/23/2016 Pt Izu2910 PT 30.7 seconds 09/29/2016 Pt Ohh4993 INR 3.2 09/29/2016 Pt Lmc4729 Low Intensity - 1.5-2.0 09/29/2016 Pt Pze1375 Mod intensity - 2.0-3.0 09/29/2016 Pt Ttl0080 Hi intensity - 3.0-4.0 09/29/2016 Urine Culture Ucult Complete Growth of aerobe sent to ref lab 09/26/2016 Pt Dqo8932 PT 33.8 seconds 09/23/2016 Pt Nrg6460 INR 3.6 09/23/2016 Pt Vyj4991 Low Intensity - 1.5-2.0 09/23/2016 Pt Dow5877 Mod intensity - 2.0-3.0 09/23/2016 Pt Eui7342 Hi intensity - 3.0-4.0 09/23/2016 Pt Yyt0483 PT 33.4 seconds 09/09/2016 Pt Edh9383 INR 3.6 09/09/2016 Pt Fot7791 Low Intensity - 1.5-2.0 09/09/2016 Pt Nam6531 Mod intensity - 2.0-3.0 09/09/2016 Pt Qtt0564 Hi intensity - 3.0-4.0 09/09/2016 Pt Bjl4513 PT 30.2 seconds 08/20/2016 Pt Grm2692 INR 3.1 08/20/2016 Pt Sis5497 Low Intensity - 1.5-2.0 08/20/2016 Pt Nny3788 Mod intensity - 2.0-3.0 08/20/2016 Pt Dlb6350 Hi intensity - 3.0-4.0 08/20/2016 Pt Iaf4929 PT 32.1 seconds 08/12/2016 Pt Sza9711 INR 3.4 08/12/2016 Pt Nyd9153 Low Intensity - 1.5-2.0 08/12/2016 Pt Fix4187 Mod intensity - 2.0-3.0 08/12/2016 Pt Ufa7744 Hi intensity - 3.0-4.0 08/12/2016 Comp Metabolic Cps284 NA 138 mEq/L 06/23/2016 Comp Metabolic Une959 K 3.8 mEq/L 06/23/2016 Comp Metabolic Spc778 CL 103 mEq/L 06/23/2016 Comp Metabolic Odd429 CO2 28.0 mEq/L 06/23/2016 Comp Metabolic Vny671 ANION GAP 11 06/23/2016 Comp Metabolic Yib339 GLUCOSE 107 mg/dL 06/23/2016 Comp Metabolic Zjx209 Creat 0.8 mg/dL 06/23/2016 Comp Metabolic Jzh744 eGFR 75 ml/min/1.73m2 06/23/2016 Comp Metabolic Mnr002 BUN 17 mg/dL 06/23/2016 Comp Metabolic Xyo754 B/C Ratio 21.8 Ratio 06/23/2016 Comp Metabolic Vmn522 CALCIUM 9.4 mg/dL 06/23/2016 Comp Metabolic Pvj425 ALK PHOS 101 U/L 06/23/2016 Comp Metabolic Ccu244 AST(SGOT) 17 U/L 06/23/2016 Comp Metabolic Xsh744 ALT(SGPT) 13 U/L 06/23/2016 Comp Metabolic Rjj380 BILI T 0.7 mg/dL 06/23/2016 Comp Metabolic Hpg929 ALBUMIN 4.3 g/dL 06/23/2016 Comp Metabolic Tpg271 TPRO 6.6 g/dL 06/23/2016 Comp Metabolic Fvr667 GLOB 2.3 g/dL 06/23/2016 Comp Metabolic Fih301 A/G Ratio 1.8 Ratio 06/23/2016 Comp Metabolic Uth375 Osmo 278 mOsmo 06/23/2016 Cbc With Differential Ord2 WBC 5.72 K/ul 06/23/2016 Cbc With Differential Ord2 RBC 4.17 M/ul 06/23/2016 Cbc With Differential Ord2 HGB 13.5 g/dl 06/23/2016 Cbc With Differential Ord2 HCT 40.2 % 06/23/2016 Cbc With Differential Ord2 Neut% 62.9 % 06/23/2016 Cbc With Differential Ord2 Lymph% 21.0 % 06/23/2016 Cbc With Differential Ord2 MCV 96.4 fl 06/23/2016 Cbc With Differential Ord2 Coke% 12.8 % 06/23/2016 Cbc With Differential Ord2 MCH 32.4 pg 06/23/2016 Cbc With Differential Ord2 Eos% 2.4 % 06/23/2016 Cbc With Differential Ord2 MCHC 33.6 pg 06/23/2016 Cbc With Differential Ord2 PLT 249 K/ul 06/23/2016 Cbc With Differential Ord2 Baso% 0.9 % 06/23/2016 Cbc With Differential Ord2 RDW 14.2 % 06/23/2016 Cbc With Differential Ord2 Neut ABS# 3.60 K/ul 06/23/2016 Cbc With Differential Ord2 Lymph ABS# 1.20 K/ul 06/23/2016 Cbc With Differential Ord2 Coke ABS# 0.7 K/ul 06/23/2016 Cbc With Differential Ord2 Eos ABS# 0.1 K/ul 06/23/2016 Cbc With Differential Ord2 Baso ABS# 0.1 K/ul 06/23/2016 Pt Hez8905 PT 25.9 seconds 06/23/2016 Pt Jtn8160 INR 2.5 06/23/2016 Pt Rnu3014 Low Intensity - 1.5-2.0 06/23/2016 Pt Olg7451 Mod intensity - 2.0-3.0 06/23/2016 Pt Tct3636 Hi intensity - 3.0-4.0 06/23/2016 Comp Metabolic Ozt779 NA 138 mEq/L 05/12/2016 Comp Metabolic Oin673 K 3.8 mEq/L 05/12/2016 Comp Metabolic Jdb234 CL 104 mEq/L 05/12/2016 Comp Metabolic Ixb781 CO2 25.0 mEq/L 05/12/2016 Comp Metabolic Kir828 ANION GAP 13 05/12/2016 Comp Metabolic Ujr443 GLUCOSE 119 mg/dL 05/12/2016 Comp Metabolic Vaj295 Creat 0.8 mg/dL 05/12/2016 Comp Metabolic Nko194 eGFR 71 ml/min/1.73m2 05/12/2016 Comp Metabolic Xsi554 BUN 16 mg/dL 05/12/2016 Comp Metabolic Urh772 B/C Ratio 19.5 Ratio 05/12/2016 Comp Metabolic Tsq134 CALCIUM 9.5 mg/dL 05/12/2016 Comp Metabolic Ipd932 ALK PHOS 95 U/L 05/12/2016 Comp Metabolic Mee015 AST(SGOT) 17 U/L 05/12/2016 Comp Metabolic Gjb731 ALT(SGPT) 18 U/L 05/12/2016 Comp Metabolic Yqr948 BILI T 0.6 mg/dL 05/12/2016 Comp Metabolic Asd330 ALBUMIN 4.0 g/dL 05/12/2016 Comp Metabolic Wss385 TPRO 6.3 g/dL 05/12/2016 Comp Metabolic Izc370 GLOB 2.3 g/dL 05/12/2016 Comp Metabolic Zwx111 A/G Ratio 1.7 Ratio 05/12/2016 Comp Metabolic Msg500 Osmo 278 mOsmo 05/12/2016 Folate Ord36 Folate 19.88 ng/mL 05/12/2016 B12 Fga649 B12 614.00 pg/ml 05/12/2016 Pt Dkd6937 PT 29.1 seconds 05/12/2016 Pt Nog0652 INR 2.9 05/12/2016 Pt Pea4068 Low Intensity - 1.5-2.0 05/12/2016 Pt Jpu3666 Mod intensity - 2.0-3.0 05/12/2016 Pt Atg5911 Hi intensity - 3.0-4.0 05/12/2016 Cbc With [...] 32.1 pg 05/12/2016 Cbc With Differential Ord2 Coke% 11.0 % 05/12/2016 Cbc With Differential Ord2 MCHC 34.0 pg 05/12/2016 Cbc With Differential Ord2 Eos% 1.7 % 05/12/2016 Cbc With Differential Ord2 PLT 250 K/ul 05/12/2016 Cbc With Differential Ord2 Baso% 0.6 % 05/12/2016 Cbc With Differential Ord2 Neut ABS# 4.69 K/ul 05/12/2016 Cbc With Differential Ord2 RDW 14.5 % 05/12/2016 Cbc With Differential Ord2 Lymph ABS# 1.35 K/ul 05/12/2016 Cbc With Differential Ord2 Coke ABS# 0.8 K/ul 05/12/2016 Cbc With Differential Ord2 Eos ABS# 0.1 K/ul 05/12/2016 Cbc With Differential Ord2 Baso ABS# 0.0 K/ul 05/12/2016 Pt Hjm4537 PT 29.8 seconds 04/21/2016 Pt Zsx8362 INR 3.1 04/21/2016 Pt Zag8999 Low Intensity - 1.5-2.0 04/21/2016 Pt Kmm6275 Mod intensity - 2.0-3.0 04/21/2016 Pt Dkh5726 Hi intensity - 3.0-4.0 04/21/2016 Pt Rsv8464 PT 25.2 seconds 03/24/2016 Pt Leu7413 INR 2.4 03/24/2016 Pt Wgt7070 Low Intensity - 1.5-2.0 03/24/2016 Pt Bmi0169 Mod intensity - 2.0-3.0 03/24/2016 Pt Dmt9787 Hi intensity - 3.0-4.0 03/24/2016 Pt Szd1484 PT 17.7 seconds 03/06/2016 Pt Gaw9060 INR 1.5 03/06/2016 Pt Lut3842 Low Intensity - 1.5-2.0 03/06/2016 Pt Suo9172 Mod intensity - 2.0-3.0 03/06/2016 Pt Gqd2440 Hi intensity - 3.0-4.0 03/06/2016 Pt Zmd0843 PT 26.4 seconds 02/07/2016 Pt Ron6913 INR 2.6 02/07/2016 Pt Fqy7833 Low Intensity - 1.5-2.0 02/07/2016 Pt Uje0613 Mod intensity - 2.0-3.0 02/07/2016 Pt Nvm7700 Hi intensity - 3.0-4.0 02/07/2016 Lipid Ord30 [...] 33.0 pg 02/07/2016 Cbc With Differential Ord2 Coke% 13.1 % 02/07/2016 Cbc With Differential Ord2 MCHC 33.9 pg 02/07/2016 Cbc With Differential Ord2 Eos% 1.6 % 02/07/2016 Cbc With Differential Ord2 Baso% 0.3 % 02/07/2016 Cbc With Differential Ord2 PLT 237 K/ul 02/07/2016 Cbc With Differential Ord2 Neut ABS# 4.06 K/ul 02/07/2016 Cbc With Differential Ord2 RDW 13.4 % 02/07/2016 Cbc With Differential Ord2 Lymph ABS# 1.41 K/ul 02/07/2016 Cbc With Differential Ord2 Coke ABS# 0.8 K/ul 02/07/2016 Cbc With Differential Ord2 Eos ABS# 0.1 K/ul 02/07/2016 Cbc With Differential Ord2 Baso ABS# 0.0 K/ul 02/07/2016 Comp Metabolic Arw002 NA 137 mEq/L 02/07/2016 Comp Metabolic Utj831 K 3.9 mEq/L 02/07/2016 Comp Metabolic Pcx881 CL 102 mEq/L 02/07/2016 Comp Metabolic Ydy388 CO2 32.0 mEq/L 02/07/2016 Comp Metabolic Wee629 ANION GAP 7 02/07/2016 Comp Metabolic Hrb314 GLUCOSE 95 mg/dL 02/07/2016 Comp Metabolic Sbx173 Creat 0.8 mg/dL 02/07/2016 Comp Metabolic Hfs620 eGFR 73 ml/min/1.73m2 02/07/2016 Comp Metabolic Ymg291 BUN 20 mg/dL 02/07/2016 Comp Metabolic Sky319 B/C Ratio 25.0 Ratio 02/07/2016 Comp Metabolic Tiy489 CALCIUM 9.4 mg/dL 02/07/2016 Comp Metabolic Jtu730 ALK PHOS 68 U/L 02/07/2016 Comp Metabolic Iby629 AST(SGOT) 16 U/L 02/07/2016 Comp Metabolic Pps986 ALT(SGPT) 18 U/L 02/07/2016 Comp Metabolic Tya682 BILI T 0.7 mg/dL 02/07/2016 Comp Metabolic Nvu907 ALBUMIN 4.0 g/dL 02/07/2016 Comp Metabolic Xzh710 TPRO 6.4 g/dL 02/07/2016 Comp Metabolic Zqe967 GLOB 2.4 g/dL 02/07/2016 Comp Metabolic Bab549 A/G Ratio 1.7 Ratio 02/07/2016 Comp Metabolic Cdo916 Osmo 276 mOsmo 02/07/2016 Tsh Ord6 hTSH II 0.16 uIU/mL 02/07/2016 Pt Nta2601 PT 21.1 seconds 01/11/2016 Pt Tof4889 INR 1.9 01/11/2016 Pt Xzy7993 Low Intensity - 1.5-2.0 01/11/2016 Pt Fxn2347 Mod intensity - 2.0-3.0 01/11/2016 Pt Acy4101 Hi intensity - 3.0-4.0 01/11/2016 Comp Metabolic Lgn167 NA 137 mEq/L 01/11/2016 Comp Metabolic Kxx062 K 4.0 mEq/L 01/11/2016 Comp Metabolic Ibt429 CL 101 mEq/L 01/11/2016 Comp Metabolic Xdb111 CO2 29.0 mEq/L 01/11/2016 Comp Metabolic Kov346 ANION GAP 11 01/11/2016 Comp Metabolic Sus651 GLUCOSE 89 mg/dL 01/11/2016 Comp Metabolic Ymq169 Creat 0.9 mg/dL 01/11/2016 Comp Metabolic Ejg839 eGFR 61 ml/min/1.73m2 01/11/2016 Comp Metabolic Pen868 BUN 22 mg/dL 01/11/2016 Comp Metabolic Usw890 B/C Ratio 23.7 Ratio 01/11/2016 Comp Metabolic Yiu268 CALCIUM 9.3 mg/dL 01/11/2016 Comp Metabolic Pnn822 ALK PHOS 76 U/L 01/11/2016 Comp Metabolic Vqn593 AST(SGOT) 15 U/L 01/11/2016 Comp Metabolic Ups208 ALT(SGPT) 20 U/L 01/11/2016 Comp Metabolic Izy710 BILI T 0.5 mg/dL 01/11/2016 Comp Metabolic Mss484 ALBUMIN 3.9 g/dL 01/11/2016 Comp Metabolic Ome026 TPRO 6.2 g/dL 01/11/2016 Comp Metabolic Suu481 GLOB 2.3 g/dL 01/11/2016 Comp Metabolic Nki755 A/G Ratio 1.7 Ratio 01/11/2016 Comp Metabolic Uvz182 Osmo 277 mOsmo 01/11/2016 Tsh Ord6 hTSH [...] 33.4 pg 01/11/2016 Cbc With Differential Ord2 Coke% 11.6 % 01/11/2016 Cbc With Differential Ord2 [...] 1.41 K/ul 01/11/2016 Cbc With Differential Ord2 Coke ABS# 0.9 K/ul 01/11/2016 Cbc With Differential Ord2 Eos ABS# 0.1 K/ul 01/11/2016 Cbc With Differential Ord2 Baso ABS# 0.0 K/ul 01/11/2016 Free T4 Yex600 FREE T4 1.42 ng/dL 01/11/2016 Pt Kxf2780 PT 23.8 seconds 11/29/2015 Pt Lff8808 INR 2.3 11/29/2015 Pt Pbn9033 Low Intensity - 1.5-2.0 11/29/2015 Pt Hlj6122 Mod intensity - 2.0-3.0 11/29/2015 Pt Oxt4717 Hi intensity - 3.0-4.0 11/29/2015 Pt Qrd8522 PT 31.9 seconds 11/14/2015 Pt Asj7461 INR 3.4 11/14/2015 Pt Sbq4507 Low Intensity - 1.5-2.0 11/14/2015 Pt Qzf0859 Mod intensity - 2.0-3.0 11/14/2015 Pt Mvf9088 Hi intensity - 3.0-4.0 11/14/2015 Pt Apc1185 PT 23.9 seconds 10/15/2015 Pt Squ2095 INR 2.3 10/15/2015 Pt Bvh7183 Low Intensity - 1.5-2.0 10/15/2015 Pt Etp5799 Mod intensity - 2.0-3.0 10/15/2015 Pt Vsn4291 Hi intensity - 3.0-4.0 10/15/2015 Pt Oue7864 PT 27.3 seconds 09/03/2015 Pt Gwm4823 INR 2.6 09/03/2015 Pt Ytx7711 Low Intensity - 1.5-2.0 09/03/2015 Pt Xuh8636 Mod intensity - 2.0-3.0 09/03/2015 Pt Jwy1726 Hi intensity - 3.0-4.0 09/03/2015 Pt Rkp7202 PT 22.3 seconds 08/06/2015 Pt Wji0592 INR 2.0 08/06/2015 Pt Wio3735 Low Intensity - 1.5-2.0 08/06/2015 Pt Zxb6204 Mod intensity - 2.0-3.0 08/06/2015 Pt Ywo5738 Hi intensity - 3.0-4.0 08/06/2015 Pt Bfs4054 PT 22.7 seconds 06/18/2015 Pt Gzk4945 INR 2.1 06/18/2015 Pt Kpt7568 Low Intensity - 1.5-2.0 06/18/2015 Pt Vna7818 Mod intensity - 2.0-3.0 06/18/2015 Pt Ozi6532 Hi intensity - 3.0-4.0 06/18/2015 Pt Uev8476 PT 21.8 seconds 06/11/2015 Pt Fij3396 INR 2.0 06/11/2015 Pt Qqb7878 Low Intensity - 1.5-2.0 06/11/2015 Pt Dnw9557 Mod intensity - 2.0-3.0 06/11/2015 Pt Rtf3231 Hi intensity - 3.0-4.0 06/11/2015 Pt Mef4670 PT 21.2 seconds 05/28/2015 Pt Hjn8360 INR 1.9 05/28/2015 Pt Qgi7292 Low Intensity - 1.5-2.0 05/28/2015 Pt Uft8517 Mod intensity - 2.0-3.0 05/28/2015 Pt Zjl7562 Hi intensity - 3.0-4.0 05/28/2015 Pt Ygy7869 PT 26.7 seconds 05/07/2015 Pt Tkd1528 INR 2.6 05/07/2015 Pt Mje6286 Low Intensity - 1.5-2.0 05/07/2015 Pt Tnu7948 Mod intensity - 2.0-3.0 05/07/2015 Pt Bna1497 Hi intensity - 3.0-4.0 05/07/2015 Pt Ffg0094 PT 17.7 seconds 04/20/2015 Pt Eaj0061 INR 1.5 04/20/2015 Pt Cte5719 Low Intensity - 1.5-2.0 04/20/2015 Pt Yxc6149 Mod intensity - 2.0-3.0 04/20/2015 Pt Ewo1546 Hi intensity - 3.0-4.0 04/20/2015 Pt Jti5067 PT 13.0 seconds 04/12/2015 Pt Eyr3690 INR 1.0 04/12/2015 Pt Yrj2087 Low Intensity - 1.5-2.0 04/12/2015 Pt Dxo7009 Mod intensity - 2.0-3.0 04/12/2015 Pt Ixy3916 Hi intensity - 3.0-4.0 04/12/2015 Pt Iai4951 PT 23.0 seconds 03/07/2015 Pt Xyg3150 INR 2.1 03/07/2015 Pt Wpd6190 Low Intensity - 1.5-2.0 03/07/2015 Pt Xyu9062 Mod intensity - 2.0-3.0 03/07/2015 Pt Mnu8520 Hi intensity - 3.0-4.0 03/07/2015 Pt Vcx8162 PT 20.3 seconds 02/15/2015 Pt Zci0950 INR 1.8 02/15/2015 Pt Vlg9087 Low Intensity - 1.5-2.0 02/15/2015 Pt Ooy1247 Mod intensity - 2.0-3.0 02/15/2015 Pt Nfm4356 Hi intensity - 3.0-4.0 02/15/2015 Hepatic Nja001 ALBUMIN 4.1 g/dL 02/08/2015 Hepatic Igr872 TPRO 6.5 g/dL 02/08/2015 Hepatic Akn534 GLOB 2.4 g/dL 02/08/2015 Hepatic Ist127 A/G Ratio 1.7 Ratio 02/08/2015 Hepatic Dpq355 ALK PHOS 83 U/L 02/08/2015 Hepatic Bpx075 ALT(SGPT) 19 U/L 02/08/2015 Hepatic Sra608 AST(SGOT) 19 U/L 02/08/2015 Hepatic Azf600 BILI T 0.4 mg/dL 02/08/2015 Hepatic Pml141 BILI D 0.0 mg/dL 02/08/2015 Hepatic Zzw607 BILI I 0.4 mg/dL 02/08/2015 Lipid Ord30 CHOL 230 mg/dL 02/08/2015 Lipid Ord30 HDL 47.0 mg/dl 02/08/2015 Lipid Ord30 TRIG 180 mg/dL 02/08/2015 Lipid Ord30 LDL 147 mg/dL 02/08/2015 Lipid Ord30 C/HDL 4.9 Ratio 02/08/2015 Pt Mtl1888 PT 22.6 seconds 02/08/2015 Pt Ook3482 INR 2.1 02/08/2015 Pt Unv5145 Low Intensity - 1.5-2.0 02/08/2015 Pt Zui6604 Mod intensity - 2.0-3.0 02/08/2015 Pt Ivg6681 Hi intensity - 3.0-4.0 02/08/2015 Review of [...] lips 03/10/2017 None Full Exam - General 1995 Ears/Nose/Throat lips/teeth/gingiva Overall: normal dentition 03/10/2017 None Full Exam - General 1994 Ears/Nose/Throat oral cavity/pharynx/larynx Overall: oral mucosa clear 03/10/2017 None Full Exam - General 1995 Ears/Nose/Throat oral cavity/pharynx/larynx Overall: oropharyngeal mucosa clear 03/10/2017 None Full Exam - General 1995 Ears/Nose/Throat oral cavity/pharynx/larynx Overall: hypopharynx benign 03/10/2017 [...] Codes Date URINALYSIS NONAUTO W/O SCOPE CPT-4: 43518 06/30/2017 URINALYSIS NONAUTO W/O SCOPE CPT-4: 99417 06/10/2017 URINALYSIS NONAUTO W/O SCOPE CPT-4: 13697 05/26/2017 URINALYSIS NONAUTO W/O SCOPE CPT-4: 97881 03/10/2017 URINALYSIS NONAUTO W/O SCOPE CPT-4: 90176 02/19/2017 URINALYSIS NONAUTO W/O SCOPE CPT-4: 45290 10/22/2016 URINALYSIS NONAUTO W/O SCOPE CPT-4: 12729 09/25/2016 Pneumococcal Polysaccharide Vaccine, 23-Valent, Ad CPT-4: 38160 09/09/2016 ADMIN PNEUMOCOCCAL VACCINE SNOMED CT: 79988882 CPT-4: G0009 09/09/2016 URINALYSIS NONAUTO W/O SCOPE CPT-4: 25487 12/10/2015 ROCEPHIN, PER 250 MG CPT-4: J0696 10/18/2015 TRIAMCINOLONE ACET INJ NOS CPT-4: J3301 10/15/2015 TRIAMCINOLONE ACET INJ NOS CPT-4: J3301 08/28/2015 ROCEPHIN, PER 250 MG CPT-4: J0696 08/28/2015 THER/PROPH/DIAG INJ SC/IM CPT-4: 73882 06/11/2015 ROCEPHIN, PER 250 MG CPT-4: J0696 06/11/2015 THER/PROPH/DIAG INJ SC/IM CPT-4: 94869 05/23/2015 TRIAMCINOLONE ACET INJ NOS CPT-4: J3301 05/23/2015 ADMIN INFLUENZA VIRUS VAC Formatting Model/CDA Sections, Assigned to CPT-4: U9443Rehooli 03/07/2015 FLU VACC 4 ISADORA 3 YRS PLUS IM SNOMED CT: 65587657 CPT-4: 62706 03/07/2015 Vital Signs Date Vital 05/13/2017 Blood Pressure 1: 138/74 Code : 8480-6 BMI: 30.9 Code : 52976-3 Heart Rate 1 : 75 bpm Height: 5'2" SpO2: 98% Weight: 169 lbs 03/10/2017 Blood Pressure 1: 136/76 Code : 8480-6 Blood Pressure 1: 142/84 Code: 8480-6 BMI: 31.3 Code: 16878-3 Heart Rate 1: 67 bpm Height: 5'2" SpO2: 97% Weight: 171 lbs 02/19/2017 Blood Pressure 1: 144/74 Code : 8480-6 BMI: 31.8 Code : 80036-2 Heart Rate 1 : 81 bpm Height: 5'2" SpO2: 96% Weight: 174 lbs 02/05/2017 Blood Pressure 1: 130/68 Code : 8480-6 BMI: 32.0 Code : 00642-8 Heart Rate 1 : 67 bpm Height: 5'2" SpO2: 97% Weight: 175 lbs 09/09/2016 Blood Pressure 1: 140/82 Code : 8480-6 BMI: 32.7 Code : 55333-9 Heart Rate 1 : 64 bpm Height: 5'2" SpO2: 95% Weight: 179 lbs 08/12/2016 Blood Pressure 1: 148/80 Code : 8480-6 BMI: 33.1 Code : 44515-2 Heart Rate 1 : 98 bpm Height: 5'2" SpO2: 98% Weight: 181 lbs 06/23/2016 Blood Pressure 1: 146/72 Code : 8480-6 Heart Rate 1: 80 bpm Height: 5'2" SpO2: 98% Weight: 05/12/2016 Blood Pressure 1: 138/74 Code : 8480-6 BMI: 33.3 Code : 24952-1 Heart Rate 1 : 82 bpm Height: 5'2" SpO2: 98% Weight: 182 lbs 02/07/2016 Blood Pressure 1: 128/78 Code : 8480-6 BMI: 33.3 Code : 51330-5 Heart Rate 1 : 51 bpm Height: 5'2" SpO2: 97% Weight: 182 lbs 12/10/2015 Blood Pressure 1: 110/70 Code : 8480-6 BMI: 33.3 Code : 28533-1 Heart Rate 1 : 67 bpm Height: 5'2" SpO2: 96% Weight: 182 lbs 10/18/2015 Blood Pressure 1: 146/76 Code : 8480-6 BMI: 33.3 Code : 71252-0 Heart Rate 1 : 84 bpm Height: 5'2" SpO2: 98% Weight: 182 lbs 10/15/2015 Blood Pressure 1: 142/98 Code : 8480-6 Blood Pressure 1: 138/86 Code: 8480-6 BMI: 33.5 Code: 53621-5 Heart Rate 1: 85 bpm Height: 5'2" SpO2: 99% Temperature : 35.9 (C) / 96.6 (F) Weight: 183 lbs 08/28/2015 Blood Pressure 1: 146/84 Code : 8480-6 BMI: 33.7 Code : 94611-7 Heart Rate 1 : 92 bpm Height: 5'2" SpO2: 97% Temperature: 36.4 (C) / 97.5 (F) Weight: 184 lbs 06/11/2015 Blood Pressure 1: 144/92 Code : 8480-6 BMI: 33.5 Code : 75652-0 Heart Rate 1 : 79 bpm Height: 5'2" SpO2: 99% Weight: 183 lbs 05/23/2015 Blood Pressure 1: 128/68 Code : 8480-6 BMI: 34.2 Code : 52229-9 Heart Rate 1 : 84 bpm Height: 5'2" SpO2: 96% Weight: 187 lbs 03/07/2015 Blood Pressure 1: 132/62 Code : 8480-6 BMI: 33.5 Code : 43107-3 Heart Rate 1 : 94 bpm Height: 5'2" SpO2: 98% Weight: 183 lbs 02/15/2015 Blood Pressure 1: 140/76 Code : 8480-6 BMI: 33.5 Code : 92237-1 Heart Rate 1 : 76 bpm Height: 5'2" SpO2: 96% Weight: 183 lbs 10/16/2014 Blood Pressure 1: 128/84 Code : 8480-6 BMI: 32.9 Code : 10768-8 Heart Rate 1 : 82 bpm Height: [...] data Encounters Encounter Performer Location Codes Date ([id number]) [id number] EST. PATIENT, LEVEL IV Diagnosis: Essential (primary) hypertension[ICD10: I10] Diagnosis: Atrophy of thyroid (acquired)[ICD10: E03.4] Diagnosis: Slow transit constipation[ICD10: K59.01] Jumana Hull MD [facility] CPT-4: 67475 05/13/2017 ([id number]) 06016 EST. PATIENT, LEVEL IV Diagnosis: Essential (primary) hypertension[ICD10: I10] Diagnosis: Atrophy of thyroid (acquired)[ICD10: E03.4] Diagnosis: FPC (current) use of anticoagulants[ICD10: Z79.01] Diagnosis: Dysuria[ICD10: R30.0] Diagnosis: Slow transit constipation[ICD10: K59.01] Jumana Hull MD, [facility] CPT-4: 05551 03/10/2017 ([id number]) 78048 EST. PATIENT, LEVEL III Diagnosis: Urinary tract infection, site not specified[ICD10: N39.0] Juliette Hull MD [facility] CPT-4: 06480 02/19/2017 ([id number]) 62119 EST. PATIENT, LEVEL III Diagnosis: Urinary tract infection, site not specified[ICD10: N39.0] Diagnosis: Cough[ICD10: R05] Diagnosis: Other allergic rhinitis[ICD10: J30.89] Juliette Hull MD, [facility] CPT-4: 18588 02/05/2017 ([id number]) 95257 EST. PATIENT, LEVEL IV Diagnosis: Essential (primary) hypertension[ICD10: I10] Diagnosis: Atrophy of thyroid (acquired)[ICD10: E03.4] Diagnosis: Mixed hyperlipidemia[ICD10: E78.2] Diagnosis: Encounter for immunization[ICD10: Z23] Jumana Hull MD, [facility] CPT-4: 17937 09/09/2016 ([id number]) 01855 EST. PATIENT, LEVEL IV Diagnosis: Essential (primary) hypertension[ICD10: I10] Diagnosis: Mixed hyperlipidemia[ICD10: E78.2] Diagnosis: Other idiopathic peripheral autonomic neuropathy[ICD10: G90.09] Diagnosis: Atrophy of thyroid (acquired)[ICD10: E03.4] Jumana Hull MD, [facility] CPT-4: 34807 08/12/2016 ([id number]) 77692 EST. PATIENT, LEVEL IV Diagnosis: Essential (primary) hypertension[ICD10: I10] Diagnosis: Localized edema[ICD10: R60.0] Diagnosis: FPC (current) use of anticoagulants[ICD10: Z79.01] Juliette Hull MD , [facility] CPT-4: 47121 06/23/2016 ([id number]) 00344 EST. 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 PATIENT, LEVEL III Diagnosis: Localized edema[ICD10: R60.0] Diagnosis: Essential (primary) hypertension[ICD10: I10] Diagnosis: Mixed hyperlipidemia[ICD10: E78.2] Diagnosis: FPC (current) use of anticoagulants[ICD10: Z79.01] Juliette Hull MD , [facility] CPT-4: 84239 02/07/2016 ([id number]) 31619 EST. PATIENT, LEVEL IV Diagnosis: Essential (primary) hypertension[ICD10: I10] Diagnosis: Dysuria[ICD10: R30.0] Diagnosis: Hypothyroidism, unspecified[ICD10: E03.9] Diagnosis: Mixed hyperlipidemia[ICD10: E78.2] Diagnosis: Cervicalgia[ICD10: M54.2] Jumana Hull MD, [facility] CPT-4: 49412 12/10/2015 ([id number]) 65099 EST. PATIENT, LEVEL III Diagnosis: Essential (primary) hypertension[ICD10: I10] Diagnosis: Allergic rhinitis due to pollen[ICD10: J30.1] Juliette Hull MD [facility] CPT-4: 89717 10/15/2015 ([id number]) 24649 EST. PATIENT, LEVEL III Diagnosis: Acute bronchitis due to other specified organisms[ICD10: J20.8] Diagnosis: Acute recurrent maxillary sinusitis[ICD10: J01.01] Jumana Hull MD, [facility] CPT-4: 71760 08/28/2015 [id number] EST. PATIENT, LEVEL III Diagnosis: Acute recurrent maxillary sinusitis[ICD10: J01.01] Diagnosis: Cough[ICD10: R05] Angélica Hull MD, [facility] CPT-4: 85395 06/11/2015 [id number] EST. PATIENT, LEVEL III Diagnosis: Acute bronchitis due to other specified organisms[ICD10: J20.8] Angélica Hull MD, [facility] CPT-4: 36089 05/23/2015 ([id number]) 93564 EST. PATIENT, LEVEL III Diagnosis: ESSENTIAL HYPERTENSION[ICD9: 401.9] Diagnosis: A-fib[ICD9: 427.31] Diagnosis: INSECT BITE FOREARM[ICD9: 913.4] Jumana Hull MD, [facility] CPT-4: 49880 03/07/2015 ([id number]) 35903 EST. PATIENT, LEVEL III Diagnosis: Cellulitis of leg[ICD9: 682.6] Jumana Hull MD, [facility] CPT- 4: 55722 02/15/2015 ([id number]) OFFICE VISIT, NEW - LEVEL 4 Diagnosis: ESSENTIAL HYPERTENSION[ICD9: 401.9] Diagnosis: A-fib[ICD9: 427.31] Diagnosis: Rash[ICD9: 782.1] Diagnosis: Cough[ICD9: 786.2] Juliette Hull MD, [facility] CPT-4: 51804 10/16/2014 Plan of Care Planned Activity Notes Codes Status Date Appointment: Lab Draw 06/30/2017 Patient Education: Patient Medication Summary Completed 06/30/2017 Care Plan: Urine Culture Pending 06/30/2017 Appointment: Lab Draw 06/10/2017 Patient Education: [...] the arm/joint. 05/13/2017 [phone] ([facility] min) Moderate 05/13/2017 Patient Education: Patient [...] this regimen. 03/10/2017 App[facility]ment[phone] [facility] [place] (15 min) Moderate 03/10/2017 Patient Education: Patient Medication Summary Completed 03/10/2017 Patient Education: Obesity Completed 03/10/2017 Visit Plan: UTI-UA positive today in the office-will send for culture and treat as appropriate. 02/19/2017 Appointment: Juliette Yost WPtel: [phone] [phone] (15 min) Moderate 02/19/2017 Patient Education: Patient Medication Summary Completed 02/19/2017 Patient Education: Obesity Completed 02/19/2017 Visit Plan: UTI-finish macrobid-follow up in 2 weeks- discussed preventative abx and twice weekly premarin vaginal cream Allergies- cough-start flonase and claritin as discussed-call if symptoms do not improve or if any worse 02/05/2017 App[facility]ment: [phone] [phone] (15 min) Moderate 02/05/2017 Patient Education: Patient Medication Summary Completed 02/05/2017 Patient Education: Obesity Completed 02/05/2017 Appointment: Lab Draw 10/22/2016 Patient Education: Patient Medication Summary Completed 10/22/2016 Appointment: Lab Draw 09/25/2016 Patient Education: Patient Medication Summary Completed 09/25/2016 Appointment: Angélica Kong WPtel: [phone] [facility] [facility] - Annual Wellness Visit 09/10/2016 Visit Plan: [...] control. 09/09/2016 App[facility]ment[phone] [phone] (15 min) Moderate 09/09/2016 Patient Education: Patient [...] treatments. 08/12/2016 App[facility]ment: [phone] (15 min) Moderate 08/12/2016 Patient Education: Patient [...] 3.5. 06/23/2016 Appointment: Juliette [facility]ost [facility] [phone] [phone] [place] (30 min) Complex 06/23/2016 Patient Education: [...] level checked. 05/12/2016 Appointment: [facility]um[facility] Hull [facility] [phone] [facility] [place] (15 min) Moderate 05/12/2016 Patient Education: [...] of control. 12/10/2015 Appointment: Jumana Hull WPtel: [address] [place] [phone] (15 min) Moderate 12/10/2015 Patient Education: Patient Medication Summary Completed 12/10/2015 Patient Education: Obesity Completed 12/10/2015 Patient Education: .Cervicalgia Neck Pain Completed 12/10/2015 Appointment: Jumana Hull WPtel: [facility] [address] (15 min) Moderate 12/03/2015 Referral: Leonidas [address] Referral Initiated 10/26/2015 Visit Plan: Sinusitis [...] 10/18/2015 Care Plan: Referral Order SNOMED-CT : [id number] Pending 10/18/2015 Visit Plan: Hypertension - well [...] heart rate is becoming uncontrolled. 03/07/2015 Appointment: Della Jumana WPtel: [phone] [phone] (15 min) Moderate 03/07/2015 Patient Education: Patient [...] Care Plan: COMPLETE CBC AUTOMATED LOINC : 31817-1 Ordered 10/17/2014 Visit Plan: Hypertension - well [...] Education: Hypertension Completed 10/16/2014 [facility] Ref[facility] Initiated Instructions Comment . Hypertension - [...] abx and twice weekly premarin vaginal cream Ktvzmcocr-wvapi-pcker flonase and claritin as discussed-call if symptoms do not improve or if any worse CHECK LABS I WILL CALL YOU WITH [...] for INR is between 2.0 and 3.5. Have PT INR drawn on Thursday. Sinusitis [...] spray in the nasal steroid allergy spray. . Hypertension - well controlled - continue [...] use muscle rub on the arm/joint. . Cellulitis -improving- continue with oral antibiotics [...] if their heart rate is becoming uncontrolled. Will send antibiotic, come get your PT [...] to call if symptoms do not improve. RECHECK URINE . UTI-UA positive today in the office-will send for culture and treat as appropriate. Power Pudding: equal parts of prune juice, [...]
--- OUTSIDE RECORDS SUMMARY | 2017-12-04 05:37 | XMS REPORT | CCD ---
Author Author [facility] Address [address] [place] [address] Phone Care Team Providers Care Compounding Scaler Name Role Phone PP Unavailable CCM Unavailable Summary Purpose Interface Exchange Insurance Providers Payer name Policy type / Coverage type Covered democrat ID Effective Begin Date Effective End Date WPS Medicare Part B Medicare Part B [id number] 2017 Unknown [facility] Medicare Part B [id number] Unknown Family history Sister Diagnosis Age At Onset No Family Disease Entered N/A Runs in the family Diagnosis Age At Onset Heart disease Unknown Social History Social History Element Codes Description Effective Dates Employment Unknown Retired 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-9: 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.61 ICD-10: [...] Fill Instructions Keflex 500 mg capsule RxNorm: 239311 1 Capsule(s) PO TID 201707/06/2017 Active Augmentin 500 mg-125 mg tablet RxNorm: 390621 1 Tablet(s) PO BID 06/10/2017 06/16/2017 Inactive Augmentin 500 mg-125 mg tablet RxNorm: 182695 1 Tablet(s) PO BID 05/26/2017 06/01/2017 Inactive Augmentin 500 mg-125 mg tablet RxNorm: 782060 1 Tablet(s) PO BID 05/26/2017 05/25/2017 Inactive Augmentin 500 mg-125 mg tablet RxNorm: 411041 1 Tablet(s) PO BID 02/23/2017 02/22/2017 Inactive Augmentin 500 mg-125 mg tablet RxNorm: 183250 1 Tablet(s) PO BID 02/23/2017 03/01/2017 Inactive Zofran 4 mg tablet RxNorm: 622094 1 Tablet(s) PO Q6 as needed 02/13/2017 02/12/2017 Inactive Zofran 4 mg tablet RxNorm: 674884 1 Tablet(s) PO Q6 as needed 02/13/2017 02/22/2017 Inactive omeprazole 20 mg capsule,delayed release RxNorm: 002228 TAKE 1 CAPSULE EVERY DAY 02/02/2017 01/27/2018 Active diltiazem CD 240 mg capsule,extended release 24 hr RxNorm: 316658 TAKE 1 CAPSULE EVERY DAY 02/02/2017 01/27/2018 Active Synthroid 100 mcg tablet RxNorm: 307609 1 Tablet(s) PO daily 01/24/2018 Active Synthroid 100 mcg tablet RxNorm: 403505 1 Tablet(s) PO daily 01/29/2017 Inactive Synthroid 100 mcg tablet RxNorm: 392353 1 Tablet(s) PO daily 01/27/2017 Inactive Synthroid 112 mcg tablet RxNorm: 419222 TAKE 1 TABLET EVERY DAY 12/08/2016 01/27/2017 Inactive simvastatin 10 mg tablet RxNorm: 486940 1 Tablet(s) PO daily 02/24/2018 Active Bactrim DS 800 mg-160 mg tablet RxNorm: 102876 1 Tablet(s) PO BID 10/22/2016 11/13/2016 Inactive Bactrim DS 800 mg-160 mg tablet RxNorm: 710978 1 Tablet(s) PO BID 10/22/2016 10/21/2016 Inactive Keflex 500 mg capsule RxNorm: 479917 1 Capsule(s) PO TID 201610/01/2016 Inactive simvastatin 20 mg tablet RxNorm: 598497 1 Tablet(s) PO daily 12/01/2016 Inactive warfarin 5 mg tablet RxNorm: 292295 TAKE 1 TABLET EVERY DAY 05/07/2017 Inactive Synthroid 112 mcg tablet RxNorm: 212798 TAKE 1 TABLET EVERY DAY 07/21/2016 12/07/2016 Inactive potassium chloride ER 10 mEq tablet,extended release RxNorm: 233584 1 Tablet(s) PO daily 06/23/2016 06/22/2016 Inactive pt to take with lasix she has at home potassium chloride ER 10 mEq tablet,extended release RxNorm: 787626 1 Tablet(s) PO daily 06/23/2016 06/27/2016 Inactive pt to take with lasix she has at home Synthroid 112 mcg tablet RxNorm: 706172 TAKE 1 TABLET EVERY DAY 03/04/2016 07/20/2016 Inactive diltiazem CD 240 mg capsule,extended release 24 hr RxNorm: 461024 1 Capsule(s) PO daily 02/06/2016 02/01/2017 Inactive omeprazole 20 mg capsule,delayed release RxNorm: 016402 1 Capsule(s) PO daily 02/06/2016 02/01/2017 Inactive warfarin 5 mg tablet RxNorm: 725187 1 Tablet(s) PO daily 201508/10/2016 Inactive simvastatin 10 mg tablet RxNorm: 786812 1 Tablet(s) PO daily 08/11/2016 Inactive simvastatin 20 mg tablet RxNorm: 585902 1 Tablet(s) PO daily 01/07/2016 Inactive lisinopril 10 mg tablet RxNorm: 072470 1 Tablet(s) PO daily 12/10/2015 Inactive prednisone 20 mg tablet RxNorm: 209652 2 Tablet(s) PO daily 10/201510/22/2015 Inactive Augmentin 500 mg-125 mg tablet RxNorm: 726636 1 Tablet(s) PO TID 10/18/2015 10/27/2015 Inactive ceftriaxone 500 mg solution for injection RxNorm: 7692903 Inj 10/18/2015 10/18/2015 Inactive Kenalog 40 mg/mL suspension for injection RxNorm: 2308915 Milliliter(s) Inj 10/15/2015 10/15/2015 Inactive ceftriaxone 500 mg solution for injection RxNorm: 7402738 Inj 08/28/2015 08/28/2015 Inactive prednisone 20 mg tablet RxNorm: 164449 3 Tablet(s) PO daily 08/30/2015 Inactive amoxicillin 500 mg capsule RxNorm: 172720 1 Capsule(s) PO TID 08/28/2015 09/03/2015 Inactive Kenalog 40 mg/mL suspension for injection RxNorm: 0948521 Milliliter(s) Inj 08/28/2015 08/28/2015 Inactive Keflex 500 mg capsule RxNorm: 985095 1 Capsule(s) PO TID 201507/26/2015 Inactive Keflex 500 mg capsule RxNorm: 471350 1 Capsule(s) PO TID 201508/02/2015 Inactive Synthroid 112 mcg tablet RxNorm: 378477 TAKE 1 TABLET EVERY DAY 06/19/2015 12/15/2015 Inactive Augmentin 500 mg-125 mg tablet RxNorm: 367775 1 Tablet(s) PO TID 06/11/2015 06/20/2015 Inactive ceftriaxone 500 mg solution for injection RxNorm: 6020795 Inj 06/11/2015 06/11/2015 Inactive Kenalog 40 mg/mL suspension for injection RxNorm: 1659043 Milliliter(s) Inj 05/23/2015 05/23/2015 Inactive cefdinir 300 mg capsule RxNorm: 602870 1 Capsule(s) PO BID 02/201505/29/2015 Inactive simvastatin 10 mg tablet RxNorm: 615535 1 Tablet(s) PO daily 12/09/2015 Inactive Synthroid 112 mcg tablet RxNorm: 657964 1 Tablet(s) PO daily 06/18/2015 Inactive warfarin 5 mg tablet RxNorm: 746767 1 Tablet(s) PO daily x4 days and 1/2 tab for 3 days 03/29/2015 12/23/2015 Inactive Keflex 500 mg capsule RxNorm: 385286 1 Capsule(s) PO TID 201402/07/2015 Inactive Keflex 500 mg capsule RxNorm: 000533 1 Capsule(s) PO TID 201402/14/2015 Inactive diltiazem CD 240 mg capsule,extended release 24 hr RxNorm: 213903 1 Capsule(s) PO daily 01/31/2015 03/27/2015 Inactive omeprazole 20 mg capsule,delayed release RxNorm: 155559 1 Capsule(s) PO daily 01/30/2015 01/24/2016 Inactive diltiazem CD 240 mg capsule,extended release 24 hr RxNorm: 304536 1 Capsule(s) PO daily 01/30/2015 01/30/2015 Inactive omeprazole 20 mg capsule,delayed release RxNorm: 471122 1 Capsule(s) PO daily 01/25/2015 01/29/2015 Inactive diltiazem CD 240 mg capsule,extended release 24 hr RxNorm: 371830 1 Capsule(s) PO daily 01/25/2015 01/29/2015 Inactive Vitamin D2 50,000 unit capsule RxNorm: 081097 1 Capsule(s) PO weekly 10/25/2014 10/24/2014 Inactive Vitamin D2 50,000 unit capsule RxNorm: 390407 1 Capsule(s) PO weekly 10/25/2014 01/22/2015 Inactive [SAVINGS FOR NON-COVERED DRUGS -- BIN:[id number], PCN: [id number], Group: [id number], ID# [id number], Questions: . THIS IS NOT INSURANCE.] omeprazole 20 mg capsule,delayed release RxNorm: 542914 1 Capsule(s) PO daily 10/16/2014 11/14/2014 Inactive diltiazem CD 240 mg capsule,extended release 24 hr RxNorm: 946300 1 Capsule(s) PO daily 10/16/2014 11/14/2014 Inactive melatonin 3 mg tablet RxNorm: 140224 1 Tablet(s) PO QHS 201411/14/2014 Inactive lisinopril 10 mg tablet RxNorm: 255834 1 Tablet(s) PO daily 09/201402/12/2015 Inactive Synthroid 112 mcg tablet RxNorm: 382519 1 Tablet(s) PO 201402/12/2015 Inactive Vitamin D2 1,000 unit capsule RxNorm: 924013 1 Capsule(s) PO daily 10/16/2014 11/14/2014 Inactive warfarin 5 mg tablet RxNorm: 772265 1 Tablet(s) PO daily x4 days and 1/2 tab for 3 days 10/16/2014 02/12/2015 Inactive Culturelle oral RxNorm : 4426153 oral No Start Date Active Calcium + D oral RxNorm: 698773 oral No Start Date Active Stool Softener 100 mg capsule RxNorm: 4128781 1-2 Capsule(s) PO daily No Start Date Active Vitamin D3 1,000 unit tablet RxNorm: 537387 1 Tablet(s) PO daily No Start Date Active biotin oral RxNorm: 1588 oral No Start Date Active aspirin 81 mg capsule,delayed release RxNorm: 936748 1 Capsule(s) PO daily No Start Date Active Vitamin B-12 oral RxNorm: 38753 oral No Start Date Active Calcium 600-Vitamin D-Iron oral RxNorm: 4018 oral No Start Date 12/10/2015 Inactive simvastatin 10 mg tablet RxNorm: 153602 1 Tablet(s) PO daily No Start Date 03/28/2015 Inactive Medication Administered Medication Codes Instructions Start Date Status ceftriaxone 500 mg solution for injection RxNorm: 7440867 10/18/2015 No longer Active Kenalog 40 mg/mL suspension for injection RxNorm: 6853668 Milliliter 10/15/2015 No longer Active Kenalog 40 mg/mL suspension for injection RxNorm: 4581527 Milliliter 08/28/2015 No longer Active ceftriaxone 500 mg solution for injection RxNorm: 1299829 08/28/2015 No longer Active ceftriaxone 500 mg solution for injection RxNorm: 4579756 06/11/2015 No longer Active Kenalog 40 mg/mL suspension for injection RxNorm: 6068449 Milliliter 05/23/2015 No longer Active Immunizations Vaccine Codes Date Status Influenza CVX: 141 03/02/2017 completed Pneumococcal (Adult) CVX: 33 09/09/2016 completed Influenza CVX: 141 03/07/2015 completed Influenza CVX: 141 03/15/2014 completed Zoster CVX: 121 06/29/2012 completed Pneumococcal CVX: 33 06/15/2008 completed Assessments Condition Codes Effective Dates Dysuria ICD-10: R30.0 ICD-9: 788.1 06/30/2017 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 ICD-10: Z79.01 ICD-9: [...] Code Item Item Code Result Date Pt Hhh5147 PT 27.2 seconds 07/01/2017 Pt Klc6119 INR 2.5 07/01/2017 Pt Bqv2393 Low Intensity - 1.5-2.0 07/01/2017 Pt Iks4567 Mod intensity - 2.0-3.0 07/01/2017 Pt Xph3342 Hi intensity - 3.0-4.0 07/01/2017 Free T4 Fhg103 FREE T4 1.15 ng/dL 07/01/2017 Tsh Ord6 hTSH II 2.28 uIU/mL 07/01/2017 Urine Culture Ucult Complete >100,000 col/ml aerobic growth sent to ref lab 06/11/2017 Urine Culture Ucult Complete Growth of aerobe sent to ref lab 05/27/2017 Pt Wmq0103 PT 30.0 seconds 05/26/2017 Pt Wkc7970 INR 2.8 05/26/2017 Pt Wkw3582 Low Intensity - 1.5-2.0 05/26/2017 Pt Btq4557 Mod intensity - 2.0-3.0 05/26/2017 Pt Ren0332 Hi intensity - 3.0-4.0 05/26/2017 Pt Vmt0395 PT 24.2 seconds 04/07/2017 Pt Pbr0718 INR 2.2 04/07/2017 Pt Jif7746 Low Intensity - 1.5-2.0 04/07/2017 Pt Nnw9697 Mod intensity - 2.0-3.0 04/07/2017 Pt Rsd0583 Hi intensity - 3.0-4.0 04/07/2017 Pt Gbh9509 PT 21.4 seconds 03/10/2017 Pt Fko5860 INR 1.9 03/10/2017 Pt Jea3088 Low Intensity - 1.5-2.0 03/10/2017 Pt Bmh5961 Mod intensity - 2.0-3.0 03/10/2017 Pt Ecd6772 Hi intensity - 3.0-4.0 03/10/2017 Culture Urine [id number] URINE CULTURE SEE NOTES 02/23/2017 Culture Urine [id number] Continued Results 02/23/2017 Urine Culture Ucult Complete [...] 32.8 pg 01/28/2017 Cbc With Differential Ord2 [place]% 14.1 % 01/28/2017 Cbc With Differential Ord2 [...] 1.39 K/ul 01/28/2017 Cbc With Differential Ord2 [place] ABS# 0.7 K/ul 01/28/2017 Cbc With Differential Ord2 Eos ABS# 0.2 K/ul 01/28/2017 Cbc With Differential Ord2 Baso ABS# 0.0 K/ul 01/28/2017 Tsh Ord6 hTSH II 0.46 uIU/mL 01/28/2017 Comp Metabolic Ntl566 NA 140 mEq/L 01/28/2017 Comp Metabolic Dbm195 K 3.9 mEq/L 01/28/2017 Comp Metabolic Ypq581 CL 105 mEq/L 01/28/2017 Comp Metabolic Bfh885 CO2 27.0 mEq/L 01/28/2017 Comp Metabolic Bai506 ANION GAP 12 01/28/2017 Comp Metabolic Rbn400 GLUCOSE 89 mg/dL 01/28/2017 Comp Metabolic Hmt396 Creat 0.8 mg/dL 01/28/2017 Comp Metabolic Snv652 eGFR 69 ml/min/1.73m2 01/28/2017 Comp Metabolic Num311 BUN 16 mg/dL 01/28/2017 Comp Metabolic Qjx197 B/C Ratio 19.0 Ratio 01/28/2017 Comp Metabolic Omo795 CALCIUM 9.0 mg/dL 01/28/2017 Comp Metabolic Tsz262 ALK PHOS 96 U/L 01/28/2017 Comp Metabolic Uiy552 AST(SGOT) 16 U/L 01/28/2017 Comp Metabolic Msd513 ALT(SGPT) 13 U/L 01/28/2017 Comp Metabolic Qcy136 BILI T 0.7 mg/dL 01/28/2017 Comp Metabolic Ghl059 ALBUMIN 3.7 g/dL 01/28/2017 Comp Metabolic Luj655 TPRO 5.9 g/dL 01/28/2017 Comp Metabolic Qhf840 GLOB 2.2 g/dL 01/28/2017 Comp Metabolic Pel775 A/G Ratio 1.7 Ratio 01/28/2017 Comp Metabolic Asu245 Osmo 280 mOsmo 01/28/2017 Lipid Ord30 CHOL 142 mg/dL 01/28/2017 Lipid Ord30 HDL 33.0 mg/dl 01/28/2017 Lipid Ord30 TRIG 160 mg/dL 01/28/2017 Lipid Ord30 LDL 77 mg/dL 01/28/2017 Lipid Ord30 C/HDL 4.3 Ratio 01/28/2017 Pt Qzp2398 PT 25.7 seconds 01/28/2017 Pt Lvw8951 INR 2.3 01/28/2017 Pt Dvc6688 Low Intensity - 1.5-2.0 01/28/2017 Pt Aiv9618 Mod intensity - 2.0-3.0 01/28/2017 Pt Duk4548 Hi intensity - 3.0-4.0 01/28/2017 Pt Moe2799 PT 25.3 seconds 12/29/2016 Pt Atr5708 INR 2.5 12/29/2016 Pt Rin0922 Low Intensity - 1.5-2.0 12/29/2016 Pt Ipd2739 Mod intensity - 2.0-3.0 12/29/2016 Pt Iqf6968 Hi intensity - 3.0-4.0 12/29/2016 Pt Wzs2535 PT 25.3 seconds 12/01/2016 Pt Exd1625 INR 2.5 12/01/2016 Pt Oda5952 Low Intensity - 1.5-2.0 12/01/2016 Pt Gbq6237 Mod intensity - 2.0-3.0 12/01/2016 Pt Rjp3380 Hi intensity - 3.0-4.0 12/01/2016 Pt Ukh4804 PT 19.2 seconds 11/17/2016 Pt Rgm6242 INR 1.7 11/17/2016 Pt Kou6280 Low Intensity - 1.5-2.0 11/17/2016 Pt Kry5350 Mod intensity - 2.0-3.0 11/17/2016 Pt Bcz9317 Hi intensity - 3.0-4.0 11/17/2016 Pt Gka2529 PT 36.0 seconds 10/27/2016 Pt Lzh1911 INR 3.9 10/27/2016 Pt Vcw4417 Low Intensity - 1.5-2.0 10/27/2016 Pt Rca0816 Mod intensity - 2.0-3.0 10/27/2016 Pt Dca0845 Hi intensity - 3.0-4.0 10/27/2016 Culture Urine [id number] URINE CULTURE SEE NOTES 10/25/2016 Culture Urine [id number] Continued Results 10/25/2016 Urine Culture Ucult Complete >100,000 col/ml aerobic growth sent to ref lab 10/23/2016 Pt Afv6036 PT 30.7 seconds 09/29/2016 Pt Gry2555 INR 3.2 09/29/2016 Pt Oqg6939 Low Intensity - 1.5-2.0 09/29/2016 Pt Nwe4734 Mod intensity - 2.0-3.0 09/29/2016 Pt Ovm4986 Hi intensity - 3.0-4.0 09/29/2016 Urine Culture Ucult Complete Growth of aerobe sent to ref lab 09/26/2016 Pt Kwb6745 PT 33.8 seconds 09/23/2016 Pt Zpf6241 INR 3.6 09/23/2016 Pt Nge9620 Low Intensity - 1.5-2.0 09/23/2016 Pt Spd9096 Mod intensity - 2.0-3.0 09/23/2016 Pt Msh6372 Hi intensity - 3.0-4.0 09/23/2016 Pt Stu8524 PT 33.4 seconds 09/09/2016 Pt Jjh4460 INR 3.6 09/09/2016 Pt Gcb5152 Low Intensity - 1.5-2.0 09/09/2016 Pt Knk4565 Mod intensity - 2.0-3.0 09/09/2016 Pt Dwv8446 Hi intensity - 3.0-4.0 09/09/2016 Pt Cij0209 PT 30.2 seconds 08/20/2016 Pt Yje6320 INR 3.1 08/20/2016 Pt Esz5888 Low Intensity - 1.5-2.0 08/20/2016 Pt Ihn5169 Mod intensity - 2.0-3.0 08/20/2016 Pt Jaq5888 Hi intensity - 3.0-4.0 08/20/2016 Pt Pxm4438 PT 32.1 seconds 08/12/2016 Pt Glc8916 INR 3.4 08/12/2016 Pt Hsy6680 Low Intensity - 1.5-2.0 08/12/2016 Pt Ack5653 Mod intensity - 2.0-3.0 08/12/2016 Pt Pxa3397 Hi intensity - 3.0-4.0 08/12/2016 Comp Metabolic Tfo694 NA 138 mEq/L 06/23/2016 Comp Metabolic Dwg638 K 3.8 mEq/L 06/23/2016 Comp Metabolic Sth670 CL 103 mEq/L 06/23/2016 Comp Metabolic Ysc184 CO2 28.0 mEq/L 06/23/2016 Comp Metabolic Ewb925 ANION GAP 11 06/23/2016 Comp Metabolic Hwo357 GLUCOSE 107 mg/dL 06/23/2016 Comp Metabolic Gkv571 Creat 0.8 mg/dL 06/23/2016 Comp Metabolic Tov277 eGFR 75 ml/min/1.73m2 06/23/2016 Comp Metabolic Klt358 BUN 17 mg/dL 06/23/2016 Comp Metabolic Tgq713 B/C Ratio 21.8 Ratio 06/23/2016 Comp Metabolic Rzy739 CALCIUM 9.4 mg/dL 06/23/2016 Comp Metabolic Pkt082 ALK PHOS 101 U/L 06/23/2016 Comp Metabolic Nmk541 AST(SGOT) 17 U/L 06/23/2016 Comp Metabolic Mvt795 ALT(SGPT) 13 U/L 06/23/2016 Comp Metabolic Ihm540 BILI T 0.7 mg/dL 06/23/2016 Comp Metabolic Gfx022 ALBUMIN 4.3 g/dL 06/23/2016 Comp Metabolic Cpy739 TPRO 6.6 g/dL 06/23/2016 Comp Metabolic Fbh779 GLOB 2.3 g/dL 06/23/2016 Comp Metabolic Qjm212 A/G Ratio 1.8 Ratio 06/23/2016 Comp Metabolic Gfz426 Osmo 278 mOsmo 06/23/2016 Cbc With Differential [...] 32.4 pg 06/23/2016 Cbc With Differential Ord2 [facility]% 12.8 % 06/23/2016 Cbc With Differential Ord2 [...] 1.20 K/ul 06/23/2016 Cbc With Differential Ord2 [place] ABS# 0.7 K/ul 06/23/2016 Cbc With Differential Ord2 Eos ABS# 0.1 K/ul 06/23/2016 Cbc With Differential Ord2 Baso ABS# 0.1 K/ul 06/23/2016 Pt Bep8077 PT 25.9 seconds 06/23/2016 Pt Wge4589 INR 2.5 06/23/2016 Pt Aus8438 Low Intensity - 1.5-2.0 06/23/2016 Pt Dxk9398 Mod intensity - 2.0-3.0 06/23/2016 Pt Uek3987 Hi intensity - 3.0-4.0 06/23/2016 Comp Metabolic Hgc086 NA 138 mEq/L 05/12/2016 Comp Metabolic Ijx709 K 3.8 mEq/L 05/12/2016 Comp Metabolic Wzx237 CL 104 mEq/L 05/12/2016 Comp Metabolic Zhl712 CO2 25.0 mEq/L 05/12/2016 Comp Metabolic Ech591 ANION GAP 13 05/12/2016 Comp Metabolic Qjf579 GLUCOSE 119 mg/dL 05/12/2016 Comp Metabolic Pnk945 Creat 0.8 mg/dL 05/12/2016 Comp Metabolic Xzf295 eGFR 71 ml/min/1.73m2 05/12/2016 Comp Metabolic Ebw378 BUN 16 mg/dL 05/12/2016 Comp Metabolic Qlr065 B/C Ratio 19.5 Ratio 05/12/2016 Comp Metabolic Ddr572 CALCIUM 9.5 mg/dL 05/12/2016 Comp Metabolic Rwb585 ALK PHOS 95 U/L 05/12/2016 Comp Metabolic Ucl184 AST(SGOT) 17 U/L 05/12/2016 Comp Metabolic Wjo292 ALT(SGPT) 18 U/L 05/12/2016 Comp Metabolic Yzc569 BILI T 0.6 mg/dL 05/12/2016 Comp Metabolic Zyo578 ALBUMIN 4.0 g/dL 05/12/2016 Comp Metabolic Gsd921 TPRO 6.3 g/dL 05/12/2016 Comp Metabolic Qvs312 GLOB 2.3 g/dL 05/12/2016 Comp Metabolic Ibx156 A/G Ratio 1.7 Ratio 05/12/2016 Comp Metabolic Bpg465 Osmo 278 mOsmo 05/12/2016 Folate Ord36 Folate 19.88 ng/mL 05/12/2016 B12 Zub450 B12 614.00 pg/ml 05/12/2016 Pt Hpv3438 PT 29.1 seconds 05/12/2016 Pt Kyg7447 INR 2.9 05/12/2016 Pt Gbh8176 Low Intensity - 1.5-2.0 05/12/2016 Pt Iiv0808 Mod intensity - 2.0-3.0 05/12/2016 Pt Wkq0534 Hi intensity - 3.0-4.0 05/12/2016 Cbc With [...] 32.1 pg 05/12/2016 Cbc With Differential Ord2 [facility]% 11.0 % 05/12/2016 Cbc With Differential Ord2 [...] 1.35 K/ul 05/12/2016 Cbc With Differential Ord2 [facility] ABS# 0.8 K/ul 05/12/2016 Cbc With Differential Ord2 Eos ABS# 0.1 K/ul 05/12/2016 Cbc With Differential Ord2 Baso ABS# 0.0 K/ul 05/12/2016 Pt Lor8398 PT 29.8 seconds 04/21/2016 Pt Bdf5724 INR 3.1 04/21/2016 Pt Fdk3726 Low Intensity - 1.5-2.0 04/21/2016 Pt Nwi9977 Mod intensity - 2.0-3.0 04/21/2016 Pt Kmk9218 Hi intensity - 3.0-4.0 04/21/2016 Pt Viw6457 PT 25.2 seconds 03/24/2016 Pt Tzy2762 INR 2.4 03/24/2016 Pt Soj9193 Low Intensity - 1.5-2.0 03/24/2016 Pt Nrv3686 Mod intensity - 2.0-3.0 03/24/2016 Pt Boo3527 Hi intensity - 3.0-4.0 03/24/2016 Pt Yjm7494 PT 17.7 seconds 03/06/2016 Pt Ixx1714 INR 1.5 03/06/2016 Pt Nmf5983 Low Intensity - 1.5-2.0 03/06/2016 Pt Ajw1905 Mod intensity - 2.0-3.0 03/06/2016 Pt Pcc5354 Hi intensity - 3.0-4.0 03/06/2016 Pt Xaz7997 PT 26.4 seconds 02/07/2016 Pt Zzi2421 INR 2.6 02/07/2016 Pt Tpr8909 Low Intensity - 1.5-2.0 02/07/2016 Pt Shl3675 Mod intensity - 2.0-3.0 02/07/2016 Pt Gkp9190 Hi intensity - 3.0-4.0 02/07/2016 Lipid Ord30 [...] 33.0 pg 02/07/2016 Cbc With Differential Ord2 [facility]% 13.1 % 02/07/2016 Cbc With Differential Ord2 [...] 1.41 K/ul 02/07/2016 Cbc With Differential Ord2 [facility] ABS# 0.8 K/ul 02/07/2016 Cbc With Differential Ord2 Eos ABS# 0.1 K/ul 02/07/2016 Cbc With Differential Ord2 Baso ABS# 0.0 K/ul 02/07/2016 Comp Metabolic Uvq338 NA 137 mEq/L 02/07/2016 Comp Metabolic Ubo939 K 3.9 mEq/L 02/07/2016 Comp Metabolic Djd593 CL 102 mEq/L 02/07/2016 Comp Metabolic Cki732 CO2 32.0 mEq/L 02/07/2016 Comp Metabolic Qrn521 ANION GAP 7 02/07/2016 Comp Metabolic Amp911 GLUCOSE 95 mg/dL 02/07/2016 Comp Metabolic Fav999 Creat 0.8 mg/dL 02/07/2016 Comp Metabolic Bwl229 eGFR 73 ml/min/1.73m2 02/07/2016 Comp Metabolic Ncw729 BUN 20 mg/dL 02/07/2016 Comp Metabolic Vwc244 B/C Ratio 25.0 Ratio 02/07/2016 Comp Metabolic Vhj658 CALCIUM 9.4 mg/dL 02/07/2016 Comp Metabolic Yvg456 ALK PHOS 68 U/L 02/07/2016 Comp Metabolic Xhc460 AST(SGOT) 16 U/L 02/07/2016 Comp Metabolic Kdi478 ALT(SGPT) 18 U/L 02/07/2016 Comp Metabolic Ttw048 BILI T 0.7 mg/dL 02/07/2016 Comp Metabolic Moa371 ALBUMIN 4.0 g/dL 02/07/2016 Comp Metabolic Scg796 TPRO 6.4 g/dL 02/07/2016 Comp Metabolic Ppn878 GLOB 2.4 g/dL 02/07/2016 Comp Metabolic Bom554 A/G Ratio 1.7 Ratio 02/07/2016 Comp Metabolic Asx406 Osmo 276 mOsmo 02/07/2016 Tsh Ord6 hTSH II 0.16 uIU/mL 02/07/2016 Pt Sez0494 PT 21.1 seconds 01/11/2016 Pt Zsn0503 INR 1.9 01/11/2016 Pt Rup6891 Low Intensity - 1.5-2.0 01/11/2016 Pt Rsy6871 Mod intensity - 2.0-3.0 01/11/2016 Pt Owt5955 Hi intensity - 3.0-4.0 01/11/2016 Comp Metabolic Rdo707 NA 137 mEq/L 01/11/2016 Comp Metabolic Xng762 K 4.0 mEq/L 01/11/2016 Comp Metabolic Lyk813 CL 101 mEq/L 01/11/2016 Comp Metabolic Ouv398 CO2 29.0 mEq/L 01/11/2016 Comp Metabolic Wvn170 ANION GAP 11 01/11/2016 Comp Metabolic Qnc775 GLUCOSE 89 mg/dL 01/11/2016 Comp Metabolic Rwu994 Creat 0.9 mg/dL 01/11/2016 Comp Metabolic God012 eGFR 61 ml/min/1.73m2 01/11/2016 Comp Metabolic Rbd664 BUN 22 mg/dL 01/11/2016 Comp Metabolic Kxr786 B/C Ratio 23.7 Ratio 01/11/2016 Comp Metabolic Huj583 CALCIUM 9.3 mg/dL 01/11/2016 Comp Metabolic Pvk372 ALK PHOS 76 U/L 01/11/2016 Comp Metabolic Gcr021 AST(SGOT) 15 U/L 01/11/2016 Comp Metabolic Eol461 ALT(SGPT) 20 U/L 01/11/2016 Comp Metabolic Ycc420 BILI T 0.5 mg/dL 01/11/2016 Comp Metabolic Div444 ALBUMIN 3.9 g/dL 01/11/2016 Comp Metabolic Zxt676 TPRO 6.2 g/dL 01/11/2016 Comp Metabolic Cnz937 GLOB 2.3 g/dL 01/11/2016 Comp Metabolic Oox250 A/G Ratio 1.7 Ratio 01/11/2016 Comp Metabolic Hyf638 Osmo 277 mOsmo 01/11/2016 Tsh Ord6 hTSH [...] 98.7 fl 01/11/2016 Cbc With Differential Ord2 [facility]% 11.6 % 01/11/2016 Cbc With Differential Ord2 [...] 1.41 K/ul 01/11/2016 Cbc With Differential Ord2 [facility] ABS# 0.9 K/ul 01/11/2016 Cbc With Differential Ord2 Eos ABS# 0.1 K/ul 01/11/2016 Cbc With Differential Ord2 Baso ABS# 0.0 K/ul 01/11/2016 Free T4 Rfz558 FREE T4 1.42 ng/dL 01/11/2016 Pt Oyw3899 PT 23.8 seconds 11/29/2015 Pt Lgd8251 INR 2.3 11/29/2015 Pt Zjo0439 Low Intensity - 1.5-2.0 11/29/2015 Pt Uad9900 Mod intensity - 2.0-3.0 11/29/2015 Pt Zqx9062 Hi intensity - 3.0-4.0 11/29/2015 Pt Hdr0113 PT 31.9 seconds 11/14/2015 Pt Eis4106 INR 3.4 11/14/2015 Pt Moc4336 Low Intensity - 1.5-2.0 11/14/2015 Pt Hhp4878 Mod intensity - 2.0-3.0 11/14/2015 Pt Huq0217 Hi intensity - 3.0-4.0 11/14/2015 Pt Vhq1673 PT 23.9 seconds 10/15/2015 Pt Ffq6195 INR 2.3 10/15/2015 Pt Kyl1981 Low Intensity - 1.5-2.0 10/15/2015 Pt Zaw3306 Mod intensity - 2.0-3.0 10/15/2015 Pt Syp3903 Hi intensity - 3.0-4.0 10/15/2015 Pt Ppo0490 PT 27.3 seconds 09/03/2015 Pt Lxa6622 INR 2.6 09/03/2015 Pt Xci5050 Low Intensity - 1.5-2.0 09/03/2015 Pt Xen1205 Mod intensity - 2.0-3.0 09/03/2015 Pt Rwr1550 Hi intensity - 3.0-4.0 09/03/2015 Pt Seh0734 PT 22.3 seconds 08/06/2015 Pt Zjc0804 INR 2.0 08/06/2015 Pt Kbr3828 Low Intensity - 1.5-2.0 08/06/2015 Pt Hic4932 Mod intensity - 2.0-3.0 08/06/2015 Pt Hhc8253 Hi intensity - 3.0-4.0 08/06/2015 Pt Ifu4793 PT 22.7 seconds 06/18/2015 Pt Ori8259 INR 2.1 06/18/2015 Pt Far8024 Low Intensity - 1.5-2.0 06/18/2015 Pt Sic4059 Mod intensity - 2.0-3.0 06/18/2015 Pt Kty1478 Hi intensity - 3.0-4.0 06/18/2015 Pt Kjx9986 PT 21.8 seconds 06/11/2015 Pt Ymo7319 INR 2.0 06/11/2015 Pt Quy8897 Low Intensity - 1.5-2.0 06/11/2015 Pt Yto2427 Mod intensity - 2.0-3.0 06/11/2015 Pt Cae6648 Hi intensity - 3.0-4.0 06/11/2015 Pt Ruu3567 PT 21.2 seconds 05/28/2015 Pt Vtt3963 INR 1.9 05/28/2015 Pt Arn8929 Low Intensity - 1.5-2.0 05/28/2015 Pt Baz3169 Mod intensity - 2.0-3.0 05/28/2015 Pt Mxh9042 Hi intensity - 3.0-4.0 05/28/2015 Pt Bok4569 PT 26.7 seconds 05/07/2015 Pt Ajv5803 INR 2.6 05/07/2015 Pt Wjg7129 Low Intensity - 1.5-2.0 05/07/2015 Pt Nku0316 Mod intensity - 2.0-3.0 05/07/2015 Pt Xth2199 Hi intensity - 3.0-4.0 05/07/2015 Pt Chu3577 PT 17.7 seconds 04/20/2015 Pt Dtn9572 INR 1.5 04/20/2015 Pt Roz6910 Low Intensity - 1.5-2.0 04/20/2015 Pt Ppd0696 Mod intensity - 2.0-3.0 04/20/2015 Pt Kqf9743 Hi intensity - 3.0-4.0 04/20/2015 Pt Goq8886 PT 13.0 seconds 04/12/2015 Pt Rli3122 INR 1.0 04/12/2015 Pt Imf8283 Low Intensity - 1.5-2.0 04/12/2015 Pt Yun6822 Mod intensity - 2.0-3.0 04/12/2015 Pt Ywr0806 Hi intensity - 3.0-4.0 04/12/2015 Pt Xyx6971 PT 23.0 seconds 03/07/2015 Pt Zya7261 INR 2.1 03/07/2015 Pt Iix7818 Low Intensity - 1.5-2.0 03/07/2015 Pt Cbi0311 Mod intensity - 2.0-3.0 03/07/2015 Pt Bms1596 Hi intensity - 3.0-4.0 03/07/2015 Pt Qyr4877 PT 20.3 seconds 02/15/2015 Pt Hur7804 INR 1.8 02/15/2015 Pt Byw0415 Low Intensity - 1.5-2.0 02/15/2015 Pt Hlp1833 Mod intensity - 2.0-3.0 02/15/2015 Pt Ziu7794 Hi intensity - 3.0-4.0 02/15/2015 Hepatic Xjd800 ALBUMIN 4.1 g/dL 02/08/2015 Hepatic Obc967 TPRO 6.5 g/dL 02/08/2015 Hepatic Lpz607 GLOB 2.4 g/dL 02/08/2015 Hepatic Pln754 A/G Ratio 1.7 Ratio 02/08/2015 Hepatic Brf888 ALK PHOS 83 U/L 02/08/2015 Hepatic Ryl110 ALT(SGPT) 19 U/L 02/08/2015 Hepatic Qmr696 AST(SGOT) 19 U/L 02/08/2015 Hepatic Hoa166 BILI T 0.4 mg/dL 02/08/2015 Hepatic Ael516 BILI D 0.0 mg/dL 02/08/2015 Hepatic Vug997 BILI I 0.4 mg/dL 02/08/2015 Lipid Ord30 CHOL 230 mg/dL 02/08/2015 Lipid Ord30 HDL 47.0 mg/dl 02/08/2015 Lipid Ord30 TRIG 180 mg/dL 02/08/2015 Lipid Ord30 LDL 147 mg/dL 02/08/2015 Lipid Ord30 C/HDL 4.9 Ratio 02/08/2015 Pt Rdl1172 PT 22.6 seconds 02/08/2015 Pt Bgb9083 INR 2.1 02/08/2015 Pt Zbu6132 Low Intensity - 1.5-2.0 02/08/2015 Pt Qaf8316 Mod intensity - 2.0-3.0 02/08/2015 Pt Dpe9485 Hi intensity - 3.0-4.0 02/08/2015 Review of [...] skin Location: right leg 02/15/2015 2 puncture hemran right anterior lower leg-no redness, drainage, warmth [...] Codes Date URINALYSIS NONAUTO W/O SCOPE CPT-4: 22860 06/30/2017 URINALYSIS NONAUTO W/O SCOPE CPT-4: 69119 06/10/2017 URINALYSIS NONAUTO W/O SCOPE CPT-4: 31889 05/26/2017 URINALYSIS NONAUTO W/O SCOPE CPT-4: 77345 03/10/2017 URINALYSIS NONAUTO W/O SCOPE CPT-4: 48033 02/19/2017 URINALYSIS NONAUTO W/O SCOPE CPT-4: 34192 10/22/2016 URINALYSIS NONAUTO W/O SCOPE CPT-4: 99788 09/25/2016 Pneumococcal Polysaccharide Vaccine, 23-Valent, Ad CPT-4: 53001 09/09/2016 ADMIN PNEUMOCOCCAL VACCINE SNOMED CT: 16462680 CPT-4: G0009 09/09/2016 URINALYSIS NONAUTO W/O SCOPE CPT-4: 55439 12/10/2015 ROCEPHIN, PER 250 MG CPT-4: J0696 10/18/2015 TRIAMCINOLONE ACET INJ NOS CPT-4: J3301 10/15/2015 TRIAMCINOLONE ACET INJ NOS CPT-4: J3301 08/28/2015 ROCEPHIN, PER 250 MG CPT-4: J0696 08/28/2015 THER/PROPH/DIAG INJ SC/IM CPT-4: 64567 06/11/2015 ROCEPHIN, PER 250 MG CPT-4: J0696 06/11/2015 THER/PROPH/DIAG INJ SC/IM CPT-4: 18175 05/23/2015 TRIAMCINOLONE ACET INJ NOS CPT-4: J3301 05/23/2015 ADMIN INFLUENZA VIRUS VAC Formatting Model/CDA Sections, Assigned to CPT-4: N0989Hmdencr 03/07/2015 FLU VACC 4 ISADORA 3 YRS PLUS IM SNOMED CT: 73350683 CPT-4: 46723 03/07/2015 Vital Signs Date Vital 05/13/2017 Blood Pressure 1: 138/74 Code : 8480-6 BMI: 30.9 Code : 91289-8 Heart Rate 1 : 75 bpm Height: 5'2" SpO2: 98% Weight: 169 lbs 03/10/2017 Blood Pressure 1: 142/84 Code : 8480-6 Blood Pressure 1: 136/76 Code: 8480-6 BMI: 31.3 Code: 87437-6 Heart Rate 1: 67 bpm Height: 5'2" SpO2: 97% Weight: 171 lbs 02/19/2017 Blood Pressure 1: 144/74 Code : 8480-6 BMI: 31.8 Code : 17512-3 Heart Rate 1 : 81 bpm Height: 5'2" SpO2: 96% Weight: 174 lbs 02/05/2017 Blood Pressure 1: 130/68 Code : 8480-6 BMI: 32.0 Code : 88776-2 Heart Rate 1 : 67 bpm Height: 5'2" SpO2: 97% Weight: 175 lbs 09/09/2016 Blood Pressure 1: 140/82 Code : 8480-6 BMI: 32.7 Code : 30946-1 Heart Rate 1 : 64 bpm Height: 5'2" SpO2: 95% Weight: 179 lbs 08/12/2016 Blood Pressure 1: 148/80 Code : 8480-6 BMI: 33.1 Code : 60237-3 Heart Rate 1 : 98 bpm Height: 5'2" SpO2: 98% Weight: 181 lbs 06/23/2016 Blood Pressure 1: 146/72 Code : 8480-6 Heart Rate 1: 80 bpm Height: 5'2" SpO2: 98% Weight: 05/12/2016 Blood Pressure 1: 138/74 Code : 8480-6 BMI: 33.3 Code : 97059-1 Heart Rate 1 : 82 bpm Height: 5'2" SpO2: 98% Weight: 182 lbs 02/07/2016 Blood Pressure 1: 128/78 Code : 8480-6 BMI: 33.3 Code : 51490-0 Heart Rate 1 : 51 bpm Height: 5'2" SpO2: 97% Weight: 182 lbs 12/10/2015 Blood Pressure 1: 110/70 Code : 8480-6 BMI: 33.3 Code : 65323-4 Heart Rate 1 : 67 bpm Height: 5'2" SpO2: 96% Weight: 182 lbs 10/18/2015 Blood Pressure 1: 146/76 Code : 8480-6 BMI: 33.3 Code : 12400-8 Heart Rate 1 : 84 bpm Height: 5'2" SpO2: 98% Weight: 182 lbs 10/15/2015 Blood Pressure 1: 142/98 Code : 8480-6 Blood Pressure 1: 138/86 Code: 8480-6 BMI: 33.5 Code: 68046-8 Heart Rate 1: 85 bpm Height: 5'2" SpO2: 99% Temperature : 35.9 (C) / 96.6 (F) Weight: 183 lbs 08/28/2015 Blood Pressure 1: 146/84 Code : 8480-6 BMI: 33.7 Code : 06672-9 Heart Rate 1 : 92 bpm Height: 5'2" SpO2: 97% Temperature: 36.4 (C) / 97.5 (F) Weight: 184 lbs 06/11/2015 Blood Pressure 1: 144/92 Code : 8480-6 BMI: 33.5 Code : 69514-8 Heart Rate 1 : 79 bpm Height: 5'2" SpO2: 99% Weight: 183 lbs 05/23/2015 Blood Pressure 1: 128/68 Code : 8480-6 BMI: 34.2 Code : 53655-6 Heart Rate 1 : 84 bpm Height: 5'2" SpO2: 96% Weight: 187 lbs 03/07/2015 Blood Pressure 1: 132/62 Code : 8480-6 BMI: 33.5 Code : 52308-4 Heart Rate 1 : 94 bpm Height: 5'2" SpO2: 98% Weight: 183 lbs 02/15/2015 Blood Pressure 1: 140/76 Code : 8480-6 BMI: 33.5 Code : 03768-4 Heart Rate 1 : 76 bpm Height: 5'2" SpO2: 96% Weight: 183 lbs 10/16/2014 Blood Pressure 1: 128/84 Code : 8480-6 BMI: 32.9 Code : 88329-2 Heart Rate 1 : 82 bpm Height: [...] data Encounters Encounter Performer Location Codes Date () [id number] EST. PATIENT, LEVEL IV Diagnosis: Essential (primary) hypertension[ICD10: I10] Diagnosis: Atrophy of thyroid (acquired)[ICD10: E03.4] Diagnosis: Slow transit constipation[ICD10: K59.01] Jumana Hull MD, [facility] CPT-4: 78928 05/13/2017 ([id number]) 29863 EST. 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 PATIENT, LEVEL III Diagnosis: Urinary tract infection, site not specified[ICD10: N39.0] Juliette Hull MD , [facility] CPT-4: 89746 02/19/2017 ([id number]) 62606 EST. PATIENT, LEVEL III Diagnosis: Urinary tract infection, site not specified[ICD10: N39.0] Diagnosis: Cough[ICD10: R05] Diagnosis: Other allergic rhinitis[ICD10: J30.89] Juliette Hull MD, [facility] CPT-4: 83020 02/05/2017 ([id number]) 99388 EST. PATIENT, LEVEL IV Diagnosis: Essential (primary) hypertension[ICD10: I10] Diagnosis: Atrophy of thyroid (acquired)[ICD10: E03.4] Diagnosis: Mixed hyperlipidemia[ICD10: E78.2] Diagnosis: Encounter for immunization[ICD10: Z23] Jumana Hull MD, [facility] CPT-4: 17704 09/09/2016 ([id number]) 03103 EST. PATIENT, LEVEL IV Diagnosis: Essential (primary) hypertension[ICD10: I10] Diagnosis: Mixed hyperlipidemia[ICD10: E78.2] Diagnosis: Other idiopathic peripheral autonomic neuropathy[ICD10: G90.09] Diagnosis: Atrophy of thyroid (acquired)[ICD10: E03.4] Jumana Hull MD [facility] CPT-4: 60085 08/12/2016 ([id number]) 04607 EST. 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 PATIENT, LEVEL III Diagnosis: Localized edema[ICD10: R60.0] Diagnosis: Essential (primary) hypertension[ICD10: I10] Diagnosis: Mixed hyperlipidemia[ICD10: E78.2] Diagnosis: shelter (current) use of anticoagulants[ICD10: Z79.01] Juliette Hull MD [facility] CPT-4: 52921 02/07/2016 ([id number]) 76243 EST. PATIENT, LEVEL IV Diagnosis: Essential (primary) hypertension[ICD10: I10] Diagnosis: Dysuria[ICD10: R30.0] Diagnosis: Hypothyroidism, unspecified[ICD10: E03.9] Diagnosis: Mixed hyperlipidemia[ICD10: E78.2] Diagnosis: Cervicalgia[ICD10: M54.2] Jumaan Hull MD, [facility] CPT-4: 13783 12/10/2015 ([id number]) 31990 EST. PATIENT, LEVEL III Diagnosis: Essential (primary) hypertension[ICD10: I10] Diagnosis: Allergic rhinitis due to pollen[ICD10: J30.1] Juliette Hull MD, [facility] CPT-4: 67049 10/15/2015 ([id number]) 76966 EST. PATIENT, LEVEL III Diagnosis: Acute bronchitis due to other specified organisms[ICD10: J20.8] Diagnosis: Acute recurrent maxillary sinusitis[ICD10: J01.01] Jumana Hull MD, [facility] CPT-4: 73479 08/28/2015 06989 EST. PATIENT, LEVEL III Diagnosis: Acute recurrent maxillary sinusitis[ICD10: J01.01] Diagnosis: Cough[ICD10: R05] Angélica Hull MD, [facility] CPT-4: 55500 06/11/2015 [id number] EST. PATIENT, LEVEL III Diagnosis: Acute bronchitis due to other specified organisms[ICD10: J20.8] Angélica Hull MD, [facility] CPT-4: 53675 05/23/2015 ([id number]) 68415 EST. PATIENT, LEVEL III Diagnosis: ESSENTIAL HYPERTENSION[ICD9: 401.9] Diagnosis: A-fib[ICD9: 427.31] Diagnosis: INSECT BITE FOREARM[ICD9: 913.4] Jumana Hull MD, [facility] CPT-4: 09510 03/07/2015 ([id number]) 52620 EST. PATIENT, LEVEL III Diagnosis: Cellulitis of leg[ICD9: 682.6] Jumana Hull MD, [facility] CPT- 4: 01935 02/15/2015 ([id number]) OFFICE VISIT, NEW - LEVEL 4 Diagnosis: ESSENTIAL HYPERTENSION[ICD9: 401.9] Diagnosis: A-fib[ICD9: 427.31] Diagnosis: Rash[ICD9: 782.1] Diagnosis: Cough[ICD9: 786.2] Juliette Hull MD, [facility] CPT-4: 09408 10/16/2014 Plan of Care Planned Activity Notes [...] the arm/joint. 05/13/2017 Appointment: Jumana Hull WPtel: [address] [place], [place] [phone] (15 min) Moderate 05/13/2017 Patient Education: Patient [...] this regimen. 03/10/2017 Appointment: Jumana Hull WPtel: [facility] (15 min) Moderate 03/10/2017 Patient Education: Patient Medication Summary Completed 03/10/2017 Patient Education: Obesity Completed 03/10/2017 Visit Plan: UTI-UA positive today in the office-will send for culture and treat as appropriate. 02/19/2017 Appointment: Juliette Yost WPtel: [phone] (15 min) Moderate 02/19/2017 Patient Education: Patient Medication Summary Completed 02/19/2017 Patient Education: Obesity Completed 02/19/2017 Visit Plan: UTI-finish macrobid-follow up in 2 weeks- discussed preventative abx and twice weekly premarin vaginal cream Allergies- cough-start flonase and claritin as discussed-call if symptoms do not improve or if any worse 02/05/2017 Appointment: Juliette Yost WPtel: [phone] (15 min) Moderate 02/05/2017 Patient Education: Patient Medication Summary Completed 02/05/2017 Patient Education: Obesity Completed 02/05/2017 Appointment: Lab Draw 10/22/2016 Patient Education: Patient Medication Summary Completed 10/22/2016 Appointment: Lab Draw 09/25/2016 Patient Education: Patient Medication Summary Completed 09/25/2016 Appointment: Angélica Kong WPtel: [facility] [facility] - Annual Wellness Visit 09/10/2016 Visit Plan: [...] of control. 09/09/2016 Appointment: Jumana Hull WPtel: [address] [place], [place] [phone] (15 min) Moderate 09/09/2016 Patient Education: Patient [...] treatments. 08/12/2016 Appointment: Jumana Hull WPtel: [phone] [facility] (15 min) Moderate 08/12/2016 Patient Education: Patient [...] and 3.5. 06/23/2016 [phone] (30 min) Complex 06/23/2016 Patient Education: Patient [...] level checked. 05/12/2016 [phone] (15 min) Moderate 05/12/2016 Patient Education: Patient [...] of control. 12/10/2015 Appointment: Jumana Hull WPtel: [facility] (15 min) Moderate 12/10/2015 Patient Education: Patient Medication Summary Completed 12/10/2015 Patient Education: Obesity Completed 12/10/2015 Patient Education: .Cervicalgia Neck Pain Completed 12/10/2015 Appointment: Jumana Hull WPtel: [address] [place] [address] (15 min) Moderate 12/03/2015 Referral: Leonidas [address] Referral Initiated 10/26/2015 Visit Plan: Sinusitis [...] 10/18/2015 Care Plan: Referral Order SNOMED-CT : [id number] Pending 10/18/2015 Visit Plan: Hypertension - well [...] becoming uncontrolled. 03/07/2015 Appointment: Jumana Hull WPtel: [address] [place], [place] [phone] (15 min) Moderate 03/07/2015 Patient Education: Patient [...] Care Plan: COMPLETE CBC AUTOMATED LOINC : 78178-2 Ordered 10/17/2014 Visit Plan: Hypertension - well [...] Education: Hypertension Completed 10/16/2014 [facility] Referral Initiated Instructions Comment HOLD LISINOPRIL X 2 WEEKS CALL IF [...] weeks and call with update on symtpoms . Cellulitis -improving- continue with oral antibiotics as previously directed, return to clinic as previously directed, call for acute change in symptoms, worsening redness, warmth, discharge. Power Pudding: equal parts of prune juice, [...] symptoms not improved on this regimen. . Hypertension - well controlled - continue [...] to use muscle rub on the arm/joint. CLARITIN 10MG DAILY . Hypertension - well [...] spray in the nasal steroid allergy spray. Have PT INR drawn on Thursday. Sinusitis [...] any worse. RX sent to patient's pharmacy. RECHECK URINE . UTI-UA positive today in the office-will send for culture and treat as appropriate. CHECK LABS I WILL CALL YOU WITH [...] for INR is between 2.0 and 3.5. . UTI - pt with positive urinalysis - culture sent if appropriate. Antibiotic electronically prescribed to pt's pharmacy of choice. Pt to call if symptoms do not improve. . UTI - pt with positive urinalysis - culture sent if appropriate. Antibiotic electronically prescribed to pt's pharmacy of choice. Pt to call if symptoms do not improve. . Sinusitis - Pt has acute infection - pain in face, maxillary region, Pt informed to use decongestant, RX given to patient, sinus rinses also recommended. Call if symptoms do not show improvement. Will send antibiotic, come get your PT [...] worse. RX sent to patient's pharmacy. . Hypertension - well controlled - continue [...] peripheral neuropathy - continue with current treatments. FLONASE CLARITIN 10MG DAILY CALL IF COUGH DOES NOT RESOLVE OR IF ANY WORSE . UTI-finish macrobid-follow up in 2 weeks-discussed preventative abx and twice weekly premarin vaginal cream Chsgxsjzp-[id number]-vrukn flonase and claritin as discussed-call if symptoms [...] months based on previous levels of control. ELEVATE YOUR FEET DURING THE DAY CUT [...] to further attempt to reduce peripheral edema. Will give augmentin antibiotic take with food [...]
[2017-12-04 05:38] LABS: BACTERIA,URINE MODERATE /HPF; RBC,URINE >100 /HPF; WBC,URINE >100 /HPF
--- OUTSIDE RECORDS SUMMARY | 2017-12-04 05:41 | XMS REPORT | CCD ---
Author Author [facility] Address [address] [place] [address] Phone Care Team Providers Care Director Center Name Role Phone PP Unavailable CCM Unavailable Summary Purpose Interface Exchange Insurance Providers Payer name Policy type / Coverage type Covered alliance party ID Effective Begin Date Effective End Date WPS Medicare Part B Medicare Part B [id number] 2017 Unknown [employer] Insurance Medicare Part B [id number] Unknown Family history Sister Diagnosis Age At Onset No Family Disease Entered N/A Runs in the family Diagnosis Age At Onset Heart disease Unknown Social History Social History Element Codes Description Effective Dates Employment Unknown 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 [...] Fill Instructions Keflex 500 mg capsule RxNorm: 178487 1 Capsule(s) PO TID 201707/06/2017 Active Augmentin 500 mg-125 mg tablet RxNorm: 633448 1 Tablet(s) PO BID 06/10/2017 06/16/2017 Inactive Augmentin 500 mg-125 mg tablet RxNorm: 875800 1 Tablet(s) PO BID 05/26/2017 06/01/2017 Inactive Augmentin 500 mg-125 mg tablet RxNorm: 157861 1 Tablet(s) PO BID 05/26/2017 05/25/2017 Inactive Augmentin 500 mg-125 mg tablet RxNorm: 143464 1 Tablet(s) PO BID 02/23/2017 02/22/2017 Inactive Augmentin 500 mg-125 mg tablet RxNorm: 819540 1 Tablet(s) PO BID 02/23/2017 03/01/2017 Inactive Zofran 4 mg tablet RxNorm: 990465 1 Tablet(s) PO Q6 as needed 02/13/2017 02/12/2017 Inactive Zofran 4 mg tablet RxNorm: 733015 1 Tablet(s) PO Q6 as needed 02/13/2017 02/22/2017 Inactive omeprazole 20 mg capsule,delayed release RxNorm: 504271 TAKE 1 CAPSULE EVERY DAY 02/02/2017 01/27/2018 Active diltiazem CD 240 mg capsule,extended release 24 hr RxNorm: 409298 TAKE 1 CAPSULE EVERY DAY 02/02/2017 01/27/2018 Active Synthroid 100 mcg tablet RxNorm: 988030 1 Tablet(s) PO daily 01/24/2018 Active Synthroid 100 mcg tablet RxNorm: 960523 1 Tablet(s) PO daily 01/29/2017 Inactive Synthroid 100 mcg tablet RxNorm: 474923 1 Tablet(s) PO daily 01/27/2017 Inactive Synthroid 112 mcg tablet RxNorm: 785608 TAKE 1 TABLET EVERY DAY 12/08/2016 01/27/2017 Inactive simvastatin 10 mg tablet RxNorm: 298711 1 Tablet(s) PO daily 02/24/2018 Active Bactrim DS 800 mg-160 mg tablet RxNorm: 883369 1 Tablet(s) PO BID 10/22/2016 11/13/2016 Inactive Bactrim DS 800 mg-160 mg tablet RxNorm: 502556 1 Tablet(s) PO BID 10/22/2016 10/21/2016 Inactive Keflex 500 mg capsule RxNorm: 416277 1 Capsule(s) PO TID 201610/01/2016 Inactive simvastatin 20 mg tablet RxNorm: 400749 1 Tablet(s) PO daily 12/01/2016 Inactive warfarin 5 mg tablet RxNorm: 952644 TAKE 1 TABLET EVERY DAY 05/07/2017 Inactive Synthroid 112 mcg tablet RxNorm: 683481 TAKE 1 TABLET EVERY DAY 07/21/2016 12/07/2016 Inactive potassium chloride ER 10 mEq tablet,extended release RxNorm: 222543 1 Tablet(s) PO daily 06/23/2016 06/22/2016 Inactive pt to take with lasix she has at home potassium chloride ER 10 mEq tablet,extended release RxNorm: 947669 1 Tablet(s) PO daily 06/23/2016 06/27/2016 Inactive pt to take with lasix she has at home Synthroid 112 mcg tablet RxNorm: 413528 TAKE 1 TABLET EVERY DAY 03/04/2016 07/20/2016 Inactive diltiazem CD 240 mg capsule,extended release 24 hr RxNorm: 446377 1 Capsule(s) PO daily 02/06/2016 02/01/2017 Inactive omeprazole 20 mg capsule,delayed release RxNorm: 048314 1 Capsule(s) PO daily 02/06/2016 02/01/2017 Inactive warfarin 5 mg tablet RxNorm: 243331 1 Tablet(s) PO daily 201508/10/2016 Inactive simvastatin 10 mg tablet RxNorm: 565864 1 Tablet(s) PO daily 08/11/2016 Inactive simvastatin 20 mg tablet RxNorm: 455421 1 Tablet(s) PO daily 01/07/2016 Inactive lisinopril 10 mg tablet RxNorm: 888622 1 Tablet(s) PO daily 12/10/2015 Inactive prednisone 20 mg tablet RxNorm: 958774 2 Tablet(s) PO daily 10/201510/22/2015 Inactive Augmentin 500 mg-125 mg tablet RxNorm: 734419 1 Tablet(s) PO TID 10/18/2015 10/27/2015 Inactive ceftriaxone 500 mg solution for injection RxNorm: 9692748 Inj 10/18/2015 10/18/2015 Inactive Kenalog 40 mg/mL suspension for injection RxNorm: 9995176 Milliliter(s) Inj 10/15/2015 10/15/2015 Inactive ceftriaxone 500 mg solution for injection RxNorm: 0709247 Inj 08/28/2015 08/28/2015 Inactive prednisone 20 mg tablet RxNorm: 696696 3 Tablet(s) PO daily 08/30/2015 Inactive amoxicillin 500 mg capsule RxNorm: 153081 1 Capsule(s) PO TID 08/28/2015 09/03/2015 Inactive Kenalog 40 mg/mL suspension for injection RxNorm: 8439805 Milliliter(s) Inj 08/28/2015 08/28/2015 Inactive Keflex 500 mg capsule RxNorm: 493063 1 Capsule(s) PO TID 201507/26/2015 Inactive Keflex 500 mg capsule RxNorm: 219494 1 Capsule(s) PO TID 201508/02/2015 Inactive Synthroid 112 mcg tablet RxNorm: 796497 TAKE 1 TABLET EVERY DAY 06/19/2015 12/15/2015 Inactive Augmentin 500 mg-125 mg tablet RxNorm: 900615 1 Tablet(s) PO TID 06/11/2015 06/20/2015 Inactive ceftriaxone 500 mg solution for injection RxNorm: 3595188 Inj 06/11/2015 06/11/2015 Inactive Kenalog 40 mg/mL suspension for injection RxNorm: 2664692 Milliliter(s) Inj 05/23/2015 05/23/2015 Inactive cefdinir 300 mg capsule RxNorm: 037072 1 Capsule(s) PO BID 02/201505/29/2015 Inactive simvastatin 10 mg tablet RxNorm: 140719 1 Tablet(s) PO daily 12/09/2015 Inactive Synthroid 112 mcg tablet RxNorm: 573424 1 Tablet(s) PO daily 06/18/2015 Inactive warfarin 5 mg tablet RxNorm: 197071 1 Tablet(s) PO daily x4 days and 1/2 tab for 3 days 03/29/2015 12/23/2015 Inactive Keflex 500 mg capsule RxNorm: 003932 1 Capsule(s) PO TID 201402/07/2015 Inactive Keflex 500 mg capsule RxNorm: 552645 1 Capsule(s) PO TID 201402/14/2015 Inactive diltiazem CD 240 mg capsule,extended release 24 hr RxNorm: 067503 1 Capsule(s) PO daily 01/31/2015 03/27/2015 Inactive omeprazole 20 mg capsule,delayed release RxNorm: 951673 1 Capsule(s) PO daily 01/30/2015 01/24/2016 Inactive diltiazem CD 240 mg capsule,extended release 24 hr RxNorm: 098945 1 Capsule(s) PO daily 01/30/2015 01/30/2015 Inactive omeprazole 20 mg capsule,delayed release RxNorm: 282501 1 Capsule(s) PO daily 01/25/2015 01/29/2015 Inactive diltiazem CD 240 mg capsule,extended release 24 hr RxNorm: 391936 1 Capsule(s) PO daily 01/25/2015 01/29/2015 Inactive Vitamin D2 50,000 unit capsule RxNorm: 280867 1 Capsule(s) PO weekly 10/25/2014 10/24/2014 Inactive Vitamin D2 50,000 unit capsule RxNorm: 037724 1 Capsule(s) PO weekly 10/25/2014 01/22/2015 Inactive [SAVINGS FOR NON-COVERED DRUGS -- BIN:[id number], PCN: [id number], Group: [id number], ID# [id number], Questions: . THIS IS NOT INSURANCE.] omeprazole 20 mg capsule,delayed release RxNorm: 117769 1 Capsule(s) PO daily 10/16/2014 11/14/2014 Inactive diltiazem CD 240 mg capsule,extended release 24 hr RxNorm: 156000 1 Capsule(s) PO daily 10/16/2014 11/14/2014 Inactive melatonin 3 mg tablet RxNorm: 599827 1 Tablet(s) PO QHS 201411/14/2014 Inactive lisinopril 10 mg tablet RxNorm: 972701 1 Tablet(s) PO daily 09/201402/12/2015 Inactive Synthroid 112 mcg tablet RxNorm: 371705 1 Tablet(s) PO 201402/12/2015 Inactive Vitamin D2 1,000 unit capsule RxNorm: 489249 1 Capsule(s) PO daily 10/16/2014 11/14/2014 Inactive warfarin 5 mg tablet RxNorm: 507283 1 Tablet(s) PO daily x4 days and 1/2 tab for 3 days 10/16/2014 02/12/2015 Inactive Culturelle oral RxNorm : 6804588 oral No Start Date Active Calcium + D oral RxNorm: 717109 oral No Start Date Active Stool Softener 100 mg capsule RxNorm: 3241612 1-2 Capsule(s) PO daily No Start Date Active Vitamin D3 1,000 unit tablet RxNorm: 820437 1 Tablet(s) PO daily No Start Date Active biotin oral RxNorm: 1588 oral No Start Date Active aspirin 81 mg capsule,delayed release RxNorm: 478854 1 Capsule(s) PO daily No Start Date Active Vitamin B-12 oral RxNorm: 77506 oral No Start Date Active Calcium 600-Vitamin D-Iron oral RxNorm: 4018 oral No Start Date 12/10/2015 Inactive simvastatin 10 mg tablet RxNorm: 434361 1 Tablet(s) PO daily No Start Date 03/28/2015 Inactive Medication Administered Medication Codes Instructions Start Date Status ceftriaxone 500 mg solution for injection RxNorm: 8412676 10/18/2015 No longer Active Kenalog 40 mg/mL suspension for injection RxNorm: 5069902 Milliliter 10/15/2015 No longer Active Kenalog 40 mg/mL suspension for injection RxNorm: 0022765 Milliliter 08/28/2015 No longer Active ceftriaxone 500 mg solution for injection RxNorm: 6071916 08/28/2015 No longer Active ceftriaxone 500 mg solution for injection RxNorm: 4093283 06/11/2015 No longer Active Kenalog 40 mg/mL suspension for injection RxNorm: 5274099 Milliliter 05/23/2015 No longer Active Immunizations Vaccine Codes Date Status Influenza CVX: 141 03/02/2017 completed Pneumococcal (Adult) CVX: 33 09/09/2016 completed Influenza CVX: 141 03/07/2015 completed Influenza CVX: 141 03/15/2014 completed Zoster CVX: 121 06/29/2012 completed Pneumococcal CVX: 33 06/15/2008 completed Assessments Condition Codes Effective Dates Dysuria ICD-10: R30.0 ICD-9: 788.1 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/2017 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 [...] aerobe sent to ref lab 05/27/2017 Pt Vne9652 PT 30.0 seconds 05/26/2017 Pt Ggg0402 INR 2.8 05/26/2017 Pt Rzp8227 Low Intensity - 1.5-2.0 05/26/2017 Pt Gfw8974 Mod intensity - 2.0-3.0 05/26/2017 Pt Ozi7179 Hi intensity - 3.0-4.0 05/26/2017 Pt Chj0740 PT 24.2 seconds 04/07/2017 Pt Iqe7404 INR 2.2 04/07/2017 Pt Aqm8211 Low Intensity - 1.5-2.0 04/07/2017 Pt Ttz8466 Mod intensity - 2.0-3.0 04/07/2017 Pt Ivi8347 Hi intensity - 3.0-4.0 04/07/2017 Pt Nqx7790 PT 21.4 seconds 03/10/2017 Pt Nvt3752 INR 1.9 03/10/2017 Pt Fkl6851 Low Intensity - 1.5-2.0 03/10/2017 Pt Bup0565 Mod intensity - 2.0-3.0 03/10/2017 Pt Lut5280 Hi intensity - 3.0-4.0 03/10/2017 Culture Urine [id number] URINE CULTURE SEE NOTES 02/23/2017 Culture Urine [id number] Continued Results 02/23/2017 Urine Culture Ucult Complete [...] 32.8 pg 01/28/2017 Cbc With Differential Ord2 [place]% 14.1 % 01/28/2017 Cbc With Differential Ord2 [...] 1.39 K/ul 01/28/2017 Cbc With Differential Ord2 [place] ABS# 0.7 K/ul 01/28/2017 Cbc With Differential Ord2 Eos ABS# 0.2 K/ul 01/28/2017 Cbc With Differential Ord2 Baso ABS# 0.0 K/ul 01/28/2017 Tsh Ord6 hTSH II 0.46 uIU/mL 01/28/2017 Comp Metabolic Siy458 NA 140 mEq/L 01/28/2017 Comp Metabolic Qvi312 K 3.9 mEq/L 01/28/2017 Comp Metabolic Dts731 CL 105 mEq/L 01/28/2017 Comp Metabolic Pcl403 CO2 27.0 mEq/L 01/28/2017 Comp Metabolic Bod120 ANION GAP 12 01/28/2017 Comp Metabolic Cle996 GLUCOSE 89 mg/dL 01/28/2017 Comp Metabolic Pzw517 Creat 0.8 mg/dL 01/28/2017 Comp Metabolic Jdb075 eGFR 69 ml/min/1.73m2 01/28/2017 Comp Metabolic Yle558 BUN 16 mg/dL 01/28/2017 Comp Metabolic Gqx176 B/C Ratio 19.0 Ratio 01/28/2017 Comp Metabolic Ibe623 CALCIUM 9.0 mg/dL 01/28/2017 Comp Metabolic Act583 ALK PHOS 96 U/L 01/28/2017 Comp Metabolic Htj825 AST(SGOT) 16 U/L 01/28/2017 Comp Metabolic Ikx110 ALT(SGPT) 13 U/L 01/28/2017 Comp Metabolic Uly743 BILI T 0.7 mg/dL 01/28/2017 Comp Metabolic Rnj153 ALBUMIN 3.7 g/dL 01/28/2017 Comp Metabolic Vog418 TPRO 5.9 g/dL 01/28/2017 Comp Metabolic Xrg005 GLOB 2.2 g/dL 01/28/2017 Comp Metabolic Ltz079 A/G Ratio 1.7 Ratio 01/28/2017 Comp Metabolic Meq875 Osmo 280 mOsmo 01/28/2017 Lipid Ord30 CHOL 142 mg/dL 01/28/2017 Lipid Ord30 HDL 33.0 mg/dl 01/28/2017 Lipid Ord30 TRIG 160 mg/dL 01/28/2017 Lipid Ord30 LDL 77 mg/dL 01/28/2017 Lipid Ord30 C/HDL 4.3 Ratio 01/28/2017 Pt Lpg3764 PT 25.7 seconds 01/28/2017 Pt Ixc0127 INR 2.3 01/28/2017 Pt Btr2152 Low Intensity - 1.5-2.0 01/28/2017 Pt Vbf6890 Mod intensity - 2.0-3.0 01/28/2017 Pt Xnh0647 Hi intensity - 3.0-4.0 01/28/2017 Pt Pty0793 PT 25.3 seconds 12/29/2016 Pt Ebb5837 INR 2.5 12/29/2016 Pt Dlr2893 Low Intensity - 1.5-2.0 12/29/2016 Pt Nnr3142 Mod intensity - 2.0-3.0 12/29/2016 Pt Exi4640 Hi intensity - 3.0-4.0 12/29/2016 Pt Qwo5061 PT 25.3 seconds 12/01/2016 Pt Wuv7229 INR 2.5 12/01/2016 Pt Gvi7078 Low Intensity - 1.5-2.0 12/01/2016 Pt Aru0778 Mod intensity - 2.0-3.0 12/01/2016 Pt Gyn1596 Hi intensity - 3.0-4.0 12/01/2016 Pt Rbn7102 PT 19.2 seconds 11/17/2016 Pt Wva3734 INR 1.7 11/17/2016 Pt Vur2090 Low Intensity - 1.5-2.0 11/17/2016 Pt Uqb6909 Mod intensity - 2.0-3.0 11/17/2016 Pt Obj0761 Hi intensity - 3.0-4.0 11/17/2016 Pt Gwd8862 PT 36.0 seconds 10/27/2016 Pt Ykc7836 INR 3.9 10/27/2016 Pt Mso7973 Low Intensity - 1.5-2.0 10/27/2016 Pt Izr0949 Mod intensity - 2.0-3.0 10/27/2016 Pt Tcd4922 Hi intensity - 3.0-4.0 10/27/2016 Culture Urine [id number] URINE CULTURE SEE NOTES 10/25/2016 Culture Urine [id number] Continued Results 10/25/2016 Urine Culture Ucult Complete >100,000 col/ml aerobic growth sent to ref lab 10/23/2016 Pt Qql9223 PT 30.7 seconds 09/29/2016 Pt Tfm6891 INR 3.2 09/29/2016 Pt Zag9086 Low Intensity - 1.5-2.0 09/29/2016 Pt Kny5269 Mod intensity - 2.0-3.0 09/29/2016 Pt Xah3905 Hi intensity - 3.0-4.0 09/29/2016 Urine Culture Ucult Complete Growth of aerobe sent to ref lab 09/26/2016 Pt Njq6313 PT 33.8 seconds 09/23/2016 Pt Ouh2734 INR 3.6 09/23/2016 Pt Srq0709 Low Intensity - 1.5-2.0 09/23/2016 Pt Atc1874 Mod intensity - 2.0-3.0 09/23/2016 Pt Xku6071 Hi intensity - 3.0-4.0 09/23/2016 Pt Dqi8781 PT 33.4 seconds 09/09/2016 Pt Jyi1573 INR 3.6 09/09/2016 Pt Qbu3829 Low Intensity - 1.5-2.0 09/09/2016 Pt Req6628 Mod intensity - 2.0-3.0 09/09/2016 Pt Rhe9951 Hi intensity - 3.0-4.0 09/09/2016 Pt Alh7745 PT 30.2 seconds 08/20/2016 Pt Hka4458 INR 3.1 08/20/2016 Pt Emo9127 Low Intensity - 1.5-2.0 08/20/2016 Pt Xwh7190 Mod intensity - 2.0-3.0 08/20/2016 Pt Oth0158 Hi intensity - 3.0-4.0 08/20/2016 Pt Tue1295 PT 32.1 seconds 08/12/2016 Pt Wzx1633 INR 3.4 08/12/2016 Pt Fcb6642 Low Intensity - 1.5-2.0 08/12/2016 Pt Vgq5929 Mod intensity - 2.0-3.0 08/12/2016 Pt Wih7324 Hi intensity - 3.0-4.0 08/12/2016 Comp Metabolic Rkk774 NA 138 mEq/L 06/23/2016 Comp Metabolic Vif444 K 3.8 mEq/L 06/23/2016 Comp Metabolic Cfw839 CL 103 mEq/L 06/23/2016 Comp Metabolic Cgw032 CO2 28.0 mEq/L 06/23/2016 Comp Metabolic Xie125 ANION GAP 11 06/23/2016 Comp Metabolic Qbg874 GLUCOSE 107 mg/dL 06/23/2016 Comp Metabolic Fee070 Creat 0.8 mg/dL 06/23/2016 Comp Metabolic Mei598 eGFR 75 ml/min/1.73m2 06/23/2016 Comp Metabolic Iec186 BUN 17 mg/dL 06/23/2016 Comp Metabolic Qif719 B/C Ratio 21.8 Ratio 06/23/2016 Comp Metabolic Cco031 CALCIUM 9.4 mg/dL 06/23/2016 Comp Metabolic Qqu698 ALK PHOS 101 U/L 06/23/2016 Comp Metabolic Jnx282 AST(SGOT) 17 U/L 06/23/2016 Comp Metabolic Qme630 ALT(SGPT) 13 U/L 06/23/2016 Comp Metabolic Qln347 BILI T 0.7 mg/dL 06/23/2016 Comp Metabolic Dhq652 ALBUMIN 4.3 g/dL 06/23/2016 Comp Metabolic Xoj035 TPRO 6.6 g/dL 06/23/2016 Comp Metabolic Brr247 GLOB 2.3 g/dL 06/23/2016 Comp Metabolic Gew019 A/G Ratio 1.8 Ratio 06/23/2016 Comp Metabolic Dbw737 Osmo 278 mOsmo 06/23/2016 Cbc With Differential [...] 32.4 pg 06/23/2016 Cbc With Differential Ord2 [place]% 12.8 % 06/23/2016 Cbc With Differential Ord2 [...] 1.20 K/ul 06/23/2016 Cbc With Differential Ord2 [place] ABS# 0.7 K/ul 06/23/2016 Cbc With Differential Ord2 Eos ABS# 0.1 K/ul 06/23/2016 Cbc With Differential Ord2 Baso ABS# 0.1 K/ul 06/23/2016 Pt Vrt9703 PT 25.9 seconds 06/23/2016 Pt Iuy3161 INR 2.5 06/23/2016 Pt Xgs5882 Low Intensity - 1.5-2.0 06/23/2016 Pt Ump8531 Mod intensity - 2.0-3.0 06/23/2016 Pt Wlc0703 Hi intensity - 3.0-4.0 06/23/2016 Comp Metabolic Ggp660 NA 138 mEq/L 05/12/2016 Comp Metabolic Knq593 K 3.8 mEq/L 05/12/2016 Comp Metabolic Xwm161 CL 104 mEq/L 05/12/2016 Comp Metabolic Lws249 CO2 25.0 mEq/L 05/12/2016 Comp Metabolic Hpt947 ANION GAP 13 05/12/2016 Comp Metabolic Fgd117 GLUCOSE 119 mg/dL 05/12/2016 Comp Metabolic Jbz714 Creat 0.8 mg/dL 05/12/2016 Comp Metabolic Iyb374 eGFR 71 ml/min/1.73m2 05/12/2016 Comp Metabolic Dap047 BUN 16 mg/dL 05/12/2016 Comp Metabolic Fpk373 B/C Ratio 19.5 Ratio 05/12/2016 Comp Metabolic Wbf274 CALCIUM 9.5 mg/dL 05/12/2016 Comp Metabolic Aew402 ALK PHOS 95 U/L 05/12/2016 Comp Metabolic Ymh592 AST(SGOT) 17 U/L 05/12/2016 Comp Metabolic Fgt171 ALT(SGPT) 18 U/L 05/12/2016 Comp Metabolic Zfz121 BILI T 0.6 mg/dL 05/12/2016 Comp Metabolic Tss970 ALBUMIN 4.0 g/dL 05/12/2016 Comp Metabolic Xcb088 TPRO 6.3 g/dL 05/12/2016 Comp Metabolic Dgk258 GLOB 2.3 g/dL 05/12/2016 Comp Metabolic Ahu181 A/G Ratio 1.7 Ratio 05/12/2016 Comp Metabolic Jpy820 Osmo 278 mOsmo 05/12/2016 Folate Ord36 Folate 19.88 ng/mL 05/12/2016 B12 Swq932 B12 614.00 pg/ml 05/12/2016 Pt Ppt3548 PT 29.1 seconds 05/12/2016 Pt Pze0100 INR 2.9 05/12/2016 Pt Qal6286 Low Intensity - 1.5-2.0 05/12/2016 Pt Ali8504 Mod intensity - 2.0-3.0 05/12/2016 Pt Pgb6528 Hi intensity - 3.0-4.0 05/12/2016 Cbc With [...] 32.1 pg 05/12/2016 Cbc With Differential Ord2 [place]% 11.0 % 05/12/2016 Cbc With Differential Ord2 [...] 1.35 K/ul 05/12/2016 Cbc With Differential Ord2 [place] ABS# 0.8 K/ul 05/12/2016 Cbc With Differential Ord2 Eos ABS# 0.1 K/ul 05/12/2016 Cbc With Differential Ord2 Baso ABS# 0.0 K/ul 05/12/2016 Pt Zlc5313 PT 29.8 seconds 04/21/2016 Pt Khx8565 INR 3.1 04/21/2016 Pt Jtb6569 Low Intensity - 1.5-2.0 04/21/2016 Pt Iyb6589 Mod intensity - 2.0-3.0 04/21/2016 Pt Teh1373 Hi intensity - 3.0-4.0 04/21/2016 Pt Jit8542 PT 25.2 seconds 03/24/2016 Pt Dar0600 INR 2.4 03/24/2016 Pt Ldo3535 Low Intensity - 1.5-2.0 03/24/2016 Pt Yim8495 Mod intensity - 2.0-3.0 03/24/2016 Pt Wsc5414 Hi intensity - 3.0-4.0 03/24/2016 Pt Sox6519 PT 17.7 seconds 03/06/2016 Pt Qtc7144 INR 1.5 03/06/2016 Pt Zpr7533 Low Intensity - 1.5-2.0 03/06/2016 Pt Ryd5745 Mod intensity - 2.0-3.0 03/06/2016 Pt Nkv6258 Hi intensity - 3.0-4.0 03/06/2016 Pt Qox5710 PT 26.4 seconds 02/07/2016 Pt Pim2372 INR 2.6 02/07/2016 Pt Nms6985 Low Intensity - 1.5-2.0 02/07/2016 Pt Mge8178 Mod intensity - 2.0-3.0 02/07/2016 Pt Jlj4764 Hi intensity - 3.0-4.0 02/07/2016 Lipid Ord30 [...] 21.9 % 02/07/2016 Cbc With Differential Ord2 [place]% 13.1 % 02/07/2016 Cbc With Differential Ord2 [...] 1.41 K/ul 02/07/2016 Cbc With Differential Ord2 [place] ABS# 0.8 K/ul 02/07/2016 Cbc With Differential Ord2 Eos ABS# 0.1 K/ul 02/07/2016 Cbc With Differential Ord2 Baso ABS# 0.0 K/ul 02/07/2016 Comp Metabolic Vqf952 NA 137 mEq/L 02/07/2016 Comp Metabolic Qqy980 K 3.9 mEq/L 02/07/2016 Comp Metabolic Ahn520 CL 102 mEq/L 02/07/2016 Comp Metabolic Tav724 CO2 32.0 mEq/L 02/07/2016 Comp Metabolic Mmn029 ANION GAP 7 02/07/2016 Comp Metabolic Eqf719 GLUCOSE 95 mg/dL 02/07/2016 Comp Metabolic Nrj758 Creat 0.8 mg/dL 02/07/2016 Comp Metabolic Vyh691 eGFR 73 ml/min/1.73m2 02/07/2016 Comp Metabolic Yfo772 BUN 20 mg/dL 02/07/2016 Comp Metabolic Rti702 B/C Ratio 25.0 Ratio 02/07/2016 Comp Metabolic Xat810 CALCIUM 9.4 mg/dL 02/07/2016 Comp Metabolic Qwa032 ALK PHOS 68 U/L 02/07/2016 Comp Metabolic Rbh591 AST(SGOT) 16 U/L 02/07/2016 Comp Metabolic Tuw224 ALT(SGPT) 18 U/L 02/07/2016 Comp Metabolic Lvj967 BILI T 0.7 mg/dL 02/07/2016 Comp Metabolic Fkh732 ALBUMIN 4.0 g/dL 02/07/2016 Comp Metabolic Qov916 TPRO 6.4 g/dL 02/07/2016 Comp Metabolic Ksn428 GLOB 2.4 g/dL 02/07/2016 Comp Metabolic Xzm373 A/G Ratio 1.7 Ratio 02/07/2016 Comp Metabolic Qei564 Osmo 276 mOsmo 02/07/2016 Tsh Ord6 hTSH II 0.16 uIU/mL 02/07/2016 Pt Div8028 PT 21.1 seconds 01/11/2016 Pt Anq2717 INR 1.9 01/11/2016 Pt Zux0603 Low Intensity - 1.5-2.0 01/11/2016 Pt Lrj2060 Mod intensity - 2.0-3.0 01/11/2016 Pt Zid6963 Hi intensity - 3.0-4.0 01/11/2016 Comp Metabolic Emv448 NA 137 mEq/L 01/11/2016 Comp Metabolic Cih206 K 4.0 mEq/L 01/11/2016 Comp Metabolic Xhw354 CL 101 mEq/L 01/11/2016 Comp Metabolic Wss994 CO2 29.0 mEq/L 01/11/2016 Comp Metabolic Hfh344 ANION GAP 11 01/11/2016 Comp Metabolic Adb137 GLUCOSE 89 mg/dL 01/11/2016 Comp Metabolic Gzn275 Creat 0.9 mg/dL 01/11/2016 Comp Metabolic Idx445 eGFR 61 ml/min/1.73m2 01/11/2016 Comp Metabolic Zin227 BUN 22 mg/dL 01/11/2016 Comp Metabolic Adx820 B/C Ratio 23.7 Ratio 01/11/2016 Comp Metabolic Kro164 CALCIUM 9.3 mg/dL 01/11/2016 Comp Metabolic Klj458 ALK PHOS 76 U/L 01/11/2016 Comp Metabolic Jij920 AST(SGOT) 15 U/L 01/11/2016 Comp Metabolic Nkk425 ALT(SGPT) 20 U/L 01/11/2016 Comp Metabolic Nlw946 BILI T 0.5 mg/dL 01/11/2016 Comp Metabolic Pif908 ALBUMIN 3.9 g/dL 01/11/2016 Comp Metabolic Lrw647 TPRO 6.2 g/dL 01/11/2016 Comp Metabolic Yxr706 GLOB 2.3 g/dL 01/11/2016 Comp Metabolic Xif351 A/G Ratio 1.7 Ratio 01/11/2016 Comp Metabolic Oks226 Osmo 277 mOsmo 01/11/2016 Tsh Ord6 hTSH [...] 33.4 pg 01/11/2016 Cbc With Differential Ord2 [place]% 11.6 % 01/11/2016 Cbc With Differential Ord2 [...] 1.41 K/ul 01/11/2016 Cbc With Differential Ord2 [place] ABS# 0.9 K/ul 01/11/2016 Cbc With Differential Ord2 Eos ABS# 0.1 K/ul 01/11/2016 Cbc With Differential Ord2 Baso ABS# 0.0 K/ul 01/11/2016 Free T4 Qzl772 FREE T4 1.42 ng/dL 01/11/2016 Pt Zvt0767 PT 23.8 seconds 11/29/2015 Pt Hin4954 INR 2.3 11/29/2015 Pt Aqe6618 Low Intensity - 1.5-2.0 11/29/2015 Pt Msw7351 Mod intensity - 2.0-3.0 11/29/2015 Pt Zfx3996 Hi intensity - 3.0-4.0 11/29/2015 Pt Pwa5588 PT 31.9 seconds 11/14/2015 Pt Rqt4966 INR 3.4 11/14/2015 Pt Qvk3723 Low Intensity - 1.5-2.0 11/14/2015 Pt Eif4591 Mod intensity - 2.0-3.0 11/14/2015 Pt Ndd0550 Hi intensity - 3.0-4.0 11/14/2015 Pt Uae5864 PT 23.9 seconds 10/15/2015 Pt Oew8777 INR 2.3 10/15/2015 Pt Zpy0248 Low Intensity - 1.5-2.0 10/15/2015 Pt Qzz9920 Mod intensity - 2.0-3.0 10/15/2015 Pt Onw1739 Hi intensity - 3.0-4.0 10/15/2015 Pt Bdh7835 PT 27.3 seconds 09/03/2015 Pt Gem3785 INR 2.6 09/03/2015 Pt Xfe5316 Low Intensity - 1.5-2.0 09/03/2015 Pt Frg6300 Mod intensity - 2.0-3.0 09/03/2015 Pt Bha6928 Hi intensity - 3.0-4.0 09/03/2015 Pt Xrl9681 PT 22.3 seconds 08/06/2015 Pt Kqm7273 INR 2.0 08/06/2015 Pt Hcu5680 Low Intensity - 1.5-2.0 08/06/2015 Pt Krw4454 Mod intensity - 2.0-3.0 08/06/2015 Pt Ryv4776 Hi intensity - 3.0-4.0 08/06/2015 Pt Exc1900 PT 22.7 seconds 06/18/2015 Pt Bbx4110 INR 2.1 06/18/2015 Pt Aio7982 Low Intensity - 1.5-2.0 06/18/2015 Pt Luo0512 Mod intensity - 2.0-3.0 06/18/2015 Pt Wbu4542 Hi intensity - 3.0-4.0 06/18/2015 Pt Dhz1953 PT 21.8 seconds 06/11/2015 Pt Byr6784 INR 2.0 06/11/2015 Pt Vyt5788 Low Intensity - 1.5-2.0 06/11/2015 Pt Lsv2587 Mod intensity - 2.0-3.0 06/11/2015 Pt Xwr2760 Hi intensity - 3.0-4.0 06/11/2015 Pt Puw6662 PT 21.2 seconds 05/28/2015 Pt Gkt8020 INR 1.9 05/28/2015 Pt Kya0423 Low Intensity - 1.5-2.0 05/28/2015 Pt Vsd9177 Mod intensity - 2.0-3.0 05/28/2015 Pt Tel6051 Hi intensity - 3.0-4.0 05/28/2015 Pt Imp1035 PT 26.7 seconds 05/07/2015 Pt Hyb5668 INR 2.6 05/07/2015 Pt Iht8714 Low Intensity - 1.5-2.0 05/07/2015 Pt Btj0397 Mod intensity - 2.0-3.0 05/07/2015 Pt Obv4378 Hi intensity - 3.0-4.0 05/07/2015 Pt Gxe5843 PT 17.7 seconds 04/20/2015 Pt Lqj9993 INR 1.5 04/20/2015 Pt Szb3766 Low Intensity - 1.5-2.0 04/20/2015 Pt Ccu2443 Mod intensity - 2.0-3.0 04/20/2015 Pt Bnb7919 Hi intensity - 3.0-4.0 04/20/2015 Pt Wcz2336 PT 13.0 seconds 04/12/2015 Pt Hsx3580 INR 1.0 04/12/2015 Pt Ftd8542 Low Intensity - 1.5-2.0 04/12/2015 Pt Tij3023 Mod intensity - 2.0-3.0 04/12/2015 Pt Opg8127 Hi intensity - 3.0-4.0 04/12/2015 Pt Egx2412 PT 23.0 seconds 03/07/2015 Pt Sxe9238 INR 2.1 03/07/2015 Pt Vdy0251 Low Intensity - 1.5-2.0 03/07/2015 Pt Lsw1656 Mod intensity - 2.0-3.0 03/07/2015 Pt Pqv5712 Hi intensity - 3.0-4.0 03/07/2015 Pt Lzn7067 PT 20.3 seconds 02/15/2015 Pt Hjq0417 INR 1.8 02/15/2015 Pt Vxh3369 Low Intensity - 1.5-2.0 02/15/2015 Pt Alc4454 Mod intensity - 2.0-3.0 02/15/2015 Pt Awd9429 Hi intensity - 3.0-4.0 02/15/2015 Hepatic Ids843 ALBUMIN 4.1 g/dL 02/08/2015 Hepatic Zyn665 TPRO 6.5 g/dL 02/08/2015 Hepatic Hfp482 GLOB 2.4 g/dL 02/08/2015 Hepatic Qze587 A/G Ratio 1.7 Ratio 02/08/2015 Hepatic Dhx967 ALK PHOS 83 U/L 02/08/2015 Hepatic Dar907 ALT(SGPT) 19 U/L 02/08/2015 Hepatic Byc654 AST(SGOT) 19 U/L 02/08/2015 Hepatic Jkq897 BILI T 0.4 mg/dL 02/08/2015 Hepatic Bjm888 BILI D 0.0 mg/dL 02/08/2015 Hepatic Vwl350 BILI I 0.4 mg/dL 02/08/2015 Lipid Ord30 CHOL 230 mg/dL 02/08/2015 Lipid Ord30 HDL 47.0 mg/dl 02/08/2015 Lipid Ord30 TRIG 180 mg/dL 02/08/2015 Lipid Ord30 LDL 147 mg/dL 02/08/2015 Lipid Ord30 C/HDL 4.9 Ratio 02/08/2015 Pt Joj2570 PT 22.6 seconds 02/08/2015 Pt Hjg1167 INR 2.1 02/08/2015 Pt Dfi8144 Low Intensity - 1.5-2.0 02/08/2015 Pt Wsw5547 Mod intensity - 2.0-3.0 02/08/2015 Pt Tju8820 Hi intensity - 3.0-4.0 02/08/2015 Review of [...] Codes Date URINALYSIS NONAUTO W/O SCOPE CPT-4: 12688 06/30/2017 URINALYSIS NONAUTO W/O SCOPE CPT-4: 93700 06/10/2017 URINALYSIS NONAUTO W/O SCOPE CPT-4: 75077 05/26/2017 URINALYSIS NONAUTO W/O SCOPE CPT-4: 37183 03/10/2017 URINALYSIS NONAUTO W/O SCOPE CPT-4: 16077 02/19/2017 URINALYSIS NONAUTO W/O SCOPE CPT-4: 97539 10/22/2016 URINALYSIS NONAUTO W/O SCOPE CPT-4: 61156 09/25/2016 Pneumococcal Polysaccharide Vaccine, 23-Valent, Ad CPT-4: 46365 09/09/2016 ADMIN PNEUMOCOCCAL VACCINE SNOMED CT: 77777576 CPT-4: G0009 09/09/2016 URINALYSIS NONAUTO W/O SCOPE CPT-4: 83900 12/10/2015 ROCEPHIN, PER 250 MG CPT-4: J0696 10/18/2015 TRIAMCINOLONE ACET INJ NOS CPT-4: J3301 10/15/2015 TRIAMCINOLONE ACET INJ NOS CPT-4: J3301 08/28/2015 ROCEPHIN, PER 250 MG CPT-4: J0696 08/28/2015 THER/PROPH/DIAG INJ SC/IM CPT-4: 45591 06/11/2015 ROCEPHIN, PER 250 MG CPT-4: J0696 06/11/2015 THER/PROPH/DIAG INJ SC/IM CPT-4: 34902 05/23/2015 TRIAMCINOLONE ACET INJ NOS CPT-4: J3301 05/23/2015 ADMIN INFLUENZA VIRUS VAC Formatting Model/CDA Sections, Assigned to CPT-4: [id number] 03/07/2015 FLU VACC 4 ISADORA 3 YRS PLUS IM SNOMED CT: 30336494 CPT-4: 83518 03/07/2015 Vital Signs Date Vital 05/13/2017 Blood Pressure 1: 138/74 Code : 8480-6 BMI: 30.9 Code : 57044-8 Heart Rate 1 : 75 bpm Height: 5'2" SpO2: 98% Weight: 169 lbs 03/10/2017 Blood Pressure 1: 142/84 Code : 8480-6 Blood Pressure 1: 136/76 Code: 8480-6 BMI: 31.3 Code: 89852-5 Heart Rate 1: 67 bpm Height: 5'2" SpO2: 97% Weight: 171 lbs 02/19/2017 Blood Pressure 1: 144/74 Code : 8480-6 BMI: 31.8 Code : 14682-6 Heart Rate 1 : 81 bpm Height: 5'2" SpO2: 96% Weight: 174 lbs 02/05/2017 Blood Pressure 1: 130/68 Code : 8480-6 BMI: 32.0 Code : 02243-0 Heart Rate 1 : 67 bpm Height: 5'2" SpO2: 97% Weight: 175 lbs 09/09/2016 Blood Pressure 1: 140/82 Code : 8480-6 BMI: 32.7 Code : 27259-8 Heart Rate 1 : 64 bpm Height: 5'2" SpO2: 95% Weight: 179 lbs 08/12/2016 Blood Pressure 1: 148/80 Code : 8480-6 BMI: 33.1 Code : 18153-1 Heart Rate 1 : 98 bpm Height: 5'2" SpO2: 98% Weight: 181 lbs 06/23/2016 Blood Pressure 1: 146/72 Code : 8480-6 Heart Rate 1: 80 bpm Height: 5'2" SpO2: 98% Weight: 05/12/2016 Blood Pressure 1: 138/74 Code : 8480-6 BMI: 33.3 Code : 91462-4 Heart Rate 1 : 82 bpm Height: 5'2" SpO2: 98% Weight: 182 lbs 02/07/2016 Blood Pressure 1: 128/78 Code : 8480-6 BMI: 33.3 Code : 27095-5 Heart Rate 1 : 51 bpm Height: 5'2" SpO2: 97% Weight: 182 lbs 12/10/2015 Blood Pressure 1: 110/70 Code : 8480-6 BMI: 33.3 Code : 77201-2 Heart Rate 1 : 67 bpm Height: 5'2" SpO2: 96% Weight: 182 lbs 10/18/2015 Blood Pressure 1: 146/76 Code : 8480-6 BMI: 33.3 Code : 76405-7 Heart Rate 1 : 84 bpm Height: 5'2" SpO2: 98% Weight: 182 lbs 10/15/2015 Blood Pressure 1: 142/98 Code : 8480-6 Blood Pressure 1: 138/86 Code: 8480-6 BMI: 33.5 Code: 81321-2 Heart Rate 1: 85 bpm Height: 5'2" SpO2: 99% Temperature : 35.9 (C) / 96.6 (F) Weight: 183 lbs 08/28/2015 Blood Pressure 1: 146/84 Code : 8480-6 BMI: 33.7 Code : 20904-4 Heart Rate 1 : 92 bpm Height: 5'2" SpO2: 97% Temperature: 36.4 (C) / 97.5 (F) Weight: 184 lbs 06/11/2015 Blood Pressure 1: 144/92 Code : 8480-6 BMI: 33.5 Code : 59248-2 Heart Rate 1 : 79 bpm Height: 5'2" SpO2: 99% Weight: 183 lbs 05/23/2015 Blood Pressure 1: 128/68 Code : 8480-6 BMI: 34.2 Code : 46778-8 Heart Rate 1 : 84 bpm Height: 5'2" SpO2: 96% Weight: 187 lbs 03/07/2015 Blood Pressure 1: 132/62 Code : 8480-6 BMI: 33.5 Code : 84877-4 Heart Rate 1 : 94 bpm Height: 5'2" SpO2: 98% Weight: 183 lbs 02/15/2015 Blood Pressure 1: 140/76 Code : 8480-6 BMI: 33.5 Code : 11604-8 Heart Rate 1 : 76 bpm Height: 5'2" SpO2: 96% Weight: 183 lbs 10/16/2014 Blood Pressure 1: 128/84 Code : 8480-6 BMI: 32.9 Code : 77933-3 Heart Rate 1 : 82 bpm Height: [...] data Encounters Encounter Performer Location Codes Date ([id number]) [id number] EST. PATIENT, LEVEL IV Diagnosis: Essential (primary) hypertension[ICD10: I10] Diagnosis: Atrophy of thyroid (acquired)[ICD10: E03.4] Diagnosis: Slow transit constipation[ICD10: K59.01] Jumana Hull MD, [facility] CPT-4: 81690 05/13/2017 ([id number]) 81787 EST. PATIENT, LEVEL IV Diagnosis: Essential (primary) hypertension[ICD10: I10] Diagnosis: Atrophy of thyroid (acquired)[ICD10: E03.4] Diagnosis: correction (current) use of anticoagulants[ICD10: Z79.01] Diagnosis: Dysuria[ICD10: R30.0] Diagnosis: Slow transit constipation[ICD10: K59.01] Jumana Hull MD, [facility] CPT-4: 37938 03/10/2017 ([id number]) 22033 EST. PATIENT, LEVEL III Diagnosis: Urinary tract infection, site not specified[ICD10: N39.0] Juliette Hull MD , [facility] CPT-4: 87512 02/19/2017 ([id number]) 46259 EST. PATIENT, LEVEL III Diagnosis: Urinary tract infection, site not specified[ICD10: N39.0] Diagnosis: Cough[ICD10: R05] Diagnosis: Other allergic rhinitis[ICD10: J30.89] Juliette Hull MD, [facility] CPT-4: 24135 02/05/2017 ([id number]) 34552 EST. PATIENT, LEVEL IV Diagnosis: Essential (primary) hypertension[ICD10: I10] Diagnosis: Atrophy of thyroid (acquired)[ICD10: E03.4] Diagnosis: Mixed hyperlipidemia[ICD10: E78.2] Diagnosis: Encounter for immunization[ICD10: Z23] Jumana Hull MD, [facility] CPT-4: 35431 09/09/2016 ([id number]) 25244 EST. PATIENT, LEVEL IV Diagnosis: Essential (primary) hypertension[ICD10: I10] Diagnosis: Mixed hyperlipidemia[ICD10: E78.2] Diagnosis: Other idiopathic peripheral autonomic neuropathy[ICD10: G90.09] Diagnosis: Atrophy of thyroid (acquired)[ICD10: E03.4] Jumana Hull MD, [facility] CPT-4: 90216 08/12/2016 ([id number]) 83634 EST. 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 PATIENT, LEVEL III Diagnosis: Localized edema[ICD10: R60.0] Diagnosis: Essential (primary) hypertension[ICD10: I10] Diagnosis: Mixed hyperlipidemia[ICD10: E78.2] Diagnosis: correction (current) use of anticoagulants[ICD10: Z79.01] Juliette Hull MD , [facility] CPT-4: 11855 02/07/2016 ([id number]) 34844 EST. PATIENT, LEVEL IV Diagnosis: Essential (primary) hypertension[ICD10: I10] Diagnosis: Dysuria[ICD10: R30.0] Diagnosis: Hypothyroidism, unspecified[ICD10: E03.9] Diagnosis: Mixed hyperlipidemia[ICD10: E78.2] Diagnosis: Cervicalgia[ICD10: M54.2] Jumana Hull MD, [facility] CPT-4: 56017 12/10/2015 ([id number]) 19531 EST. PATIENT, LEVEL III Diagnosis: Essential (primary) hypertension[ICD10: I10] Diagnosis: Allergic rhinitis due to pollen[ICD10: J30.1] Juliette Hull MD, [facility] CPT-4: 46259 10/15/2015 ([id number]) 09481 EST. PATIENT, LEVEL III Diagnosis: Acute bronchitis due to other specified organisms[ICD10: J20.8] Diagnosis: Acute recurrent maxillary sinusitis[ICD10: J01.01] Jumana Hull MD, [facility] CPT-4: 87053 08/28/2015 86038 EST. PATIENT, LEVEL III Diagnosis: Acute recurrent maxillary sinusitis[ICD10: J01.01] Diagnosis: Cough[ICD10: R05] Angélica Hull MD, [facility] CPT-4: 00585 06/11/2015 [id number] EST. PATIENT, LEVEL III Diagnosis: Acute bronchitis due to other specified organisms[ICD10: J20.8] Angélica Hull MD, [facility] CPT-4: 38450 05/23/2015 ([id number]) 06240 EST. PATIENT, LEVEL III Diagnosis: ESSENTIAL HYPERTENSION[ICD9: 401.9] Diagnosis: A-fib[ICD9: 427.31] Diagnosis: INSECT BITE FOREARM[ICD9: 913.4] Jumana Hull MD, [facility] CPT-4: 70957 03/07/2015 ([id number]) 30282 EST. PATIENT, LEVEL III Diagnosis: Cellulitis of leg[ICD9: 682.6] Jumana Hull MD, [facility] CPT- 4: 33121 02/15/2015 ([id number]) OFFICE VISIT, NEW - LEVEL 4 Diagnosis: ESSENTIAL HYPERTENSION[ICD9: 401.9] Diagnosis: A-fib[ICD9: 427.31] Diagnosis: Rash[ICD9: 782.1] Diagnosis: Cough[ICD9: 786.2] Juliette Hull MD, [facility] CPT-4: 77686 10/16/2014 Plan of Care Planned Activity Notes Codes Status Date Patient Education: Patient Medication Summary Completed 06/30/2017 [...] arm/joint. 05/13/2017 App[facility]ment[phone] [facility] (15 min) Moderate 05/13/2017 Patient [...] regimen. 03/10/2017 Appointment: [facility]el[facility] [phone] [facility] [place] (15 min) Moderate 03/10/2017 Patient Education: Patient Medication Summary Completed 03/10/2017 Patient Education: Obesity Completed 03/10/2017 Visit Plan: UTI-UA positive today in the office-will send for culture and treat as appropriate. 02/19/2017 Appointment: Juliet[facility]ost [phone] [phone] [place] (15 min) Moderate 02/19/2017 Patient Education: Patient Medication Summary Completed 02/19/2017 Patient Education: Obesity Completed 02/19/2017 Visit Plan: UTI-finish macrobid-follow up in 2 weeks- discussed preventative abx and twice weekly premarin vaginal cream Allergies- cough-start flonase and claritin as discussed-call if symptoms do not improve or if any worse 02/05/2017 Appointment: Juliette Yost WPtel: [phone] [facility] [place] [address] (15 min) Moderate 02/05/2017 Patient Education: Patient Medication Summary Completed 02/05/2017 Patient Education: Obesity Completed 02/05/2017 Appointment: Lab Draw 10/22/2016 Patient Education: Patient Medication Summary Completed 10/22/2016 Appointment: Lab Draw 09/25/2016 Patient Education: Patient Medication Summary Completed 09/25/2016 Appointment: Angélica Kong WPtel: [phone] [facility] [facility] - Annual Wellness Visit 09/10/2016 Visit [...] of control. 09/09/2016 Appointment: Jumana Hull WPtel: [phone] [facility] (15 min) Moderate 09/09/2016 Patient Education: Patient [...] current treatments. 08/12/2016 Appointment: [phone] [facility] (15 min) Moderate 08/12/2016 Patient [...] 3.5. 06/23/2016 Appointment: Juliette Yost WPtel: [phone] [phone] (30 min) Complex 06/23/2016 Patient [...] checked. 05/12/2016 Appointment: Jum[facility] Hull [facility]Ptel[facility] [phone] [facility] (15 min) Moderate 05/12/2016 Patient Education: Patient [...] of control. 12/10/2015 Appointment: Jumana Hull WPtel: [phone] (15 min) Moderate 12/10/2015 Patient Education: Patient Medication Summary Completed 12/10/2015 Patient Education: Obesity Completed 12/10/2015 Patient Education: .Cervicalgia Neck Pain Completed 12/10/2015 Appointment: Jumana Hull WPtel: [facility] [address] (15 min) Moderate 12/03/2015 Referral: Leonidas [address] Referral Initiated 10/26/2015 Visit Plan: Sinusitis [...] 10/18/2015 Care Plan: Referral Order SNOMED-CT : [id number] Pending 10/18/2015 Visit Plan: Hypertension - well [...] becoming uncontrolled. 03/07/2015 Appointment: Jumana Hull WPtel: [facility] (15 min) Moderate 03/07/2015 Patient Education: Patient [...] Care Plan: COMPLETE CBC AUTOMATED LOINC : 49852-4 Ordered 10/17/2014 Visit Plan: Hypertension - well [...] Education: Hypertension Completed 10/16/2014 [facility] [facility] Initiated Instructions Comment HOLD LISINOPRIL X [...] abx and twice weekly premarin vaginal cream [id number]-[id number]-wikrz flonase and claritin as discussed-call if symptoms [...]
--- OUTSIDE RECORDS SUMMARY | 2017-12-04 05:42 | XMS REPORT | Continuity of Care Document ---
Author Author [facility] Organization [facility] Address Unknown Phone Unavailable Allergies Active Description Code Type Severity Reaction Onset Reported/Identified Relationship to Patient Clinical Status Yes Penicillins [id number] Drug Allergy Unknown N/A 11/17/2008 Medications There is no data. 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,NEC 03/06/2011 Ot V58.61 ANTICOAGULANTS,LT,CURRENT USE 03/06/2011 Ot V58.66 LONG-TERM ( CURRENT) USE OF ASPIRIN 03/06/2011 Ot V58.69 OTH MED,LT, CURRENT USE 06/03/2012 Ot 414.01 CORONARY ATHEROSCLEROSIS OF [place] CORON 06/03/2012 Ot 427.31 ATRIAL FIBRILLATION 06/03/2012 Ot 786.09 RESPIRATORY ABNORM NEC 06/03/2012 Ot 794.30 ABN CARDIOVASC STUDY NOS 06/03/2012 Ot V58.61 ANTICOAGULANTS,LT,CURRENT USE 06/03/2012 Ot V58.66 LONG-TERM ( CURRENT) USE OF ASPIRIN 06/03/2012 Ot V58.69 OTH MED,LT, CURRENT USE 07/19/2013 LEONA COBB MD Ot 780.79 OTH MALAISE FATIGUE 07/19/2013 LEONA COBB MD Ot 786.50 CHEST PAIN NOS 07/19/2013 LEONA COBB MD Ot 787.01 NAUSEA WITH VOMITING 07/22/2013 SHARONDA MON MD Ot 244.9 HYPOTHYROIDISM NOS 07/22/2013 SHARONDA MON MD Ot 272.4 HYPERLIPIDEMIA NEC/NOS 07/22/2013 SHARONDA MON MD Ot 276.51 DEHYDRATION 07/22/2013 RAMONA MON MDHLEEN M Ot 416.8 CHR PULMON HEART DIS NEC 07/22/2013 ELIESER SHIPLEY, SHARONDA Montez Ot 427.31 ATRIAL FIBRILLATION 07/22/2013 SHARONDA MON MD Ot 429.3 CARDIOMEGALY 07/22/2013 SHARONDA MON MD Ot 535.50 UNSP GASTRITIS GASTRODUODENITIS W/O ME 07/22/2013 SHARONDA MON MD Ot 553.3 DIAPHRAGMATIC HERNIA 07/22/2013 ELIESER SHIPLEY, SHARONDA Montez Ot 780.60 FEVER, UNSPECIFIED 07/22/2013 SHARONDA MON MD Ot 786.06 TACHYPNEA 07/22/2013 SHARONDA MON MD Ot 789.06 ABDOMINAL PAIN, EPIGASTRIC 07/22/2013 SHARONDA MON MD Ot V12.54 PERSONAL HX OF TIA, CEREBRAL INFARCTION 09/21/2013 SILVIO WATSON DO Ot V43.65 KNEE JOINT REPLACEMENT STATUS 09/21/2013 SILVIO WATSON DO Ot V54.81 AFTERCARE FOLLOWING JOINT REPLACEMENT 09/21/2013 SILVIO WATSON DO Ot V57.1 PHYSICAL THERAPY NEC 12/07/2013 AVILA WINSTON DO Ot 427.31 ATRIAL FIBRILLATION 12/07/2013 AVILA WINSTON DO Ot 716.90 ARTHROPATHY NOS-UNSPEC 12/07/2013 AVILA WINSTON DO Ot 873.42 OPEN WOUND OF FOREHEAD 12/07/2013 AVILA WINSTON DO Ot 920 CONTUSION FACE/SCALP/NCK 12/07/2013 AVILA WINSTON DO Ot E849.0 ACCIDENT IN HOME 12/07/2013 AVILA WINSTON DO Ot E888.1 FALL STRIKING OBJECT NEC 12/07/2013 AVILA WINSTON DO Ot V06.1 [id number], COMBINED [ 12/07/2013 AVILA WINSTON DO Ot V12.54 PERSONAL HX OF TIA, CEREBRAL INFARCTION 12/07/2013 AVILA WINSTON DO Ot V14.0 HX-PENICILLIN ALLERGY 12/07/2013 AVILA WINSTON DO Ot V43.65 KNEE JOINT REPLACEMENT STATUS 12/07/2013 AVILA WINSTON DO Ot V58.61 ANTICOAGULANTS,LT,CURRENT USE 12/07/2013 AVILA WINSTON DO Ot V58.66 LONG-TERM (CURRENT) USE OF ASPIRIN 12/07/2013 AVILA WINSTON DO Ot V58.69 OTH MED,LT,CURRENT USE 07/05/2014 Ot 573.8 07/05/2014 Ot 787.01 07/05/2014 Ot 789.00 07/05/2014 Ot 397.0 07/05/2014 Ot 424.0 07/05/2014 Ot 427.31 07/05/2014 Ot 429.3 07/05/2014 Ot 786.8 07/05/2014 Ot V76.12 07/05/2014 Ot 427.31 07/05/2014 Ot 466.0 07/05/2014 Ot 786.50 07/05/2014 Ot 733.00 07/05/2014 Ot 573.8 07/05/2014 Ot V76.12 07/05/2014 Ot 427.31 07/05/2014 Ot V76.12 07/05/2014 Ot 414.00 07/05/2014 Ot 786.09 07/05/2014 ELIESER SHIPLEY, SHARONDA Montez Ot 959.6 07/05/2014 ELIESER SHIPLEY, SHARONDA Montez Ot E000.8 07/05/2014 ELIESER SHIPLEY, SHARONDA Montez Ot E849.0 07/05/2014 ELIESER SHIPLEY, SHARONDA Montez Ot E888.9 07/05/2014 ELIESER SHIPLEY, SHARONDA Montez Ot 789.00 07/05/2014 ELIESER SHIPLEY, SHARONDA Montez Ot V76.12 07/05/2014 ELIESER SHIPLEY, SHARONDA Montez Ot 573.9 07/05/2014 ELIESER SHIPLEY, SHARONDA Montez Ot 787.02 07/05/2014 ELIESER SHIPLEY, SHARONDA Montez Ot 789.00 07/25/2014 ELIESER SHIPLEY, SHARONDA Montez Ot V76.12 02/26/2015 Ot 397.0 02/26/2015 Ot 424.0 02/26/2015 Ot 427.31 02/26/2015 Ot 429.3 02/26/2015 Ot 786.8 02/26/2015 Ot V76.12 02/26/2015 Ot 427.31 02/26/2015 Ot 466.0 02/26/2015 Ot 786.50 02/26/2015 Ot 733.00 02/26/2015 Ot 573.8 02/26/2015 Ot V76.12 02/26/2015 Ot 427.31 02/26/2015 Ot V76.12 02/26/2015 Ot 414.00 02/26/2015 Ot 786.09 02/26/2015 ELIESER SHIPLEY, SHARONDA Montez Ot 959.6 02/26/2015 ELIESER SHIPLEY, SHARONDA Montez Ot E000.8 02/26/2015 ELIESER SHIPLEY, SHARONDA Montez Ot E849.0 02/26/2015 ELIESER SHIPLEY, SHARONDA M Ot E888.9 02/26/2015 ELIESER SHIPLEY, SHARONDA M Ot 789.00 02/26/2015 ELIESER SHIPLEY, SHARONDA Montez Ot V76.12 02/26/2015 ELIESER SHIPLEY, SHARONDA Montez Ot 573.9 02/26/2015 ELIESER SHIPLEY, SHARONDA Montez Ot 787.02 02/26/2015 ELIESER SHIPLEY, SHARONDA Montez Ot 789.00 02/26/2015 ELIESER SHIPLEY, SHARONDA Montez Ot V76.12 03/13/2015 SHANTA SHIPLEY, TOMMY Flores Ot 272.4 03/13/2015 SHANTA SHIPLEY, TOMMY Flores Ot 401.9 03/13/2015 SHANTA HSIPLEY, TOMMY Flores Ot 414.9 03/13/2015 SHANTA SHIPLEY, TOMMY Flores Ot 427.31 03/21/2015 LEAH SHIPLEY, SILVIO S Ot 433.10 03/28/2015 LEAH SHIPLEY, SILVIO S Ot 433.10 04/16/2015 SHANTA SHIPLEY, TOMMY Flores Ot 272.4 04/16/2015 SHANTA SHIPLEY, TOMMY Flores Ot 401.9 04/16/2015 SHANTA SHIPLEY, TOMMY Flores Ot 414.9 04/16/2015 SHANTA SHIPLEY, TOMMY Flores Ot 427.31 07/25/2015 Ot 414.00 07/25/2015 Ot 786.09 07/25/2015 ELIESER SHIPLEY, SHARONDA Montez Ot 959.6 07/25/2015 ELIESER SHIPLEY, SHARONDA Montez Ot E000.8 07/25/2015 ELIESER SHIPLEY, SHARONDA Montez Ot E849.0 07/25/2015 ELIESER SHIPLEY, SHARONDA Montez Ot E888.9 07/25/2015 ELIESER SHIPLEY, SHARONDA Montez Ot 789.00 07/25/2015 ELIESER SHIPLEY, SHARONDA Montez Ot V76.12 07/25/2015 ELIESER SHIPLEY, SHARONDA Montez Ot 573.9 07/25/2015 ELIESER SHIPLEY, SHARONDA Montez Ot 787.02 07/25/2015 ELIESER SHIPLEY, SHARONDA Montez Ot 789.00 07/25/2015 ELIESER SHIPLEY, SHARONDA Montez Ot V76.12 07/25/2015 SHANTA SHIPLEY, TOMMY Flores Ot 272.4 07/25/2015 SHANTA SHIPLEY, TOMMY Flores Ot 401.9 07/25/2015 SHANTA SHIPLEY, TOMMY Flores Ot 414.9 07/25/2015 SHANTA SHIPLEY, TOMMY Flores Ot 427.31 07/25/2015 LEAH SHIPLEY, SILVIO S Ot 433.10 07/25/2015 LEAH SHIPLEY, SILVIO S Ot 433.10 07/27/2015 MARY TOWNSEND COMMUNICATIONS SUPERINTENDENT Ot Z12.31 11/14/2015 LEONA COBB MD Ot 780.79 OTH MALAISE FATIGUE 11/14/2015 LEONA COBB MD Ot 786.50 CHEST PAIN NOS 11/14/2015 LEONA COBB MD Ot 787.01 NAUSEA WITH VOMITING 02/20/2016 Ot 427.31 ATRIAL FIBRILLATION 02/20/2016 Ot 466.0 ACUTE BRONCHITIS 02/20/2016 Ot 786.50 CHEST PAIN NOS 02/20/2016 Ot 733.00 OSTEOPOROSIS NOS 02/20/2016 Ot 573.8 LIVER DISORDERS NEC 02/20/2016 Ot V76.12 OTH SCREEN MAMMO-MALIGN NEOPLASM OF [place] 02/20/2016 Ot 427.31 ATRIAL FIBRILLATION 02/20/2016 Ot V76.12 OTH SCREEN MAMMO-MALIGN NEOPLASM OF [place] 02/20/2016 Ot 414.00 CORON ATHEROSCLER NOS TYPE VESSEL, NATIV 02/20/2016 Ot 786.09 RESPIRATORY ABNORM NEC 02/20/2016 SHARONDA MON MD Ot 959.6 HIP THIGH INJURY NOS 02/20/2016 SHARONDA MON MD Ot E000.8 OTHER EXTERNAL CAUSE STATUS 02/20/2016 SHARONDA MON MD Ot E849.0 ACCIDENT IN HOME 02/20/2016 SHARONDA MON MD Ot E888.9 FALL NOS 02/20/2016 SHARONDA MON MD Ot 789.00 ABDOMINAL PAIN, UNSPECIFIED SITE 02/20/2016 SHARONDA MON MD Ot V76.12 OTH SCREEN MAMMO-MALIGN NEOPLASM OF [place] 02/20/2016 SHARONDA MON MD Ot 573.9 LIVER DISORDER NOS 02/20/2016 SHARONDA MON MD Ot 787.02 NAUSEA ALONE 02/20/2016 SHARONDA MON MD Ot 789.00 ABDOMINAL PAIN, UNSPECIFIED SITE 02/20/2016 SHARONDA MON MD Ot V76.12 OTH SCREEN MAMMO-MALIGN NEOPLASM OF [place] 02/20/2016 TOMMY WOMACK MD Ot 272.4 HYPERLIPIDEMIA NEC/NOS 02/20/2016 TOMMY WOMACK MD Ot 401.9 HYPERTENSION NOS 02/20/2016 TOMMY WOMACK MD Ot 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 HRT DIS NOS 02/20/2016 TOMMY WOMACK MD Ot 427.31 ATRIAL FIBRILLATION 02/20/2016 SILVIO LYNN MD Ot 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 W O CEREBRAL IN 02/20/2016 SILVIO LYNN MD Ot 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 W O CEREBRAL IN 02/20/2016 MARY TOWNSEND APRN Ot Z12.31 ENCNTR SCREEN MAMMOGRAM FOR MALIGNANT NE 02/20/2016 Ot 427.31 ATRIAL FIBRILLATION 02/20/2016 Ot 466.0 ACUTE BRONCHITIS 02/20/2016 Ot 786.50 CHEST PAIN NOS 02/20/2016 Ot 733.00 OSTEOPOROSIS NOS 02/20/2016 Ot 573.8 LIVER DISORDERS NEC 02/20/2016 Ot V76.12 OTH SCREEN MAMMO-MALIGN NEOPLASM OF [place] 02/20/2016 Ot 427.31 ATRIAL FIBRILLATION 02/20/2016 Ot V76.12 OTH SCREEN MAMMO-MALIGN NEOPLASM OF [place] 02/20/2016 Ot 414.00 CORON ATHEROSCLER NOS TYPE VESSEL, NATIV 02/20/2016 Ot 786.09 RESPIRATORY ABNORM NEC 02/20/2016 SHARONDA MON MD Ot 959.6 HIP THIGH INJURY NOS 02/20/2016 SHARONDA MON MD Ot E000.8 OTHER EXTERNAL CAUSE STATUS 02/20/2016 SHARONDA MON MD Ot E849.0 ACCIDENT IN HOME 02/20/2016 SHARONDA MON MD Ot E888.9 FALL NOS 02/20/2016 SHARONDA MON MD Ot 789.00 ABDOMINAL PAIN, UNSPECIFIED SITE 02/20/2016 SHARONDA MON MD Ot V76.12 OTH SCREEN MAMMO-MALIGN NEOPLASM OF [place] 02/20/2016 SHARONDA MON MD Ot 573.9 LIVER DISORDER NOS 02/20/2016 SHARONDA MON MD Ot 787.02 NAUSEA ALONE 02/20/2016 SHARONDA MON MD Ot 789.00 ABDOMINAL PAIN, UNSPECIFIED SITE 02/20/2016 SHARONDA MON MD Ot V76.12 OTH SCREEN MAMMO-MALIGN NEOPLASM OF [place] 02/20/2016 TOMMY WOMACK MD Ot 272.4 HYPERLIPIDEMIA NEC/NOS 02/20/2016 TOMMY WOMACK MD Ot 401.9 HYPERTENSION NOS 02/20/2016 TOMMY WOMACK MD Ot 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 HRT DIS NOS 02/20/2016 TOMMY WOMACK MD Ot 427.31 ATRIAL FIBRILLATION 02/20/2016 LEAH SHIPLEY, SILVIO Cabello Ot 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 W O CEREBRAL IN 02/20/2016 SILVIO LYNN MD Ot 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 W O CEREBRAL IN 02/20/2016 MARY TOWNSEND APRN Ot Z12.31 ENCNTR SCREEN MAMMOGRAM FOR MALIGNANT NE 02/21/2016 JOANNA QUINONEZ Ot I10 ESSENTIAL (PRIMARY) HYPERTENSION 02/21/2016 JOANNA QUINONEZ Ot I25.10 ATHSCL HEART DISEASE OF [place] CORONARY 02/21/2016 JOANNA QUINONEZ Ot I48.0 PAROXYSMAL ATRIAL FIBRILLATION 02/21/2016 JOANNA QUINONEZ Ot 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 03/13/2016 JOANNA QUINONEZ Ot I10 ESSENTIAL (PRIMARY) HYPERTENSION 03/13/2016 JOANNA QUINONEZ Ot I25.10 ATHSCL HEART DISEASE OF [place] CORONARY 03/13/2016 JOANNA QUINONEZ Ot I48.0 PAROXYSMAL ATRIAL FIBRILLATION 03/13/2016 JOANNA QUINONEZ Ot 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 05/15/2016 LEONA COBB MD Ot 780.79 OTH MALAISE FATIGUE 05/15/2016 LEONA COBB MD Ot 786.50 CHEST PAIN NOS 05/15/2016 LEONA COBB MD Ot 787.01 NAUSEA WITH VOMITING 07/29/2016 Ot 427.31 ATRIAL FIBRILLATION 07/29/2016 Ot V76.12 OTH SCREEN MAMMO-MALIGN NEOPLASM OF [place] 07/29/2016 Ot 414.00 CORON ATHEROSCLER NOS TYPE VESSEL, NATIV 07/29/2016 Ot 786.09 RESPIRATORY ABNORM NEC 07/29/2016 SHARONDA MON MD Ot 959.6 HIP THIGH INJURY NOS 07/29/2016 SHARONDA MON MD Ot E000.8 OTHER EXTERNAL CAUSE STATUS 07/29/2016 SHARONDA MON MD Ot E849.0 ACCIDENT IN HOME 07/29/2016 SHARONDA MON MD Ot E888.9 FALL NOS 07/29/2016 SHARONDA MON MD Ot 789.00 ABDOMINAL PAIN, UNSPECIFIED SITE 07/29/2016 SHARONDA MON MD Ot V76.12 OTH SCREEN MAMMO-MALIGN NEOPLASM OF [place] 07/29/2016 SHARONDA MON MD Ot 573.9 LIVER DISORDER NOS 07/29/2016 SHARONDA MON MD Ot 787.02 NAUSEA ALONE 07/29/2016 SHARONDA MON MD Ot 789.00 ABDOMINAL PAIN, UNSPECIFIED SITE 07/29/2016 SHARONDA MON MD Ot V76.12 OTH SCREEN MAMMO-MALIGN NEOPLASM OF [place] 07/29/2016 TOMMY WOMACK MD Ot 272.4 HYPERLIPIDEMIA NEC/NOS 07/29/2016 TOMMY WOMACK MD Ot 401.9 HYPERTENSION NOS 07/29/2016 TOMMY WOMACK MD Ot 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 HRT DIS NOS 07/29/2016 TOMMY WOMACK MD Ot 427.31 ATRIAL FIBRILLATION 07/29/2016 SILVIO LYNN MD Ot 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 W O CEREBRAL IN 07/29/2016 SILVIO LYNN MD Ot 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 W O CEREBRAL IN 07/29/2016 MARY TOWNSEND APRN Ot Z12.31 ENCNTR SCREEN MAMMOGRAM FOR MALIGNANT NE 07/29/2016 JOANNA QUINONEZ Ot I10 ESSENTIAL (PRIMARY) HYPERTENSION 07/29/2016 JOANNA QUINONEZ Ot I25.10 ATHSCL HEART DISEASE OF [place] CORONARY 07/29/2016 JOANNA QUINONEZ Ot I48.0 PAROXYSMAL ATRIAL FIBRILLATION 07/29/2016 JOANNA QUINONEZ Ot 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 07/31/2016 WALTER BENSON, SILVIO F Ot M19.072 PRIMARY OSTEOARTHRITIS, LEFT ANKLE AND F 08/19/2016 MAYKEL QUINONES MD Ot Z12.31 ENCNTR SCREEN MAMMOGRAM FOR MALIGNANT NE 09/11/2016 MAYKEL QUINONES MD Ot Z12.31 ENCNTR SCREEN MAMMOGRAM FOR MALIGNANT NE 11/13/2016 LEONA COBB MD Ot 780.79 OTH MALAISE FATIGUE 11/13/2016 LEONA COBB MD Ot 786.50 CHEST PAIN NOS 11/13/2016 LEONA COBB MD Ot 787.01 NAUSEA WITH VOMITING 01/11/2017 Ot V76.12 OTH SCREEN MAMMO-MALIGN NEOPLASM OF [place] 01/11/2017 Ot 414.00 CORON ATHEROSCLER NOS TYPE VESSEL, NATIV 01/11/2017 Ot 786.09 RESPIRATORY ABNORM NEC 01/11/2017 SHARONDA MON MD Ot 959.6 HIP THIGH INJURY NOS 01/11/2017 SHARONDA MON MD Ot E000.8 OTHER EXTERNAL CAUSE STATUS 01/11/2017 SHARONDA MON MD Ot E849.0 ACCIDENT IN HOME 01/11/2017 SHARONDA MON MD Ot E888.9 FALL NOS 01/11/2017 SHARONDA MON MD Ot 789.00 ABDOMINAL PAIN, UNSPECIFIED SITE 01/11/2017 SHARONDA MON MD Ot V76.12 OTH SCREEN MAMMO-MALIGN NEOPLASM OF [place] 01/11/2017 SHARONDA MON MD Ot 573.9 LIVER DISORDER NOS 01/11/2017 SHARONDA MON MD Ot 787.02 NAUSEA ALONE 01/11/2017 SHARONDA MON MD Ot 789.00 ABDOMINAL PAIN, UNSPECIFIED SITE 01/11/2017 SHARONDA MON MD Tc Ot V76.12 OTH SCREEN MAMMO-MALIGN NEOPLASM OF [place] 01/11/2017 TOMMY WOMACK MD Ot 272.4 HYPERLIPIDEMIA NEC/NOS 01/11/2017 TOMMY WOMACK MD Ot 401.9 HYPERTENSION NOS 01/11/2017 TOMMY WOMACK MD Ot 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 HRT DIS NOS 01/11/2017 TOMMY WOMACK MD Ot 427.31 ATRIAL FIBRILLATION 01/11/2017 SILVIO LYNN MD Ot 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 W O CEREBRAL IN 01/11/2017 SILVIO LYNN MD Ot 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 CEREBRAL IN 01/11/2017 MARY TOWNSEND APRN Ot Z12.31 ENCNTR SCREEN MAMMOGRAM FOR MALIGNANT NE 01/11/2017 JOANNA QUINONEZ Ot I10 ESSENTIAL (PRIMARY) HYPERTENSION 01/11/2017 JOANNA QUINONEZ Ot I25.10 ATHSCL HEART DISEASE OF [place] CORONARY 01/11/2017 JOANNA QUINONEZ Ot I48.0 PAROXYSMAL ATRIAL FIBRILLATION 01/11/2017 JOANNA QUINONEZ Ot 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 01/11/2017 SILVIO WATSON DO Ot M19.072 PRIMARY OSTEOARTHRITIS, LEFT ANKLE AND F 01/11/2017 MAYKEL QUINONES MD Ot Z12.31 ENCNTR SCREEN MAMMOGRAM FOR MALIGNANT NE 01/11/2017 VALENTE CARBAJAL MD Ot N39.0 URINARY TRACT INFECTION, SITE NOT SPECIF 01/11/2017 VALENTE CARBAJAL MD Ot R30.0 DYSURIA 01/11/2017 VALENTE CARBAJAL MD Ot Z79.01 INSIDE FINISHER (CURRENT) USE OF ANTICOAGULANT 01/11/2017 VALENTE CARBAJAL MD Ot Z90.710 ACQUIRED ABSENCE OF BOTH CERVIX AND UTER 01/11/2017 VALENTE CARBAJAL MD Ot Z96.651 PRESENCE OF RIGHT ARTIFICIAL KNEE JOINT 01/13/2017 VALENTE CARBAJAL MD Ot N39.0 URINARY TRACT INFECTION, SITE NOT SPECIF 01/13/2017 VALENTE CARBAJAL MD Ot R30.0 DYSURIA 01/13/2017 VALENTE CARBAJAL MD Ot Z79.01 INSIDE FINISHER (CURRENT) USE OF ANTICOAGULANT 01/13/2017 VALENTE CARBAJAL MD Ot Z90.710 ACQUIRED ABSENCE OF BOTH CERVIX AND UTER 01/13/2017 VALENTE CARBAJAL MD Ot Z96.651 PRESENCE OF RIGHT ARTIFICIAL KNEE JOINT 02/01/2017 TISH DO, AVILA K Ot E78.00 PURE HYPERCHOLESTEROLEMIA, UNSPECIFIED 02/01/2017 TISH DO AVILA K Ot I10 ESSENTIAL (PRIMARY) HYPERTENSION 02/01/2017 TISH DO AVILA K Ot I48.91 UNSPECIFIED ATRIAL FIBRILLATION 02/01/2017 TISH DO AVILA K Ot N39.0 URINARY TRACT INFECTION, SITE NOT SPECIF 02/01/2017 TISH DO AVILA K Ot R35.0 FREQUENCY OF MICTURITION 02/01/2017 TISH DO AVILA K Ot Z79.01 INSIDE FINISHER (CURRENT) USE OF ANTICOAGULANT 02/01/2017 TISH DO AVILA K Ot Z79.82 INSIDE FINISHER (CURRENT) USE OF ASPIRIN 02/01/2017 TISH DO AVILA K Ot Z86.73 PRSNL HX OF TIA (TIA), AND CEREB INFRC W 02/01/2017 TISH DO AVILA K Ot Z90.710 ACQUIRED ABSENCE OF BOTH CERVIX AND UTER 02/01/2017 TISH DO AVILA K Ot Z96.661 PRESENCE OF RIGHT ARTIFICIAL ANKLE JOINT 02/11/2017 VALENTE CARBAJAL MD Ot E78.00 PURE HYPERCHOLESTEROLEMIA, UNSPECIFIED 02/11/2017 VALENTE CARBAJAL MD Ot G89.29 OTHER CHRONIC PAIN 02/11/2017 VALENTE CARBAJAL MD Ot I10 ESSENTIAL (PRIMARY) HYPERTENSION 02/11/2017 VALENTE CARBAJAL MD Ot I48.91 UNSPECIFIED ATRIAL FIBRILLATION 02/11/2017 VALENTE CARBAJAL MD Ot M54.9 DORSALGIA, UNSPECIFIED 02/11/2017 VALENTE CARBAJAL MD Ot R11.2 NAUSEA WITH VOMITING, UNSPECIFIED 02/11/2017 VALENTE CARBAJAL MD Ot R35.0 FREQUENCY OF MICTURITION 02/11/2017 VALENTE CARBAJAL MD Ot Z79.01 INSIDE FINISHER (CURRENT) USE OF ANTICOAGULANT 02/11/2017 VALENTE CARBAJAL MD Ot Z79.82 INSIDE FINISHER (CURRENT) USE OF ASPIRIN 02/11/2017 VALENTE CARBAJAL MD Ot Z87.440 PERSONAL HISTORY OF URINARY (TRACT) INFE 02/11/2017 VALENTE CARBAJAL MD Ot Z90.710 ACQUIRED ABSENCE OF BOTH CERVIX AND UTER 02/11/2017 VALENTE CARBAJAL MD Ot Z96.651 PRESENCE OF RIGHT ARTIFICIAL KNEE JOINT 02/13/2017 VALENTE CARBAJAL MD Ot E78.00 PURE HYPERCHOLESTEROLEMIA, UNSPECIFIED 02/13/2017 VALENTE CARBAJAL MD Ot G89.29 OTHER CHRONIC PAIN 02/13/2017 VALENTE CARBAJAL MD Ot I10 ESSENTIAL (PRIMARY) HYPERTENSION 02/13/2017 VALENTE CARBAJAL MD Ot I48.91 UNSPECIFIED ATRIAL FIBRILLATION 02/13/2017 VALENTE CARBAJAL MD Ot M54.9 DORSALGIA, UNSPECIFIED 02/13/2017 VALENTE CARBAJAL MD Ot R11.2 NAUSEA WITH VOMITING, UNSPECIFIED 02/13/2017 VALENTE CARBAJAL MD Ot R35.0 FREQUENCY OF MICTURITION 02/13/2017 VALENTE CARBAJAL MD Ot Z79.01 INSIDE FINISHER (CURRENT) USE OF ANTICOAGULANT 02/13/2017 VALENTE CARBAJAL MD Ot Z79.82 CUSTODIAL (CURRENT) USE OF ASPIRIN 02/13/2017 VALENTE CARBAJAL MD Ot Z87.440 PERSONAL HISTORY OF URINARY (TRACT) INFE 02/13/2017 VALENTE CARBAJAL MD Ot Z90.710 ACQUIRED ABSENCE OF BOTH CERVIX AND UTER 02/13/2017 VALENTE CARBAJAL MD Ot Z96.651 PRESENCE OF RIGHT ARTIFICIAL KNEE JOINT 03/27/2017 VALENTE CARBAJAL MD Ot E78.00 PURE HYPERCHOLESTEROLEMIA, UNSPECIFIED 03/27/2017 VALETNE CARBAJAL MD Ot G89.29 OTHER CHRONIC PAIN 03/27/2017 VALENTE CARBAJAL MD Ot I10 ESSENTIAL (PRIMARY) HYPERTENSION 03/27/2017 VALENTE CARBAJAL MD Ot I48.91 UNSPECIFIED ATRIAL FIBRILLATION 03/27/2017 VALENTE CARBAJAL MD Ot M54.9 DORSALGIA, UNSPECIFIED 03/27/2017 VALENTE CARBAJAL MD Ot R11.2 NAUSEA WITH VOMITING, UNSPECIFIED 03/27/2017 VALENTE CARBAJAL MD Ot R35.0 FREQUENCY OF MICTURITION 03/27/2017 VALENTE CARBAJAL MD Ot Z79.01 CUSTODIAL (CURRENT) USE OF ANTICOAGULANT 03/27/2017 VALENTE CARBAJAL MD Ot Z79.82 CUSTODIAL (CURRENT) USE OF ASPIRIN 03/27/2017 VALENTE CARBAJAL MD Ot Z87.440 PERSONAL HISTORY OF URINARY (TRACT) INFE 03/27/2017 VALENTE CARBAJAL MD Ot Z90.710 ACQUIRED ABSENCE OF BOTH CERVIX AND UTER 03/27/2017 VALENTE CARBAJAL MD Ot Z96.651 PRESENCE OF RIGHT ARTIFICIAL KNEE JOINT 04/07/2017 Ot V76.12 OTH SCREEN MAMMO-MALIGN NEOPLASM OF [place] 04/07/2017 Ot 414.00 CORON ATHEROSCLER NOS TYPE VESSEL, NATIV 04/07/2017 Ot 786.09 RESPIRATORY ABNORM NEC 04/07/2017 SHARONDA MON MD Ot 959.6 HIP THIGH INJURY NOS 04/07/2017 SHARONDA MON MD Ot E000.8 OTHER EXTERNAL CAUSE STATUS 04/07/2017 SHARONDA MON MD Ot E849.0 ACCIDENT IN HOME 04/07/2017 SHARONDA MON MD Ot E888.9 FALL NOS 04/07/2017 SHARONDA MON MD Ot 789.00 ABDOMINAL PAIN, UNSPECIFIED SITE 04/07/2017 SHARONDA MON MD Ot V76.12 OTH SCREEN MAMMO-MALIGN NEOPLASM OF ANOOP 04/07/2017 SHARONDA MON MD Ot 573.9 LIVER DISORDER NOS 04/07/2017 SHARONDA MON MD Ot 787.02 NAUSEA ALONE 04/07/2017 SHARONDA MON MD Ot 789.00 ABDOMINAL PAIN, UNSPECIFIED SITE 04/07/2017 SHARONDA MON MD Ot V76.12 OTH SCREEN MAMMO-MALIGN NEOPLASM OF ANOOP 04/07/2017 TOMMY WOMACK MD Ot 272.4 HYPERLIPIDEMIA NEC/NOS 04/07/2017 TOMMY WOMACK MD Ot 401.9 HYPERTENSION NOS 04/07/2017 TOMMY WOMACK MD Ot 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 HRT DIS NOS 04/07/2017 TOMMY WOMACK MD Ot 427.31 ATRIAL FIBRILLATION 04/07/2017 LEAH SHIPLEY, SILVIO Cabello Ot 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 W O CEREBRAL IN 04/07/2017 SILVIO LYNN MD Ot 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 W O CEREBRAL IN 04/07/2017 MARY TOWNSEND APRN Ot Z12.31 ENCNTR SCREEN MAMMOGRAM FOR MALIGNANT NE 04/07/2017 JOANNA QUINONEZ Ot I10 ESSENTIAL (PRIMARY) HYPERTENSION 04/07/2017 JOANNA QUINONEZ Ot I25.10 ATHSCL HEART DISEASE OF [place] CORONARY 04/07/2017 JOANNA QUINONEZ Ot I48.0 PAROXYSMAL ATRIAL FIBRILLATION 04/07/2017 RACHEL STEPHENSON JOANNA K Ot 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 04/07/2017 SILVIO WATSON DO Ot M19.072 PRIMARY OSTEOARTHRITIS, LEFT ANKLE AND F 04/07/2017 STACIE SHIPLEY, MAYKEL Higginbotham Ot Z12.31 ENCNTR SCREEN MAMMOGRAM FOR MALIGNANT NE 04/09/2017 JOANNA QUINONEZ Ot I10 ESSENTIAL (PRIMARY) HYPERTENSION 04/09/2017 JOANNA QUINONEZ Ot I51.7 CARDIOMEGALY 04/09/2017 JOANNA QUINONEZ Ot 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 04/09/2017 JOANNA QUINONEZ Ot J44.9 CHRONIC OBSTRUCTIVE PULMONARY DISEASE, U 04/28/2017 RACHEL STEPHENSON JOANNA K Ot I10 ESSENTIAL (PRIMARY) HYPERTENSION 04/28/2017 JOANNA QUINONEZ Ot I51.7 CARDIOMEGALY 04/28/2017 JOANNA QUINONEZ Ot 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 04/28/2017 JOANNA QUINONEZ Ot J44.9 CHRONIC OBSTRUCTIVE PULMONARY DISEASE, U 09/04/2017 REECE SHIPLEY, CORBY Ot Z12.31 ENCNTR SCREEN MAMMOGRAM FOR MALIGNANT NE 09/04/2017 REECE SHIPLEY, CORBY Ot Z12.31 ENCNTR SCREEN MAMMOGRAM FOR MALIGNANT NE 09/11/2017 CORBY NEWELL MD Ot Z12.31 ENCNTR SCREEN MAMMOGRAM FOR MALIGNANT NE 09/11/2017 REECE SHIPLEY, CORBY Gaviria Z12.31 ENCNTR SCREEN MAMMOGRAM FOR MALIGNANT NE 10/05/2017 REECE SHIPLEY, CORBY Gavriia Z12.31 ENCNTR SCREEN MAMMOGRAM FOR MALIGNANT NE Procedures There is no data. Results Test Result Range Whole blood basic metabolic panel - 02/20/16 11:46 Serum or plasma sodium measurement (moles/volume) 138 mmol/L 135-145 Serum or plasma potassium measurement (moles/volume) 4.0 mmol/L 3.6-5.0 Serum or plasma chloride measurement (moles/volume) 103 mmol/L 98-107 Carbon dioxide 24 mmol/L 21-32 Serum or plasma anion gap determination (moles/volume) 11 mmol/L 5-14 Serum or plasma urea nitrogen measurement (mass/volume) 20 mg/dL 7-18 Serum or plasma creatinine measurement (mass/volume) 1.02 mg/dL 0.60-1.30 Serum or plasma urea nitrogen/creatinine mass ratio 20 NRG Serum or plasma creatinine measurement with calculation of estimated glomerular filtration rate 52 NRG Serum or plasma glucose measurement (mass/volume) 99 mg/dL 70-105 Serum or plasma calcium measurement (mass/volume) 9.7 mg/dL 8.5-10.1 Complete urinalysis with reflex to culture - 01/11/17 06:12 Urine color determination YELLOW NRG Urine clarity determination CLEAR NRG Urine pH measurement by test strip 7 5-9 Specific gravity of urine by test strip 1.005 1.016- 1.022 Urine protein assay by test strip, semi-quantitative 2+ NEGATIVE Urine glucose detection by automated test strip NEGATIVE NEGATIVE Erythrocytes detection in urine sediment by light microscopy 5+ NEGATIVE Urine ketones detection by automated test strip NEGATIVE NEGATIVE Urine nitrite detection by test strip NEGATIVE NEGATIVE Urine total bilirubin detection by test strip NEGATIVE NEGATIVE Urine urobilinogen measurement by automated test strip (mass/volume) NORMAL NORMAL Urine leukocyte esterase detection by dipstick 3+ NEGATIVE Automated urine sediment erythrocyte count by microscopy (number/high power field) [HPF] NRG Automated urine sediment leukocyte count by microscopy (number/high power field ) [HPF] NRG Bacteria detection in urine sediment by light microscopy FEW NRG Squamous epithelial cells detection in urine sediment by light microscopy 2-5 NRG Crystals detection in urine sediment by light microscopy NONE NRG Casts detection in urine sediment by light microscopy NONE NRG Mucus detection in urine sediment by light microscopy NEGATIVE NRG Complete urinalysis with reflex to culture YES NRG Bacterial urine culture - 01/11/17 06:12 Bacterial urine culture [id number] NRG COLONY COUNT >100,000/ML NRG FTX;REPORTABLE SENSITIVITY REPORTED 01/12/17 16:00 NR Bacterial susceptibility panel - 01/11/17 06:12 Gentamicin susceptibility test by minimum inhibitory concentration < = NRG Trimethoprim/sulfamethoxazole susceptibility test by minimum inhibitoryconcentration <= NRG Ampicillin susceptibility test by minimum inhibitory concentration < = NRG Tobramycin susceptibility test by minimum inhibitory concentration < = NRG Cefazolin susceptibility test by minimum inhibitory concentration < = NRG Ceftriaxone susceptibility test by minimum inhibitory concentration <= NRG Ampicillin/sulbactam susceptibility test by minimum inhibitory concentration <= NRG Piperacillin/tazobactam susceptibility test by minimum inhibitory concentration <= NRG Ciprofloxacin susceptibility test by minimum inhibitory concentration <= NRG Meropenem susceptibility test by minimum inhibitory concentration < = NRG Nitrofurantoin susceptibility test by minimum inhibitory concentration <= NRG Aztreonam susceptibility test by minimum inhibitory concentration < = NRG Extended spectrum beta lactamase (ESBL) producing bacteria susceptibility test by minimum inhibitory concentration - NRG Complete urinalysis with reflex to culture - 02/01/17 09:00 Urine color determination YELLOW NRG Urine clarity determination SLIGHTLY CLOUDY NRG Urine pH measurement by test strip 6 5-9 Specific gravity of urine by test strip 1.010 1.016- 1.022 Urine protein assay by test strip, semi-quantitative 2+ NEGATIVE Urine glucose detection by automated test strip NEGATIVE NEGATIVE Erythrocytes detection in urine sediment by light microscopy 5+ NEGATIVE Urine ketones detection by automated test strip NEGATIVE NEGATIVE Urine nitrite detection by test strip NEGATIVE NEGATIVE Urine total bilirubin detection by test strip NEGATIVE NEGATIVE Urine urobilinogen measurement by automated test strip (mass/volume) NORMAL NORMAL Urine leukocyte esterase detection by dipstick 3+ NEGATIVE Automated urine sediment erythrocyte count by microscopy (number/high power field) [HPF] NRG Automated urine sediment leukocyte count by microscopy (number/high power field ) > [HPF] NRG Bacteria detection in urine sediment by light microscopy TRACE NRG Crystals detection in urine sediment by light microscopy NONE NRG Casts detection in urine sediment by light microscopy NONE NRG Mucus detection in urine sediment by light microscopy SMALL NRG Complete urinalysis with reflex to culture YES NRG Bacterial urine culture - 02/01/17 09:00 Bacterial urine culture [id number] NRG COLONY COUNT <10,000 NRG FTX;REPORTABLE SENSITIVITY REPORTED 02/03/17 8:25 NR Bacterial susceptibility panel - 02/01/17 09:00 Gentamicin susceptibility test by minimum inhibitory concentration < = NRG Trimethoprim/sulfamethoxazole susceptibility test by minimum inhibitoryconcentration <= NRG Ampicillin susceptibility test by minimum inhibitory concentration < = NRG Tobramycin susceptibility test by minimum inhibitory concentration < = NRG Cefazolin susceptibility test by minimum inhibitory concentration < = NRG Ceftriaxone susceptibility test by minimum inhibitory concentration <= NRG Ampicillin/sulbactam susceptibility test by minimum inhibitory concentration <= NRG Piperacillin/tazobactam susceptibility test by minimum inhibitory concentration <= NRG Ciprofloxacin susceptibility test by minimum inhibitory concentration <= NRG Meropenem susceptibility test by minimum inhibitory concentration < = NRG Nitrofurantoin susceptibility test by minimum inhibitory concentration <= NRG Aztreonam susceptibility test by minimum inhibitory concentration < = NRG Extended spectrum beta lactamase (ESBL) producing bacteria susceptibility test by minimum inhibitory concentration - NRG Complete blood count (CBC) with automated white blood cell (WBC) differential - 02/11/17 15:15 Blood leukocytes automated count (number/volume) 5.7 10*3/uL 4.3-11.0 Blood erythrocytes automated count (number/volume) 4.84 10*6/uL 4.35-5.85 Venous blood hemoglobin measurement (mass/volume) 15.1 g/dL 11.5-16.0 Blood hematocrit (volume fraction) 44 % 35-52 Automated erythrocyte mean corpuscular volume 91 [foz_us] 80-99 Automated erythrocyte mean corpuscular hemoglobin (mass per erythrocyte) 31 pg 25-34 Automated erythrocyte mean corpuscular hemoglobin concentration measurement ( mass/volume) 34 g/dL 32-36 Automated erythrocyte distribution width ratio 13.4 % 10.0-14.5 Automated blood platelet count (count/volume) 241 10*3/uL 130-400 Automated blood platelet mean volume measurement 10.2 [foz_us] 7.4-10.4 Automated blood neutrophils/100 leukocytes 66 % 42-75 Automated blood lymphocytes/100 leukocytes 16 % 12-44 Blood monocytes/100 leukocytes 14 % 0-12 Automated blood eosinophils/100 leukocytes 3 % 0-10 Automated blood basophils/100 leukocytes 1 % 0-10 Blood neutrophils automated count (number/volume) 3.8 10*3 1.8-7.8 Blood lymphocytes automated count (number/volume) 0.9 10*3 1.0-4.0 Blood monocytes automated count (number/volume) 0.8 10*3 0.0-1.0 Automated eosinophil count 0.2 10*3/uL 0.0-0.3 Automated blood basophil count (count/volume) 0.1 10*3/uL 0.0-0.1 Blood lactic acid measurement (moles/volume) - 02/11/17 15:15 Blood lactic acid measurement (moles/volume) 1.60 mmol/L 0.50-2.00 Comprehensive metabolic panel - 02/11/17 15:15 Serum or plasma sodium measurement (moles/volume) 137 mmol/L 135-145 Serum or plasma potassium measurement (moles/volume) 3.7 mmol/L 3.6-5.0 Serum or plasma chloride measurement (moles/volume) 104 mmol/L 98-107 Carbon dioxide 21 mmol/L 21-32 Serum or plasma anion gap determination (moles/volume) 12 mmol/L 5-14 Serum or plasma urea nitrogen measurement (mass/volume) 16 mg/dL 7-18 Serum or plasma creatinine measurement (mass/volume) 0.91 mg/dL 0.60-1.30 Serum or plasma urea nitrogen/creatinine mass ratio 18 NRG Serum or plasma creatinine measurement with calculation of estimated glomerular filtration rate 59 NRG Serum or plasma glucose measurement (mass/volume) 134 mg/dL 70-105 Serum or plasma calcium measurement (mass/volume) 9.0 mg/dL 8.5-10.1 Serum or plasma total bilirubin measurement (mass/volume) 0.6 mg/dL 0.1-1.0 Serum or plasma alkaline phosphatase measurement (enzymatic activity/volume) 112 U/L 40-136 Serum or plasma aspartate aminotransferase measurement (enzymatic activity/ volume) 21 U/L 5-34 Serum or plasma alanine aminotransferase measurement (enzymatic activity/volume ) 26 U/L 0-55 Serum or plasma protein measurement (mass/volume) 6.8 g/dL 6.4-8.2 Serum or plasma albumin measurement (mass/volume) 3.9 g/dL 3.2-4.5 Complete urinalysis with reflex to culture - 02/11/17 15:55 Urine color determination ADRIA NRG Urine clarity determination SLIGHTLY CLOUDY NRG Urine pH measurement by test strip 5 5-9 Specific gravity of urine by test strip 1.025 1.016- 1.022 Urine protein assay by test strip, semi-quantitative 2+ NEGATIVE Urine glucose detection by automated test strip NEGATIVE NEGATIVE Erythrocytes detection in urine sediment by light microscopy 1+ NEGATIVE Urine ketones detection by automated test strip 1+ NEGATIVE Urine nitrite detection by test strip NEGATIVE NEGATIVE Urine total bilirubin detection by test strip 2+ NEGATIVE Urine urobilinogen measurement by automated test strip (mass/volume) 4 mg/dL NORMAL Urine leukocyte esterase detection by dipstick 2+ NEGATIVE Automated urine sediment erythrocyte count by microscopy (number/high power field) [HPF] NRG Automated urine sediment leukocyte count by microscopy (number/high power field ) [HPF] NRG Bacteria detection in urine sediment by light microscopy NEGATIVE NRG Squamous epithelial cells detection in urine sediment by light microscopy 10-25 NRG Crystals detection in urine sediment by light microscopy NONE NRG Casts detection in urine sediment by light microscopy PRESENT NRG Mucus detection in urine sediment by light microscopy LARGE NRG Complete urinalysis with reflex to culture NO NRG Hyaline casts detection in urine sediment by light microscopy 0-2 NRG Encounters ACCT No. Visit Date/Time Discharge Status Pt. Type Provider Facility Loc./Unit Complaint [id number] 09/10/2017 09:22:00 09/10/2017 23:59:59 CLS Outpatient CORBY NEWELL MD [facility] RAD Z12.31 SCREENING MAMMO [id number] 04/07/2017 11:04:00 04/07/2017 23:59:59 CLS Outpatient JOANNA QUINONEZ [facility] RAD I25.10,I65.23 ,I10,E78.2 [id number] 02/11/2017 14:12:00 02/11/2017 17:18:00 DIS Emergency VALENTE CARBAJAL MD [facility] ER RUNNING FEVER [id number] 02/01/2017 08:50:00 02/01/2017 09:58:00 DIS Emergency AVILA WINSTON DO [facility] ER BLADDER INFECTION [id number] 01/11/2017 05:57:00 01/11/2017 06:55:00 DIS Emergency SOLOMON SHIPLEY, VALENTE Flores [facility] ER BLADDER INFECTION [id number] 08/19/2016 10:10:00 08/19/2016 23:59:59 CLS Outpatient MAYKEL QUINONES MD [facility] RAD SCREENING [id number] 07/30/2016 10:42:00 07/30/2016 23:59:59 CLS Outpatient SILVIO WATSON DO [facility] RAD PRIMARY OA MID-FOOT [id number] 02/20/2016 11:37:00 02/20/2016 23:59:59 CLS Outpatient JOANNA QUINONEZ [facility] CARD AF,CAD,RICH, HTN [id number] 07/25/2015 09:58:00 07/25/2015 23:59:59 CLS Outpatient MARY TOWNSEND APRN [facility] RAD SCREENING [id number] 03/08/2015 08:01:00 03/08/2015 23:59:59 CLS Outpatient SILVIO LYNN MD [facility] RAD CAROTID STENOSIS [id number] 03/06/2015 13:32:00 03/06/2015 23:59:59 CLS Outpatient TOMMY WOMACK MD [facility] CARD A-FIB,CAD,HTN,HLP [id number] 02/26/2015 12:56:00 02/26/2015 23:59:59 CLS Outpatient SILVIO LYNN MD [facility] LAB STENOSIS [id number] 07/05/2014 10:10:00 07/05/2014 23:59:59 CLS Outpatient SHARONDA MON MD [facility] RAD SCREENING [id number] 12/07/2013 05:09:00 12/07/2013 06:47:00 DIS Emergency AVILA WINSTON DO [facility] ER HEAD LAC-FALL [id number] 11/03/2013 08:11:00 11/03/2013 23:59:59 CLS Outpatient SHARONDA MON MD [facility] RAD NAUSEA,ABD PAIN, LIVER LESION [id number] 09/21/2013 08:38:00 09/21/2013 09:30:00 DIS Outpatient WALTER SILVIO BENSON [facility] REHAB S/P R TKR [id number] 08/12/2013 15:25:00 08/12/2013 23:59:59 CLS Outpatient [id number] 07/20/2013 13:40:00 07/22/2013 12:00:00 DIS Outpatient SHARONDA MON MD [facility] SDC NAUSEA,ABD PAIN [id number] 07/19/2013 07:49:00 07/19/2013 11:20:00 DIS Emergency LEONA COBB MD [facility] ER NOT FEELING WELL [id number] 06/22/2013 09:42:00 06/22/2013 23:59:59 CLS Outpatient SHARONDA MON MD [facility] RAD SCREENING [id number] 03/22/2013 07:43:00 03/22/2013 23:59:59 CLS Outpatient SHARONDA MON MD [facility] RAD ABD PAIN [id number] 03/16/2013 11:23:00 03/16/2013 23:59:59 CLS Outpatient SHARONDA MON MD [facility] RAD C/O HIP PAIN /FALL [id number] 12/04/2017 05:10:00 ACT Emergency VALENTE CARBAJAL MD [facility] ER BLADDER INFECTION [id number] 06/03/2012 06:47:00 Document Registration [id number] 05/31/2012 08:21:00 Document Registration [id number] 03/17/2012 10:05:00 Document Registration [id number] 06/04/2011 08:55:00 Document Registration [id number] 03/06/2011 09:37:00 Document Registration [id number] 01/27/2011 08:09:00 Document Registration [id number] 01/09/2011 08:49:00 Document Registration [id number] 10/10/2010 09:53:00 Document Registration [id number] 09/23/2010 16:03:00 Document Registration [id number] 01/14/2010 08:39:00 Document Registration [id number] 10/19/2009 09:39:00 Document Registration [id number] 05/16/2009 08:00:00 Document Registration [id number] 04/15/2017 10:23:27 04/15/2017 23:59:59 [facility] Outpatient
[2017-12-04] MEDS ORDERED: CEPH500T PO (05:50)
[2017-12-04 05:54] VITALS: BP 178/91
== END 2017-12-04 05:53 | disposition home or self-care (01) ==
LOC: EDUNIT# 05:07 → ER 05:10
DX: N39.0 Urinary tract infection, site not specified (principal); I48.91 Unspecified atrial fibrillation; E78.00 Pure hypercholesterolemia, unspecified; I10 Essential (primary) hypertension; Z86.73 Personal history of transient ischemic attack (TIA), and cerebral infarction without residual deficits; Z96.651 Presence of right artificial knee joint; Z88.0 Allergy status to penicillin; Z79.82 Long term (current) use of aspirin; Z79.01 Long term (current) use of anticoagulants; Z90.710 Acquired absence of both cervix and uterus
CPT/HCPCS: 81000; 87077; 87088; 87186; 99282

== ENCOUNTER 2018-08-05 19:43 | Emergency (ER) | payer MEDICARE, OTHER ==
[~2018-08-05] VITALS: Ht 160 cm; Wt 75.3 kg
[~2018-08-05 19:43] MED LIST changes: +CEPH500T PO
[2018-08-05] MEDS ORDERED: fentaNYL INJECTION 100 MCG/2 ML AMP IVP STA ×2 (19:51→21:42)
--- NOTE | 2018-08-05 19:57 | ED Fall/Injury ---
General Stated Complaint: FALL,BACK PAIN Source: patient Exam Limitations: no limitations History of Present Illness Date Seen by Provider: Aug 05, 2018 Time Seen by Provider: 19:45 Initial Comments PT ARRIVES VIA POV, NEEDING WHEELCHAIR ASSIST OUT OF VEHICLE AND INTO ER. PT STATES SHE WAS WALKING UP THE STEPS TO [place] AND LOST HER BALANCE AND FELL BACKWARD, LANDING DIRECTLY ON HER BUTTOCKS WAS ON 2ND STEP OCCURRED JUST PRIOR TO ARRIVAL DID NOT HIT HEAD AND NO LOSS OF CONSCIOUSNESS C/O SEVERE LOWER BACK PAIN STATES SHE HAS CHRONIC LOW BACK PAIN, BUT THIS IS MUCH WORSE NO NECK PAIN NO PARESTHESIAS OR MOTOR DEFICITS NO PAIN TO ARMS OR LEGS PCP: DR QUINONES Allergies and Home Medications Allergies Coded Allergies: Penicillins (Verified Allergy, Unknown, 11/17/08) Home Medications Aspirin 81 Mg Tabec, 81 MG PO HS, (Reported) Calcium Carbonate/Vitamin D3 1 Each Tablet, 1 TAB PO BID, (Reported) Cephalexin 500 Mg Capsule, 500 MG PO BID Prescribed by: VALENTE CARBAJAL on 01/11/17 0632 Cephalexin 500 Mg Tablet, 500 MG PO BID Prescribed by: VALENTE CARBAJAL on 12/04/17 0550 Cholecalciferol (Vitamin D3) 2,000 Unit Capsule, 2,000 UNIT PO HS, (Reported) Diltiazem Hcl 240 Mg Cap.er.24h, 240 MG PO DAILY, (Reported) Hydrocodone Bit/Acetaminophen 1 Tab Tab, 1 EACH PO Q4H PRN for PAIN-MODERATE Prescribed by: AVILA WINSTON on 08/05/18 2146 Levothyroxine Sodium 125 Mcg Tablet, 125 MCG PO DAILY, (Reported) Nitrofurantoin Monohyd/M-Cryst 100 Mg Capsule, 100 MG PO BID Prescribed by: AVILA WINSTON on 02/01/17 09 Omeprazole 20 Mg Capsule.dr, 20 MG PO BID, (Reported) Phenazopyridine HCl 200 Mg Tablet, 1 TAB PO TID Prescribed by: AVILA WINSTON on 02/01/17 09 Simvastatin 20 Mg Tab, 20 MG PO HS, (Reported) HAS NOT TAKEN IN AWHILE Warfarin Sodium 5 Mg Tablet, 5 MG PO DAILY TAKE 10 MG TONIGHT AND 5 MG SAT AND SUN RECHECK INR ON THURSDAY Prescribed by: NAHED SHOEMAKER on 07/22/13 1144 Patient Home Medication List Home Medication List Reviewed: Yes Review of Systems Review of Systems Constitutional: no symptoms reported Eyes: No Symptoms Reported Ears, Nose, Mouth, Throat: no symptoms reported Respiratory: no symptoms reported Cardiovascular: no symptoms reported (HAS CHRONIC ATRIAL FIBRILLATION--NO TACHYCARDIA) Gastrointestinal: no symptoms reported Genitourinary: no symptoms reported Musculoskeletal: see HPI, back pain Skin: no symptoms reported Psychiatric/Neurological: No Symptoms Reported (HX OF STROKE) Past Veebaes-Ntmgpq-Vtivnl Hx Patient Social History Alcohol Use: Denies Use Recreational Drug Use: No Smoking Status: Never a Smoker Recent Foreign Travel: No Contact w/Someone Who Travel: No Recent Hopitalizations: No Immunizations Up To Date Date of Pneumonia Vaccine: Feb 14, 2009 Date of Influenza Vaccine: Apr 15, 2013 Past Medical History Surgeries: Yes (RIGHT KNEE REPLACEMENT) Hysterectomy, Joint Replacement, Orthopedic Respiratory: No Cardiac: Yes Atrial Fibrillation, High Cholesterol, Hypertension Neurological: Yes Stroke Reproductive Disorders: No 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 7.0oz. 79.780707nd; 29.76 BMI Method:Stated General Appearance: WD/WN, no apparent distress, other (BUT APPEARS TO BE IN PAIN AND MUCH DIFFICULTY WITH ANY POSITION CHANGE--REQUIRES 2 PERSON ASSIST TO TRANSFER FROM WHEELCHAIR TO ER CART. WELL GROOMED WITH FULL MAKEUP AND HAIR DONE. ) Neck: non-tender, full range of motion, supple, normal inspection Cardiovascular: no edema, no murmur, irregularly irregular Respiratory: chest non-tender, normal breath sounds, no respiratory distress, no accessory muscle use Gastrointestinal: non tender, soft Back: decreased range of motion, vertebral tenderness, other (DIFFUSE LOWER BACK TENDERNESS. VERY LIMITED ROM DUE TO PAIN/ DISTAL MOTOR/SENSORY/VASCULAR INTACT. 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, no motor/sensory deficits, alert, normal mood/affect, oriented x 3 Skin: normal color, warm/dry Progress/Results/Core Measures Results/Orders My Orders Orders - AVILA WINSTON DO Saline Lock/Iv-Start (08/05/18 19:51) Chest 1 View, Ap/Pa Only (08/05/18 19:51) Pelvis (08/05/18 19:51) Fentanyl Injection (Sublimaze Injection (08/05/18 19:51) Ct Thoracic/Lumbar Spine Wo (08/05/18 19:51) Ct Cervical Spine Wo (08/05/18 ) Ekg Tracing (08/05/18 20:02) Monitor-Rhythm Ecg Trace Only (08/05/18 20:02) Fentanyl Injection (Sublimaze Injection (08/05/18 21:42) Rx-Hydrocodone/Apap 5-325 Mg (Rx-Vicodin (08/05/18 21:45) Rx-Hydrocodone/Apap 5-325 Mg (Rx-Vicodin (08/05/18 21:56) Medications Given in ED Current Medications Medications Dose Ordered Sig/[place] Route Start Time Stop Time Status Last Admin Dose Admin Acetaminophen/ Hydrocodone Bitart 1 ea Q4H PRN PO 08/05/18 21:45 08/05/18 22:18 DC 08/05/18 22:04 1 EA Vital Signs/I&O 08/05/18 08/05/18 19:47 22:14 Temp 97.7 97.7 Pulse 80 83 Resp 16 16 B/P (MAP) 133/85 (101) 156/86 (109) Pulse Ox 99 99 O2 Delivery Room Air Room Air Progress Progress Note : Progress Note PAIN IMPROVED AT DISMISSAL PT STATES SHE DOES HAVE A WALKER AT HOME. Initial ECG Impression Date: Aug 05, 2018 Initial ECG Impression Time: 19:56 Initial ECG Rate: 77 Initial ECG Rhythm: A Fib/Flutter (WITH IVCD, INFERIOR Q WAVES. ) Initial ECG Comparisson: Changed (QRS IS WIDER, FROM PREVIOUS) Diagnostic Imaging Comments CT CERVICAL/THORACIC/LUMBAR SPINE--ACUTE L2 COMPRESSION WITH 20% LOSS OF VERTEBRAL HEIGHT. CHRONIC DEGENERATIVE CHANGES PER RADIOLOGIST REPORT @ 2134 CXR--CARDIOMEGALY AND CENTRAL VASCULAR CONGESTION PELVIS--NO ACUTE PROCESS PER RADIOLOGIST REPORTS Reviewed: Reviewed by Me Departure Impression Primary Impression: Fall down steps Additional Impression: Compression fracture of L2 Disposition: 01 HOME, SELF-CARE Condition: Improved Departure-Patient Inst. Referrals: PACO SANDOVAL MD, WEN-CHOU MD (PCP/Family) Primary Care Physician Patient Instructions: Preventing Falls in the Older Adult, Vertebral Compression Fracture (DC) Add. Discharge Instructions: USE YOUR WALKER AT ALL TIMES ALTERNATE ICE AND HEAT TO SORE AREA AT 20 MINUTE INTERVALS FOLLOW UP WITH DR. SANDOVAL/ORTHO 4 STATES NEXT WEEK FOR FURTHER CARE--CALL IN AM FOR APPOINTMENT Scripts Hydrocodone Bit/Acetaminophen (Hydrocodone/Acetaminophen 5/325mg Tablet) 1 Tab Tab 1 EACH PO Q4H PRN for PAIN-MODERATE MDD 10, #20 TAB Prov: AVILA WINSTON DO 08/05/18 AVILA WINSTON DO Aug 05, 2018 19:57
--- OUTSIDE RECORDS SUMMARY | 2018-08-05 20:08 | XMS REPORT | Continuity of Care Document ---
Author Author [facility] Organization [facility] Address Unknown Phone Unavailable Allergies Active Description Code Type Severity Reaction Onset Reported/Identified Relationship to Patient Clinical Status Yes NO KNOWN DRUG ALLERGIES UNKNOWN NO KNOWN DRUG ALLERG Yes Penicillins [id number] Drug Allergy Unknown N/A 11/17/2008 Medications There [...] USE 06/03/2012 Ot 414.01 CORONARY ATHEROSCLEROSIS OF [place] CORON 06/03/2012 Ot 427.31 ATRIAL FIBRILLATION 06/03/2012 [...] MD Ot 787.01 NAUSEA WITH VOMITING 07/22/2013 SHRAONDA MON MD Ot 244.9 HYPOTHYROIDISM NOS 07/22/2013 SHARONDA MON MD Ot 272.4 HYPERLIPIDEMIA NEC/NOS 07/22/2013 SHARONDA MON MD Ot 276.51 DEHYDRATION 07/22/2013 SHARONDA MON MD Ot 416.8 CHR PULMON HEART DIS NEC 07/22/2013 SHARONDA MON MD Ot 427.31 ATRIAL FIBRILLATION 07/22/2013 SHARONDA MON MD Ot 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.3 CARDIOMEGALY 07/22/2013 SHARONDA MON MD Ot 535.50 UNSP GASTRITIS GASTRODUODENITIS W/O ME 07/22/2013 SHARONDA MON MD Ot 553.3 DIAPHRAGMATIC HERNIA 07/22/2013 SHARONDA MON MD Ot 780.60 FEVER, UNSPECIFIED 07/22/2013 SHARONDA MON [...] NEC 12/07/2013 AVILA WINSTON DO Ot V06.1 [id number], COMBINED [ 12/07/2013 AVILA WINSTON DO Ot V12.54 PERSONAL HX OF TIA, CEREBRAL INFARCTION 12/07/2013 AVILA WINSTON DO Ot V14.0 HX-PENICILLIN ALLERGY 12/07/2013 AVILA WINSTON DO, Ot V43.65 KNEE JOINT REPLACEMENT STATUS 12/07/2013 [...] M Ot 789.00 02/26/2015 ELIESER SHIPLEY, SHARONDA M Ot V76.12 02/26/2015 ELIESER SHIPLEY, SHARONDA M Ot 573.9 02/26/2015 ELIESER SHIPLEY, SHARONDA M Ot 787.02 02/26/2015 ELIESER SHIPLEY, SHARONDA M Ot 789.00 02/26/2015 ELIESER SHIPLEY, SHARONDA Montez Ot V76.12 03/13/2015 SHANTA SHIPLEY, TOMMY Flores Ot 272.4 03/13/2015 SHANTA SHIPLEY, TOMMY Flores Ot 401.9 03/13/2015 SHANTA SHIPLEY, TOMMY Flores Ot 414.9 03/13/2015 SHANTA SHIPLEY, TOMMY Flores Ot 427.31 03/21/2015 LEAH SHIPLEY, SILVIO S Ot 433.10 03/28/2015 LEAH SHIPLEY, SILVIO S Ot 433.10 04/16/2015 SHANTA SHIPLEY, TOMMY Folres Ot 272.4 04/16/2015 SHANTA SHIPLEY, TOMMY Flores [...] SILVIO S Ot 433.10 07/27/2015 MARY TOWNSEND APRN Ot Z12.31 11/14/2015 LEONA COBB MD Ot [...] QUINONEZ Ot I25.10 ATHSCL HEART DISEASE OF [place] CORONARY 02/21/2016 JOANNA QUINONEZ Ot I48.0 PAROXYSMAL ATRIAL FIBRILLATION 02/21/2016 JOANNA QUINONEZ Ot 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 03/13/2016 JOANNA QUINONEZ Ot I10 ESSENTIAL (PRIMARY) HYPERTENSION 03/13/2016 JOANAN QUINONEZ Ot I25.10 ATHSCL HEART DISEASE OF [place] CORONARY 03/13/2016 PALMA-GALLO PA, JOANNA K Ot I48.0 PAROXYSMAL ATRIAL FIBRILLATION 03/13/2016 RACHEL STEPHENSONJOANNA Ot I65.23 OCCLUSION AND STENOSIS OF BILATERAL [...] ARTERY OCCLUSION W O CEREBRAL IN 07/29/2016 LEAH MD, SILVIO S Ot 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 W O CEREBRAL IN 07/29/2016 KRISTIAN MARY Montez APRN Ot Z12.31 ENCNTR SCREEN MAMMOGRAM FOR MALIGNANT NE 07/29/2016 JOANNA QUINONEZ Ot I10 ESSENTIAL (PRIMARY) HYPERTENSION 07/29/2016 JOANNA QUINONEZ Ot I25.10 ATHSCL HEART DISEASE OF [place] CORONARY 07/29/2016 JOANNA QUINONEZ Ot I48.0 PAROXYSMAL ATRIAL FIBRILLATION 07/29/2016 JOANNA QUINONEZ Ot 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 07/31/2016 WALTER DO, SILVIO F Ot M19.072 PRIMARY OSTEOARTHRITIS, LEFT [...] MON MD Ot 787.02 NAUSEA ALONE 01/11/2017 ELIESER SHIPLEY, SHARONDA Tc Ot 789.00 ABDOMINAL PAIN, UNSPECIFIED SITE 01/11/2017 ELIESER SHIPLEY, SHARONDA Tc Ot V76.12 OT SCREEN MAMMO-MALIGN NEOPLASM OF ANOOP 01/11/2017 TOMMY [...] QUINONEZ Ot I25.10 ATHSCL HEART DISEASE OF [place] CORONARY 01/11/2017 JOANNA QUINONEZ Ot I48.0 PAROXYSMAL ATRIAL FIBRILLATION 01/11/2017 JOANNA QUINONEZ Ot 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 01/11/2017 SILVIO WATSON DO Ot M19.072 PRIMARY OSTEOARTHRITIS, LEFT ANKLE AND F 01/11/2017 STACIE SHIPLEY, MAYKEL Higginbotham Ot Z12.31 ENCNTR SCREEN MAMMOGRAM FOR MALIGNANT NE 01/11/2017 VALENTE CARBAJAL MD Ot N39.0 URINARY TRACT INFECTION, SITE NOT SPECIF 01/11/2017 VALENTE CARBAJAL MD Ot R30.0 DYSURIA 01/11/2017 VALENTE CARBAJAL MD Ot Z79.01 ROUGE SIFTER (CURRENT) USE OF ANTICOAGULANT 01/11/2017 VALENTE CARBAJAL MD Ot Z90.710 ACQUIRED ABSENCE OF BOTH CERVIX AND UTER 01/11/2017 VALENTE CARBAJAL MD Ot Z96.651 PRESENCE OF RIGHT ARTIFICIAL KNEE JOINT 01/13/2017 VALENTE CARBAJAL MD Ot N39.0 URINARY TRACT INFECTION, SITE NOT SPECIF 01/13/2017 VALENTE CARBAJAL MD Ot R30.0 DYSURIA 01/13/2017 VALENTE CARBAJAL MD Ot Z79.01 HALFWAY (CURRENT) USE OF ANTICOAGULANT 01/13/2017 VALENTE CARBAJAL [...] 02/01/2017 TISH DO AVILA K Ot Z79.01 HALFWAY (CURRENT) USE OF ANTICOAGULANT 02/01/2017 TISH DO AVILA K Ot Z79.82 HALFWAY (CURRENT) USE OF ASPIRIN 02/01/2017 TISH DO [...] MICTURITION 02/11/2017 VALENTE CARBAJAL MD Ot Z79.01 ROUGE SIFTER (CURRENT) USE OF ANTICOAGULANT 02/11/2017 VALENTE CARBAJAL MD Ot Z79.82 ROUGE SIFTER (CURRENT) USE OF ASPIRIN 02/11/2017 VALENTE CARBAJAL MD Ot Z87.440 PERSONAL HISTORY OF URINARY (TRACT) INFE 02/11/2017 VALENTE CARBAJAL MD Ot Z90.710 ACQUIRED ABSENCE OF BOTH CERVIX AND UTER 02/11/2017 VALENTE CARBAJAL MD Ot Z96.651 PRESENCE OF RIGHT ARTIFICIAL KNEE JOINT 02/13/2017 VALENTE CARBAJAL MD J Ot E78.00 PURE HYPERCHOLESTEROLEMIA, UNSPECIFIED 02/13/2017 VALENTE CARBAJAL MD J Ot G89.29 OTHER CHRONIC PAIN 02/13/2017 VALENTE CARBAJAL MD Ot I10 ESSENTIAL (PRIMARY) HYPERTENSION 02/13/2017 VALENTE CARBAJAL MD Ot I48.91 UNSPECIFIED ATRIAL FIBRILLATION 02/13/2017 VALENTE CARBAJAL MD J Ot M54.9 DORSALGIA, UNSPECIFIED 02/13/2017 VALENTE CARBAJAL MD Ot R11.2 NAUSEA WITH VOMITING, UNSPECIFIED 02/13/2017 VALENTE CARBAJAL MD Ot R35.0 FREQUENCY OF MICTURITION 02/13/2017 VALENTE CARBAJAL MD Ot Z79.01 HALFWAY (CURRENT) USE OF ANTICOAGULANT 02/13/2017 VALENTE CARBAJAL MD Ot Z79.82 ROUGE SIFTER (CURRENT) USE OF ASPIRIN 02/13/2017 VALENTE CARBAJAL MD Ot Z87.440 PERSONAL HISTORY OF URINARY (TRACT) INFE 02/13/2017 VALENTE CARBAJAL MD Ot Z90.710 ACQUIRED ABSENCE OF BOTH CERVIX AND UTER 02/13/2017 VALENTE CARBAJAL MD Ot Z96.651 PRESENCE OF RIGHT ARTIFICIAL KNEE JOINT 03/27/2017 VALENTE CARBAJAL MD Ot E78.00 PURE HYPERCHOLESTEROLEMIA, UNSPECIFIED 03/27/2017 VALENTE CARBAJAL MD Ot G89.29 OTHER CHRONIC PAIN 03/27/2017 VALENTE CARBAJAL MD J Ot I10 ESSENTIAL (PRIMARY) HYPERTENSION 03/27/2017 VALENTE CARBAJAL MD J Ot I48.91 UNSPECIFIED ATRIAL FIBRILLATION 03/27/2017 VALENTE CARBAJAL MD J Ot M54.9 DORSALGIA, UNSPECIFIED 03/27/2017 VALENTE CARBAJAL MD J Ot R11.2 NAUSEA WITH VOMITING, UNSPECIFIED 03/27/2017 VALENTE CARBAJAL MD Ot R35.0 FREQUENCY OF MICTURITION 03/27/2017 VALENTE CARBAJAL MD Ot Z79.01 HALFWAY (CURRENT) USE OF ANTICOAGULANT 03/27/2017 VALENTE CARBAJAL MD Ot Z79.82 ROUGE SIFTER (CURRENT) USE OF ASPIRIN 03/27/2017 VALENTE CARBAJAL MD Ot Z87.440 PERSONAL HISTORY OF URINARY (TRACT) INFE 03/27/2017 VALENTE CARBAJAL MD Ot Z90.710 ACQUIRED ABSENCE OF BOTH CERVIX AND UTER 03/27/2017 VALENTE CARBAJAL MD Ot Z96.651 PRESENCE OF RIGHT ARTIFICIAL KNEE JOINT 04/07/2017 Ot V76.12 OTH SCREEN MAMMO-MALIGN NEOPLASM OF ANOOP 04/07/2017 Ot 414.00 CORON ATHEROSCLER NOS TYPE [...] ARTERY OCCLUSION W O CEREBRAL IN 04/07/2017 LEAH SHIPLEY, SILVIO Cabello Ot 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 W O CEREBRAL IN 04/07/2017 MARY TOWNSEND APRN Ot Z12.31 ENCNTR SCREEN MAMMOGRAM FOR MALIGNANT NE 04/07/2017 JOANNA QUINONEZ Ot I10 ESSENTIAL (PRIMARY) HYPERTENSION 04/07/2017 JOANNA QUINONEZ Ot I25.10 ATHSCL HEART DISEASE OF [place] CORONARY 04/07/2017 JOANNA QUINONEZ Ot I48.0 PAROXYSMAL ATRIAL FIBRILLATION 04/07/2017 JOANNA QUINONEZ Ot I65.23 OCCLUSION AND STENOSIS [...] J44.9 CHRONIC OBSTRUCTIVE PULMONARY DISEASE, U 04/28/2017 JOANNA QUINONEZ Ot I10 ESSENTIAL (PRIMARY) HYPERTENSION 04/28/2017 JOANNA [...] ENCNTR SCREEN MAMMOGRAM FOR MALIGNANT NE 10/05/2017 CORBY NEWELL MD Ot Z12.31 ENCNTR SCREEN MAMMOGRAM FOR MALIGNANT NE 12/04/2017 VALENTE CARBAJAL MD Ot E78.00 PURE HYPERCHOLESTEROLEMIA, UNSPECIFIED 12/04/2017 VALENTE CARBAJAL MD Ot I10 ESSENTIAL (PRIMARY) HYPERTENSION 12/04/2017 VALENTE CARBAJAL MD Ot I48.91 UNSPECIFIED ATRIAL FIBRILLATION 12/04/2017 VALENTE CARBAJAL MD Ot N39.0 URINARY TRACT INFECTION, SITE NOT SPECIF 12/04/2017 VALENTE CARBAJAL MD Ot R30.0 DYSURIA 12/04/2017 VALENTE CARBAJAL MD Ot Z79.01 HALFWAY (CURRENT) USE OF ANTICOAGULANT 12/04/2017 VALENTE CARBAJAL MD Ot Z79.82 ROUGE SIFTER (CURRENT) USE OF ASPIRIN 12/04/2017 VALENTE CARBAJAL MD Ot Z86.73 PRSNL HX OF TIA (TIA), AND CEREB INFRC W 12/04/2017 VALENTE CARBAJAL MD Ot Z88.0 ALLERGY STATUS TO PENICILLIN 12/04/2017 VALENTE CARBAJAL MD Ot Z90.710 ACQUIRED ABSENCE OF BOTH CERVIX AND UTER 12/04/2017 VALENTE CARBAJAL MD Ot Z96.651 PRESENCE OF RIGHT ARTIFICIAL KNEE JOINT 12/07/2017 VALENTE CARBAJAL MD Ot E78.00 PURE HYPERCHOLESTEROLEMIA, UNSPECIFIED 12/07/2017 VALENTE CARBAJAL MD Ot I10 ESSENTIAL (PRIMARY) HYPERTENSION 12/07/2017 VALENTE CARBAJAL MD Ot I48.91 UNSPECIFIED ATRIAL FIBRILLATION 12/07/2017 VALENTE CARBAJAL MD Ot N39.0 URINARY TRACT INFECTION, SITE NOT SPECIF 12/07/2017 VALENTE CARBAJAL MD Ot R30.0 DYSURIA 12/07/2017 VALENTE CARBAJAL MD Ot Z79.01 HALFWAY (CURRENT) USE OF ANTICOAGULANT 12/07/2017 VALENTE CARBAJAL MD Ot Z79.82 ROUGE SIFTER (CURRENT) USE OF ASPIRIN 12/07/2017 VALENTE CARBAJAL MD Ot Z86.73 PRSNL HX OF TIA (TIA), AND CEREB INFRC W 12/07/2017 SOLOMON SHIPLEY, VALENTE Flores Ot Z88.0 ALLERGY STATUS TO PENICILLIN 12/07/2017 SOLOMON SHIPLEY, VALENTE Flores Ot Z90.710 ACQUIRED ABSENCE OF BOTH CERVIX AND UTER 12/07/2017 SOLOMON SHIPLEY, VALENTE Flores Ot Z96.651 PRESENCE OF RIGHT ARTIFICIAL KNEE JOINT 04/14/2018 Faby, Aysha W 599.0 URINARY TRACT INFECTION, SITE NOT SPECIFIED 04/14/2018 Faby, Aysha W 599.70 HEMATURIA, UNSPECIFIED 04/14/2018 Faby, Aysha W 788.1 DYSURIA 04/14/2018 Faby, Aysha W N39.0 URINARY TRACT INFECTION, SITE NOT SPECIFIED 04/14/2018 Faby, Aysha W R30.0 DYSURIA 04/14/2018 Faby, Aysha W R31.9 HEMATURIA, UNSPECIFIED 04/14/2018 Faby, Aysha W 599.0 URINARY TRACT INFECTION, SITE NOT SPECIFIED 04/14/2018 Faby, Aysha W 599.70 HEMATURIA, UNSPECIFIED 04/14/2018 Faby, Aysha W 788.1 DYSURIA 04/14/2018 Faby, Aysah W N39.0 URINARY TRACT INFECTION, SITE NOT SPECIFIED 04/14/2018 Faby, Aysha W R30.0 DYSURIA 04/14/2018 Faby, Aysha W R31.9 HEMATURIA, UNSPECIFIED 05/18/2018 Newell, Dafne-Madeline W 427.31 ATRIAL FIBRILLATION 05/18/2018 Newell, Dafne-Madeline W 724.2 LUMBAGO 05/18/2018 Newell, Dafne-Madeline W 788.42 POLYURIA 05/18/2018 Newell, Dafne-Madeline W I48.2 CHRONIC ATRIAL FIBRILLATION 05/18/2018 Newell, Dafne-Madeline W M54.5 LOW BACK PAIN 05/18/2018 Newell, Dafne-Madeline W R35.8 OTHER POLYURIA 05/18/2018 Newell, Dafne-Madeline W 427.31 ATRIAL FIBRILLATION 05/18/2018 Newell, Dafne-Madeline W 724.2 LUMBAGO 05/18/2018 Newell, Dafne-Madeline W 788.42 POLYURIA 05/18/2018 Newell, Dafne-Madeline W I48.2 CHRONIC ATRIAL FIBRILLATION 05/18/2018 Newell, Dafne-Madeline W M54.5 LOW BACK PAIN 05/18/2018 Corby Newell R35.8 OTHER POLYURIA 07/01/2018 Corby Newell 486 PNEUMONIA, ORGANISM UNSPECIFIED 07/01/2018 Corby Newell J18.9 PNEUMONIA, UNSPECIFIED ORGANISM 07/01/2018 Corby Newell 486 PNEUMONIA, ORGANISM UNSPECIFIED 07/01/2018 Corby Newell J18.9 PNEUMONIA, UNSPECIFIED ORGANISM Procedures There is no data. Results Test [...] culture - 01/11/17 06:12 Bacterial urine culture [id number] NRG COLONY COUNT >100,000/ML NRG FTX;REPORTABLE SENSITIVITY [...] susceptibility test by minimum inhibitory concentration - NR Complete urinalysis with reflex to culture - [...] culture - 02/01/17 09:00 Bacterial urine culture [id number] NRG COLONY COUNT <10,000 NRG FTX;REPORTABLE SENSITIVITY REPORTED 02/03/17 8:25 NRG Bacterial susceptibility panel - 02/01/17 09:00 Gentamicin [...] urine sediment by light microscopy 0-2 NRG Complete urinalysis with reflex to culture - 12/04/17 05:15 Urine color determination YELLOW NRG Urine clarity determination VERY CLOUDY NRG Urine pH measurement by test [...] erythrocyte count by microscopy (number/high power field) > [HPF] NRG Automated urine sediment leukocyte count by microscopy (number/high power field ) > [HPF] NRG Bacteria detection in urine sediment by light microscopy MODERATE NRG Squamous epithelial cells detection in urine sediment by light microscopy 2-5 NRG Crystals detection in urine sediment by light microscopy NONE NRG Casts detection in urine sediment by light microscopy NONE NRG Mucus detection in urine sediment by light microscopy NEGATIVE NRG Complete urinalysis with reflex to culture YES NRG Bacterial urine culture - 12/04/17 05:15 Bacterial urine culture RML NRG COLONY COUNT . NRG FTX;REPORTABLE RML SENT SENSITIVITY REPORT 12/06 09:05 NRG RML Sensitivity Panel - 12/04/17 05:15 Gentamicin susceptibility test by minimum inhibitory concentration < = NRG Trimethoprim/sulfamethoxazole susceptibility test by minimum inhibitoryconcentration <= NRG Levofloxacin susceptibility test by minimum inhibitory concentration <= NRG Ampicillin susceptibility test by minimum inhibitory concentration < = NRG Cefazolin susceptibility test by minimum inhibitory concentration < = NRG Ceftriaxone susceptibility test by minimum inhibitory concentration <= NRG Ciprofloxacin susceptibility test by minimum inhibitory concentration <= NRG Meropenem susceptibility test by minimum inhibitory concentration < = NRG Nitrofurantoin susceptibility test by minimum inhibitory concentration <= NRG Amoxicillin and clavulanate potassium susc MARGARITO <= NRG Urinalysis - 04/12/18 14:07 Icotest N/A Negative Urine Volume Urine Volume Sufficient (10mL) Urine Yeast No Yeast present Urine-Appearance Clear Clear Urine-Bacteria 2+ Urine-Bilirubin Negative Negative Urine-Blood Negative Negative Urine-Color Yellow Colorless-Lt. Yellow Urine-Epithelial Cells 0-5/HPF Urine-Glucose Negative Negative Urine-Ketones Negative Negative Urine-Leukocytes Negative Negative Urine-Mucus 1+ Urine-Nitrite Negative Negative Urine-Other Culture to follow Urine-pH 7.0 5-8.5 Urine-Protein Trace Negative Urine-RBC Negative Urine-Specific Dexter 1.020 1.000-1.030 Urine-WBC 2-5/HPF Urobilinogen 0.2 E.U./dL 0.2-1.0 Urine Culture - 04/12/18 14:07 PRELIM CULTURE RESULTS No Growth 24 hours FINAL CULTURE RESULTS 20,000-50,000 Gram Positive Mixed Faby [id number] Skin Contaminant [id number] Further Workup done MEDIA PLATED Setup at 14:25 on 04/14/2018 CULTURE SOURCE urine Urine Culture - 05/18/18 15:29 PRELIM CULTURE RESULTS <10,000 Gram Positive Mixed Faby [id number] Skin Contaminant FINAL CULTURE RESULTS <10,000 Gram Positive Mixed Fayb [id number] Skin Contaminant [id number] Further Workup done CULTURE SOURCE urine Magnesium - 05/18/18 15:29 Mg++ 2.2 mg/dL 1.6-2.6 Encounters ACCT No. Visit Date/Time Discharge Status Pt. Type Provider Facility Loc./Unit Complaint [id number] 12/04/2017 05:10:00 12/04/2017 05:53:00 DIS Emergency VALENTE CARBAJAL MD [facility] ER BLADDER INFECTION [id number] 09/10/2017 09:22:00 09/10/2017 23:59:59 CLS Outpatient CORBY NEWELL MD [facility] RAD Z12.31 SCREENING MAMMO [id number] 04/07/2017 11:04:00 04/07/2017 23:59:59 CLS Outpatient JOANNA QUINONEZ [facility] RAD I25.10,I65.23 ,I10,E78.2 [id number] 02/11/2017 14:12:00 02/11/2017 17:18:00 DIS Emergency VALENTE CARBAJAL MD [facility] ER RUNNING FEVER [id number] 02/01/2017 08:50:00 02/01/2017 09:58:00 DIS Emergency AVILA WINSTON DO [facility] ER BLADDER INFECTION [id number] 01/11/2017 05:57:00 01/11/2017 06:55:00 DIS Emergency VALENTE CARBAJAL MD [facility] ER BLADDER INFECTION [id number] 08/19/2016 10:10:00 08/19/2016 23:59:59 CLS Outpatient MAYKEL QUINONES MD [facility] RAD SCREENING [id number] 07/30/2016 10:42:00 07/30/2016 23:59:59 CLS Outpatient SILVIO WATSON DO [facility] RAD PRIMARY OA MID-FOOT [id number] 02/20/2016 11:37:00 02/20/2016 23:59:59 CLS Outpatient JOANNA QUINONEZ [facility] CARD AF,CAD,RICH, HTN [id number] 07/25/2015 09:58:00 07/25/2015 23:59:59 CLS Outpatient MARY TOWNSEND CAMILA [facility] RAD SCREENING [id number] 03/08/2015 08:01:00 03/08/2015 23:59:59 CLS Outpatient SILVIO LYNN MD [facility] RAD CAROTID STENOSIS [id number] 03/06/2015 13:32:00 03/06/2015 23:59:59 CLS Outpatient TOMMY WOMACK MD [facility] CARD A-FIB,CAD,HTN,HLP [id number] 02/26/2015 12:56:00 02/26/2015 23:59:59 CLS Outpatient SILVIO LYNN MD [facility] LAB STENOSIS [id number] 07/05/2014 10:10:00 07/05/2014 23:59:59 CLS Outpatient SHARONDA MON MD [facility] RAD SCREENING [id number] 12/07/2013 05:09:00 12/07/2013 06:47:00 DIS Emergency TISH AVILA Vallejo [facility] ER HEAD LAC-FALL [id number] 11/03/2013 08:11:00 11/03/2013 23:59:59 CLS Outpatient SHARONDA MON MD [facility] RAD NAUSEA,ABD PAIN, LIVER LESION [id number] 09/21/2013 08:38:00 09/21/2013 09:30:00 DIS Outpatient SILVIO WATSON DO [facility] REHAB S/P R TKR [id number] 08/12/2013 15:25:00 08/12/2013 23:59:59 CLS Outpatient [id number] 07/20/2013 13:40:00 07/22/2013 12:00:00 DIS Outpatient SHARONDA MON MD [facility] SDC NAUSEA,ABD PAIN [id number] 07/19/2013 07:49:00 07/19/2013 11:20:00 DIS Emergency JORDYN SHIPLEY, LEONA Chaney [facility] ER NOT FEELING WELL [id number] 06/22/2013 09:42:00 06/22/2013 23:59:59 CLS Outpatient SHARONDA MON MD [facility] RAD SCREENING [id number] 03/22/2013 07:43:00 03/22/2013 23:59:59 CLS Outpatient SHARONDA MON MD [facility] RAD ABD PAIN [id number] 03/16/2013 11:23:00 03/16/2013 23:59:59 CLS Outpatient SHARONDA MON MD [facility] RAD C/O HIP PAIN /FALL [id number] 06/03/2012 06:47:00 Document Registration [id number] 05/31/2012 08:21:00 Document Registration [id number] 03/17/2012 10:05:00 Document Registration [id number] 06/04/2011 08:55:00 Document Registration [id number] 03/06/2011 09:37:00 Document Registration [id number] 01/27/2011 08:09:00 Document Registration [id number] 01/09/2011 08:49:00 Document Registration [id number] 10/10/2010 09:53:00 Document Registration [id number] 09/23/2010 16:03:00 Document Registration [id number] 01/14/2010 08:39:00 Document Registration [id number] 10/19/2009 09:39:00 Document Registration [id number] 05/16/2009 08:00:00 Document Registration [id number] 05/18/2018 15:18:00 Document Registration [id number] 04/15/2017 10:23:27 04/15/2017 23:59:59 CLS Outpatient [id number] 07/01/2018 10:14:00 07/01/2018 23:59:00 DIS Outpatient Corby Newell [id number] 05/18/2018 15:18:00 05/18/2018 23:59:00 DIS Outpatient Corby Newell [id number] 04/12/2018 14:06:00 04/12/2018 23:59:00 DIS Outpatient Aysha oHbbs
--- NOTE | 2018-08-05 21:13 | Diagnostic Imaging Report ---
INDICATION: Pain after fall. FINDINGS: Examination of the pelvis in the supine projection fails to reveal evidence of fracture, dislocation or other osseous abnormality. IMPRESSION: Negative pelvis. Dictated by: Dictated on workstation # [id number]
--- NOTE | 2018-08-05 21:21 | Diagnostic Imaging Report ---
PROCEDURE: CT cervical spine without contrast. TECHNIQUE: Multiple contiguous axial images were obtained through the cervical spine without the use of intravenous contrast. Sagittal and coronal reformations were then performed. INDICATION: Neck pain after fall. FINDINGS: The alignment of the cervical spine is normal. The vertebral body heights are well-maintained. There is mild multilevel degenerative disc disease with some posterior facet arthropathy. There is no fracture or traumatic subluxation. The odontoid is intact and the lateral masses are well aligned. There is some scarring or atelectasis in the upper lobe. Prevertebral soft tissues are within normal limits. IMPRESSION: Mild cervical spondylosis and multilevel degenerative disc disease. Right apical pleural thickening and/or atelectasis. Dictated by: Dictated on workstation # [id number]
--- NOTE | 2018-08-05 21:24 | Diagnostic Imaging Report ---
INDICATION: Pain after fall. EXAMINATION: Single view of the chest was obtained. FINDINGS: There is cardiomegaly. There is some venous congestion. Mediastinum is unremarkable. There is no pleural effusion, pneumothorax or pneumonia. IMPRESSION: Cardiomegaly with moderate central pulmonary venous congestion. Dictated by: Dictated on workstation # [id number]
--- NOTE | 2018-08-05 21:27 | Diagnostic Imaging Report ---
INDICATION: Back pain. TECHNIQUE: Multiple contiguous axial images were obtained through the thoracic and lumbar spine without the use of intravenous contrast. Sagittal and coronal reformations were then performed. FINDINGS: Bones are osteopenic. There is diffuse thoracolumbar spondylosis. There is a mild compression fracture of the L2 vertebral body. There is approximately 20% loss of vertebral body height. There is no spondylolysis or spondylolisthesis. There is some lower lumbar degenerative disc disease. The lungs are clear. There is some cardiomegaly and coronary artery calcification. The visualized intra-abdominal structures are grossly unremarkable. IMPRESSION: 1. Mild acute appearing compression fracture of the L2 vertebral body with approximately 20% loss of vertebral body height. This would likely be amenable to kyphoplasty if clinically warranted. 2. Osteopenia and diffuse thoracolumbar spondylosis with lower lumbar degenerative disc disease 3. Cardiomegaly and some coronary artery calcification. Dictated by: Dictated on workstation # [id number]
[2018-08-05] MEDS ORDERED: RX-HYDROCODONE/APAP 5/325 MG #4 TAB PK PO PRN (21:45)
[2018-08-05] MEDS ORDERED: ACHD5005 PO (21:46)
[2018-08-05] MEDS ORDERED: RX-HYDROCODONE/APAP 5/325 MG #4 TAB PK PO ONE (21:56)
[2018-08-05 22:14] VITALS: BP 156/86
== END 2018-08-05 22:03 | disposition home or self-care (01) ==
LOC: EDUNIT# 19:43 → ER 19:44
DX: S32.020A Wedge compression fracture of second lumbar vertebra, initial encounter for closed fracture (principal); I48.91 Unspecified atrial fibrillation; E78.00 Pure hypercholesterolemia, unspecified; I10 Essential (primary) hypertension; E03.9 Hypothyroidism, unspecified; Z87.448 Personal history of other diseases of urinary system; Z86.73 Personal history of transient ischemic attack (TIA), and cerebral infarction without residual deficits; Z88.0 Allergy status to penicillin; Z79.82 Long term (current) use of aspirin; Z79.01 Long term (current) use of anticoagulants; Z90.710 Acquired absence of both cervix and uterus; Z96.651 Presence of right artificial knee joint; W10.8XXA Fall (on) (from) other stairs and steps, initial encounter
CPT/HCPCS: 71045; 72125; 72128; 72131; 72170; 93005; 93041; 96374; 96376

== ENCOUNTER 2018-09-17 08:45 | Observation (INO) | payer MEDICARE, OTHER ==
[~2018-09-17] VITALS: Ht 157.5 cm; Wt 76.3 kg
[~2018-09-17 08:45] MED LIST changes: +ACHD5005 PO
[2018-09-17] MEDS ORDERED: ASPIRIN 81 MG CHEW (CHILDREN'S ASA) ONE (09:03)
[2018-09-17] MEDS ORDERED: NITROGLYCERIN 0.4 MG SL TABS BTL 25'S SL ONE (09:03)
[2018-09-17 09:07] LABS: BASOPHILS % (AUTO) 0 % (0-10); EOSINOPHILS # (AUTO) 0.1 10^3/uL (0.0-0.3); EOSINOPHILS % (AUTO) 1 % (0-10); HEMATOCRIT 40 % (35-52); HEMOGLOBIN 13.7 G/DL (11.5-16.0); LYMPHOCYTES # (AUTO) 1.2 X 10^3 (1.0-4.0); LYMPHOCYTES % (AUTO) 12 % (12-44); MEAN CORPUSCULAR HEMOGLOBIN 32 PG (25-34); MEAN CORPUSCULAR HGB CONC 34 G/DL (32-36); MEAN CORPUSCULAR VOLUME 93 FL (80-99); MEAN PLATELET VOLUME 10.1 FL (7.4-10.4); MONOCYTES % (AUTO) 10 % (0-12); NEUTROPHILS # (AUTO) 7.3 X 10^3 (1.8-7.8); NEUTROPHILS % (AUTO) 76 % (42-75); PLATELET COUNT 274 10^3/uL (130-400); RED CELL DISTRIBUTION WIDTH 13.8 % (10.0-14.5); WHITE BLOOD COUNT 9.5 10^3/uL (4.3-11.0)
[2018-09-17 09:31] LABS: CARBON DIOXIDE 26 MMOL/L (21-32); CHLORIDE 102 MMOL/L (98-107); CREATININE SERUM 0.77 MG/DL (0.60-1.30); POTASSIUM 3.8 MMOL/L (3.6-5.0); SODIUM 137 MMOL/L (135-145)
[2018-09-17 09:32] LABS: ALANINE AMINOTRANSFERASE 14 U/L (0-55); ALBUMIN 4.2 GM/DL (3.2-4.5); ALKALINE PHOSPHATASE 113 U/L (40-136); BILIRUBIN,TOTAL 0.8 MG/DL (0.1-1.0); BUN/CREATININE RATIO 21; CALCIUM 9.6 MG/DL (8.5-10.1); GFR ESTIMATED > 60; GLUCOSE 108 MG/DL (70-105); MAGNESIUM 1.8 MG/DL (1.8-2.4); TOTAL PROTEIN 7.2 GM/DL (6.4-8.2)
--- NOTE | 2018-09-17 10:25 | ED Chest Pain ---
General Chief Complaint: Chest Pain Stated Complaint: CHEST TIGHTNESS Nursing Triage Note: pt presents to ed with complaints of chest tightness starting this am when she woke up. pt states she had back sx one week ago and today she was to start back on her warfarin after being off of it for the sx. Pt states chest tightness is worse with inhalation. Nursing Sepsis Screen: No Definite Risk Source: patient, old records Exam Limitations: no limitations History of Present Illness Date Seen by Provider: Sep 17, 2018 Time Seen by Provider: 08:55 Initial Comments This 83-year-old woman presents to the emergency room with complaints of chest tightness upon waking this morning. She did note pain is sometimes a little worse with use of her incentive spirometer. She is chronically short of air. She has atrial fibrillation and usually takes warfarin. However, she had a spine surgery, thought to be kyphoplasty by description, on September 10. She held her warfarin therapy for that procedure and was to start warfarin again today. She denies any lower extremity symptoms. Her shortness of breath is no worse than her usual. Review of her chart notes a cardiac catheterization performed in 2011 demonstrating a 40-50 percent stenosis of the LAD. No interventions were performed at that time. Patient sees Dr. Newell for her primary care and Dr. Ayon for her cardiac care. Her spine surgeon is Dr. Joseph. Allergies and Home Medications Allergies Coded Allergies: Penicillins (Verified Allergy, Unknown, 11/17/08) Home Medications Aspirin 81 Mg Tablet.dr, 81 MG PO HS, (Reported) Calcium Carbonate/Vitamin D3 1 Each Tablet, 1 TAB PO BID, (Reported) Cholecalciferol (Vitamin D3) 2,000 Unit Capsule, 2,000 UNIT PO HS, (Reported) Diltiazem HCl 240 Mg Cap.er.24h, 240 MG PO DAILY, (Reported) Hydrocodone/Acetaminophen 1 Each Tablet, 1 TAB PO TID PRN for PAIN-MODERATE, ( Reported) Levothyroxine Sodium 100 Mcg Tablet, 100 MCG PO DAILY, (Reported) Omeprazole 20 Mg Capsule.dr, 20 MG PO DAILY, (Reported) Simvastatin 10 Mg Tablet, 10 MG PO HS, (Reported) Patient Home Medication List Home Medication List Reviewed: Yes Review of Systems Review of Systems Constitutional: no symptoms reported EENTM: No Symptoms Reported Respiratory: See HPI Cardiovascular: See HPI Gastrointestinal: No Symptoms Reported Genitourinary: No Symptoms Reported Musculoskeletal: see HPI Skin: no symptoms reported Psychiatric/Neurological: No Symptoms Reported Endocrine: No Symptoms Reported Hematologic/Lymphatic: See HPI Past Fjmadtv-Hxfwra-Qcqzpr Hx Patient Social History Alcohol Use: Denies Use Recreational Drug Use: No Smoking Status: Never a Smoker 2nd Hand Smoke Exposure: No Recent Foreign Travel: No Contact w/Someone Who Travel: No Recent Infectious Disease Expo: No Recent Hopitalizations: Yes (05/25/18 PNEUMONIA) Physical Abuse: No Sexual Abuse: No Mistreated: No Fear: No Immunizations Up To Date Date of Pneumonia Vaccine: Feb 14, 2009 Date of Influenza Vaccine: Apr 15, 2013 Seasonal Allergies Seasonal Allergies: No Past Medical History Surgeries: Yes (RIGHT KNEE REPLACEMENT) Hysterectomy, Joint Replacement, Orthopedic Respiratory: No Cardiac: Yes Atrial Fibrillation, High Cholesterol, Hypertension Neurological: Yes Stroke Reproductive Disorders: No STE[employer] History: Hysterectomy, Menopausal Sexually Transmitted Disease: No Genitourinary: Yes Bladder Infection Gastrointestinal: Yes Gastroesophageal Reflux Musculoskeletal: Yes (R KNEE REPLACEMENT) Arthritis, Chronic Back Pain Endocrine: Yes Hypothyroidsim HEENT: No Cancer: No Psychosocial: No Integumentary: No Blood Disorders: No Physical Exam Vital Signs Vital Signs - First Documented 09/17/18 08:45 Temp 97.3 Pulse 73 Resp 20 B/P (MAP) 151/77 (101) Pulse Ox 93 O2 Delivery Room Air Capillary Refill : Less Than 3 Seconds Height, Weight, BMI Height: 5'2.00" Weight: 161lbs. 7.0oz. 73.985481jd; 29.76 BMI Method:Stated General Appearance: No Apparent Distress, WD/WN HEENT: PERRL/EOMI, Normal ENT Inspection Neck: Normal Inspection Respiratory: Lungs Clear, Normal Breath Sounds, No Accessory Muscle Use, No Respiratory Distress Cardiovascular: No Edema, No Murmur, Irregularly Irregular Gastrointestinal: Non Tender, Soft Extremity: Normal Inspection, No Pedal Edema Neurologic/Psychiatric: Alert, Oriented x3, No Motor/Sensory Deficits, Normal Mood/Affect, cancer spec II-XII Norm as Tested Skin: Normal Color, Warm/Dry Progress/Results/Core Measures Results/Orders Lab Results Laboratory Tests Test 09/17/18 08:56 Range/Units White Blood Count 9.5 4.3-11.0 10^3/uL Red Blood Count 4.34 L 4.35-5.85 10^6/uL Hemoglobin 13.7 11.5-16.0 G/DL Hematocrit 40 35-52 % Mean Corpuscular Volume 93 80-99 FL Mean Corpuscular Hemoglobin 32 25-34 PG Mean Corpuscular Hemoglobin Concent 34 32-36 G/DL Red Cell Distribution Width 13.8 10.0-14.5 % Platelet Count 274 130-400 10^3/uL Mean Platelet Volume 10.1 7.4-10.4 FL Neutrophils (%) (Auto) 76 H 42-75 % Lymphocytes (%) (Auto) 12 12-44 % Monocytes (%) (Auto) 10 0-12 % Eosinophils (%) (Auto) 1 0-10 % Basophils (%) (Auto) 0 0-10 % Neutrophils # (Auto) 7.3 1.8-7.8 X 10^3 Lymphocytes # (Auto) 1.2 1.0-4.0 X 10^3 Monocytes # (Auto) 1.0 0.0-1.0 X 10^3 Eosinophils # (Auto) 0.1 0.0-0.3 10^3/uL Basophils # (Auto) 0.0 0.0-0.1 10^3/uL Prothrombin Time 13.8 12.2-14.7 SEC INR Comment 1.1 0.8-1.4 Activated Partial Thromboplast Time 31 24-35 SEC D-Dimer 1.74 H 0.00-0.49 UG/ML Sodium Level 137 135-145 MMOL/L Potassium Level 3.8 3.6-5.0 MMOL/L Chloride Level 102 98-107 MMOL/L Carbon Dioxide Level 26 21-32 MMOL/L Anion Gap 9 5-14 MMOL/L Blood Urea Nitrogen 16 7-18 MG/DL Creatinine 0.77 0.60-1.30 MG/DL Estimat Glomerular Filtration Rate > 60 BUN/Creatinine Ratio 21 Glucose Level 108 H 70-105 MG/DL Calcium Level 9.6 8.5-10.1 MG/DL Corrected Calcium 9.4 8.5-10.1 MG/DL Magnesium Level 1.8 1.8-2.4 MG/DL Total Bilirubin 0.8 0.1-1.0 MG/DL Aspartate Amino Transf (AST/SGOT) 18 5-34 U/L Alanine Aminotransferase (ALT/SGPT) 14 0-55 U/L Alkaline Phosphatase 113 40-136 U/L Myoglobin 44.3 10.0-92.0 NG/ML Troponin I < 0.028 <0.028 NG/ML Total Protein 7.2 6.4-8.2 GM/DL Albumin 4.2 3.2-4.5 GM/DL Lipase 13 8-78 U/L Thyroid Stimulating Hormone (TSH) 1.10 0.35-4.94 UIU/ML Free Thyroxine 1.45 0.70-1.48 NG/DL My Orders Orders - BETH SIERRA MD Ekg Tracing (09/17/18 08:46) Cbc With Automated Diff (09/17/18 08:55) Magnesium (09/17/18 08:55) Chest 1 View, Ap/Pa Only (09/17/18 08:55) Cardiac Profile 1 (09/17/18 08:55) Comprehensive Metabolic Panel (09/17/18 08:55) Myoglobin Serum (09/17/18 08:55) Protime With Inr (09/17/18 08:55) Partial Thromboplastin Time (09/17/18 08:55) O2 (09/17/18 08:55) Monitor-Rhythm Ecg Trace Only (09/17/18 08:55) Lipid Panel (09/18/18 06:00) Saline Lock/Iv-Start (09/17/18 08:55) Nitroglycerin 0.4 Mg Btl 25's (Nitrostat (09/17/18 09:03) Aspirin Chewable Tablet (Baby Aspirin Ch (09/17/18 09:03) Fibrin Degradation Products (09/17/18 09:07) Lipase (09/17/18 09:07) Thyroid Stimulating Hormone (09/17/18 10:16) Free T4 (Free Thyroxine) (09/17/18 10:16) Ct Angio Chest W (09/17/18 12:49) Iohexol Injection (Omnipaque 350 Mg/Ml 1 (09/17/18 13:00) Received Contrast (Hold Metformin- Contr (09/17/18 13:00) Enoxaparin Injection (Lovenox Injection) (09/17/18 14:30) Medications Given in ED Current Medications Medications Dose Ordered Sig/Oneida Route Start Time Stop Time Status Last Admin Dose Admin Aspirin 81 mg STK-MED ONCE .ROUTE 09/17/18 09:03 09/17/18 09:06 DC 09/17/18 09:00 81 MG Enoxaparin Sodium 70 mg ONCE ONCE SC 09/17/18 14:30 09/17/18 14:31 DC 09/17/18 14:55 70 MG Iohexol 125 ml ONCE ONCE IV 09/17/18 13:00 09/17/18 13:01 DC 09/17/18 13:16 125 ML Nitroglycerin 0.4 mg STK-MED ONCE SL 09/17/18 09:03 09/17/18 09:05 DC 09/17/18 09:00 0.4 MG Vital Signs/I&O 09/17/18 09/17/18 08:45 08:45 Temp 97.3 Pulse 73 Resp 20 B/P (MAP) 151/77 (101) Pulse Ox 93 O2 Delivery Room Air Blood Pressure Mean: 101 Progress Progress Note #1: Time: 10:24 Progress Note Patient received aspirin 324 mg and nitro x 1. Pain improved from 8/10 down to 4-5/10. Progress Note #2: Time: 14:36 Progress Note Patient had further relief of her chest pain with a second nitroglycerin. Her pain is now minimal. A CT angiogram of the chest was obtained after review of elevated d-dimer. No aortic pathology or pulmonary emboli were identified. Case was discussed with Dr. Coppola and Dr. Vigil. Dr. Coppola recommended treatment with Lovenox for stroke prophylaxis. Anticoagulant use was cleared with Dr. Smith, on-call for orthopedics. Lovenox was given in the ER. Initial ECG Impression Date: Sep 17, 2018 Initial ECG Impression Time: 08:43 Initial ECG Rate: 67 Initial ECG Rhythm: A Fib/Flutter Initial ECG Impression: Atrial Fibrillation Comment Rate controlled atrial fibrillation. No overt ST elevation or depression. R- wave is slightly wider when compared with prior EKGs. Automated read considers left bundle branch block. Diagnostic Imaging Diagonstic Imaging: Xray Plain Films/CT/US/NM/MRI: chest Comments NAME: TERESA GARNICA [facility] REC#: [id number] PT STATUS: ADM Roxi : 1935 PHYSICIAN: BETH SIERRA MD ADMIT DATE: 09/17/18/ICU Signed Date of Exam: 09/17/18 CHEST 1 VIEW, AP/PA ONLY INDICATION: Chest tightness. TIME OF EXAM: 10:24 AM Correlation is made with prior study from 08/05/2018. FINDINGS: The heart is enlarged, but stable. Lungs are clear. No infiltrate or failure is detected. No effusion or pneumothorax is seen. IMPRESSION: Stable cardiomegaly. No acute abnormality is detected. Dictated by: Dictated on workstation # [id number] Dict: 09/17/18 1030 Trans: 09/17/18 1522 Interpreted by: EFRAIN MALIN MD Electronically signed by: EFRAIN MALIN MD 09/17/18 1522 Reviewed: Reviewed by Me Diagonstic Imaging: CT Plain Films/CT/US/NM/MRI: chest Comments NAME: TERESA GARNICA [facility] REC#: [id number] PT STATUS: ADM Roxi : 1935 PHYSICIAN: BETH SIERRA MD ADMIT DATE: 09/17/18/ICU Signed Date of Exam: 09/17/18 CT ANGIO CHEST W PROCEDURE: CT angiography of the chest with contrast. TECHNIQUE: Multiple contiguous axial images were obtained through the chest after uneventful bolus administration of intravenous contrast. 2D reconstructed CTA MIP acquisitions were also performed. Auto Exposure Controls were utilized during the CT exam to meet ALARA standards for radiation dose reduction. INDICATION: Upper chest pain. COMPARISON: Comparison is made with prior CT angiogram of the chest from 07/19/2013. FINDINGS: Evaluation of the pulmonary arterial system is without evidence of thromboembolism. No filling defects are seen within central, lobar or segmental branches. The thoracic aorta is normal caliber. No dissection is seen. The heart is enlarged. No pericardial fluid is seen. There are trace bilateral pleural effusions. No axillary lymphadenopathy is detected. No definite hilar or mediastinal lymphadenopathy is detected. Apical pleural-parenchymal scarring is seen bilaterally. Parenchymal evaluation demonstrates some minimal scarring or atelectasis in the right middle lobe. Otherwise, lungs are clear. No mass is seen. Upper abdomen is unremarkable. IMPRESSION: 1. Cardiomegaly. 2. No evidence of pulmonary embolism or thoracic aortic dissection. 3. Trace bilateral pleural effusions. Dictated by: Dictated on workstation # [id number] Dict: 09/17/18 1330 Trans: 09/17/18 1523 Interpreted by: EFRAIN MALIN MD Electronically signed by: EFRAIN MALIN MD 09/17/18 1523 Departure Communication (Admissions) Time/Spoke to Admitting Phy: 14:25 Dr. Vigil Time/Spoke to Consulting Phy: 14:15 Dr. Coppola Impression Primary Impression: Chest pain Qualified Codes: R07.9 - Chest pain, unspecified Additional Impression: Atrial fibrillation Qualified Codes: I48.2 - Chronic atrial fibrillation Disposition: ADMITTED INPATIENT Condition: Improved Admissions Decision to Admit Reason: Admit from ER (General) Decision to Admit/Date: Sep 17, 2018 Time/Decision to Admit Time: 14:15 Departure-Patient Inst. Referrals: CORBY NEWELL MD (PCP/Family) Primary Care Physician BETH SIERRA MD Sep 17, 2018 10:25
--- NOTE | 2018-09-17 10:33 | Diagnostic Imaging Report ---
INDICATION: Chest tightness. TIME OF EXAM: 10:24 AM Correlation is made with prior study from 08/05/2018. FINDINGS: The heart is enlarged, but stable. Lungs are clear. No infiltrate or failure is detected. No effusion or pneumothorax is seen. IMPRESSION: Stable cardiomegaly. No acute abnormality is detected. Dictated by: Dictated on workstation # [id number]
[2018-09-17 10:52] LABS: FREE T4 (FREE THYROXINE) 1.45 NG/DL (0.70-1.48)
[2018-09-17 11:57] LABS: INR 1.1 (0.8-1.4); PROTHROMBIN TIME PATIENT 13.8 SEC (12.2-14.7)
[2018-09-17] MEDS ORDERED: HOLD METFORMIN - RECEIVED CONTRAST 20 ML VIAL IV SCH (13:00)
[2018-09-17] MEDS ORDERED: IOHEXOL 350 MG/ML 150 ML (OMNIPAQUE 350) VIAL IV ONE (13:00)
--- NOTE | 2018-09-17 13:38 | Diagnostic Imaging Report ---
PROCEDURE: CT angiography of the chest with contrast. TECHNIQUE: Multiple contiguous axial images were obtained through the chest after uneventful bolus administration of intravenous contrast. 2D reconstructed CTA MIP acquisitions were also performed. Auto Exposure Controls were utilized during the CT exam to meet ALARA standards for radiation dose reduction. INDICATION: Upper chest pain. COMPARISON: Comparison is made with prior CT angiogram of the chest from 07/19/2013. FINDINGS: Evaluation of the pulmonary arterial system is without evidence of thromboembolism. No filling defects are seen within central, lobar or segmental branches. The thoracic aorta is normal caliber. No dissection is seen. The heart is enlarged. No pericardial fluid is seen. There are trace bilateral pleural effusions. No axillary lymphadenopathy is detected. No definite hilar or mediastinal lymphadenopathy is detected. Apical pleural-parenchymal scarring is seen bilaterally. Parenchymal evaluation demonstrates some minimal scarring or atelectasis in the right middle lobe. Otherwise, lungs are clear. No mass is seen. Upper abdomen is unremarkable. IMPRESSION: 1. Cardiomegaly. 2. No evidence of pulmonary embolism or thoracic aortic dissection. 3. Trace bilateral pleural effusions. Dictated by: Dictated on workstation # [id number]
--- NOTE | 2018-09-17 14:05 | Consultation-Cardiology ---
HPI-Cardiology Cardiology Consultation: Date of Consultation 09/17/18 Time Seen by a Provider: 15:40 Date of Admission 09-17-18 Attending Physician Admitting Physician Diane Ramirez MD Consulting Physician Nyla Coppola MD Primary Janitor Helper: Dr. Ayon HPI: Chief Complaint: Chest pain Ms. Garnica is an 83 year old female admitted to ICU 2 from the ED. Her primary dye feeder is Dr. Ayon. She has chronic a-fib for which she takes warfarin. She states she had stopped warfarin 5 days prior to her back surgery and then for an additional 7 days after her back surgery. She reports her back surgical procedure was "cement injection) by Dr. Joseph at [address] She states she was to resume her warfarin today. She reports she woke up this morning and felt pressure/tightness in her chest which persisted all morning. She reports a feeling is inability to take a deep breath d/t tightness in her chest. She reports the discomfort did not change with movement or rest. She rates her discomfort at a 7 on a 1-10 pain scale. She states she had a low grade temp ( 99.0) at home a few days ago. No c/o fever or chills. No c/o cough. No c/o n/ v/d. Chronic bilat LE swelling least in the morning and worse at the end of the day, mild to mod. She has not taken her morning medications yet. Review of Systems-Cardiology Review of Systems Constitutional: No chills; fever; No malaise Eyes: No vision change Ears/Nose/Throat: No epistaxis, No recent hearing loss Respiratory: As described under HPI Gastrointestinal: No constipation, No diarrhea, No nausea, No vomiting Genitourinary: No dysuria, No hematuria Musculoskeletal: As describe under HPI Skin: No rash, No ulcerations Psychiatric/Neurological: No seizure, No focal weakness, No syncope Hematologic: No bleeding abnormalities CZT-Vztkag-Aufcsq Hx Patient Social History Alcohol Use: Denies Use Recreational Drug Use: No Smoking Status: Never a Smoker 2nd Hand Smoke Exposure: No Recent Foreign Travel: No Recent Infectious Disease Expo: No Immunizations Up To Date Date of Pneumonia Vaccine: Feb 14, 2009 Date of Influenza Vaccine: Apr 15, 2013 Past Medical History PMH As described under Assessment. Allergies and Home Medications Allergies Coded Allergies: Penicillins (Verified Allergy, Unknown, 11/17/08) Home Medications Aspirin 81 Mg Tabec, 81 MG PO HS, (Reported) Calcium Carbonate/Vitamin D3 1 Each Tablet, 1 TAB PO BID, (Reported) Cephalexin 500 Mg Capsule, 500 MG PO BID Prescribed by: VALENTE CARBAJAL on 01/11/17 0632 Cephalexin 500 Mg Tablet, 500 MG PO BID Prescribed by: VALENTE CARBAJAL on 12/04/17 0550 Cholecalciferol (Vitamin D3) 2,000 Unit Capsule, 2,000 UNIT PO HS, (Reported) Diltiazem Hcl 240 Mg Cap.er.24h, 240 MG PO DAILY, (Reported) Hydrocodone Bit/Acetaminophen 1 Tab Tab, 1 EACH PO Q4H PRN for PAIN-MODERATE Prescribed by: AVILA WINSTON on 08/05/182145 Levothyroxine Sodium 125 Mcg Tablet, 125 MCG PO DAILY, (Reported) Nitrofurantoin Monohyd/M-Cryst 100 Mg Capsule, 100 MG PO BID Prescribed by: AVILA WINSTON on 02/01/17 09 Omeprazole 20 Mg Capsule.dr, 20 MG PO BID, (Reported) Phenazopyridine HCl 200 Mg Tablet, 1 TAB PO TID Prescribed by: AVILA WINSTON on 02/01/17 09 Simvastatin 20 Mg Tab, 20 MG PO HS, (Reported) HAS NOT TAKEN IN AWHILE Warfarin Sodium 5 Mg Tablet, 5 MG PO DAILY TAKE 10 MG TONIGHT AND 5 MG SAT AND SUN RECHECK INR ON THURSDAY Prescribed by: NAHED SHOEMAKER on 07/22/13 1144 Physical Exam-Cardiology Physical Exam Vital Signs/I&O 09/17/18 09/17/18 09/17/18 08:45 08:45 15:31 Temp 97.3 Pulse 73 74 Resp 20 20 B/P (MAP) 151/77 (101) 150/90 (110) Pulse Ox 93 96 O2 Delivery Room Air Capillary Refill : Less Than 3 Seconds Constitutional: AAO x 3, well-developed, well-nourished HEENT: PERRL, hearing is well preserved, oral hygience is good Neck: No carotid bruit; carotid pulses are 2 + bilaterally Respiratory: No accessory muscle use, No respiratory distress; chest expansion is symmetric, chest is bilaterally symmetric, other (diminished bases bilat; poor inspiratory effort) Cardiovascular: irregularly irregular; No JVD; S1 and S2 Gastrointestinal: No tender; soft, round Extremities: no lower extremity edema bilateral Neurologic/Psychiatric: grossly intact, power is 5/5 both on sides Skin: No rash, No ulcerations Data Review Labs Laboratory Tests 09/17/18 08:56: White Blood Count 9.5, Red Blood Count 4.34L, Hemoglobin 13.7, Hematocrit 40, Mean Corpuscular Volume 93, Mean Corpuscular Hemoglobin 32, Mean Corpuscular Hemoglobin Concent 34, Red Cell Distribution Width 13.8, Platelet Count 274, Mean Platelet Volume 10.1, Neutrophils (%) (Auto) 76H, Lymphocytes (%) (Auto) 12 , Monocytes (%) (Auto) 10, Eosinophils (%) (Auto) 1, Basophils (%) (Auto) 0, Neutrophils # (Auto) 7.3, Lymphocytes # (Auto) 1.2, Monocytes # (Auto) 1.0, Eosinophils # (Auto) 0.1, Basophils # (Auto) 0.0, Prothrombin Time 13.8, INR Comment 1.1, Activated Partial Thromboplast Time 31, D-Dimer 1.74H, Sodium Level 137, Potassium Level 3.8, Chloride Level 102, Carbon Dioxide Level 26, Anion Gap 9, Blood Urea Nitrogen 16, Creatinine 0.77, Estimat Glomerular Filtration Rate > 60, BUN/Creatinine Ratio 21, Glucose Level 108H, Calcium Level 9.6, Corrected Calcium 9.4, Magnesium Level 1.8, Total Bilirubin 0.8, Aspartate Amino Transf (AST/SGOT) 18, Alanine Aminotransferase (ALT/SGPT) 14, Alkaline Phosphatase 113, Myoglobin 44.3, Troponin I < 0.028, Total Protein 7.2 , Albumin 4.2, Lipase 13, Thyroid Stimulating Hormone (TSH) 1.10, Free Thyroxine 1.45 Radiology NAME: TERESA GARNICA [facility] REC#: [id number] PT STATUS: REG ER : 1935 PHYSICIAN: BETH SIERRA MD ADMIT DATE: 09/17/18/ER Draft Date of Exam:09/17/18 CT ANGIO CHEST W PROCEDURE: CT angiography of the chest with contrast. TECHNIQUE: Multiple contiguous axial images were obtained through the chest after uneventful bolus administration of intravenous contrast. 2D reconstructed CTA MIP acquisitions were also performed. Auto Exposure Controls were utilized during the CT exam to meet ALARA standards for radiation dose reduction. INDICATION: Upper chest pain. COMPARISON: Comparison is made with prior CT angiogram of the chest from 07/19/2013. FINDINGS: Evaluation of the pulmonary arterial system is without evidence of thromboembolism. No filling defects are seen within central, lobar or segmental branches. The thoracic aorta is normal caliber. No dissection is seen. The heart is enlarged. No pericardial fluid is seen. There are trace bilateral pleural effusions. No axillary lymphadenopathy is detected. No definite hilar or mediastinal lymphadenopathy is detected. Apical pleural-parenchymal scarring is seen bilaterally. Parenchymal evaluation demonstrates some minimal scarring or atelectasis in the right middle lobe. Otherwise, lungs are clear. No mass is seen. Upper abdomen is unremarkable. IMPRESSION: 1. Cardiomegaly. 2. No evidence of pulmonary embolism or thoracic aortic dissection. 3. Trace bilateral pleural effusions. Dictated on workstation # [id number] Dict: 09/17/18 1330 Trans: 09/17/18 1338 [facility] [id number] Interpreted by: EFRAIN MALIN MD Electronically signed by: ECG Impression ECG Initial ECG Impression: Atrial Fibrillation A/P-Cardiology Assessment/Admission Diagnosis Chest discomfort of undetermined etiology - no evidence of ACS thus far Recent back surgery by Dr. Joseph at [facility] Mild to moderate nonobstructive coronary artery disease per cardiac catheterization [address] Ayon. Most recent reported cardiac catheterization in May 2018 in [place], [place] - when she was hospitalized for pneumonia - no report of stents - exact details unknown Persistent atrial fibrillation - OAC with Warfarin which has been held for greater than a week d/t recent back surgery Maintained on warfarin - does not wish to be on NOAC d/t cost burden History of CVA in 2007, recovered Hypertension Hyperlipidemia Mild bilateral nonobstructive carotid artery stenosis, last carotid ultrasound was done in March 2017 Echocardiogram Feb 20, 2016 showed normal left ventricular size and function ejection fraction 60%, prominent left atrium with dilated right heart chambers, mild MR, [id number] TR, PA pressure 35 mmHg TSH 1.10 on 09-17-18 Discussion and Recomendations Chest discomfort of undetermined etiology - no evidence of ACS thus far - continue serial troponin A-fib with controlled rate - continue home dose of Diltiazem CD 240mg Resume OAC with warfarin, bridge with Lovenox (which per ED has been approved by ortho services at [facility]) until INR is therapeutic Echocardiogram to evaluate LVEF and valvular status Monitor lab closely Further recs will be based on her hospital course We would like to thank medical services for this consult Clinical Quality Measures AMI/AHF: ASA po Prior to arrival: ERNESTO Singh Sep 17, 2018 14:05
[2018-09-17] MEDS ORDERED: ENOXAPARIN 80 MG/0.8 ML (LOVENOX) SYR SC ONE (14:30)
[2018-09-17] MEDS ORDERED: DILTIAZEM 240 MG (CARDIZEM CD) CAP PO NR (16:15)
[2018-09-17] MEDS ORDERED: NITROGLYCERIN 0.4 MG SL TABS BTL 25'S SL PRN (16:15)
[2018-09-17] MEDS ORDERED: CATHETER FLUSH 10 ML SYR IV PRN (16:15)
[2018-09-17] MEDS ORDERED: warFARin 7.5 MG (COUMADIN) TAB PO NR (16:15)
[2018-09-17] MEDS ORDERED: WARF-48 (16:18)
[2018-09-17] MEDS ORDERED: DILT240C53 PO (16:18)
[2018-09-17] MEDS ORDERED: OMEP20CA12 PO (16:18)
[2018-09-17] MEDS ORDERED: SIMV10TA3 PO (16:18)
[2018-09-17] MEDS ORDERED: HYDR-3812 PO (16:18)
[2018-09-17] MEDS ORDERED: LEVO100T7 PO (16:18)
[2018-09-17] MEDS ORDERED: CHOL20002 PO (16:19)
[2018-09-17] MEDS ORDERED: CALC-6 PO (16:19)
[2018-09-17] MEDS ORDERED: ASPI-983 PO (16:19)
--- NOTE | 2018-09-17 16:20 | NUR ---
UNABLE TO SPEAK WITH THE PATIENT PRIOR TO THE END OF MY SHIFT, I UPDATED THE MED REC WITH WHAT HAS BEEN FILLED RECENTLY ACCORDING TO THE EXT MED HX AND LEFT THE OTC MEDS THAT HAD BEEN REPORTED UPON THE PATIENTS PREVIOUS ADMISSION. WILL FOLLOW UP ON THURSDAY IF THE PATIENT IS STILL HERE AND MED REC IS NOT COMPLETED BY NURSING STAFF.
--- NOTE | 2018-09-17 17:48 | Consultation-Cardiology ---
HPI-Cardiology Cardiology Consultation: Date of Consultation 09/17/18 Time Seen by a Provider: 17:00 Date of Admission Attending Physician Daria Vigil DO Admitting Physician Diane Ramirez MD Consulting Physician CAROLIN BERTRAND MD, MA, FACP, FACC, FSCAI, CCDS Physician requesting consult: Dr Vigil Primary clinical educator: Dr Ayon HPI: Chief Complaint: CC: Chest pain HPI Ms. Randhawa is an 83 year old female admitted to ICU 2 from the ED. Her primary clinical educator is Dr. Ayon. She has chronic a-fib for which she takes warfarin. She states she had stopped warfarin 5 days prior to her back surgery and then for an additional 7 days after her back surgery. She reports her back surgical procedure was "cement" injection) by Dr. Joseph at [address] She states she was to resume her warfarin today. She reports she woke up this morning and felt pressure/tightness in her chest which persisted all morning. She reports a feeling is inability to take a deep breath d/t tightness in her chest. She reports the discomfort did not change with movement or rest. She rates her discomfort at a 7 on a 1-10 pain scale. She states she had a low grade temp ( 99.0) at home a few days ago. No c/o fever or chills. No c/o cough. No c/o n/ v/d. Chronic bilat LE swelling least in the morning and worse at the end of the day, mild to mod. She has not taken her morning medications yet. Review of Systems-Cardiology Review of Systems Constitutional: No chills; fever; No malaise Eyes: No vision change Ears/Nose/Throat: No epistaxis, No recent hearing loss Respiratory: As described under HPI Gastrointestinal: No constipation, No diarrhea, No nausea, No vomiting Genitourinary: No dysuria, No hematuria Musculoskeletal: As describe under HPI Skin: No rash, No ulcerations Psychiatric/Neurological: No seizure, No focal weakness, No syncope Hematologic: No bleeding abnormalities PLI-Zbkejj-Dfiijb Hx Patient Social History Alcohol Use: Denies Use Recreational Drug Use: No Smoking Status: Never a Smoker 2nd Hand Smoke Exposure: No Recent Foreign Travel: No Recent Infectious Disease Expo: No Hospitalization with Isolation: Denies Physical Abuse Screen: No Sexual Abuse: No Immunizations Up To Date Date of Pneumonia Vaccine: Jun 19, 2018 Date of Influenza Vaccine: Apr 15, 2013 Past Medical History PMH As described under Assessment. Allergies and Home Medications Allergies Coded Allergies: Penicillins (Verified Allergy, Unknown, 11/17/08) Home Medications Aspirin 81 Mg Tablet.dr, 81 MG PO HS, (Reported) Calcium Carbonate/Vitamin D3 1 Each Tablet, 1 TAB PO BID, (Reported) Cholecalciferol (Vitamin D3) 2,000 Unit Capsule, 2,000 UNIT PO HS, (Reported) Diltiazem HCl 240 Mg Cap.er.24h, 240 MG PO DAILY, (Reported) Hydrocodone/Acetaminophen 1 Each Tablet, 1 TAB PO TID PRN for PAIN-MODERATE, ( Reported) Levothyroxine Sodium 100 Mcg Tablet, 100 MCG PO DAILY, (Reported) Omeprazole 20 Mg Capsule.dr, 20 MG PO DAILY, (Reported) Simvastatin 10 Mg Tablet, 10 MG PO HS, (Reported) Patient Home Medication List Home Medication List Reviewed: Yes Physical Exam-Cardiology Physical Exam Vital Signs/I&O 09/17/18 09/17/18 09/17/18 09/17/18 08:45 08:45 15:31 15:50 Temp 97.3 97.0 Pulse 73 74 Resp 20 20 B/P (MAP) 151/77 (101) 150/90 (110) Pulse Ox 93 96 O2 Delivery Room Air 09/17/18 16:00 Pulse 81 Capillary Refill : Less Than 3 Seconds Constitutional: AAO x 3, well-developed, well-nourished HEENT: PERRL, hearing is well preserved, oral hygience is good Neck: No carotid bruit; carotid pulses are 2 + bilaterally Respiratory: No accessory muscle use, No respiratory distress; chest expansion is symmetric, chest is bilaterally symmetric, other (diminished bases bilat; poor inspiratory effort) Cardiovascular: irregularly irregular; No JVD; S1 and S2 Gastrointestinal: No tender; soft, round Extremities: no lower extremity edema bilateral Neurologic/Psychiatric: grossly intact, power is 5/5 both on sides Skin: No rash, No ulcerations Data Review Labs Laboratory Tests 09/17/18 08:56: White Blood Count 9.5, Red Blood Count 4.34L, Hemoglobin 13.7, Hematocrit 40, Mean Corpuscular Volume 93, Mean Corpuscular Hemoglobin 32, Mean Corpuscular Hemoglobin Concent 34, Red Cell Distribution Width 13.8, Platelet Count 274, Mean Platelet Volume 10.1, Neutrophils (%) (Auto) 76H, Lymphocytes (%) (Auto) 12 , Monocytes (%) (Auto) 10, Eosinophils (%) (Auto) 1, Basophils (%) (Auto) 0, Neutrophils # (Auto) 7.3, Lymphocytes # (Auto) 1.2, Monocytes # (Auto) 1.0, Eosinophils # (Auto) 0.1, Basophils # (Auto) 0.0, Prothrombin Time 13.8, INR Comment 1.1, Activated Partial Thromboplast Time 31, D-Dimer 1.74H, Sodium Level 137, Potassium Level 3.8, Chloride Level 102, Carbon Dioxide Level 26, Anion Gap 9, Blood Urea Nitrogen 16, Creatinine 0.77, Estimat Glomerular Filtration Rate > 60, BUN/Creatinine Ratio 21, Glucose Level 108H, Calcium Level 9.6, Corrected Calcium 9.4, Magnesium Level 1.8, Total Bilirubin 0.8, Aspartate Amino Transf (AST/SGOT) 18, Alanine Aminotransferase (ALT/SGPT) 14, Alkaline Phosphatase 113, Myoglobin 44.3, Troponin I < 0.028, Total Protein 7.2 , Albumin 4.2, Lipase 13, Thyroid Stimulating Hormone (TSH) 1.10, Free Thyroxine 1.45 09/17/18 16:24: Troponin I < 0.028 Laboratory Tests 09/17/18 08:56 A/P-Cardiology Assessment/Admission Diagnosis Chest discomfort of undetermined etiology - no evidence of ACS thus far Recent back surgery by Dr. Joseph at [facility] Mild to moderate nonobstructive coronary artery disease per cardiac catheterization [address] Ayon. Most recent reported cardiac catheterization in May 2018 in [place], [place] - when she was hospitalized for pneumonia - no report of stents - exact details unknown Persistent atrial fibrillation - OAC with Warfarin which has been held for greater than a week d/t recent back surgery Maintained on warfarin - does not wish to be on NOAC d/t cost burden History of CVA in 2007, recovered Hypertension Hyperlipidemia Mild bilateral nonobstructive carotid artery stenosis, last carotid ultrasound was done in March 2017 Echocardiogram Feb 20, 2016 showed normal left ventricular size and function ejection fraction 60%, prominent left atrium with dilated right heart chambers, mild MR, [id number] TR, PA pressure 35 mmHg TSH 1.10 on 09-17-18 Discussion and Recomendations Serial card enzymes Try to obtain cath report from [facility] A-fib with controlled rate - continue home dose of Diltiazem CD 240mg Resume OAC with warfarin, bridge with Lovenox (which per ED has been approved by ortho services at [facility]) until INR is therapeutic Echocardiogram to evaluate LVEF and valvular status Monitor lab closely Further recs will be based on her hospital course We would like to thank medical services for this consult Clinical Quality Measures AMI/AHF: ASA po Prior to arrival: No DVT/VTE Risk/Contraindication: Risk Factor Score Per Nursin RFS Level Per Nursing on Admit: 4+=Very High CAROLNI BERTRAND MD FACP FACC CCDS Sep 17, 2018 17:48
[2018-09-17 20:01] VITALS: BP 140/66
[2018-09-17] MEDS ORDERED: ACETAMINOPHEN 325 MG TABLET ONE (20:26)
[2018-09-17] MEDS ORDERED: ACETAMINOPHEN 325 MG TABLET PO PRN (20:30)
[2018-09-17] MEDS: CATHETER FLUSH 10 ML SYR IV SCH (21:19)
[2018-09-17 21:38] LABS: BILIRUBIN,URINE NEGATIVE (NEGATIVE); CLARITY,URINE CLEAR; COLOR,URINE YELLOW; GLUCOSE, URINE (UA) NEGATIVE (NEGATIVE); KETONES,URINE 3+ (NEGATIVE); LEUKOCYTE ESTERASE ,URINE NEGATIVE (NEGATIVE); NITRITE,URINE NEGATIVE (NEGATIVE); PH,URINE 7 (5-9); PROTEIN,URINE 2+ (NEGATIVE); UROBILINOGEN,URINE NORMAL (NORMAL)
[2018-09-17 21:46] LABS: BACTERIA,URINE MODERATE /HPF; SQUAMOUS EPITHELIAL CELL,UR 0-2 /HPF; WBC,URINE RARE /HPF
[2018-09-17 23:28] VITALS: BP 99/64
[2018-09-18 03:50] LABS: HEMOGLOBIN 12.2 G/DL (11.5-16.0); MEAN PLATELET VOLUME 10.2 FL (7.4-10.4); RED CELL DISTRIBUTION WIDTH 13.6 % (10.0-14.5); WHITE BLOOD COUNT 8.1 10^3/uL (4.3-11.0)
[2018-09-18 04:00] VITALS: BP 97/58
[2018-09-18 04:16] LABS: BUN/CREATININE RATIO 19; CALCIUM 9.1 MG/DL (8.5-10.1); CARBON DIOXIDE 23 MMOL/L (21-32); CHLORIDE 103 MMOL/L (98-107); CHOLESTEROL 102 MG/DL (< 200); CREATININE SERUM 0.77 MG/DL (0.60-1.30); GFR ESTIMATED > 60; GLUCOSE 101 MG/DL (70-105); HDL CHOLESTEROL 36 MG/DL (40-60); MAGNESIUM 1.8 MG/DL (1.8-2.4); POTASSIUM 3.4 MMOL/L (3.6-5.0); SODIUM 137 MMOL/L (135-145); TRIGLYCERIDES 49 MG/DL (<150); VLDL CHOLESTEROL 10 MG/DL (5-40)
[2018-09-18 04:27] LABS: INR 1.2 (0.8-1.4); PROTHROMBIN TIME PATIENT 16.2 SEC (12.2-14.7)
[2018-09-18] MEDS ORDERED: ENOXAPARIN 80 MG/0.8 ML (LOVENOX) SYR SC SCH (05:00)
[2018-09-18] MEDS: CATHETER FLUSH 10 ML SYR IV SCH (05:38)
[2018-09-18] MEDS ORDERED: ASPIRIN E.C. 81 MG (ECOTRIN) TAB PO SCH (09:00)
[2018-09-18] MEDS ORDERED: DILTIAZEM 240 MG (CARDIZEM CD) CAP PO SCH (09:00)
--- NOTE | 2018-09-18 10:56 | Progress Note-Cardiology ---
Cardiology SOAP Progress Note Subjective: No cp or palp or syncope or shortness of breath Chronic back and joint pains are persistent Objective: I&O/Vital Signs 09/17/18 09/17/18 09/18/18 09/18/18 23:28 23:45 00:00 01:00 Temp 98.6 Pulse 61 63 Resp 21 B/P (MAP) 99/64 (76) Pulse Ox 95 95 O2 Delivery Room Air Room Air Room Air 09/18/18 09/18/18 09/18/18 09/18/18 04:00 04:00 04:31 07:00 Temp 98.9 Pulse 75 66 Resp 19 B/P (MAP) 97/58 (71) Pulse Ox 95 95 O2 Delivery Room Air Room Air Room Air 09/18/18 09/18/18 09/18/18 08:00 08:02 08:04 Pulse 73 Resp 23 Pulse Ox 96 96 O2 Delivery Room Air Room Air Room Air 09/18/18 00:00 Intake Total 400 ml Output Total 250 ml Balance 150 ml Weight (Pounds): 168 Weight (Ounces): 4.0 Weight (Calculated Kilograms): 76.690138 Constitutional: AAO x 3, well-developed, well-nourished Respiratory: No accessory muscle use, No respiratory distress; chest expansion is symmetric, chest is bilaterally symmetric, other (diminished bases bilat; poor inspiratory effort) Cardiovascular: irregularly irregular; No JVD; S1 and S2 Gastrointestional: No tender; soft, round Extremities: no lower extremity edema bilateral Neurologic/Psychiatric: grossly intact, power is 5/5 both on sides Skin: No rash, No ulcerations Results/Procedures: Labs Laboratory Tests 09/17/18 16:24: Troponin I < 0.028 09/17/18 21:30: Urine Color YELLOW, Urine Clarity CLEAR, Urine pH 7, Urine Specific [place] 1.010L, Urine Protein 2+H, Urine Glucose (UA) NEGATIVE, Urine Ketones 3+H, Urine Nitrite NEGATIVE, Urine Bilirubin NEGATIVE, Urine Urobilinogen NORMAL, Urine Leukocyte Esterase NEGATIVE, Urine RBC (Auto) NEGATIVE, Urine RBC NONE, Urine WBC RARE, Urine Squamous Epithelial Cells 0-2, Urine Crystals NONE, Urine Bacteria MODERATEH, Urine Casts NONE, Urine Mucus NEGATIVE, Urine Culture Indicated YES 09/18/18 03:05: White Blood Count 8.1, Red Blood Count 3.86L, Hemoglobin 12.2, Hematocrit 36, Mean Corpuscular Volume 92, Mean Corpuscular Hemoglobin 32, Mean Corpuscular Hemoglobin Concent 34, Red Cell Distribution Width 13.6, Platelet Count 214, Mean Platelet Volume 10.2 09/18/18 03:15: Prothrombin Time 16.2H, INR Comment 1.2, Sodium Level 137, Potassium Level 3.4L , Chloride Level 103, Carbon Dioxide Level 23, Anion Gap 11, Blood Urea Nitrogen 15, Creatinine 0.77, Estimat Glomerular Filtration Rate > 60, BUN/ Creatinine Ratio 19, Glucose Level 101, Calcium Level 9.1, Magnesium Level 1.8, Triglycerides Level 49, Cholesterol Level 102, LDL Cholesterol Direct 55, VLDL Cholesterol 10, HDL Cholesterol 36L A/P: Assessment: Chest discomfort of undetermined etiology - no evidence of ACS; no evidence of thoracic aortic dissection or PE on chest CTA of 09/17/18 Recent back surgery by Dr. Joseph at [facility] Mild to moderate nonobstructive coronary artery disease per cardiac catheterization [address] Ayon. Most recent reported cardiac catheterization in May 2018 in [place], [place] - when she was hospitalized for pneumonia - no report of stents - exact details unknown Persistent atrial fibrillation - OAC with Warfarin which has been held for greater than a week d/t recent back surgery, was resumed 2 days ago (Pro time davidson from 13.8 yesterday to 16.2 today) Maintained on warfarin - does not wish to be on NOAC d/t cost burden History of CVA in 2007, recovered Hypertension Hyperlipidemia Mild bilateral nonobstructive carotid artery stenosis, last carotid ultrasound was done in March 2017 Echocardiogram Feb 20, 2016 showed normal left ventricular size and function ejection fraction 60%, prominent left atrium with dilated right heart chambers, mild MR, [id number] TR, PA pressure 35 mmHg TSH 1.10 on 09-17-18 Plan: Replenish K Continue previous cardiac regimen Cardiac f/u with Dr Ayon next week I answered CV-related questions Clinical Quality Measures AMI/AHF: ASA po Prior to arrival: CAROLIN Patton MD FACP FAC CCDS Sep 18, 2018 10:56
[2018-09-18] MEDS ORDERED: KCL 20 MEQ TAB (K-DUR) PO NR (11:00)
--- NOTE | 2018-09-18 12:43 | Short Stay Summary-Hospitalist ---
History of Present Illness HPI/Chief Complaint CC: Chest pain HPI: This is an 83-year-old white female of Dr. Ramirez and Dr. Ayon with a history of chronic atrial fibrillation who presented to the ER with chest pain and was observed overnight with cardiology consultation. She does have a history of CAD in 2012 underwent a cardiac catheterization with minimal disease. All troponins were negative. She recently had a kyphoplasty by Dr. Joseph and was holding Coumadin at that time and with this chest pain episode occurred she was very concerned it was her heart and subsequently came into the ER. Currently she is without chest pain and cardiology evaluated her to be stable enough to go home. Source: patient, family, RN/MD, old records Exam Limitations: no limitations Date Seen 09/18/18 Time Seen by a Provider: 11:30 Attending Physician Daria Jin Wen-Chou MD Referring Physician Date of Admission Sep 17, 2018 at 14:40 Home Medications & Allergies Home Medications Reviewed patient Home Medication Reconciliation performed by pharmacy medication reconciliations validation technician and/or nursing. Patients Allergies have been reviewed. Allergies Allergies Coded Allergies Penicillins (Verified Allergy, Unknown, 11/17/08) Past Bbhpafe-Pkteyb-Oltgea Hx Past Med/Social Hx: Reviewed Nursing Past Med/Soc Hx, Reviewed and Corrections made Patient Social History Marrital Status: (9 yrs) Employed/Student: retired Alcohol Use: Denies Use Recreational Drug Use: No Smoking Status: Never a Smoker 2nd Hand Smoke Exposure: No Physical Abuse Screen: No Sexual Abuse: No Recent Foreign Travel: No Contact w/other who traveled: No Recent Hopitalizations: Yes Recent Infectious Disease Expo: No Immunizations Up To Date Date of Pneumonia Vaccine: Jun 19, 2018 Date of Influenza Vaccine: Apr 15, 2013 Seasonal Allergies Seasonal Allergies: Yes Past Medical History Surgeries: Hysterectomy, Joint Replacement, Orthopedic Cardiac: Atrial Fibrillation, High Cholesterol, Hypertension Neurological: Stroke Reproductive: No Sexually Transmitted Disease: No Hysterectomy, Menopausal Genitourinary: Bladder Infection Gastrointestinal: Gastroesophageal Reflux Musculoskeletal: Arthritis, Chronic Back Pain Endocrine: Hypothyroidsim History of Blood Disorders: No Review of Systems Constitutional: see HPI EENTM: no symptoms reported Respiratory: no symptoms reported Cardiovascular: chest pain Gastrointestinal: no symptoms reported Genitourinary: no symptoms reported Musculoskeletal: no symptoms reported Skin: no symptoms reported Psychiatric/Neurological: No Symptoms Reported All Other Systems Reviewed Negative Unless Noted: Yes Physical Exam Physical Exam Vital Signs Vital Signs - First Documented 09/17/18 08:45 Temp 97.3 Pulse 73 Resp 20 B/P (MAP) 151/77 (101) Pulse Ox 93 O2 Delivery Room Air Capillary Refill : Less Than 3 Seconds Height, Weight, BMI Height: 5'2.00" Weight: 168lbs. 4.0oz. 76.675871pm; 29.5 BMI Method:Stated General Appearance: No Apparent Distress, WD/WN, Chronically ill HEENT: PERRL/EOMI, Normal ENT Inspection, Pharynx Normal Neck: Normal Inspection Respiratory: Chest Non Tender, Lungs Clear, Normal Breath Sounds, No Accessory Muscle Use, No Respiratory Distress Cardiovascular: No Edema, No Murmur, Irregularly Irregular Gastrointestinal: Non Tender, Soft Extremity: Normal Inspection, No Pedal Edema Neurologic/Psychiatric: Alert, Oriented x3, No Motor/Sensory Deficits, Normal Mood/Affect, air route controller II-XII Norm as Tested Skin: Normal Color, Warm/Dry Results Results/Procedures Labs Laboratory Tests 09/17/18 08:56 09/18/18 03:05 09/18/18 03:15 Patient resulted labs reviewed. Short Stay Diagnosis Discharge Diagnosis-Short Stay Admission Diagnosis Assessment: Chest pain Chronic atrial fibrillation line anticoagulation Recent kyphoplasty Final Discharge Diagnosis Assessment: Chest pain without evidence of acute coronary syndrome Chronic atrial fibrillation line anticoagulation Recent kyphoplasty Conclusion Plan Discharge home Resume home meds Diagnosis/Problems Diagnosis/Problems (1) Chest pain Status: Acute Qualifiers: Qualified Codes: R07.9 - Chest pain, unspecified (2) Atrial fibrillation Status: Acute Qualifiers: Qualified Codes: I48.2 - Chronic atrial fibrillation Clinical Quality Measures AMI/AHF: ASA po Prior to arrival: No DVT/VTE Risk/Contraindication: Risk Factor Score Per Nursin RFS Level Per Nursing on Admit: 4+=Very High DARIA JIN DO Sep 18, 2018 12:43
[2018-09-18] MEDS ORDERED: warFARin 5 MG (COUMADIN) TAB PO SCH (18:00)
== END 2018-09-18 14:20 | disposition home or self-care (01) ==
LOC: EDUNIT# 08:45 → ER 08:46 → ICU 14:40
PROVIDERS: ADMIT Internal Medicine; ATTEND Internal Medicine
DX: R07.9 Chest pain, unspecified (principal); I48.2 Chronic atrial fibrillation; E78.00 Pure hypercholesterolemia, unspecified; I10 Essential (primary) hypertension; K21.9 Gastro-esophageal reflux disease without esophagitis; E03.9 Hypothyroidism, unspecified; M19.91 Primary osteoarthritis, unspecified site; I25.10 Atherosclerotic heart disease of native coronary artery without angina pectoris; E78.5 Hyperlipidemia, unspecified; I65.23 Occlusion and stenosis of bilateral carotid arteries; Z98.890 Other specified postprocedural states; Z79.899 Other long term (current) drug therapy; Z79.01 Long term (current) use of anticoagulants; Z88.0 Allergy status to penicillin; Z86.73 Personal history of transient ischemic attack (TIA), and cerebral infarction without residual deficits
CPT/HCPCS: 36415; 71045; 71275; 80048; 80053; 80061; 81000; 83690; 83735; 83874; 84439; 84443; 84484; 85025; 85027; 85379; 85610; 85730; 87088; 93005; 93041

== ENCOUNTER 2018-12-09 11:15 | Outpatient (RCR) | payer MEDICARE, OTHER ==
[~2018-12-09 11:15] MED LIST changes: +ASPI-983 PO; +CALC-6 PO; +CHOL20002 PO; +DILT240C53 PO; +HYDR-3812 PO; +LEVO100T7 PO; +OMEP20CA12 PO; +SIMV10TA3 PO; +WARF-48
== END 2018-12-09 13:05 | disposition home or self-care (01) ==
PROVIDERS: ATTEND Orthopaedic Surgery Orthopaedic Trauma
DX: M47.896 Other spondylosis, lumbar region (principal)

== ENCOUNTER → 2020-01-19 | Outpatient (CLI) | payer MEDICARE, OTHER ==
[~2020-01-19] MED LIST changes: -HYDR-3812 PO; -OMEP20CA12 PO; +OMEP20CA18 PO; +SIMV10TA26 PO; -SIMV10TA3 PO
== END ==
LOC: LABNPT 08:31
PROVIDERS: ATTEND Family Medicine
DX: R05 Cough (principal); R68.83 Chills (without fever); R52 Pain, unspecified; Z20.828 Contact with and (suspected) exposure to other viral communicable diseases
CPT/HCPCS: 87635

== ENCOUNTER → 2020-04-12 | Outpatient (CLI) | payer MEDICARE, OTHER ==
[~2020-04-12] MED LIST changes: +ASPI-1238 PO; -ASPI-983 PO; -CALC-6 PO; +CALC1TAB84 PO
== END ==
LOC: CARD 09:02
PROVIDERS: ATTEND Physician Assistant
DX: I25.10 Atherosclerotic heart disease of native coronary artery without angina pectoris (principal); I63.9 Cerebral infarction, unspecified; I10 Essential (primary) hypertension; I51.7 Cardiomegaly; I34.0 Nonrheumatic mitral (valve) insufficiency; E78.2 Mixed hyperlipidemia
CPT/HCPCS: 93306

== ENCOUNTER 2020-04-20 05:33 | Outpatient (RCR) | payer MEDICARE, OTHER ==
[~2020-04-20] VITALS: Ht 167 cm; Wt 74.0 kg
[~2020-04-20 05:33] MED LIST changes: +ATOR20TA66 PO; +CAND16TA12 PO; +CHOL500061 PO; +DOCU-238 PO; -WARF-48; +WARF-48 PO
[2020-04-24] MEDS ORDERED: PANT40TA2 PO (09:04)
== END 2020-04-20 12:00 | disposition home or self-care (01) ==
LOC: PREOP 05:33
PROVIDERS: ATTEND Surgery
DX: Z01.812 Encounter for preprocedural laboratory examination (principal); Z20.828 Contact with and (suspected) exposure to other viral communicable diseases
CPT/HCPCS: 87635

== ENCOUNTER 2020-04-24 06:54 | Day surgery (SDC) | payer MEDICARE, OTHER ==
[~2020-04-24] VITALS: Ht 167 cm; Wt 74.0 kg
[2020-04-24] MEDS ORDERED: LACTATED RINGERS 1,000 ML IV ONE (07:05)
[2020-04-24] MEDS ORDERED: LACTATED RINGERS 1,000 ML IV STA (07:19)
[2020-04-24 07:28] VITALS: BP 183/100
[2020-04-24] MEDS ORDERED: MIDAZOLAM 2 MG/2 ML (VERSED) VIAL ONE (07:30)
[2020-04-24] MEDS ORDERED: proPOfol 200 MG/20 ML (DIPRIVAN) VIAL IV ONE (07:30)
[2020-04-24 09:00] VITALS: BP 166/86
--- NOTE | 2020-04-24 09:02 | Progress Note-Post Operative ---
Post-Operative Progess Note Surgeon (s)/Beauty Culture Teacher (s) Surgeon FERNANDO GONCALVES DO Beauty Culture Teacher: na Pre-Operative Diagnosis dysphagia Post-Operative Diagnosis small hiatal hernia, reflux esophagitis Procedure & Operative Findings Date of Procedure 04/24/20 Procedure Performed/Findings egd c biopsies Anesthesia Type per plant production manager Estimated Blood Loss Estimated blood loss (mL): none Specimens/Packing Specimens Removed antrum, ge FERNANDO GONCALVES DO Apr 24, 2020 09:02
[2020-04-24] MEDS ORDERED: PANT40TA2 PO (09:04)
--- NOTE | 2020-04-24 09:04 | Discharge Inst-Simple/Standard ---
Discharge Inst-Standard Discharge Medications New, Converted or Re-Newed RX: Transmitted to Pharmacy Patient Instructions/Follow Up Plan of Care/Instructions/FU: 3 weeks Aden Activity as Tolerated: Yes Discharge Diet: Regular Diet FERNANDO GONCALVES DO Apr 24, 2020 09:04
[2020-04-24 09:05] VITALS: BP 186/80
[2020-04-24 09:10] VITALS: BP 186/80
[2020-04-24 09:35] VITALS: BP 165/87
--- NOTE | 2020-04-24 12:41 | Anesthesia-General Post-Op ---
MAC Patient Condition Mental Status/LOC: Same as Preop Cardiovascular: Satisfactory Nausea/Vomiting: Absent Respiratory: Satisfactory Pain: Controlled Complications: Absent Post Op Complications Complications None Follow Up Care/Instructions Patient Instructions None needed. Anesthesiology Discharge Order Discharge Order Patient is doing well, no complaints, stable vital signs, no apparent adverse anesthesia problems. No complications reported per nursing. CARMELO MURPHY CRNA Apr 24, 2020 12:41
--- NOTE | 2020-04-24 12:53 | OPERATIVE REPORT ---
DATE OF SERVICE: 04/24/2020 PREOPERATIVE DIAGNOSIS: Dysphagia. POSTOPERATIVE DIAGNOSES: Small hiatal hernia and reflux esophagitis. PROCEDURE PERFORMED: EGD with biopsy. SURGEON: Fernando Samaniego DO. ANESTHESIA: Per FASHION PATTERNMAKER. ESTIMATED BLOOD LOSS: None. COMPLICATIONS: None. SPECIMENS: Antrum and GE junction. INDICATIONS FOR PROCEDURE: The patient is an 85-year-old female with dysphagia symptoms. She understands risks and benefits of the procedure and wished to proceed with procedure. Consent was signed in the chart. DESCRIPTION OF PROCEDURE: The patient was taken to the endoscopy suite and placed in a left lateral recumbent position. Timeout was performed. Scope was inserted in mouth, down the esophagus, stomach and into the duodenum without difficulty. There were no polyps, masses or ulcerations within the duodenum. Scope was slowly retracted back into the stomach where it was further insufflated. Some slight erythematous changes of the antrum, no polyps, masses or ulcerations. Biopsy of the antrum was obtained. Scope was retroflexed noting a small hiatal hernia and no other pathology. Scope was returned to its normal position, slowly withdrawn to the distal esophagus, some changes consistent with some slight reflux esophagitis. Biopsy of the GE junction was obtained. Scope was then slowly retracted back until completely removed noting no other pathology. The patient tolerated the procedure well without any complications. She was taken to the recovery room in a stable condition. RECOMMENDATIONS: The patient will change omeprazole to Protonix 40 mg daily to see how her symptoms are doing and continue to monitor. Follow up on pathology in the office. Job ID: [id number] DocumentID: [id number] Dictated Date: 04/24/2020 09:06:06 Sales Exhibitor Date: 04/24/2020 12:51:28 Dictated By: FERNANDO SAMANIEGO DO
== END 2020-04-24 09:35 | disposition home or self-care (01) ==
LOC: ENDO 06:54
PROVIDERS: ATTEND Surgery
DX: K21.00 Gastro-esophageal reflux disease with esophagitis, without bleeding (principal); K44.9 Diaphragmatic hernia without obstruction or gangrene; I10 Essential (primary) hypertension; I25.10 Atherosclerotic heart disease of native coronary artery without angina pectoris; E03.9 Hypothyroidism, unspecified; I63.9 Cerebral infarction, unspecified; E78.2 Mixed hyperlipidemia; I48.0 Paroxysmal atrial fibrillation; I08.1 Rheumatic disorders of both mitral and tricuspid valves; I11.9 Hypertensive heart disease without heart failure; I27.20 Pulmonary hypertension, unspecified; I65.23 Occlusion and stenosis of bilateral carotid arteries; E66.9 Obesity, unspecified; Z68.26 Body mass index [BMI] 26.0-26.9, adult; Z79.899 Other long term (current) drug therapy; Z79.01 Long term (current) use of anticoagulants; Z79.82 Long term (current) use of aspirin; Z88.1 Allergy status to other antibiotic agents; Z88.0 Allergy status to penicillin; Z90.710 Acquired absence of both cervix and uterus; Z82.3 Family history of stroke
CPT/HCPCS: 88305

== ENCOUNTER 2020-09-06 14:57 | Outpatient (RCR) | payer MEDICARE, OTHER ==
[~2020-09-06 14:57] MED LIST changes: +PANT40TA2 PO
== END 2020-09-06 17:00 | disposition home or self-care (01) ==
PROVIDERS: ATTEND Nurse Practitioner Family
DX: M54.2 Cervicalgia (principal); M54.9 Dorsalgia, unspecified; R26.81 Unsteadiness on feet

== ENCOUNTER 2022-05-11 18:44 | Emergency (ER) | payer MEDICARE, OTHER ==
[~2022-05-11] VITALS: Ht 157 cm; Wt 70.3 kg
[~2022-05-11 18:44] MED LIST changes: -CAND16TA12 PO; +CAND16TA29 PO; -DOCU-238 PO; +DOCU-26 PO
--- NOTE | 2022-05-11 18:55 | ED Fall/Injury ---
General Chief Complaint: Trauma-Non Activation Stated Complaint: FALL History of Present Illness Date Seen by Provider: May 11, 2022 Time Seen by Provider: 18:46 Initial Comments 87-year-old female with PMH of stroke 14 years ago/A. fib/possibly on warfarin 5 mg every other day and 2.5 mg every other day/hypothyroidism, is brought in by EMS with complaints of a fall from her stepladder at home. Patient's daughter is here in the ER as well. Patient had a fall and then went into her house and texted her daughter that she fell from a stepladder and was not feeling well. EMS arrived patient was in her living room. They did not see any signs of vomitus around her. Patient is complaining of head and neck pain and appears confused in the ER. Patient's daughter states that she has been a little more forgetful recently but has never been diagnosed with dementia and lives on her own, and is able to take care of herself so far. Patient is able to tell us her name. Allergies and Home Medications Allergies Coded Allergies: Penicillins (Verified Allergy, Mild, GI UPSET, 04/18/20) nitrofurantoin (Verified Allergy, Mild, 04/18/20) Patient Home Medication List Home Medication List Reviewed: Yes Aspirin (Aspirin EC) 81 Mg Tablet.dr, 81 MG PO HS, (Reported) Entered as Reported by: SEAN UMANA on 09/17/181618 Atorvastatin Calcium (Atorvastatin Calcium) 20 Mg Tablet, 20 MG PO DAILY, (Reported) Entered as Reported by: JESSE WANG on 04/18/20 1439 Calcium Carbonate/Vitamin D3 (Calcium 600 + Vit D 200 Tablet) 1 Each Tablet, 1 TAB PO BID, (Reported) Entered as Reported by: SEAN UMANA on 09/17/18 161 Candesartan Cilexetil (Candesartan Cilexetil) 16 Mg Tablet, 16 MG PO DAILY, (Reported) Entered as Reported by: JESSE WANG on 04/18/20 1439 Cholecalciferol (Vitamin D3) (Vitamin D3) 125 Mcg Tab.rapdis, 125 MCG PO DAILY, (Reported) Entered as Reported by: JESSE WANG on 04/18/20 1439 Diltiazem HCl (Cartia Xt) 240 Mg Cap.er.24h, 240 MG PO DAILY, (Reported) Entered as Reported by: SEAN UMANA on 09/17/18 1618 Docusate Sodium (Stool Softener) 100 Mg Capsule, 100 MG PO TID, (Reported) Entered as Reported by: JESSE WANG on 04/18/20 1439 Levothyroxine Sodium (Levothyroxine Sodium) 100 Mcg Tablet, 100 MCG PO DAILY, (Reported) Entered as Reported by: SEAN UMANA on 09/17/18 1618 Pantoprazole Sodium (Protonix) 40 Mg Tablet.dr, 40 MG PO DAILY Prescribed by: FERNANDO GONCALVES on 04/24/20 0904 Warfarin Sodium (Warfarin Sodium) 5 Mg Tablet, 5 MG PO SuTuThSa, (Reported) Entered as Reported by: SEAN UMANA on 09/17/18 161 Warfarin Sodium (Warfarin Sodium) 5 Mg Tablet, 2.5 MG PO MoWeFr, (Reported) Entered as Reported by: JESSE WANG on 04/18/20 1439 Review of Systems Review of Systems Constitutional: see HPI Eyes: No Symptoms Reported Ears, Nose, Mouth, Throat: no symptoms reported Respiratory: no symptoms reported Cardiovascular: no symptoms reported Gastrointestinal: no symptoms reported Genitourinary: no symptoms reported Musculoskeletal: neck pain Skin: no symptoms reported Psychiatric/Neurological: Other (Confusion present) Past Mbqowld-[id number]-Fbjbka Hx Patient Social History Tobacco Use?: No Substance use?: No Alcohol Use?: No Immunizations Up To Date Tetanus Booster (TDap): Unknown Seasonal Allergies Seasonal Allergies: No Past Medical History Surgeries: Yes (RIGHT KNEE REPLACEMENT, FOOT, BACK) Hysterectomy, Joint Replacement, Orthopedic Respiratory: No Cardiac: Yes (Atrial Fibrillation) Atrial Fibrillation, High Cholesterol, Hypertension Neurological: Yes Stroke Reproductive Disorders: No SAMPLE WRAPPER History: Hysterectomy, Menopausal Sexually Transmitted Disease: No HIV/AIDS: No Genitourinary: No Bladder Infection, UTI-Chronic Gastrointestinal: No Gastroesophageal Reflux, Chronic Constipation Musculoskeletal: Yes (Recent Back surgery) Arthritis, Chronic Back Pain Endocrine: Yes Hypothyroidsim HEENT: No (READING GLASSES, DENTURES) Loss of Vision: Denies Hearing Impairment: Hard of Hearing, Bilateral Hearing Aide Cancer: No Psychosocial: No Integumentary: No Blood Disorders: No Adverse Reaction/Blood Tranf: No (N/A) Physical Exam Vital Signs Vital Signs - First Documented 05/11/22 18:46 B/P (MAP) 183/93 (123) Capillary Refill : Height, Weight, BMI Height: 5'2.00" Weight: 168lbs. 4.0oz. 76.754992rg; 26.53 BMI Method:Stated General Appearance: mild distress, thin HEENT: PERRL/EOMI, normal ENT inspection Neck: other (Patient is wearing a neck brace placed by EMS) Cardiovascular: no edema, irregularly irregular (Rhythm, rate controlled), other (Regular rate) Respiratory: chest non-tender, lungs clear, normal breath sounds, no respiratory distress, no accessory muscle use Gastrointestinal: non tender, soft Pelvic: normal external exam Back: normal inspection, no CVA tenderness, no vertebral tenderness Extremities: normal range of motion, normal inspection Neurologic/Psychiatric: alert Progress/Results/Core Measures Results/Orders Lab Results Laboratory Tests Test 05/11/22 19:00 05/11/22 19:35 Range/Units White Blood Count 13.7 H 4.3-11.0 10^3/uL Red Blood Count 4.66 3.80-5.11 10^6/uL Hemoglobin 15.2 11.5-16.0 g/dL Hematocrit 43 35-52 % Mean Corpuscular Volume 93 80-99 fL Mean Corpuscular Hemoglobin 33 25-34 pg Mean Corpuscular Hemoglobin Concent 35 32-36 g/dL Red Cell Distribution Width 13.8 10.0-14.5 % Platelet Count 207 130-400 10^3/uL Mean Platelet Volume 9.8 9.0-12.2 fL Immature Granulocyte % (Auto) 1 % Neutrophils (%) (Auto) 81 H 42-75 % Lymphocytes (%) (Auto) 11 L 12-44 % Monocytes (%) (Auto) 6 0-12 % Eosinophils (%) (Auto) 1 0-10 % Basophils (%) (Auto) 0 0-10 % Neutrophils # (Auto) 11.1 H 1.8-7.8 10^3/uL Lymphocytes # (Auto) 1.6 1.0-4.0 10^3/uL Monocytes # (Auto) 0.8 0.0-1.0 10^3/uL Eosinophils # (Auto) 0.1 0.0-0.3 10^3/uL Basophils # (Auto) 0.0 0.0-0.1 10^3/uL Immature Granulocyte # (Auto) 0.1 0.0-0.1 10^3/uL Prothrombin Time 18.7 H 12.2-14.7 SEC INR Comment 1.5 H 0.8-1.4 Activated Partial Thromboplast Time 33 24-35 SEC Carbon Dioxide Level 20 L 21-32 MMOL/L Blood Urea Nitrogen 30 H 7-18 MG/DL Glucose Level 123 H 70-105 MG/DL Calcium Level 9.8 8.5-10.1 MG/DL Corrected Calcium 9.7 8.5-10.1 MG/DL Magnesium Level 1.7 1.6-2.4 MG/DL Total Bilirubin 0.5 0.1-1.0 MG/DL Aspartate Amino Transf (AST/SGOT) 28 5-34 U/L Alanine Aminotransferase (ALT/SGPT) 32 0-55 U/L Alkaline Phosphatase 74 40-136 U/L Troponin I < 0.028 <0.028 NG/ML Total Protein 7.1 6.4-8.2 GM/DL Albumin 4.1 3.2-4.5 GM/DL Urine Color YELLOW Urine Clarity CLEAR Urine pH 7.5 5-9 Urine Specific [place] 1.020 1.016-1.022 Urine Protein NEGATIVE NEGATIVE Urine Glucose (UA) NEGATIVE NEGATIVE Urine Ketones 1+ H NEGATIVE Urine Nitrite NEGATIVE NEGATIVE Urine Bilirubin NEGATIVE NEGATIVE Urine Urobilinogen 0.2 < = 1.0 MG/DL Urine Leukocyte Esterase NEGATIVE NEGATIVE Urine RBC (Auto) NEGATIVE NEGATIVE Urine RBC NONE /HPF Urine WBC NONE /HPF Urine Crystals NONE /LPF Urine Bacteria NEGATIVE /HPF Urine Casts NONE /LPF Urine Mucus NEGATIVE /LPF Urine Culture Indicated NO My Orders Orders - ZEHRA ADAME MD Ct Head/Cervical Spine Wo (05/11/22 18:55) Cbc With Automated Diff (05/11/22 18:56) Comprehensive Metabolic Panel (05/11/22 18:56) Magnesium (05/11/22 18:56) Protime With Inr (05/11/22 18:56) Partial Thromboplastin Time (05/11/22 18:56) Ua Culture If Indicated (05/11/22 18:56) Troponin I [place] (05/11/22 18:56) Continuous Ekg Monitoring (05/11/22 18:56) Ekg Tracing (05/11/22 18:56) Ondansetron Injection (Zofran Injectio (05/11/22 19:15) Catheter(Urinary) Insert & Ass 03,15 (05/11/22 19:30) Lidocaine 2% (Urojet) (Xylocaine Urojet) (05/11/22 19:30) Medications Given in ED Current Medications Medications Dose Ordered Sig/[place] Route Start Time Stop Time Status Last Admin Dose Admin Ondansetron HCl 4 mg ONCE ONCE IVP 05/11/22 19:15 05/11/22 19:16 DC 05/11/22 19:17 4 MG Vital Signs/I&O 05/11/22 18:46 B/P (MAP) 183/93 (123) Progress Progress Note : Progress Note 1. FALL/ CONCUSSION WITH ACUTE CONFUSION AND DISORIENTATION: - CT HEAD & NECK: negative for bleed - Labs unremarkable, UA normal -Discussed with PCP and hospice was on-call who is Dr. Maykel Hull, who knows the patient well, and refused for admission due to lack of resources such as neurosurgery consult. Discussed with ER physician Dr Ramos at [facility], and accepted to be seen in the ER - -Chart review shows that patient may be on warfarin 5 mg / 2.5 mg every other day but once I spoke with Dr. Hull, she clarified that patient is on Xarelto - [facility] not available for transfers to other facilities at night. Pt will b e transferred by flight. - Pt's family wants pt to go to [facility] Initial ECG Impression Date: May 11, 2022 Initial ECG Impression Time: 19:20 Initial ECG Rate: 88 Initial ECG Rhythm: A Fib/Flutter Initial ECG Intervals A. fib rate control Diagnostic Imaging Diagonstic Imaging: CT Plain Films/CT/US/NM/MRI: head Comments [facility] [place] NAME: TERESA GARNICA Yamila [facility] REC#: [id number] PT STATUS: REG ER : 1935 PHYSICIAN: ZEHRA ADAME MD ADMIT DATE: 05/11/22/ER Draft Date of Exam:05/11/22 CT HEAD/CERVICAL SPINE WO PROCEDURE: CT head and CT cervical spine without contrast. TECHNIQUE: Multiple contiguous axial images were obtained through the brain and cervical spine without the use of intravenous contrast. Sagittal and coronal reformations through the cervical spine were then performed. Auto Exposure Controls were utilized during the CT exam to meet ALARA standards for radiation dose reduction. INDICATION: Trauma. Fall. Head and neck pain. Confusion. COMPARISON: 01/25/2020. FINDINGS: CT HEAD: No large acute territorial ischemia, mass or hemorrhage. No midline shift or mass effect. Chronic infarct is seen in the left frontal lobe. Scattered decreased attenuation is seen in the periventricular and subcortical white matter. The ventricles and cortical sulci are mildly prominent. The basilar cisterns are patent and unremarkable. The calvarium is intact. The visualized paranasal sinuses are clear. CT CERVICAL SPINE: No acute fracture or dislocation is seen in the cervical spine. No focal osseous lesion. Vertebral body heights are well-maintained. The craniocervical junction is well-maintained. Mild degenerative changes are seen in the cervical spine with disc osteophyte complexes and uncovertebral arthropathy. Soft tissues of the neck are unremarkable. Biapical scarring is noted, right greater than left. IMPRESSION: 1. No hemorrhage or focal intra-axial mass. No CT evidence of large acute territorial ischemia. 2. No acute fracture or dislocation in the cervical spine. 3. Chronic infarct in the left frontal lobe. Dictated on workstation # [id number] Dict: 05/11/221919 Trans: 05/11/221926 [facility] [id number] Interpreted by: RAMA MCNEAL DO Electronically signed by: Departure Impression Primary Impression: Fall (on) (from) other stairs and steps, initial encounter Additional Impression: Concussion with mental confusion or disorientation without loss of consciousness Disposition: XF SHT-TRM HOSP Condition: Stable/Unchanged Transfer Transfer Reason: Exceeds level of care Time Spoke to Accepting Phy: 19:44 Transfer Progress Notes Discussed with Dr Ramos and will be transferred to ER Transfer Facility: [facility] Method of Transfer: Air Departure-Patient Inst. Referrals: MAYKEL HULL MD (PCP/Family) Primary Care Physician ZEHRA ADAME MD May 11, 2022 18:55
[2022-05-11 19:08] LABS: BASOPHILS % (AUTO) 0 % (0-10); EOSINOPHILS # (AUTO) 0.1 10^3/uL (0.0-0.3); EOSINOPHILS % (AUTO) 1 % (0-10); HEMATOCRIT 43 % (35-52); HEMOGLOBIN 15.2 g/dL (11.5-16.0); LYMPHOCYTES # (AUTO) 1.6 10^3/uL (1.0-4.0); LYMPHOCYTES % (AUTO) 11 % (12-44); MEAN CORPUSCULAR HEMOGLOBIN 33 pg (25-34); MEAN CORPUSCULAR HGB CONC 35 g/dL (32-36); MEAN CORPUSCULAR VOLUME 93 fL (80-99); MEAN PLATELET VOLUME 9.8 fL (9.0-12.2); MONOCYTES # (AUTO) 0.8 10^3/uL (0.0-1.0); MONOCYTES % (AUTO) 6 % (0-12); NEUTROPHILS # (AUTO) 11.1 10^3/uL (1.8-7.8); NEUTROPHILS % (AUTO) 81 % (42-75); PLATELET COUNT 207 10^3/uL (130-400); WHITE BLOOD COUNT 13.7 10^3/uL (4.3-11.0)
[2022-05-11] MEDS ORDERED: ONDANSETRON 4 MG/2 ML (SDV) Z0FRAN IVP ONE (19:15)
--- NOTE | 2022-05-11 19:28 | Diagnostic Imaging Report ---
PROCEDURE: CT head and CT cervical spine without contrast. TECHNIQUE: Multiple contiguous axial images were obtained through the brain and cervical spine without the use of intravenous contrast. Sagittal and coronal reformations through the cervical spine were then performed. Auto Exposure Controls were utilized during the CT exam to meet ALARA standards for radiation dose reduction. INDICATION: Trauma. Fall. Head and neck pain. Confusion. COMPARISON: 01/25/2020. FINDINGS: CT HEAD: No large acute territorial ischemia, mass or hemorrhage. No midline shift or mass effect. Chronic infarct is seen in the left frontal lobe. Scattered decreased attenuation is seen in the periventricular and subcortical white matter. The ventricles and cortical sulci are mildly prominent. The basilar cisterns are patent and unremarkable. The calvarium is intact. The visualized paranasal sinuses are clear. CT CERVICAL SPINE: No acute fracture or dislocation is seen in the cervical spine. No focal osseous lesion. Vertebral body heights are well-maintained. The craniocervical junction is well-maintained. Mild degenerative changes are seen in the cervical spine with disc osteophyte complexes and uncovertebral arthropathy. Soft tissues of the neck are unremarkable. Biapical scarring is noted, right greater than left. IMPRESSION: 1. No hemorrhage or focal intra-axial mass. No CT evidence of large acute territorial ischemia. 2. No acute fracture or dislocation in the cervical spine. 3. Chronic infarct in the left frontal lobe. Dictated by: Dictated on workstation # [id number]
[2022-05-11 19:29] LABS: ALBUMIN 4.1 GM/DL (3.2-4.5)
[2022-05-11 19:30] LABS: INR 1.5 (0.8-1.4); PROTHROMBIN TIME PATIENT 18.7 SEC (12.2-14.7)
[2022-05-11] MEDS ORDERED: LIDOCAINE UROJET 2% GEL 10 ML PKG TOP ONE (19:30)
[2022-05-11 19:31] LABS: CALCIUM 9.8 MG/DL (8.5-10.1)
[2022-05-11 19:32] LABS: GLUCOSE 123 MG/DL (70-105); TOTAL PROTEIN 7.1 GM/DL (6.4-8.2)
[2022-05-11 19:33] LABS: CARBON DIOXIDE 20 MMOL/L (21-32)
[2022-05-11 19:34] LABS: BILIRUBIN,TOTAL 0.5 MG/DL (0.1-1.0)
[2022-05-11 19:35] LABS: ALKALINE PHOSPHATASE 74 U/L (40-136)
[2022-05-11 19:38] LABS: ALANINE AMINOTRANSFERASE 32 U/L (0-55); MAGNESIUM 1.7 MG/DL (1.6-2.4)
[2022-05-11 19:45] LABS: BILIRUBIN,URINE NEGATIVE (NEGATIVE); CLARITY,URINE CLEAR; COLOR,URINE YELLOW; GLUCOSE, URINE (UA) NEGATIVE (NEGATIVE); KETONES,URINE 1+ (NEGATIVE); LEUKOCYTE ESTERASE ,URINE NEGATIVE (NEGATIVE); NITRITE,URINE NEGATIVE (NEGATIVE); PH,URINE 7.5 (5-9); PROTEIN,URINE NEGATIVE (NEGATIVE)
[2022-05-11 19:55] LABS: BACTERIA,URINE NEGATIVE /HPF
[2022-05-11 20:25] VITALS: BP 163/92
[2022-05-11 20:25] LABS: BUN/CREATININE RATIO 28; CHLORIDE 101 MMOL/L (98-107); CREATININE SERUM 1.09 MG/DL (0.60-1.30); GFR ESTIMATED 49; POTASSIUM 3.8 MMOL/L (3.6-5.0); SODIUM 136 MMOL/L (135-145)
== END 2022-05-11 20:35 | disposition short-term general hospital (02) ==
LOC: EDUNIT# 18:44 → ER 18:45
DX: S06.0X0A Concussion without loss of consciousness, initial encounter (principal); M54.2 Cervicalgia; I48.91 Unspecified atrial fibrillation; Z79.01 Long term (current) use of anticoagulants; W11.XXXA Fall on and from ladder, initial encounter; Y92.009 Unspecified place in unspecified non-institutional (private) residence as the place of occurrence of the external cause
CPT/HCPCS: 36415; 51702; 70450; 72125; 80053; 81000; 83735; 84484; 85025; 85610; 85730; 93005

== ENCOUNTER → 2022-05-22 | Outpatient (CLI) | payer MEDICARE, OTHER ==
--- NOTE | 2022-05-22 10:52 | Diagnostic Imaging Report ---
PROCEDURE: CT head without contrast. TECHNIQUE: Multiple contiguous axial images were obtained through the brain without the use of intravenous contrast. Auto Exposure Controls were utilized during the CT exam to meet ALARA standards for radiation dose reduction. INDICATION: Head injury. COMPARISON: 05/11/2022 Encephalomalacia is again identified in the left frontal white matter extending to the lateral cortex. There is no evidence of acute hemorrhage. There is no abnormal mass effect or shift of midline structures. Calvarium is intact. The visualized paranasal sinuses are clear. There is no evidence of calvarial fracture. IMPRESSION: Stable chronic findings without acute intracranial abnormality detected. Dictated by: Dictated on workstation # [id number]
[2022-05-22 11:00] LABS: BASOPHILS # (AUTO) 0.1 10^3/uL (0.0-0.1); BASOPHILS % (AUTO) 1 % (0-10); EOSINOPHILS # (AUTO) 0.2 10^3/uL (0.0-0.3); EOSINOPHILS % (AUTO) 3 % (0-10); HEMATOCRIT 39 % (35-52); HEMOGLOBIN 13.3 g/dL (11.5-16.0); LYMPHOCYTES # (AUTO) 0.9 10^3/uL (1.0-4.0); LYMPHOCYTES % (AUTO) 12 % (12-44); MEAN CORPUSCULAR HEMOGLOBIN 33 pg (25-34); MEAN CORPUSCULAR HGB CONC 35 g/dL (32-36); MEAN CORPUSCULAR VOLUME 96 fL (80-99); MEAN PLATELET VOLUME 9.7 fL (9.0-12.2); MONOCYTES # (AUTO) 0.7 10^3/uL (0.0-1.0); MONOCYTES % (AUTO) 9 % (0-12); NEUTROPHILS # (AUTO) 5.7 10^3/uL (1.8-7.8); NEUTROPHILS % (AUTO) 75 % (42-75); PLATELET COUNT 267 10^3/uL (130-400); WHITE BLOOD COUNT 7.6 10^3/uL (4.3-11.0)
[2022-05-22 11:18] LABS: CALCIUM 9.3 MG/DL (8.5-10.1); CREATININE SERUM 0.91 MG/DL (0.60-1.30); POTASSIUM 3.8 MMOL/L (3.6-5.0)
== END ==
LOC: RAD 11:30
PROVIDERS: ATTEND Family Medicine
DX: S06.0XAA Concussion with loss of consciousness status unknown, initial encounter (principal); W19.XXXA Unspecified fall, initial encounter
CPT/HCPCS: 36415; 70450; 80048; 85025

== ENCOUNTER → 2022-10-27 | Outpatient (CLI) | payer MEDICARE, OTHER | LOC: CARD 08:29 | PROVIDERS: ATTEND Physician Assistant | DX: I11.9 Hypertensive heart disease without heart failure (principal); I34.0 Nonrheumatic mitral (valve) insufficiency | CPT/HCPCS: 93306 ==

== ENCOUNTER 2023-02-11 10:09 | Outpatient (RCR) | payer MEDICARE, OTHER | END 2023-02-12 | disposition home or self-care (01) | PROVIDERS: ATTEND Physician Assistant | DX: M50.30 Other cervical disc degeneration, unspecified cervical region (principal); M54.6 Pain in thoracic spine; G89.29 Other chronic pain; I10 Essential (primary) hypertension; E03.9 Hypothyroidism, unspecified ==

== ENCOUNTER 2023-03-09 08:46 | Outpatient (RCR) | payer MEDICARE, OTHER | END 2023-03-14 | disposition home or self-care (01) | PROVIDERS: ATTEND Physician Assistant | DX: M25.511 Pain in right shoulder (principal); M50.30 Other cervical disc degeneration, unspecified cervical region; M54.6 Pain in thoracic spine; G89.29 Other chronic pain; I10 Essential (primary) hypertension; E03.9 Hypothyroidism, unspecified; Z96.651 Presence of right artificial knee joint ==

== ENCOUNTER 2023-03-19 10:30 | Outpatient (RCR) | payer MEDICARE, OTHER | END 2023-03-19 12:34 | disposition home or self-care (01) | PROVIDERS: ATTEND Physician Assistant | DX: M25.511 Pain in right shoulder (principal); M50.30 Other cervical disc degeneration, unspecified cervical region; M54.6 Pain in thoracic spine; G89.29 Other chronic pain; I10 Essential (primary) hypertension; E03.9 Hypothyroidism, unspecified; Z96.651 Presence of right artificial knee joint ==